=== PATIENT | female | born 1945 | race Caucasian/White ===

== ENCOUNTER → 2017-10-15 14:22 | Outpatient (CLI) | payer MEDICARE, OTHER, SELFPAY ==
[2017-10-15 15:47] LABS: International Normalized Ratio 1.3; Prothrombin Time (Protime)PT. 16.4 SECONDS (11.7-14.9)
== END ==
PROVIDERS: Family Provider Family Medicine; PCP Family Medicine; Visit Provider Internal Medicine Cardiovascular Disease
DX: I48.0 Paroxysmal atrial fibrillation (principal); Z86.711 Personal history of pulmonary embolism
CPT/HCPCS: 36415; 85610

== ENCOUNTER 2017-11-05 15:46 | Outpatient (RCR) | payer MEDICARE, OTHER, SELFPAY ==
[2017-10-11 16:09] LABS: Prothrombin Time (Protime)PT. 13.6 SECONDS (11.7-14.9)
[2017-10-22 14:23] LABS: International Normalized Ratio 1.3; Prothrombin Time (Protime)PT. 16.6 SECONDS (11.7-14.9)
[2017-10-29 16:30] LABS: International Normalized Ratio 1.3; Prothrombin Time (Protime)PT. 15.8 SECONDS (11.7-14.9)
[2017-11-05 17:24] LABS: International Normalized Ratio 1.3; Prothrombin Time (Protime)PT. 16.3 SECONDS (11.7-14.9)
== END 2017-11-05 16:00 | disposition home or self-care (01) ==
LOC: LAB 15:46
PROVIDERS: Family Provider Family Medicine; PCP Family Medicine; Visit Provider Internal Medicine Cardiovascular Disease
DX: I48.0 Paroxysmal atrial fibrillation (principal); Z86.711 Personal history of pulmonary embolism
CPT/HCPCS: 36415; 85610; 97110

== ENCOUNTER → 2017-11-19 14:20 | Outpatient (CLI) | payer MEDICARE, OTHER, SELFPAY ==
[2017-11-19 15:51] LABS: Absolute Neutrophil Count 3.4 X10^3/uL (2.0-7.7); Basophil# 0.02 X10^3/uL; Basophil% 0.3 % (0-1); Eosinophil# 0.19 X10^3/uL; Eosinophils% 3.3 % (0-5); Hematocrit 42.2 % (37-47); Hemoglobin 13.5 g/dl (12.0-15.0); Lymphocyte % 25.8 % (19-41); Mean Corpuscular Hgb 29.6 pg (27.0-32.0); Mean Corpuscular Volume 92.5 fL (81-99); Mean Platelet Vol. 9.7 fl (6.2-12.0); Monocyte# 0.74 X10^3/uL; Monocyte% 12.7 % (0-10); Neutrophil # 3.36 X10^3/uL (2.7-7.7); Neutrophil % 57.9 % (47-70); Platelet Count 228 K/mm3 (150-450); RBC Distribution Width CV 12.8 % (11.6-14.6); RBC Distribution Width SD 42.4 fl (35.1-43.9); Red Blood Count 4.56 M/mm3 (4.2-5.4); White Blood Count 5.8 K/mm3 (4.4-11.0)
[2017-11-19 15:53] LABS: POSITIVE COUNT NO; POSITIVE DIFFERENTIAL NO; POSITIVE MORPHOLOGY NO
[2017-11-19 16:05] LABS: AST(SGOT) 31 U/L (15-37); Alanine Aminotransfer ALT/SGPT 31 U/L (13-56); Albumin, Serum 3.5 g/dL (3.2-5.0); Alkaline Phosphatase 108 U/L (45-117); Anion Gap 6 (5-15); BUN 16 mg/dL (7-18); BUN/Creat Ratio 22.4 RATIO (10-20); Calcium,Total 8.6 mg/dL (8.5-10.1); Chloride 106 mmol/L (98-107); Creatinine, Serum 0.71 mg/dL (0.55-1.02); EST Glomerular Filtration Rate 86 mL/min (>60); Est Glom Filt Rate - Afr Amer 104 mL/min (>60); Globulin 3.4 g/dL (2.2-4.2); Glucose 103 mg/dL (74-106); Potassium 3.7 mmol/L (3.5-5.1); Protein, Total 6.9 g/dL (6.4-8.2); Sodium Level 141 mmol/L (136-145)
[2017-11-19 16:28] LABS: International Normalized Ratio 2.5; Prothrombin Time (Protime)PT. 27.5 SECONDS (11.7-14.9)
== END ==
PROVIDERS: Family Provider Family Medicine; PCP Family Medicine; Visit Provider Internal Medicine Rheumatology
DX: M05.79 Rheumatoid arthritis with rheumatoid factor of multiple sites without organ or systems involvement (principal); Z79.899 Other long term (current) drug therapy; M79.7 Fibromyalgia; M15.9 Polyosteoarthritis, unspecified; M18.12 Unilateral primary osteoarthritis of first carpometacarpal joint, left hand; K21.9 Gastro-esophageal reflux disease without esophagitis; I10 Essential (primary) hypertension; J45.909 Unspecified asthma, uncomplicated; E78.5 Hyperlipidemia, unspecified; I26.99 Other pulmonary embolism without acute cor pulmonale
CPT/HCPCS: 36415; 80053; 85025; 85610

== ENCOUNTER 2017-11-26 13:30 | Outpatient (RCR) | payer MEDICARE, OTHER, SELFPAY ==
--- NOTE | 2017-10-29 14:49 | HP.PTEVAL ---
Patient's Visit Information MURIEL CHRISTINE is a 72 year old F referred to Physical Therapy by Renu Mcdonald, [email or web address] with a diagnosis of balance issues. Date of Evaluation: 10/29/17 Physical Therapist: Jeanne Miller - Visit Plan Frequency: 2x /Week Duration: 4 Weeks - Subjective Subjective: Pt reports that she has no balance. 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 It did not affect her vision. SHe does not get dizzy. She was down for awhile after that surgery and was in and out of the hospital in 1.5 weeks and then resumed her home activities except cant walk straight. She just had a L ear infection about 6 months ago. She always uses a can except a furnitutre walker at home. She has fallen 5 times in the last 3 months. One time she fell over her cane. another time she tripped on her pant leg. another time she had a black eye for awhile. She reports that she does not do anything fast. RA in her back and has been seeing Dr Hurtado and she had no pain for 2 months. She is [place]. Stairs slowly with a railing. She has steps down to the basement. Pt does not think her legs are weak. Hard to get up when on the ground. - Pain back pain Pain Intensity (Out of 10): 0 Pain Intensity Range: 2 - Objective Gait: walks with WBOS with a straight cane with increase veering and some SOB. sit to stand without UE...able to do so but a slight struggle. Stairs: up and down stairs with 1 hand rail and 1 straight cane alternating ascending stairs and 1 step at a time descending stairs. FGA: 30 (struggled with head turns, walking bw, stepping over a block etc). LE MMT: B hip flex 4/5, B hip abd 4-/5, B knee flex 4/5, B knee ext 4/5, heel and toe raises (unable without UE support). - Balance Scores Functional Gait Assessment Score: 9 % Disability: 70.0000 - Goals Goal 1:: I HEP Goal Time Frame: 4-6 Weeks Goal 2:: Increase FGA by 5 points to 14/30 to decrease fall risk. Goal Time Frame: 4-6 Weeks - Rehabilitation Potential Rehabilitation Potential: Good - Anticipated Interventions Patient/Client Instruction: Educate patient on: Plan of Care For the Purpose of:: To increase ROM, To improve nutrient delivery to tissue, To improve muscle performance and motor function, To improve ability to perform ADL's, To increase tolerance to activity/condition/position, To improve performance and independence with ADL's, To decrease level of supervision to perform tasks, To improve ability of physical actions for home/community/work/leisure, To improve gait and locomotor functions, To increase flexibility/ROM, To improve balance, To improve safety with gait Therapeutic Exercise to Include: Strength training, Endurance training, Balance training, Postural training, Flexibilty training, Gait and locomotor training, Passive ROM, Active ROM For the Purpose of:: To increase ROM, To improve nutrient delivery to tissue, To improve muscle performance and motor function, To improve ability to perform ADL's, To increase tolerance to activity/condition/position, To improve performance and independence with ADL's, To improve ability of physical actions for home/community/work/leisure, To improve gait and locomotor functions, To improve balance, To improve safety with gait Functional Training to Include: Gait training For the Purpose of:: To improve gait and locomotor functions, To improve safety with gait Thank you for the opportunity to evaluate your patient. For Medicare and Medicare HMO plans, please review the plan of care and approve it. It will need to be FAXED BACK to us at [phone] for Medicare purposes. Please let me know if there are questions or concerns regarding this plan of care. Physician Signature: Date:
--- NOTE | 2017-11-26 15:12 | HP.PTDCSUM ---
HP - PT D/C Summary It has been my pleasure to treat MURIEL CHRISTINE under orders from CAR[facility] GoldmanC, for the diagnosis of balance issues for a total of 9 visit(s). Discharge Date: 11/26/17 Please see the following information for a summary of their discharge status. - Subjective Subjective: Pt reports that she has been showing her kids how she can walk BW and SW. Pt feels that her balance is about 65% better. She is even walking around the hosue a little without the cane but then her back starts to hurt. Pt feels that she will be ok to do HEP at home for awhile. - Pain back pain Pain Intensity (Out of 10): 4 L UE Pain Intensity (Out of 10): 0 - Overall Improvement % Improvement: 65 - Objective Objective/Function: FGA 11. Pt walks with increase speed and confidence. She does tend to veer a little with turning but has caught herself the handful of times that she has veered here in the clinic. - Goals Goal 1:: I HEP Goal Progress: Goal Met Goal 2:: Increase FGA by 5 points to to decrease fall risk. Goal Progress: Progressing - Plan Plan: DC PT to HEP - D/C Information Discharge Comments: DC PT If there are questions or concerns regarding this patient's physical therapy, please feel free to call me at [phone]. Thank you for the referral of this patient. Sincerely, Jeanne Miller
== END 2017-11-26 19:00 | disposition home or self-care (01) ==
LOC: PT 13:30
PROVIDERS: Family Provider Family Medicine; PCP Family Medicine; Visit Provider Nurse Practitioner Family
DX: M54.17 Radiculopathy, lumbosacral region (principal); M51.37 Other intervertebral disc degeneration, lumbosacral region; M47.817 Spondylosis without myelopathy or radiculopathy, lumbosacral region; M46.96 Unspecified inflammatory spondylopathy, lumbar region
CPT/HCPCS: 97110; 97162; 97530

== ENCOUNTER 2017-12-03 15:28 | Outpatient (RCR) | payer MEDICARE, OTHER, SELFPAY ==
[2017-11-12 14:56] LABS: International Normalized Ratio 1.7; Prothrombin Time (Protime)PT. 19.6 SECONDS (11.7-14.9)
[2017-12-03 16:07] LABS: International Normalized Ratio 1.7; Prothrombin Time (Protime)PT. 19.7 SECONDS (11.7-14.9)
== END 2017-12-03 16:00 | disposition home or self-care (01) ==
LOC: LAB 15:28
PROVIDERS: Family Provider Family Medicine; PCP Family Medicine; Visit Provider Internal Medicine Cardiovascular Disease
DX: I48.0 Paroxysmal atrial fibrillation (principal); Z86.711 Personal history of pulmonary embolism; M54.17 Radiculopathy, lumbosacral region; M51.37 Other intervertebral disc degeneration, lumbosacral region; M47.817 Spondylosis without myelopathy or radiculopathy, lumbosacral region; M46.96 Unspecified inflammatory spondylopathy, lumbar region
CPT/HCPCS: 36415; 85610; 97110

== ENCOUNTER 2018-01-03 13:46 | Outpatient (RCR) | payer MEDICARE, OTHER, SELFPAY ==
[2017-12-17 16:50] LABS: International Normalized Ratio 1.7
[2017-12-26 14:12] LABS: International Normalized Ratio 1.6
[2018-01-03 15:05] LABS: International Normalized Ratio 2.9; Prothrombin Time (Protime)PT. 30.6 SECONDS (11.7-14.9)
== END 2018-01-03 14:00 | disposition home or self-care (01) ==
LOC: LAB 13:46
PROVIDERS: Family Provider Family Medicine; PCP Family Medicine; Visit Provider Internal Medicine Cardiovascular Disease
DX: I48.0 Paroxysmal atrial fibrillation (principal); Z86.711 Personal history of pulmonary embolism; M54.17 Radiculopathy, lumbosacral region; M51.37 Other intervertebral disc degeneration, lumbosacral region; M47.817 Spondylosis without myelopathy or radiculopathy, lumbosacral region; M46.96 Unspecified inflammatory spondylopathy, lumbar region
CPT/HCPCS: 36415; 85610

== ENCOUNTER 2018-01-27 16:09 | Outpatient (RCR) | payer MEDICARE, OTHER, SELFPAY ==
[2018-01-20 16:42] LABS: Prothrombin Time (Protime)PT. 39.1 SECONDS (11.7-14.9)
[2018-01-27 17:16] LABS: International Normalized Ratio 2.8; Prothrombin Time (Protime)PT. 29.9 SECONDS (11.7-14.9)
== END 2018-01-27 17:00 | disposition home or self-care (01) ==
LOC: LAB 16:09
PROVIDERS: Family Provider Family Medicine; PCP Family Medicine; Visit Provider Internal Medicine Cardiovascular Disease
DX: I48.0 Paroxysmal atrial fibrillation (principal); Z86.711 Personal history of pulmonary embolism
CPT/HCPCS: 36415; 85610

== ENCOUNTER → 2018-02-04 13:26 | Outpatient (CLI) | payer MEDICARE, OTHER, SELFPAY ==
[2018-02-04 14:16] LABS: International Normalized Ratio 2.4
== END ==
PROVIDERS: Internal Medicine Cardiovascular Disease; Family Provider Family Medicine; PCP Family Medicine; Visit Provider Anesthesiology Pain Medicine
DX: I48.0 Paroxysmal atrial fibrillation (principal); Z86.711 Personal history of pulmonary embolism
CPT/HCPCS: 36415; 85610

== ENCOUNTER → 2018-02-17 15:31 | Outpatient (CLI) | payer MEDICARE, OTHER, SELFPAY ==
[2018-02-17 17:37] LABS: Absolute Lymphocyte Count 0.69 X10^3/ul (0.83-4.51); Absolute Neutrophil Count 4.8 X10^3/uL (2.0-7.7); Basophil# 0.02 X10^3/uL; Basophil% 0.4 % (0-1); Eosinophil# 0.03 X10^3/uL; Eosinophils% 0.5 % (0-5); Hematocrit 40.8 % (37-47); Hemoglobin 13.2 g/dl (12.0-15.0); Lymphocyte # 0.69 X10^3/ul (4.0); Lymphocyte % 12.1 % (19-41); Mean Corp Hgb Conc 32.4 g/gl (32-36); Mean Corpuscular Volume 92.7 fL (81-99); Mean Platelet Vol. 9.5 fl (6.2-12.0); Monocyte# 0.13 X10^3/uL; Monocyte% 2.3 % (0-10); Neutrophil # 4.81 X10^3/uL (2.7-7.7); Neutrophil % 84.7 % (47-70); Platelet Count 223 K/mm3 (150-450); RBC Distribution Width CV 14.2 % (11.6-14.6); RBC Distribution Width SD 48.2 fl (35.1-43.9); White Blood Count 5.7 K/mm3 (4.4-11.0)
[2018-02-17 17:45] LABS: POSITIVE COUNT NO; POSITIVE DIFFERENTIAL NO; POSITIVE MORPHOLOGY NO
[2018-02-17 18:03] LABS: AST(SGOT) 46 U/L (15-37); Alanine Aminotransfer ALT/SGPT 46 U/L (13-56); Albumin, Serum 3.3 g/dL (3.2-5.0); Alkaline Phosphatase 87 U/L (45-117); Anion Gap 9 (5-15); BUN 13 mg/dL (7-18); BUN/Creat Ratio 18.5 RATIO (10-20); Calcium,Total 8.3 mg/dL (8.5-10.1); Chloride 107 mmol/L (98-107); EST Glomerular Filtration Rate 88 mL/min (>60); Est Glom Filt Rate - Afr Amer 106 mL/min (>60); Globulin 3.4 g/dL (2.2-4.2); Glucose 169 mg/dL (74-106); Potassium 4.1 mmol/L (3.5-5.1); Protein, Total 6.7 g/dL (6.4-8.2); Sodium Level 142 mmol/L (136-145)
== END ==
PROVIDERS: Family Provider Family Medicine; PCP Family Medicine; Visit Provider Internal Medicine Rheumatology
DX: M05.79 Rheumatoid arthritis with rheumatoid factor of multiple sites without organ or systems involvement (principal); Z79.899 Other long term (current) drug therapy; M79.7 Fibromyalgia; M15.9 Polyosteoarthritis, unspecified; M18.12 Unilateral primary osteoarthritis of first carpometacarpal joint, left hand; M18.11 Unilateral primary osteoarthritis of first carpometacarpal joint, right hand; M18.10 Unilateral primary osteoarthritis of first carpometacarpal joint, unspecified hand
CPT/HCPCS: 36415; 80053; 85025

== ENCOUNTER 2018-03-04 14:25 | Outpatient (RCR) | payer MEDICARE, OTHER, SELFPAY ==
[2018-03-04 16:18] LABS: International Normalized Ratio 2.4; Prothrombin Time (Protime)PT. 26.3 SECONDS (11.7-14.9)
== END 2018-03-04 16:00 | disposition home or self-care (01) ==
LOC: LAB 14:25
PROVIDERS: Family Provider Family Medicine; PCP Family Medicine; Visit Provider Internal Medicine Cardiovascular Disease
DX: I48.0 Paroxysmal atrial fibrillation (principal); Z86.711 Personal history of pulmonary embolism; M54.17 Radiculopathy, lumbosacral region; M51.37 Other intervertebral disc degeneration, lumbosacral region; M47.817 Spondylosis without myelopathy or radiculopathy, lumbosacral region; M46.96 Unspecified inflammatory spondylopathy, lumbar region
CPT/HCPCS: 36415; 85610

== ENCOUNTER → 2018-03-18 06:20 | Outpatient (CLI) | payer MEDICARE, OTHER, SELFPAY ==
--- NOTE | 2018-03-18 13:39 | STRESSREP ---
Stress Test Report Date: 03/18/2018 Procedure: Pharmacologic stress nuclear imaging study Indications: Dyspnea Consent: Per the patient Procedure: The patient underwent pharmacologic (Regadenoson) evaluation with a peak heart rate of 107 beats per minute (85 predicted maximal heart rate) and a peak blood pressure of 132/78 mmHg. The baseline ECG demonstrated normal sinus rhythm; right bundle branch block. The peak pharmacologic ECG demonstrated no obvious ECG changes. There was an occasional PVC during infusion and recovery. There was no complaint of chest discomfort during pharmacologic infusion or recovery. The examination was discontinued secondary to completion of protocol. Impression: 1. Pharmacologic (Regadenoson) evaluation 2. Peak pharmacologic ECG with no obvious ECG changes. 3. Was an occasional PVC during infusion and recovery 4. Nuclear images pending Myocardial perfusion imaging study: Technique: The patient was injected with 12 millicuries of technetium 99m Cardiolite and subsequently rest SPECT Cardiolite nuclear imaging was obtained in the horizontal long, vertical long, and short axis views. The patient underwent pharmacologic (Regadenoson) evaluation with a peak heart rate of 107 beats per minute (85 % percent predicted maximal heart rate) and a peak blood pressure of 132/78 mmHg. The patient was injected with 36 millicuries of technetium 99m Cardiolite and subsequently stress SPECT Cardiolite nuclear imaging was obtained in the horizontal long, vertical long, and short axis views. A gated Cardiolite study at peak stress was obtained. Interpretation: Rest and stress SPECT Cardiolite nuclear imaging status post realignment, normalization, and attenuation correction demonstrate a lot of uniform tracer uptake and myocardial perfusion appearing within normal limits. There is end systolic thickening and brightening. The gated Cardiolite study demonstrates myocardial thickening and inward wall motion. The reported LVEF is 81 %. Impression: 1. Rest and stress SPECT Cardiolite nuclear imaging demonstrate relative uniform tracer uptake and myocardial perfusion appearing within normal limits. 2. The gated Cardiolite study reports an LVEF of 81 %. This note was generated with [employer] software. It may contain incorrect words, spelling, and punctuation that were not noted in checking the note before signing.
== END ==
PROVIDERS: Family Provider Family Medicine; PCP Family Medicine; Visit Provider Family Medicine
DX: R06.02 Shortness of breath (principal)
CPT/HCPCS: 78452; 93017; A9500; A4216; J2785

== ENCOUNTER 2018-04-07 15:42 | Outpatient (RCR) | payer MEDICARE, OTHER, SELFPAY ==
[2018-03-20 16:21] LABS: International Normalized Ratio 1.3; Prothrombin Time (Protime)PT. 15.7 SECONDS (11.7-14.9)
[2018-04-07 17:23] LABS: International Normalized Ratio 2.3; Prothrombin Time (Protime)PT. 25.6 SECONDS (11.7-14.9)
== END 2018-04-07 17:00 | disposition home or self-care (01) ==
LOC: LAB 15:42
PROVIDERS: Family Provider Family Medicine; PCP Family Medicine; Visit Provider Internal Medicine Cardiovascular Disease
DX: I48.0 Paroxysmal atrial fibrillation (principal); Z86.711 Personal history of pulmonary embolism
CPT/HCPCS: 36415; 85610

== ENCOUNTER 2018-04-29 13:40 | Outpatient (RCR) | payer MEDICARE, OTHER, SELFPAY ==
[2018-04-29 15:34] LABS: International Normalized Ratio 3.2; Prothrombin Time (Protime)PT. 33.3 SECONDS (11.7-14.9)
[2018-04-29 15:41] LABS: AST(SGOT) 31 U/L (15-37); Alanine Aminotransfer ALT/SGPT 33 U/L (13-56); Albumin, Serum 3.4 g/dL (3.2-5.0); Alkaline Phosphatase 87 U/L (45-117); Bilirubin, Direct 0.07 mg/dL (0.00-0.30); Cholesterol 143 mg/dL (200); Globulin 3.5 g/dL (2.2-4.2); High Density Lipoprotein 50 mg/dL; Protein, Total 6.9 g/dL (6.4-8.2); Triglycerides 129 mg/dL; Very Low Density Lipoprotein 26 mg/dL (5-40)
== END 2018-04-29 15:00 | disposition home or self-care (01) ==
LOC: LAB 13:40
PROVIDERS: Nurse Practitioner Family; Family Provider Family Medicine; PCP Family Medicine; Visit Provider Internal Medicine Cardiovascular Disease
DX: I48.0 Paroxysmal atrial fibrillation (principal); E78.5 Hyperlipidemia, unspecified; Z86.711 Personal history of pulmonary embolism
CPT/HCPCS: 36415; 80061; 80076; 85610

== ENCOUNTER → 2018-05-13 14:24 | Outpatient (CLI) | payer MEDICARE, OTHER, SELFPAY ==
[2018-05-13 16:13] LABS: Absolute Lymphocyte Count 1.87 X10^3/ul (0.83-4.51); Absolute Neutrophil Count 3.9 X10^3/uL (2.0-7.7); Basophil# 0.02 X10^3/uL; Basophil% 0.3 % (0-1); Eosinophil# 0.23 X10^3/uL; Eosinophils% 3.4 % (0-5); Hematocrit 41.2 % (37-47); Hemoglobin 13.5 g/dl (12.0-15.0); Lymphocyte # 1.87 X10^3/ul (4.0); Mean Corp Hgb Conc 32.8 g/gl (32-36); Mean Corpuscular Volume 91.6 fL (81-99); Mean Platelet Vol. 9.5 fl (6.2-12.0); Monocyte# 0.69 X10^3/uL; Monocyte% 10.3 % (0-10); Neutrophil # 3.87 X10^3/uL (2.7-7.7); Neutrophil % 57.9 % (47-70); Platelet Count 205 K/mm3 (150-450); White Blood Count 6.7 K/mm3 (4.4-11.0)
[2018-05-13 16:16] LABS: POSITIVE COUNT NO; POSITIVE DIFFERENTIAL NO; POSITIVE MORPHOLOGY NO
[2018-05-13 16:25] LABS: International Normalized Ratio 2.3
[2018-05-13 16:44] LABS: ALB/GLOB Ratio 0.9 RATIO (0.9-2.4); AST(SGOT) 33 U/L (15-37); Alanine Aminotransfer ALT/SGPT 37 U/L (13-56); Albumin, Serum 3.2 g/dL (3.2-5.0); Alkaline Phosphatase 88 U/L (45-117); Anion Gap 9 (5-15); BUN 12 mg/dL (7-18); BUN/Creat Ratio 16.2 RATIO (10-20); Calcium,Total 8.6 mg/dL (8.5-10.1); Chloride 106 mmol/L (98-107); Creatinine, Serum 0.74 mg/dL (0.55-1.02); EST Glomerular Filtration Rate 82 mL/min (>60); Est Glom Filt Rate - Afr Amer 100 mL/min (>60); Globulin 3.4 g/dL (2.2-4.2); Glucose 103 mg/dL (74-106); Potassium 3.9 mmol/L (3.5-5.1); Protein, Total 6.6 g/dL (6.4-8.2); Sodium Level 142 mmol/L (136-145)
== END ==
PROVIDERS: Family Provider Family Medicine; PCP Family Medicine; Referring Provider Internal Medicine Rheumatology; Visit Provider Internal Medicine Rheumatology
DX: I48.0 Paroxysmal atrial fibrillation (principal); Z86.711 Personal history of pulmonary embolism; M05.79 Rheumatoid arthritis with rheumatoid factor of multiple sites without organ or systems involvement; Z79.899 Other long term (current) drug therapy; M79.7 Fibromyalgia; M15.9 Polyosteoarthritis, unspecified; M18.12 Unilateral primary osteoarthritis of first carpometacarpal joint, left hand; M18.11 Unilateral primary osteoarthritis of first carpometacarpal joint, right hand; K21.9 Gastro-esophageal reflux disease without esophagitis; I10 Essential (primary) hypertension; E78.5 Hyperlipidemia, unspecified; M18.10 Unilateral primary osteoarthritis of first carpometacarpal joint, unspecified hand
CPT/HCPCS: 36415; 80053; 85025; 85610

== ENCOUNTER 2018-07-08 16:10 | Outpatient (RCR) | payer MEDICARE, OTHER, SELFPAY ==
[2018-07-08 18:09] LABS: International Normalized Ratio 1.1; Prothrombin Time (Protime)PT. 14.2 SECONDS (11.7-14.9)
--- OUTSIDE RECORDS SUMMARY | 2018-09-03 09:01 | XMS RPT_ITS ---
:1945 Author Organization OHIP Support Name Relationship Address Phone R Unavailable Unavailable Unavailable TAMAR CHRISTINE Unavailable [address] + [place] [address] R Unavailable Unavailable Unavailable TAMAR CHRISTINE Unavailable [address] + [place] [address] R Unavailable Unavailable Unavailable T[facility]AR [facility]STINE [facility] [address] + [place] [address] R Unavailable Unavailable Unavailable TAMAR CHRISTINE Unavailable [facility] [address] + [place] [address] R Unavailable Unavailable Unavailable TAMAR CHRISTINE Unavailable [facility] [address] + [place] [address] R Unavailable Unavailable Unavailable TAMAR CHRISTINE Unavailable [facility] [address] + [place] [address] R Unavailable Unavailable Unavailable TAMAR CHRISTINE [facility] [address] + [place] [address] R Unavailable Unavailable Unavailable TAMAR CHRISTINE Unavailable [address] + [place] [address] R Unavailable Unavailable Unavailable TAMAR CHRISTINE Unavailable [address] + [place] [address] R Unavailable Unavailable Unavailable TAMAR CHRISTINE Unavailable [address] + [place] [address] R Unavailable Unavailable Unavailable TAMAR CHRISTINE Unavailable [address] + [place] [address] R Unavailable Unavailable Unavailable TAMAR CHRISTINE Unavailable [address] + [place] [address] R Unavailable Unavailable Unavailable TAMAR CHRISTINE Unavailable [address] + [place] [address] R Unavailable Unavailable Unavailable TAMAR CHRISTINE [facility] [address] + [place] [address] R Unavailable Unavailable Unavailable WELLS, TAMAR Unavailable [address] + [place] [address] R Unavailable Unavailable Unavailable WELLS, TAMAR Unavailable [address] + [place] [address] R Unavailable Unavailable Unavailable WELLS, TAMAR Unavailable [address] + [place] [address] R Unavailable Unavailable Unavailable WELLS, TAMAR Unavailable [address] + [place] [address] R Unavailable Unavailable Unavailable WELLS, TAMAR Unavailable [address] + [place] [address] R Unavailable Unavailable Unavailable WELLS, TAMAR Unavailable [address] + [place] [address] R Unavailable Unavailable Unavailable WELLS, TAMAR Unavailable [address] + [place] [address] R Unavailable Unavailable Unavailable WELLS, TAMAR Unavailable [address] + [place] [address] Care Team Providers Name Role Phone Ghazal Harrison Attending Unavailable Christy, Ghazal Referring Unavailable Baxter, Low Primary Care Unavailable Jayne, Davenport Attending Unavailable Baxter, Low Referring Unavailable Baxter, Low Primary Care Unavailable Jayne, [place]en[place] Attending Unavailable Baxter, Low Primary Care Unavailable Jayne, [place] Referring Unavailable Jayne, Obdulio Attending Unavailable Jayne, Obdulio Referring Unavailable Baxter, Low Primary Care Unavailable Baxter, Low Primary Care Unavailable Prebish, Renu RUBY [employer] RAILS ENGINEER-C Referring Unavailable Prebish, Renu RUBY ON RAILS ENGINEER-C Attending Unavailable Terrance Sandhu Attending Unavailable Baxter, Low Referring Unavailable Baxter, Low Primary Care Unavailable Jayne, Davenport Attending Unavailable Jayne, [place]en[place] Referring Unavailable Baxter, Low Primary Care Unavailable Ghazal Harrison Attending Unavailable Ghazal Harrison Referring Unavailable Baxter, Low Primary Care Unavailable Jayne, Obdulio Attending Unavailable Jayne, [place]en[place] Referring Unavailable Baxter, Low Primary Care Unavailable Jayne, [place] Attending Unavailable Jayne, Obdulio Referring Unavailable Baxter, Low Primary Care Unavailable Annemarie Aviles Attending Unavailable Cruz Liu Attending Unavailable Cruz Liu Referring Unavailable Baxter, Low Primary Care Unavailable Jayne, Davenport Attending Unavailable Jayne, Obdulio Referring Unavailable Baxter, Low Primary Care Unavailable Vellanki, Ghazal Attending Unavailable Vellanki, Ghazal Referring Unavailable Baxter, Low Primary Care Unavailable Baxter, Low Attending Unavailable Baxter, Low Referring Unavailable Baxter, Low Primary Care Unavailable Jayne, [place]en[place] Attending Unavailable Jayne, Obdulio Referring Unavailable Baxter, Low Primary Care Unavailable Noe, Cruz Consulting Unavailable Gen Iniguez Attending Unavailable Baxter, Low Referring Unavailable Baxter, Low Primary Care Unavailable Jayne, Obdulio Attending Unavailable Jayne, Obdulio Referring Unavailable Baxter, Low Primary Care Unavailable Noe, Cruz Consulting Unavailable Roof, Terrance H Consulting Unavailable Moodispaw, Low Attending Unavailable Baxter, Low Referring Unavailable Vellanki, Ghazal Attending Unavailable Vellanki, Ghazal Referring Unavailable Baxter, Low Primary Care Unavailable Jayne, Obdulio Attending Unavailable Jayne, [place] Referring Unavailable Baxter, Low Primary Care Unavailable Noe, Cruz Consulting Unavailable Roof, Terrance H Consulting Unavailable Jayne, Obdulio Attending Unavailable Jayne, Obdulio Referring Unavailable Baxter, Low Primary Care Unavailable Noe, Cruz Consulting Unavailable Roof, Terrance H Consulting Unavailable PROBLEMS PROBLEMS DATE TYPE CONDITION / CODE ATTENDING STATUS SOURCE Unknown I48.0 - Paroxysmal atrial Jayne, Obdulio Active [place] [facility] fibrillation / Community I48.0(ICD-10) Hospital Repository Unknown E78.5 - Hyperlipidemia, Jayne, Obdulio Active [place] [facility] unspecified / Community E78.5(ICD-10) Hospital Repository Unknown R06.02 - Shortness of Moodispaw, Active [place] 8 breath / R06.02(ICD-10) [facility] Repository Unknown Z79.899 - Other client engagement specialist Vellanstacy, Active [place] [facility] (current) drug therapy / [facility] Z79.899(ICD-10) Hospital Repository Unknown M79.7 - Fibromyalgia / Vellanki, Active [place] 8 M79.7(ICD-10) [facility] Hospital Repository Unknown M15.9 - Vellanki, Active [place] [facility] Polyosteoarthritis, [facility] unspecified / Hospital M15.9(ICD-10) Repository Unknown M18.12 - Unilateral Vellanki, Active [place] 8 [facility] / Repository M18.12(ICD-10) Unknown M18.11 - Unilateral Vellanki, Active [place] 8 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, right hand / Repository M18.11(ICD-10) Unknown M18.10 - Unilateral Vellanki, Active [place] 8 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, unspecified hand / Repository M18.10(ICD-10) Unknown M54.17 - Radiculopathy, Prebish, Renu Active [place] 8 lumbosacral region / RUBY [employer] RAILS ENGINEER-C Community M54.17(ICD-10) Hospital Repository Unknown 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, Active [place] 8 arthritis with rheumatoid [facility] Community factor of multiple sites Hospital without organ or systems Repository involvement / M05.79(ICD-10) Unknown I10 - Essential (primary) Vellanki, Active [place] 8 hypertension / [facility] I10(ICD-10) Hospital Repository Unknown K21.9 - Gastro-esophageal Vellanki, Active [place] 8 reflux disease without [facility] esophagitis / Hospital K21.9(ICD-10) Repository Unknown J45.909 - Unspecified Vellanki, Active [place] 8 asthma, uncomplicated / [facility] J45.909(ICD-10) Hospital Repository Unknown I26.99 - Other pulmonary Vellanki, Active [place] 8 embolism without acute [facility] cor pulmonale / Hospital I26.99(ICD-10) Repository Unknown Z86.711 - Personal Jayne, Davenport Active [place] 8 history of pulmonary Community embolism / Hospital Z86.711(ICD-10) Repository Unknown E78.00 - Pure Jayne, Obdulio Active [place] 8 hypercholesterolemia, Community unspecified / Hospital E78.00(ICD-10) Repository Unknown E78.0 - Pure Jayne, Davenport Active [place] 8 hypercholesterolemia / Community E78.0(ICD-10) Hospital Repository PROCEDURES PROCEDURES No Procedure Records FoundRESULTS RESULTS PROTHROMBIN TIME W/INR Collected: 07/08/2018 Status: F Source: [place] 4:16 PM [facility] REPOSITORY TYPE CODE TESTS RESULT OUT OF RANGE REFERENCE UNITS LAB L300.4150 11.7-14.9 SECONDS Normal PROTIME 14.2 LAB L300.4200 Normal INR 1.1 Performed By: #### L300.3900 #### [facility] [address] [place], [address] PROTHROMBIN TIME W/INR Collected: 05/13/2018 Status: F Source: [place] 2:33 PM [facility] REPOSITORY Order Comment: DR. GODOY WANTS THE PT/INR CHRISTY CARDENAS WANTS THE CBCD CMP TYPE CODE TESTS RESULT OUT OF RANGE REFERENCE UNITS LAB L300.4150 11.7-14.9 SECONDS High PROTIME 25.0 LAB L300.4200 Normal INR 2.3 Performed By: #### L300.3900 #### [facility] [address] [place], [place], [address] CBC W/DIFF, AUTOMATED Collected: 05/13/2018 Status: F Source: [place] 2:31 PM [facility] REPOSITORY Order Comment: DR. GODOY WANTS THE PT/INR CHRISTY CARDENAS WANTS THE CBCD CMP TYPE CODE TESTS RESULT OUT OF RANGE REFERENCE UNITS LAB L100.1000 4.4-11.0 K/mm3 Normal WBC 6.7 LAB L100.1200 4.2-5.4 M/mm3 Normal RBC 4.50 LAB L100.1300 12.0-15.0 g/dl Normal HGB 13.5 LAB L100.1400 37-47 % Normal HCT 41.2 LAB L100.1500 81-99 fL Normal MCV 91.6 LAB L100.1600 27.0-32.0 pg Normal MCH 30.0 LAB L100.1700 32-36 g/gl Normal MCHC 32.8 LAB L100.1810 11.6-14.6 % Normal RDW CV 13.0 LAB L100.1820 35.1-43.9 fl Normal RDW SD 43.0 LAB L100.1900 150-450 K/mm3 Normal PLT 205 LAB L100.2000 6.2-12.0 fl Normal MPV 9.5 LAB L100.2100 47-70 % Normal NEUT% 57.9 LAB L100.2200 19-41 % Normal LY% 28.0 LAB L100.2300 0-10 % High MONO% 10.3 LAB L100.2400 0-5 % Normal EO% 3.4 LAB L100.2500 0-1 % Normal BASO% 0.3 LAB L100.2550 0.0-0.9 % Normal IM GRAN % 0.100 Result Comment: IG% - Immature Granulocytes (promyelocytes, myelocytes and metamyelocytes) > 1% indicates that a LEFT SHIFT is Present. LAB L100.2620 2.0-7.7 X10 3/uL Normal Absolute Neut 3.9 LAB L100.2720 0.83-4.51 X10 3/ul Normal Absolute Lymph 1.87 Performed By: #### L100.0100 #### [facility] [address] [place], [address] COMPREHENSIVE METABOLIC Collected: 05/13/2018 Status: F Source: [facility] 2:31 PM [facility] REPOSITORY Order Comment: DR. GODOY WANTS THE PT/INR CHRISTY CARDENAS WANTS THE CBCD CMP TYPE CODE TESTS RESULT OUT OF RANGE REFERENCE UNITS LAB L501.0100 74-106 mg/dL Normal GLU 103 Result Comment: Fasting Glucose result from 100 to 125 mg/dL suggests IMPAIRED HOMEOSTASIS per A.D.A. criteria. Please note revised GLUCOSE reference range effective 2017. LAB L501.1000 7-18 mg/dL Normal BUN 12 LAB L501.1100 0.55-1.02 mg/dL Normal CREAT,SERUM 0.74 Result Comment: The validity of the calculated GFR AND GFRAA in patients over 70 years has not been determined. Clinical correlation is essential. LAB L501.1110 >60 mL/min Normal EST GFR 82 Result Comment: Non- GFR Calc LAB L501.1115 >60 mL/min Normal EST GFR - AA 100 Result Comment: GFR Calc LAB L501.1300 10-20 RATIO Normal BUN/CRE 16.2 LAB L501.1500 6.4-8.2 g/dL T Normal PROT 6.6 LAB L501.1800 3.2-5.0 g/dL Normal ALB 3.2 LAB L501.1950 2.2-4.2 g/dL Normal GLOB 3.4 LAB L501.2000 0.9-2.4 RATIO Normal A/G 0.9 LAB L501.2200 8.5-10.1 mg/dL CA Normal 8.6 LAB L501.4100 15-37 U/L Normal AST 33 LAB L501.4305 45-117 U/L Normal ALK P 88 LAB L501.4405 13-56 U/L Normal ALT 37 LAB L501.4600 0.20-1.00 mg/dL T Normal BILI 0.30 LAB L501.5300 136-145 mmol/L NA Normal 142 LAB L501.5600 3.5-5.1 mmol/L K Normal 3.9 LAB L501.5900 98-107 mmol/L CL Normal 106 LAB L501.6100 21.0-32.0 mmol/L Normal CO2 27.0 LAB L501.6200 5-15 Normal GAP 9 Performed By: #### L500.4050 #### [facility] [address] [place], [place], [address] PROTHROMBIN TIME W/INR Collected: 04/29/2018 Status: F Source: [place] 1:45 PM [facility] REPOSITORY TYPE CODE TESTS RESULT OUT OF RANGE REFERENCE UNITS LAB L300.4150 11.7-14.9 SECONDS High PROTIME 33.3 LAB L300.4200 Normal INR 3.2 Performed By: #### L300.3900 #### [facility] [address] [place], [place], [address] LIVER PROFILE Collected: 04/29/2018 Status: F Source: [place] 1:44 PM [facility] REPOSITORY TYPE CODE TESTS RESULT OUT OF RANGE REFERENCE UNITS LAB L501.1500 6.4-8.2 g/dL Normal T PROT 6.9 LAB L501.1800 3.2-5.0 g/dL Normal ALB 3.4 LAB L501.1950 2.2-4.2 g/dL Normal GLOB 3.5 LAB L501.4100 15-37 U/L Normal AST 31 LAB L501.4305 45-117 U/L Normal ALK P 87 LAB L501.4405 13-56 U/L Normal ALT 33 LAB L501.4600 0.20-1.00 mg/dL Normal T BILI 0.30 LAB L501.4700 0.00-0.30 mg/dL Normal D BILI 0.07 Performed By: #### L500.3400, L500.4100 #### [facility] [address] [place], [address] LIPID PROFILE Collected: 04/29/2018 Status: F Source: [place] 1:44 PM [facility] REPOSITORY TYPE CODE TESTS RESULT OUT OF RANGE REFERENCE UNITS LAB L501.4900 200 mg/dL Normal CHOL 143 Result Comment: <200 mg/dL Desirable 200-240 mg/dL Borderline >240 mg/dL High Risk LAB L501.5000 mg/dL Normal TRIG 129 Result Comment: The drugs N-Acetylcysteine and Metamizole may falsely depress this assay. Serum Triglycerides Reference Interval Normal <150 mg/dL Borderline high 150 - 199 mg/dL High 200 - 499 mg/dL Very High > or = 500 mg/dL LAB L501.6400 mg/dL Normal HDL 50 Result Comment: The drugs N-Acetylcysteine and Metamizole may falsely depress this assay. Reference Range HDL <40 mg/dL Low HDL Cholesterol HDL >or= 60 mg/dL High HDL Cholesterol LAB L501.6500 0-130 mg/dL Normal LDL 67 LAB L501.6600 5-40 mg/dL Normal VLDL 26 Performed By: #### L500.3400, L500.4100 #### [facility] [address] [place], [address] CARDIOLOGY VISIT Observed: 04/09/2018 Status: F Source: [place] REPORT 12:03 PM [facility] REPOSITORY [facility] [address] [place] [address] OFFICE VISIT Date of Service: 04/07/18 MR#: [id number] Acct: [id number] Name: MURIEL CHRISTINE Rep #: [id number] : 1945 Provider: WADE Sandhu Age/Sex: 73/F Location: [facility] Status: Signed HPI HPI Details: MURIEL CHRISTINE, is a 73 F who presents to the office today for a cardiovascular outpatient follow-up. She has a history of paroxysmal atrial fibrillation, previous pulmonary embolism, hypertension, and hyperlipidemia. Pt. denies chest, arm, jaw, or neck discomfort. Her exercise tolerance is stable. Pt. denies symptoms of CHF, palpitations, lightheadedness, dizziness, near syncope, or syncopal episodes. Pt. denies edema or claudication issues. Pt. denies orthopnea, PND, fever, chills, blood in urine, blood in stool, myalgia, or unexplainable fatigue. Intake Vital Signs04/07/18 Height 5 ft 1 in 04/07/18 Weight: 212 lb 04/07/18 Body Mass Index (BMI) 40.0 04/07/18 Blood Pressure 136/64 04/07/18 Blood Pressure Location Lt brachial Intake Visit Reasons: 6 M Coagulating Operator Required: No Accompanied by: None Is patient in pain?: No Allergies Penicillins Allergy (Verified 04/07/18 15:01) Rash Medications Hydroxychloroquine [Plaquenil] 200 mg PO DAILYCM 09/09/13 [History Confirmed 04/07/18] traZODone [Desyrel] 100 mg PO QHS 09/09/13 [History Confirmed 04/07/18] Abatacept [Orencia] 125 mg SQ FR 01/19/15 [History Confirmed 04/07/18] Multivit-Min/FA/Lycopene/Lut [Centrum Silver Tablet] 1 tab PO DAILY 01/19/15 [History Confirmed 04/07/18] calcium carb,cit 315 mg-vitamin D3 250 unit-phytosterols 200 mg tablet 1 tab PO .q day ea 10/04/17 [History Confirmed 04/07/18] folic acid 1 mg tablet 1 mg PO QDAY 10/04/17 [History Confirmed 04/07/18] methotrexate sodium 2.5 mg tablet 2.5 mg PO .COMPLEX 10/08/17 [History Confirmed 04/07/18] oxycodone-acetaminophen 5 mg-325 mg tablet 1 tab PO BID tab 10/08/17 [History Confirmed 03/19/18] quetiapine 200 mg tablet 200 mg PO QHS tab 10/08/17 [History Confirmed 04/07/18] sertraline 100 mg tablet 100 mg PO QHS tab 10/08/17 [History Confirmed 04/07/18] pravastatin 20 mg tablet 20 mg PO QHS #90 tab 12/19/17 [Rx Confirmed 04/07/18] cyclobenzaprine 10 mg tablet 10 mg PO TID PRN #20 tab 03/19/18 [Rx Confirmed 04/07/18] metoprolol succinate ER 50 mg tablet,extended release 24 hr 50 mg PO QDAY #90 tab 03/24/18 [Rx Confirmed 04/07/18] amlodipine 10 mg tablet 10 mg PO DAILY 04/07/18 [History Confirmed 04/07/18] losartan 50 mg tablet 50 mg PO DAILY 04/07/18 [History Confirmed 04/07/18] warfarin 4 mg tablet 4 mg PO .COMPLEX #120 tab 04/07/18 [Rx Confirmed 04/07/18] Ejection fraction %: 65 to 70 PFSH Medical History 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) Hyperlipidemia (Chronic) Long-term use of immunosuppressant medication (Chronic) History of pulmonary embolism (Chronic) Hypertension (Chronic) Paroxysmal atrial fibrillation (Chronic) Cardiac murmur, unspecified (Chronic) Palpitations (Chronic) Rheumatoid arthritis (Chronic) DM2 (diabetes mellitus, type 2) (Chronic) Surgical History History of appendectomy (Resolved) History of back surgery (Resolved) History of bilateral knee replacement (Resolved) History of brain tumor removal (Resolved) History of section (Resolved) History of open reduction and internal fixation (ORIF) procedure (Resolved) Family History Father Diabetes CAD (coronary artery disease) S/P CABG (coronary artery bypass graft) Mother , age 74, CVA CVA (cerebral vascular accident) Brother Lung cancer Other Family history of CVA Social History Smoking Status: Never smoker ROS Const Const: Negative for weakness, body ache, fever(s), chills or fatigue ENT ENT: Negative for dizziness Cardio Chest Pain: No Palpitations: No Edema: None Muscle aches with walking: None Resp Respiratory: Negative for SOB with activity, SOB at rest, SOB orthopnea\SOB lying down or paroxysmal nocturnal dyspnea GI GI: Negative nausea, black,tarry stools, bright, red blood in stools or vomiting blood/hematemesis : Negative for hematuria or frequent nighttime urination/ nocturia Musc Musc: Negative for muscle aches/ myalgia Skin Skin: Negative non-healing lesions or rash Neuro Neuro: Negative for lightheadedness, near syncope, syncope, orthostatic symptoms, weakness or dizziness Endo Endo: Negative for fatigue Allergy Allergy/Immunology: Negative for rash Cardiology Exam Const Appearance: cooperative, healthy appearing, comfortable and no acute distress Nutritional Appearance: average body habitus and well nourished Orientation: alert, awake and oriented x3 Head Head: normal to inspection Ears: hearing grossly normal bilaterally Nose: external nose normal Face and Sinus: face symmetric Mouth: oral mucosae normal Eyes General: appearance normal, both eyes and all related structures Eyelids: eyelids normal EOM: EOM intact bilaterally Neck Neck: no JVD and normal visual inspection Carotids: normal carotid upstroke Chest Chest inspection: normal inspection of the chest and normal respiratory effort; negative cough Auscultation: Bilateral: Clear to Auscultation Cardio Rate: regular rate Rhythm: regular rhythm Heart sounds: S1 normal and S2 normal; negative rub, gallop or murmur GI GI: normal to inspection Neuro General: alert, awake, oriented x3 and CN's II-XI intact bilaterally Skin Skin: no rashes or lesions noted Extremities Pulses: Normal: Right Posterior Tibial Pulse, Left Posterior Tibial Pulse, Right Radial Pulse, Left Radial Pulse Lower Extremity Edema: None: Bilateral Psych Psychological: normal affect Supplemental Info Echocardiogram from April 2017 showed normal LV size, estimated ejection fraction of 65%, normal RV size, normal RV systolic function, normal tricuspid valve, and mild mitral annular calcification. This test was compared to previous and no significant changes was noted. Stress test from March 2018 was negative for stress-induced myocardial ischemia and showed ejection fraction 81%. Assessment AND Plan 1. Paroxysmal atrial fibrillation I48.0 Plan - BRYON Whitaker Stress test in March 2018 was negative for stress-induced myocardial ischemia. Echocardiogram from April 2017 showed ejection fraction of 65%. She appears to be maintaining regular rhythm. Her heart rate is well-controlled. She is currently on Coumadin therapy. She will continue current medications and we will continue to monitor. 2. Essential hypertension I10 Plan BRYON Aguilar Patient's blood pressure is well-controlled today in the office. We will continue to monitor this. We will not make any medication regimen changes. 3. Pure hypercholesterolemia E78.00 Plan - BRYON Whitaker Patient has not had this evaluated since May 2017. She will undergo repeat liver and lipid panel at her earliest convenience. She will continue the current statin medication in the interim. 4. MCFP (current) use of anticoagulants Z79.01 Plan - BRYON Whitaker She has held her Coumadin therapy recently for a back injection. She has resumed Coumadin therapy. She will have her INR checked at her earliest convenience and adjustments will be made accordingly. Plan Detail Other Orders Orders: Other Medications Refilled: Additional Comments - BRYON Whitaker Discussed the above patient with Dr. Godoy, he agrees with the plan of care. Thank you for allowing us to participate in the patients plan of care, if you have any questions please do not hesitate to call. This note was generated using a voice recognition system and there may be incorrect words, spelling or punctuation that were not noted when reviewing the office note prior to saving. 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 04/07/18 1543 <Electronically signed by Terrance SLATER> Date Terrance Sandhu RUBY ON RAILS ENGINEERTedC 04/09/18 1203<Electronically signed by Obdulio Godoy MD> Cosigner Signature: Date (if applicable) Obdulio Godoy MD CC: Low Baxter MD PROTHROMBIN TIME W/INR Collected: 04/07/2018 Status: F Source: [place] 3:48 PM [facility] REPOSITORY TYPE CODE TESTS RESULT OUT OF RANGE REFERENCE UNITS LAB L300.4150 11.7-14.9 SECONDS High PROTIME 25.6 LAB L300.4200 Normal INR 2.3 Performed By: #### L300.3900 #### [facility] [address] [place], [place], [address] PROTHROMBIN TIME W/INR Collected: 03/20/2018 Status: F Source: [place] 3:14 PM [facility] REPOSITORY TYPE CODE TESTS RESULT OUT OF RANGE REFERENCE UNITS LAB L300.4150 11.7-14.9 SECONDS High PROTIME 15.7 LAB L300.4200 Normal INR 1.3 Performed By: #### L300.3900 #### [facility] [address] [place], [place], [address] URGENT CARE VISIT Observed: 03/19/2018 Status: F Source: [place] RE[place] 2:35 PM [facility] REPOSITORY [facility] [address] [place] [address] [address] [place] [address] OFFICE VISIT Date of Service: 03/19/18 MR#: [id number] Acct: [id number] Name: MURIEL CHRISTINE Rep #: [id number] : 1945 Provider: Gen CHRISTIANSON Age/Sex: 73/F Location: [facility] Status: Signed Intake Vital Signs03/19/18 Height 5 ft 1 in 03/19/18 Weight: 212 lb 03/19/18 Body Mass Index (BMI) 40.0 Intake Visit Reasons: STIFF NECK Chief Complaint: neck pain Coagulating Operator Required: No Is patient in pain?: Yes Allergies Penicillins Allergy (Verified 10/08/17 13:49) Rash Medications Hydroxychloroquine [Plaquenil] 200 mg PO DAILYCM 09/09/13 [History Confirmed 03/19/18] traZODone [Desyrel] 100 mg PO QHS 09/09/13 [History Confirmed 03/19/18] Abatacept [Orencia] 125 mg SQ FR 01/19/15 [History Confirmed 03/19/18] Amlodipine Bes/Olmesartan Med [July 10-40 MG Tablet] 1 udtab PO DAILY 01/19/15 [History Confirmed 03/19/18] Multivit-Min/FA/Lycopene/Lut [Centrum Silver Tablet] 1 tab PO DAILY 01/19/15 [History Confirmed 03/19/18] metoprolol succinate ER 50 mg tablet,extended release 24 hr 50 mg PO QDAY tab 10/03/17 [History Confirmed 03/19/18] calcium carb,cit 315 mg-vitamin D3 250 unit-phytosterols 200 mg tablet 1 tab PO .q day ea 10/04/17 [History Confirmed 03/19/18] folic acid 1 mg tablet 1 mg PO QDAY 10/04/17 [History Confirmed 03/19/18] methotrexate sodium 2.5 mg tablet 2.5 mg PO .COMPLEX 10/08/17 [History Confirmed 03/19/18] oxycodone-acetaminophen 5 mg-325 mg tablet 1 tab PO BID tab 10/08/17 [History Confirmed 03/19/18] quetiapine 200 mg tablet 200 mg PO QHS tab 10/08/17 [History Confirmed 03/19/18] sertraline 100 mg tablet 100 mg PO QHS tab 10/08/17 [History Confirmed 03/19/18] pravastatin 20 mg tablet 20 mg PO QHS #90 tab 12/19/17 [Rx Confirmed 03/19/18] warfarin 4 mg tablet 4 mg PO .COMPLEX #90 tab 03/04/18 [Rx Confirmed 03/19/18] cyclobenzaprine 10 mg tablet 10 mg PO TID PRN #20 tab 03/19/18 [Rx Confirmed 03/19/18] PFSH Medical History 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) Hyperlipidemia (Chronic) Long-term use of immunosuppressant medication (Chronic) History of pulmonary embolism (Chronic) Hypertension (Chronic) Paroxysmal atrial fibrillation (Chronic) Cardiac murmur, unspecified (Chronic) Palpitations (Chronic) Rheumatoid arthritis (Chronic) DM2 (diabetes mellitus, type 2) (Chronic) Family History Father Diabetes CAD (coronary artery disease) S/P CABG (coronary artery bypass graft) Mother , age 74, CVA CVA (cerebral vascular accident) Brother Lung cancer Other Family history of CVA Social History Smoking Status: Never smoker HPI HPI Chief Complaint: neck pain Details: MURIEL CHRISTINE, is a 73 F who presents to the office today for initial evaluation approximately 3 day history of progressively worsening left- sided neck and upper back pain. Patient notes the pain is aggravated to touch and with range of motion cervically, alleviated by essentially nothing. She notes no numbness or tingling in her upper extremities. She has no prior history of injuries or surgeries to the same. She notes no other associated symptoms no other alleviating or aggravating factors. ROS Const Constitutional: Positive for headache(s) (Left posterior); no excessive sweating, abnormal sleep pattern, chills, fever(s), night sweats or body ache Eyes Eyes: No bulging eyes, change in vision, light sensitivity or eye pain ENT ENT: Positive for headache(s) (Left posterior) and neck pain; no abnormal hearing, ear pain, dizziness/vertigo, balance problems, lip swelling, throat swelling or tongue swelling Resp Respiratory: No cough, chest congestion or shortness of breath Cardio Cardiology: No excessive sweating, chest pain at rest, chest pain with exertion, shortness of breath, dyspnea on exertion, irregular heart rhythm, generalized swelling, leg pain with exertion, orthopnea, radiating jaw, neck or arm pain, lightheadedness or palpitations Musc Musculoskeletal: Positive for back pain and neck pain; no joint pain, limited range of motion, tingling or numbness Skin Skin: No rash, itching, redness or wounds Neuro Neurology: Positive for headache(s) (Left posterior); no abnormal hearing, abnormal speech, abnormal movements, tingling or numbness Psych Psychiatric: No abnormal sleep pattern Endo Endocrine: No excessive sweating Aller/Imm Allergy/Immunologic: No lip swelling, throat swelling, tongue swelling or itchy eyes Exam Const General: cooperative, healthy appearing, no acute distress, uncomfortable Nutritional Appearance: average body habitus Orientation: alert, awake, oriented x3 HENMT Head: normal to inspection, normocephalic, atraumatic, no contusions, scalp tenderness (Left occipital), no occipital foramen tenderness, no hematomas, No periorbital ecchymosis, no Jurado's sign, no palpable skull fracture Ears: hearing grossly normal bilaterally, external ears normal, EAC's normal, TM's normal bilaterally Nose: external nose normal, nares normal, septum normal, no nasal discharge Face and sinus: normal facial exam, face symmetric, sinuses nontender Mouth: oral mucosae normal, lip normal, oropharynx normal, tongue normal Teeth and gingiva: gingiva normal, dentition normal Throat: uvula midline, tonsils normal, posterior oropharynx normal Eyes General: appearance normal, both eyes and all related structures Neck Neck: normal visual inspection, full ROM, no lymphadenopathy, no meningeal signs, supple Neck mass: No Thyroid: thyroid normal Lymphatic: no lymphadenopathy noted Chest Chest palpation AND inspection: normal inspection of the chest Resp Effort AND Inspection: normal respiratory effort, able to speak in complete sentences, symmetric chest movement Auscultation: Bilateral: Clear to Auscultation Cardio Palpation: normal PMI Rate: regular rate Rhythm: regular rhythm Heart Sounds: S1 normal, S2 normal Pulses: radial pulses present GI Inspection: normal to inspection Palpation: soft Musc Cervical Spine: normal cervical lordosis, cervical ROM normal and cervical muscular tenderness (L>R, with left trapezius/rhomboid palpable tenderness); no cervical spasm, cervical spinal tenderness, Spurling sign or step off deformity Skin General: no rashes or lesions noted Neuro General: alert, awake, oriented x3, gait normal Cognition: normal cognition Speech: speech normal Gait: normal gait Motor: muscle tone normal throughout Sensory Exam: no sensory deficits noted Extrem General: normal to inspection Psych Appearance: grossly normal Mental Status: mental status grossly normal Mood: congruent mood Affect: normal affect Speech and Movement: speech and movement normal Attitude: cooperative Thought Process: normal Thought Content: normal Judgment: judgment good Assessment AND Plan Problems 1. Trapezius muscle strain S46.819A Plan Cyclobenzaprine as prescribed today. Passive home range of motion exercises as instructed today. Continue medication regimen as previously prescribed by private physicians. Follow-up with PCP in 2-3 days should symptoms not improved, sooner should symptoms worsen or any other concerns develop. Patient states acknowledging understanding all the above. This note was generated with EQOation software. It may contain incorrect words, spelling, and punctuation that were not noted in checking the note before signing. Medications New: Coding Level of Care Code Off vis,est,level 3 Diagnoses Trapezius muscle strain S46.819A 03/19/18 1435 <Electronically signed by Gen CHRISTIANSON> Date Gen CHRISTIANSON Cosigner Signature: Date (if applicable) CC: STRESS REPORT Observed: 03/18/2018 Status: F Source: [place] 1:46 PM [facility] REPOSITORY [facility] Cardiovascular Services [address] [place] [address] MR#: [id number] Acct: [id number] Name: MURIEL CHRISTINE Rep #: [id number] : 1945 73 From: Low Stovall MD Primary Care: Low Baxter MD Status: REG CLI Ordering Dr: Sex: F C Stress Test Report Date: 03/18/2018 Procedure: Pharmacologic stress nuclear imaging study Indications: Dyspnea Consent: Per the patient Procedure: The patient underwent pharmacologic (Regadenoson) evaluation with a peak heart rate of 107 beats per minute (85 predicted maximal heart rate) and a peak blood pressure of 132/78 mmHg. The baseline ECG demonstrated normal sinus rhythm; right bundle branch block. The peak pharmacologic ECG demonstrated no obvious ECG changes. There was an occasional PVC during infusion and recovery. There was no complaint of chest discomfort during pharmacologic infusion or recovery. The examination was discontinued secondary to completion of protocol. Impression: 1. Pharmacologic (Regadenoson) evaluation 2. Peak pharmacologic ECG with no obvious ECG changes. 3. Was an occasional PVC during infusion and recovery 4. Nuclear images pending Myocardial perfusion imaging study: Technique: The patient was injected with 12 millicuries of technetium 99m Cardiolite and subsequently rest SPECT Cardiolite nuclear imaging was obtained in the horizontal long, vertical long, and short axis views. The patient underwent pharmacologic (Regadenoson) evaluation with a peak heart rate of 107 beats per minute (85 % percent predicted maximal heart rate) and a peak blood pressure of 132/78 mmHg. The patient was injected with 36 millicuries of technetium 99m Cardiolite and subsequently stress SPECT Cardiolite nuclear imaging was obtained in the horizontal long, vertical long, and short axis views. A gated Cardiolite study at peak stress was obtained. Interpretation: Rest and stress SPECT Cardiolite nuclear imaging status post realignment, normalization, and attenuation correction demonstrate a lot of uniform tracer uptake and myocardial perfusion appearing within normal limits. There is end systolic thickening and brightening. The gated Cardiolite study demonstrates myocardial thickening and inward wall motion. The reported LVEF is 81 %. Impression: 1. Rest and stress SPECT Cardiolite nuclear imaging demonstrate relative uniform tracer uptake and myocardial perfusion appearing within normal limits. 2. The gated Cardiolite study reports an LVEF of 81 %. This note was generated with EQOation software. It may contain incorrect words, spelling, and punctuation that were not noted in checking the note before signing. 03/18/18 1346 <Electronically signed by Low Stovall MD> Date Low Stovall MD CC: Low Baxter MD Date Dictated: 03/18/189 Date Transcribed: 03/18/181338 Paper Mill Manager: PM Signed PROTHROMBIN TIME W/INR Collected: 03/04/2018 Status: F Source: [place] 2:34 PM [facility] REPOSITORY TYPE CODE TESTS RESULT OUT OF RANGE REFERENCE UNITS LAB L300.4150 11.7-14.9 SECONDS High PROTIME 26.3 LAB L300.4200 Normal INR 2.4 Performed By: #### L300.3900 #### [facility] [address] [place], [address] CBC W/DIFF, AUTOMATED Collected: 02/17/2018 Status: F Source: [place] 3:42 PM [facility] REPOSITORY TYPE CODE TESTS RESULT OUT OF RANGE REFERENCE UNITS LAB L100.1000 4.4-11.0 K/mm3 Normal WBC 5.7 LAB L100.1200 4.2-5.4 M/mm3 Normal RBC 4.40 LAB L100.1300 12.0-15.0 g/dl Normal HGB 13.2 LAB L100.1400 37-47 % Normal HCT 40.8 LAB L100.1500 81-99 fL Normal MCV 92.7 LAB L100.1600 27.0-32.0 pg Normal MCH 30.0 LAB L100.1700 32-36 g/gl Normal MCHC 32.4 LAB L100.1810 11.6-14.6 % Normal RDW CV 14.2 LAB L100.1820 35.1-43.9 fl High RDW SD 48.2 LAB L100.1900 150-450 K/mm3 Normal PLT 223 LAB L100.2000 6.2-12.0 fl Normal MPV 9.5 LAB L100.2100 47-70 % High NEUT% 84.7 LAB L100.2200 19-41 % Low LY% 12.1 LAB L100.2300 0-10 % Normal MONO% 2.3 LAB L100.2400 0-5 % Normal EO% 0.5 LAB L100.2500 0-1 % Normal BASO% 0.4 LAB L100.2550 0.0-0.9 % Normal IM GRAN % 0.000 Result Comment: IG% - Immature Granulocytes (promyelocytes, myelocytes and metamyelocytes) > 1% indicates that a LEFT SHIFT is Present. LAB L100.2620 2.0-7.7 X10 3/uL Normal Absolute Neut 4.8 LAB L100.2720 0.83-4.51 X10 3/ul Low Absolute Lymph 0.69 Performed By: #### L100.0100 #### [facility] [address] [place], [place], [address] COMPREHENSIVE METABOLIC Collected: 02/17/2018 Status: F Source: [facility] 3:42 PM [facility] REPOSITORY TYPE CODE TESTS RESULT OUT OF RANGE REFERENCE UNITS LAB L501.0100 74-106 mg/dL High GLU 169 Result Comment: Fasting Glucose result greater than or equal to 126 mg/dL suggests DIABETES MELLITUS per A.D.A. criteria. Please note revised GLUCOSE reference range effective 2017. LAB L501.1000 7-18 mg/dL Normal BUN 13 LAB L501.1100 0.55-1.02 mg/dL Normal CREAT,SERUM 0.70 Result Comment: The validity of the calculated GFR AND GFRAA in patients over 70 years has not been determined. Clinical correlation is essential. LAB L501.1110 >60 mL/min Normal EST GFR 88 Result Comment: Non- GFR Calc LAB L501.1115 >60 mL/min Normal EST GFR - AA 106 Result Comment: GFR Calc LAB L501.1300 10-20 RATIO Normal BUN/CRE 18.5 LAB L501.1500 6.4-8.2 g/dL T Normal PROT 6.7 LAB L501.1800 3.2-5.0 g/dL Normal ALB 3.3 LAB L501.1950 2.2-4.2 g/dL Normal GLOB 3.4 LAB L501.2000 0.9-2.4 RATIO Normal A/G 1.0 LAB L501.2200 8.5-10.1 mg/dL Low CA 8.3 LAB L501.4100 15-37 U/L High AST 46 LAB L501.4305 45-117 U/L Normal ALK P 87 LAB L501.4405 13-56 U/L Normal ALT 46 LAB L501.4600 0.20-1.00 mg/dL T Normal BILI 0.30 LAB L501.5300 136-145 mmol/L NA Normal 142 LAB L501.5600 3.5-5.1 mmol/L K Normal 4.1 LAB L501.5900 98-107 mmol/L CL Normal 107 LAB L501.6100 21.0-32.0 mmol/L Normal CO2 26.0 LAB L501.6200 5-15 Normal GAP 9 Performed By: #### L500.4050 #### [facility] [address] [facility] [place], [place], [address] PROTHROMBIN TIME W/INR Collected: 02/04/2018 Status: F Source: [place] 1:31 PM [facility] REPOSITORY Order Comment: SEND RESULTS TO ALSO. TYPE CODE TESTS RESULT OUT OF RANGE REFERENCE UNITS LAB L300.4150 11.7-14.9 SECONDS High PROTIME 26.0 LAB L300.4200 Normal INR 2.4 Performed By: #### L300.3900 #### [facility] [address] [place], [address] PROTHROMBIN TIME W/INR Collected: 01/27/2018 Status: F Source: [place] 4:15 PM [facility] REPOSITORY TYPE CODE TESTS RESULT OUT OF RANGE REFERENCE UNITS LAB L300.4150 11.7-14.9 SECONDS High PROTIME 29.9 LAB L300.4200 Normal INR 2.8 Performed By: #### L300.3900 #### [facility] [address] [place], [address] PROTHROMBIN TIME W/INR Collected: 01/20/2018 Status: F Source: [place] 3:37 PM [facility] REPOSITORY TYPE CODE TESTS RESULT OUT OF REFERENCE UNITS RANGE LAB L300.4150 11.7-14.9 SECONDS High PROTIME 39.1 LAB L300.4200 High alert INR 4.0 Result Comment: CRITICAL VALUE VERIFIED. CALLED TO IRVIN 01/20/18 1650 Linn Storey. RESULTS READ BACK BY SAME . Performed By: #### L300.3900 #### [facility] [place], [address] PROTHROMBIN TIME W/INR Collected: 01/03/2018 Status: F Source: [place] 1:49 PM [facility] REPOSITORY TYPE CODE TESTS RESULT OUT OF RANGE REFERENCE UNITS LAB L300.4150 11.7-14.9 SECONDS High PROTIME 30.6 LAB L300.4200 Normal INR 2.9 Performed By: #### L300.3900 #### [facility] [address] [place], [address] PROTHROMBIN TIME W/INR Collected: 12/26/2017 Status: F Source: [place] 1:08 PM [facility] REPOSITORY TYPE CODE TESTS RESULT OUT OF RANGE REFERENCE UNITS LAB L300.4150 11.7-14.9 SECONDS High PROTIME 19.0 LAB L300.4200 Normal INR 1.6 Performed By: #### L300.3900 #### [facility] [address] [place], [address] PROTHROMBIN TIME W/INR Collected: 12/17/2017 Status: F Source: [place] 3:55 PM [facility] REPOSITORY TYPE CODE TESTS RESULT OUT OF RANGE REFERENCE UNITS LAB L300.4150 11.7-14.9 SECONDS High PROTIME 20.0 LAB L300.4200 Normal INR 1.7 Performed By: #### L300.3900 #### [facility] [address] [place], [address] PROTHROMBIN TIME W/INR Collected: 12/11/2017 Status: F Source: [place] 8:39 AM [facility] REPOSITORY TYPE CODE TESTS RESULT OUT OF RANGE REFERENCE UNITS LAB L300.4150 11.7-14.9 SECONDS Normal PROTIME 13.0 LAB L300.4200 Normal INR 1.0 Performed By: #### L300.3900 #### [facility] [address] [place], [address] PROTHROMBIN TIME W/INR Collected: 12/03/2017 Status: F Source: [place] 3:30 PM [facility] REPOSITORY TYPE CODE TESTS RESULT OUT OF RANGE REFERENCE UNITS LAB L300.4150 11.7-14.9 SECONDS High PROTIME 19.7 LAB L300.4200 Normal INR 1.7 Performed By: #### L300.3900 #### [facility] [address] [place], [address] PT D/C SUMMARY (1) Observed: 11/27/2017 Status: F Source: [place] 7:11 PM [facility] REPOSITORY [facility] [address] [place] [address]. [address] [place], [place] [address] Fax REHABILITATION SERVICES DISCHARGE SUMMARY MR#: [id number] Acct: [id number] Name: MURIEL CHRISTINE Rep #: [id number] : 1945 72 From: Jeanne Miller MPT Referring Dr.: Renu Mcdonald Status: REG RCR Insurance: MEDICARE PART A B [employer] SR SUPPLEMENT INS HP - PT D/C Summary It has been my pleasure to treat MURIEL CHRISTINE under orders from BRYON Goldman, for the diagnosis of balance issues for a total of 9 visit(s). Discharge Date: 11/26/17 Please see the following information for a summary of their discharge status. - Subjective Subjective: Pt reports that she has been showing her kids how she can walk BW and SW. Pt feels that her balance is about 65% better. She is even walking around the hosue a little without the cane but then her back starts to hurt. Pt feels that she will be ok to do HEP at home for awhile. - Pain back pain Pain Intensity (Out of 10): 4 L UE Pain Intensity (Out of 10): 0 - Overall Improvement % Improvement: 65 - Objective Objective/Function: FGA 11. Pt walks with increase speed and confidence. She does tend to veer a little with turning but has caught herself the handful of times that she has veered here in the clinic. - Goals Goal 1:: I HEP Goal Progress: Goal Met Goal 2:: Increase FGA by 5 points to to decrease fall risk. Goal Progress: Progressing - Plan Plan: DC PT to HEP - D/C Information Discharge Comments: DC PT If there are questions or concerns regarding this patient's physical therapy, please feel free to call me at [phone]. Thank you for the referral of this patient. Sincerely, Jeanne Miller <Electronically signed by Jeanne Miller MPT> 11/27/17 1911 CC: Renu Mcdonald; Low Baxter MD Signed PROTHROMBIN TIME W/INR Collected: 11/19/2017 Status: F Source: [place] 3:38 PM [facility] REPOSITORY TYPE CODE TESTS RESULT OUT OF RANGE REFERENCE UNITS LAB L300.4150 11.7-14.9 SECONDS High PROTIME 27.5 LAB L300.4200 Normal INR 2.5 Performed By: #### L300.3900 #### [facility] [address] [place], [place], [address] CBC W/DIFF, AUTOMATED Collected: 11/19/2017 Status: F Source: [place] 2:26 PM [facility] REPOSITORY TYPE CODE TESTS RESULT OUT OF RANGE REFERENCE UNITS LAB L100.1000 4.4-11.0 K/mm3 Normal WBC 5.8 LAB L100.1200 4.2-5.4 M/mm3 Normal RBC 4.56 LAB L100.1300 12.0-15.0 g/dl Normal HGB 13.5 LAB L100.1400 37-47 % Normal HCT 42.2 LAB L100.1500 81-99 fL Normal MCV 92.5 LAB L100.1600 27.0-32.0 pg Normal MCH 29.6 LAB L100.1700 32-36 g/gl Normal MCHC 32.0 LAB L100.1810 11.6-14.6 % Normal RDW CV 12.8 LAB L100.1820 35.1-43.9 fl Normal RDW SD 42.4 LAB L100.1900 150-450 K/mm3 Normal PLT 228 LAB L100.2000 6.2-12.0 fl Normal MPV 9.7 LAB L100.2100 47-70 % Normal NEUT% 57.9 LAB L100.2200 19-41 % Normal LY% 25.8 LAB L100.2300 0-10 % High MONO% 12.7 LAB L100.2400 0-5 % Normal EO% 3.3 LAB L100.2500 0-1 % Normal BASO% 0.3 LAB L100.2550 0.0-0.9 % Normal IM GRAN % 0.000 Result Comment: IG% - Immature Granulocytes (promyelocytes, myelocytes and metamyelocytes) > 1% indicates that a LEFT SHIFT is Present. LAB L100.2620 2.0-7.7 X10 3/uL Normal Absolute Neut 3.4 LAB L100.2720 0.83-4.51 X10 3/ul Normal Absolute Lymph 1.50 Performed By: #### L100.0100 #### [facility] [address] [place], [address] COMPREHENSIVE METABOLIC Collected: 11/19/2017 Status: F Source: [facility] 2:26 PM [facility] REPOSITORY TYPE CODE TESTS RESULT OUT OF RANGE REFERENCE UNITS LAB L501.0100 74-106 mg/dL Normal GLU 103 Result Comment: Fasting Glucose result from 100 to 125 mg/dL suggests IMPAIRED HOMEOSTASIS per A.D.A. criteria. Please note revised GLUCOSE reference range effective 2017. LAB L501.1000 7-18 mg/dL Normal BUN 16 LAB L501.1100 0.55-1.02 mg/dL Normal CREAT,SERUM 0.71 Result Comment: The validity of the calculated GFR AND GFRAA in patients over 70 years has not been determined. Clinical correlation is essential. LAB L501.1110 >60 mL/min Normal EST GFR 86 Result Comment: Non- GFR Calc LAB L501.1115 >60 mL/min Normal EST GFR - AA 104 Result Comment: GFR Calc LAB L501.1300 10-20 RATIO High BUN/CRE 22.4 LAB L501.1500 6.4-8.2 g/dL T Normal PROT 6.9 LAB L501.1800 3.2-5.0 g/dL Normal ALB 3.5 LAB L501.1950 2.2-4.2 g/dL Normal GLOB 3.4 LAB L501.2000 0.9-2.4 RATIO Normal A/G 1.0 LAB L501.2200 8.5-10.1 mg/dL CA Normal 8.6 LAB L501.4100 15-37 U/L Normal AST 31 LAB L501.4305 45-117 U/L Normal ALK P 108 LAB L501.4405 13-56 U/L Normal ALT 31 Result Comment: Please note revised ALT reference range effective 2017. LAB L501.4600 0.20-1.00 mg/dL Normal T BILI 0.30 LAB L501.5300 136-145 mmol/L Normal NA 141 LAB L501.5600 3.5-5.1 mmol/L Normal K 3.7 LAB L501.5900 98-107 mmol/L Normal CL 106 LAB L501.6100 21.0-32.0 mmol/L Normal CO2 29.0 LAB L501.6200 5-15 Normal GAP 6 Performed By: #### L500.4050 #### [facility] [address] [place], [place], [address] PROTHROMBIN TIME W/INR Collected: 11/12/2017 Status: F Source: [place] 2:28 PM [facility] REPOSITORY TYPE CODE TESTS RESULT OUT OF RANGE REFERENCE UNITS LAB L300.4150 11.7-14.9 SECONDS High PROTIME 19.6 LAB L300.4200 Normal INR 1.7 Performed By: #### L300.3900 #### [facility] [address] [place], [address] PROTHROMBIN TIME W/INR Collected: 11/05/2017 Status: F Source: [place] 3:47 PM [facility] REPOSITORY TYPE CODE TESTS RESULT OUT OF RANGE REFERENCE UNITS LAB L300.4150 11.7-14.9 SECONDS High PROTIME 16.3 LAB L300.4200 Normal INR 1.3 Performed By: #### L300.3900 #### [facility] [address] [place], [address] INITAL EVALUATION (1) Observed: 10/29/2017 Status: F Source: [place] - PT 5:01 PM [facility] REPOSITORY [facility] [address] [place] [address] Fax REHABILITATION SERVICES INITIAL EVALUATION MR#: [id number] Acct: [id number] Name: MURIEL CHRISTIEN Rep #: [id number] : 1945 72 From: Jeanne Miller MPT Referring Dr.: Renu Mcdonald Status: REG RCR Insurance: MEDICARE PART A B [employer] SR SUPPLEMENT INS Patient's Visit Information MURIEL CHRISTINE is a 72 year old F referred to Physical [facility] with a diagnosis of balance issues. Date of Evaluation: 10/29/17 Physical Therapist: Jeanne Miller - Visit Plan Frequency: 2x /Week Duration: 4 Weeks - Subjective Subjective: Pt reports that she has no balance. 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 It did not affect her vision. SHe does not get dizzy. She was down for awhile after that surgery and was in and out of the hospital in 1.5 weeks and then resumed her home activities except cant walk straight. She just had a L ear infection about 6 months ago. She always uses a can except a furnitutre walker at home. She has fallen 5 times in the last 3 months. One time she fell over her cane. another time she tripped on her pant leg. another time she had a black eye for awhile. She reports that she does not do anything fast. RA in her back and has been seeing Dr Hurtado and she had no pain for 2 months. She is [place]. Stairs slowly with a railing. She has steps down to the basement. Pt does not think her legs are weak. Hard to get up when on the ground. - Pain back pain Pain Intensity (Out of 10): 0 Pain Intensity Range: 2 - Objective Gait: walks with WBOS with a straight cane with increase veering and some SOB. sit to stand without UE...able to do so but a slight struggle. Stairs: up and down stairs with 1 hand rail and 1 straight cane alternating ascending stairs and 1 step at a time descending stairs. FGA: 05/11 (struggled with head turns, walking bw, stepping over a block etc). LE MMT: B hip flex 4/5, B hip abd 4-/5, B knee flex 4/5, B knee ext 4/5, heel and toe raises (unable without UE support). - Balance Scores Functional Gait Assessment Score: 9 % Disability: 70.0000 - Goals Goal 1:: I HEP Goal Time Frame: 4-6 Weeks Goal 2:: Increase FGA by 5 points to to decrease fall risk. Goal Time Frame: 4-6 Weeks - Rehabilitation Potential Rehabilitation Potential: Good - Anticipated Interventions Patient/Client Instruction: Educate patient on: Plan of Care For the Purpose of:: To increase ROM, To improve nutrient delivery to tissue, To improve muscle performance and motor function, To improve ability to perform ADL's, To increase tolerance to activity/condition/position, To improve performance and independence with ADL's, To decrease level of supervision to perform tasks, To improve ability of physical actions for home/community/work/leisure, To improve gait and locomotor functions, To increase flexibility/ROM, To improve balance, To improve safety with gait Therapeutic Exercise to Include: Strength training, Endurance training, Balance training, Postural training, Flexibilty training, Gait and locomotor training, Passive ROM, Active ROM For the Purpose of:: To increase ROM, To improve nutrient delivery to tissue, To improve muscle performance and motor function, To improve ability to perform ADL's, To increase tolerance to activity/condition/position, To improve performance and independence with ADL's, To improve ability of physical actions for home/community/work/leisure, To improve gait and locomotor functions, To improve balance, To improve safety with gait Functional Training to Include: Gait training For the Purpose of:: To improve gait and locomotor functions, To improve safety with gait Thank you for the opportunity to evaluate your patient. For Medicare and Medicare HMO plans, please review the plan of care and approve it. It will need to be FAXED BACK to us at [phone] for Medicare purposes. Please let me know if there are questions or concerns regarding this plan of care. Physician Signature: Date: <Electronically signed by Jeanne Miller MPT> 10/29/17 1704 CC: Renu Mcdonald; Low Baxter MD Signed For Medicare only, by signing this I certify the plan of care. Physicians Signature Date PROTHROMBIN TIME W/INR Collected: 10/29/2017 Status: F Source: [place] 3:17 PM [facility] REPOSITORY TYPE CODE TESTS RESULT OUT OF RANGE REFERENCE UNITS LAB L300.4150 11.7-14.9 SECONDS High PROTIME 15.8 LAB L300.4200 Normal INR 1.3 Performed By: #### L300.3900 #### [facility] [address] [place], [place], [address] PROTHROMBIN TIME W/INR Collected: 10/22/2017 Status: F Source: [place] 1:20 PM [facility] REPOSITORY TYPE CODE TESTS RESULT OUT OF RANGE REFERENCE UNITS LAB L300.4150 11.7-14.9 SECONDS High PROTIME 16.6 LAB L300.4200 Normal INR 1.3 Performed By: #### L300.3900 #### [facility] [address] [place], [address] PROTHROMBIN TIME W/INR Collected: 10/15/2017 Status: F Source: [place] 2:29 PM [facility] REPOSITORY TYPE CODE TESTS RESULT OUT OF RANGE REFERENCE UNITS LAB L300.4150 11.7-14.9 SECONDS High PROTIME 16.4 LAB L300.4200 Normal INR 1.3 Performed By: #### L300.3900 #### [facility] [address] [place], [address] PROTHROMBIN TIME W/INR Collected: 10/11/2017 Status: F Source: [place] 3:36 PM [facility] REPOSITORY Order Comment: Comments: STANDING ORDER Comments: STANDING ORDER TYPE CODE TESTS RESULT OUT OF RANGE REFERENCE UNITS LAB L300.4150 11.7-14.9 SECONDS Normal PROTIME 13.6 LAB L300.4200 Normal INR 1.0 Performed By: #### L300.3900 #### [facility] [address] [place], [address] CARDIOLOGY VISIT Observed: 10/08/2017 Status: F Source: [place] REPORT 2:19 PM [facility] REPOSITORY [facility] [address] [place] [address] OFFICE VISIT Date of Service: 10/08/17 MR#: [id number] Acct: [id number] Name: MURIEL CHRISTINE Rep #: [id number] : 1945 Provider: Obdulio Godoy MD Age/Sex: 72/F Location: [facility] [place] Status: Signed [facility] Chief Complaint: Follow-up visit. Details: MURIEL CHRISTINE, is a 72 F who presents to the office today for a follow-up visit. She is a lady with a history of paroxysmal atrial fibrillation previous pulmonary embolism and hypertension who had previously been anticoagulated with a factor Xa inhibitor. From a cardiac vascular standpoint she has been doing well denying any head neck or jaw discomfort to suggest angina no dizziness or diaphoresis no near syncope or syncope. She has had a few episodes of palpitations which have not been long lasting. She apparently has not been taking his Xarelto due to the cost and wants to know if she can switch to Coumadin. Her physical exam today demonstrates clear lung avina regular rate and rhythm a soft 2/6 systolic murmur noted left sternal border and no pedal edema. Intake Vital Signs10/08/17 Height 5 ft 1 in 10/08/17 Weight: 218 lb 10/08/17 Body Mass Index (BMI) 41.1 10/08/17 Blood Pressure 130/60 Intake Visit Reasons: 6 M FU (we moved from 10-01-17) Is patient in pain?: No Allergies Penicillins Allergy (Verified 10/08/17 13:49) Rash Medications Hydroxychloroquine [Plaquenil] 200 mg PO DAILYCM 09/09/13 [History Confirmed 10/04/17] Pravastatin [Pravachol] 20 mg PO QHS 09/09/13 [History Confirmed 10/04/17] Trazodone HCl [Desyrel] 100 mg PO QHS 09/09/13 [History Confirmed 10/04/17] Abatacept [Orencia] 125 mg SQ FR 01/19/15 [History Confirmed 10/04/17] Amlodipine Bes/Olmesartan Med [July 10-40 MG Tablet] 1 udtab PO DAILY 01/19/15 [History Confirmed 10/04/17] Multivit-Min/FA/Lycopene/Lut [Centrum Silver Tablet] 1 tab PO DAILY 01/19/15 [History Confirmed 10/04/17] metoprolol succinate ER 50 mg tablet,extended release 24 hr 50 mg PO QDAY tab 10/03/17 [History Confirmed 10/04/17] calcium carb,cit 315 mg-vitamin D3 250 unit-phytosterols 200 mg tablet 1 tab PO .q day ea 10/04/17 [History Confirmed 10/04/17] folic acid 1 mg tablet 1 mg PO QDAY 10/04/17 [History Confirmed 10/04/17] methotrexate sodium 2.5 mg tablet 2.5 mg PO .COMPLEX 10/08/17 [History Confirmed 10/08/17] oxycodone-acetaminophen 5 mg-325 mg tablet 1 tab PO BID tab 10/08/17 [History Confirmed 10/08/17] quetiapine 200 mg tablet 200 mg PO QHS tab 10/08/17 [History Confirmed 10/08/17] sertraline 100 mg tablet 100 mg PO QHS tab 10/08/17 [History Confirmed 10/08/17] warfarin 4 mg tablet 4 mg PO QDAY #30 tab 10/08/17 [Rx Confirmed 10/08/17] Ejection fraction %: 65 to 70 COUNT INCLUDES THE [facility] Medical History 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) Hyperlipidemia (Chronic) Long-term use of immunosuppressant medication (Chronic) History of pulmonary embolism (Chronic) Hypertension (Chronic) Paroxysmal atrial fibrillation (Chronic) Cardiac murmur, unspecified (Chronic) Palpitations (Chronic) Rheumatoid arthritis (Chronic) DM2 (diabetes mellitus, type 2) (Chronic) Family History Father Diabetes CAD (coronary artery disease) S/P CABG (coronary artery bypass graft) Mother , age 74, CVA CVA (cerebral vascular accident) Brother Lung cancer Other Family history of CVA Social History Smoking Status: Never smoker ROS Const Const: Positive for other (Patient has had very poor balance since having an ear infection); negative for fatigue, weakness, body ache, fever(s), headache(s), chills, frequent falls, night sweats, daytime sleepiness, difficulty sleeping, excessive sweating, weight gain, weight loss, increased appetite, poor appetite or anorexia Eyes Eyes: Negative for blind spots, loss of peripheral vision, transient loss of vision, blurry vision, change in vision, double vision, floaters, tunnel vision or other ENT ENT: Negative for headache(s), dizziness, hearing loss, tinnitus, Nosebleed/epistaxis, balance problems, post nasal drip, lip swelling, tongue swelling, bleeding gums, hoarseness, neck pain, dry mouth or other Cardio Chest Pain: No Palpitations: Yes (2 to 3 times a day feels heart pounding and racing.) feels like its: fast, pounding Edema: None Muscle aches with walking: None Resp Respiratory: Negative for SOB with activity, SOB at rest, SOB orthopnea\SOB lying down, Coughing up blood/hemoptysis, chest congestion, pain on inspiration, snoring, stridor, wheezing, crackles, paroxysmal nocturnal dyspnea or other GI GI: Negative nausea, vomiting, heartburn, constipation, belching, bloating, cramping, vomiting blood/hematemesis, bright, red blood in stools, black,tarry stools, loose stools, Difficulty Swallowing or other : Negative for hematuria, frequent nighttime urination/ nocturia, erectile dysfunction or abnormal vaginal bleeding Musc Musc: Negative for balance problems, muscle aches/ myalgia, muscle weakness or joint pain Skin Skin: Negative redness, non-healing lesions, rash, unusual bruising, skin ulcer, wounds, jaundice or other Neuro Neuro: Positive for lack of coordination (Almost fell a few times when trying to come back to exam room. Walk w/cane); negative for weakness, headache(s), frequent falls, blurry vision, double vision, dizziness, lightheadedness, near syncope, syncope, orthostatic symptoms, confusion, memory loss, restless legs, vertigo, seizures or other Maurisio Hematologic/Lymphatic: Negative for easy bleeding, easy bruising, enlarged lymph nodes or other Endo Endo: Negative for fatigue, excessive sweating, cold intolerance, heat intolerance, flushing, increased thirst/drinking, increased hunger, hair loss, hair growth or other Psych Psych: Negative for anxiety, depression, thoughts of harming anyone, thoughts of harming yourself, visual hallucinations, panic attacks or audible hallucinations Allergy Allergy/Immunology: Negative for lip swelling, Negative for tongue swelling, Negative for rash, Negative for throat swelling, Negative for hives Cardiology Exam Const Appearance: cooperative, healthy appearing, well developed, well groomed and no acute distress Nutritional Appearance: well nourished and average body habitus Orientation: alert, awake and oriented x3 Head Head: normal to inspection, normocephalic and atraumatic Ears: hearing grossly normal bilaterally and external ears normal Nose: external nose normal, nasal mucous membranes and turbinates normal, nares normal, septum normal, no nasal discharge Face and Sinus: face symmetric Mouth: oral mucosae normal, tongue normal, oropharynx normal and moist mucous membranes Teeth and gingiva: dentition normal Throat: posterior oropharynx normal, tonsils normal and uvula midline Eyes General: appearance normal, both eyes and all related structures Eyelids: eyelids normal Conjunctivae: conjunctivae normal Pupils: PERRL, normal by confrontation and accommodation normal EOM: EOM intact bilaterally Neck Neck: normal visual inspection, trachea midline and no JVD JVD: +5 Carotids: normal carotid upstroke and bounding pulses Chest Chest inspection: normal inspection of the chest, symmetric chest movement and normal respiratory effort Auscultation: Bilateral: Clear to Auscultation Cardio Palpation: normal PMI Rate: regular rate Rhythm: regular rhythm Heart sounds: S1 normal and S2 normal Murmur: Grade 2/6, soft and early systolic GI GI: normal to inspection, soft, no hepatosplenomegaly and bowel sounds present Neuro General: alert, awake, oriented x3, no focal sensory deficit, gait normal and moves all extremities Skin Skin: no rashes or lesions noted Extremities Pulses: Normal: Right Femoral Pulse, Left Femoral Pulse, Right Dorsalis Pedis Pulse, Left Dorsalis Pedis Pulse, Right Posterior Tibial Pulse, Left Posterior Tibial Pulse, Right Radial Pulse, Left Radial Pulse Lower Extremity Edema: None: Bilateral Musculoskel Musculoskeletal: No joint tenderness Psych Psychological: normal affect Assessment AND Plan 1. Paroxysmal atrial fibrillation I48.0 Plan She has episodes of paroxysmal atrial fibrillation and with this as well as her history of pulmonary emboli my recommendation will be to resume anticoagulation. Due to the cost I would recommend starting her on Coumadin and checking her INR as appropriate. Orders Orders: 2. Pure hypercholesterolemia E78.00; E78.0 Plan She is on a low intensity statin and would remain on this being followed by you. 3. Essential hypertension I10 Plan Her blood pressure appears to be under good control on the current medical therapy with the amlodipine olmesartan as well as the metoprolol. No changes will need to be made at this time. 4. History of pulmonary embolism Z86.711 Plan She appears to be stable with respect to the above. Her last echocardiogram I demonstrated preserved ejection fraction of 65% normal right ventricular size and function and no significant tricuspid regurgitation. This in comparison to the previous study demonstrated no change. Thank you for allowing me to participate in the care of your patient. Please don't hesitate to call if any issues arise Orders Orders: Plan Detail Other Medications New: Discontinued: Follow Up 6 Months (jhr) Coding Level of Care Code Off vis,est,level 3 Diagnoses Paroxysmal atrial fibrillation I48.0 Pure hypercholesterolemia E78.00; E78.0 Hyperlipidemia type: pure hypercholesterolemia Essential hypertension I10 Hypertension type: essential hypertension History of pulmonary embolism Z86.711 Coding Level of Care Code Off vis,est,level 3 Diagnoses Paroxysmal atrial fibrillation I48.0 Pure hypercholesterolemia E78.00; E78.0 Hyperlipidemia type: pure hypercholesterolemia Essential hypertension I10 Hypertension type: essential hypertension History of pulmonary embolism Z86.711 10/08/17 1419 <Electronically signed by Obdulio Godoy MD> Date Obdulio Godoy MD Cosigner Signature: Date (if applicable) CC: Low Baxter MD CBC W/DIFF, AUTOMATED Collected: 08/27/2017 Status: F Source: [place] 1:24 PM [facility] REPOSITORY TYPE CODE TESTS RESULT OUT OF RANGE REFERENCE UNITS LAB L100.1000 4.4-11.0 K/mm3 Normal WBC 6.6 LAB L100.1200 4.2-5.4 M/mm3 Normal RBC 4.25 LAB L100.1300 12.0-15.0 g/dl Normal HGB 13.8 LAB L100.1400 37-47 % Normal HCT 40.6 LAB L100.1500 81-99 fL Normal MCV 95.5 LAB L100.1600 27.0-32.0 pg High MCH 32.5 LAB L100.1700 32-36 g/gl Normal MCHC 34.0 LAB L100.1810 11.6-14.6 % Normal RDW CV 12.6 LAB L100.1820 35.1-43.9 fl Normal RDW SD 42.6 LAB L100.1900 150-450 K/mm3 Normal PLT 216 LAB L100.2000 6.2-12.0 fl Normal MPV 9.5 LAB L100.2100 47-70 % Normal NEUT% 64.8 LAB L100.2200 19-41 % Normal LY% 20.5 LAB L100.2300 0-10 % High MONO% 11.6 LAB L100.2400 0-5 % Normal EO% 2.4 LAB L100.2500 0-1 % Normal BASO% 0.5 LAB L100.2550 0.0-0.9 % Normal IM GRAN % 0.200 Result Comment: IG% - Immature Granulocytes (promyelocytes, myelocytes and metamyelocytes) > 1% indicates that a LEFT SHIFT is Present. LAB L100.2620 2.0-7.7 X10 3/uL Normal Absolute Neut 4.3 LAB L100.2720 0.83-4.51 X10 3/ul Normal Absolute Lymph 1.35 Performed By: #### L100.0100 #### [facility] [address] [place], [address] COMPREHENSIVE METABOLIC Collected: 08/27/2017 Status: F Source: [facility] 1:24 PM [facility] REPOSITORY TYPE CODE TESTS RESULT OUT OF RANGE REFERENCE UNITS LAB L501.0100 70-110 mg/dL High GLU 115 Result Comment: Fasting Glucose result from 110 to <126 mg/dL suggests IMPAIRED HOMEOSTASIS per A.D.A. criteria. LAB L501.1000 7-18 mg/dL Normal BUN 15 LAB L501.1100 0.55-1.02 mg/dL Normal CREAT,SERUM 0.72 Result Comment: The validity of the calculated GFR AND GFRAA in patients over 70 years has not been determined. Clinical correlation is essential. LAB L501.1110 >60 mL/min Normal EST GFR 86 Result Comment: Non- GFR Calc LAB L501.1115 >60 mL/min Normal EST GFR - AA 104 Result Comment: GFR Calc LAB L501.1300 10-20 RATIO High BUN/CRE 21.0 LAB L501.1500 6.4-8.2 g/dL T Normal PROT 7.2 LAB L501.1800 3.4-5.0 g/dL Normal ALB 3.5 Result Comment: Please note revised Albumin AND Globulin reference range effective 2017. LAB L501.1950 2.2-4.2 g/dL Normal GLOB 3.7 LAB L501.2000 0.9-2.4 RATIO Normal A/G 0.9 LAB L501.2200 8.5-10.1 mg/dL Normal CA 8.6 LAB L501.4100 15-37 U/L Normal AST 25 LAB L501.4305 45-117 U/L High ALK P 127 LAB L501.4405 12-78 U/L Normal ALT 28 LAB L501.4600 0.20-1.00 mg/dL Normal T BILI 0.30 LAB L501.5300 136-145 mmol/L Normal NA 140 LAB L501.5600 3.5-5.1 mmol/L Normal K 4.1 LAB L501.5900 98-107 mmol/L Normal CL 103 LAB L501.6100 21.0-32.0 mmol/L Normal CO2 30.0 LAB L501.6200 5-15 Normal GAP 7 Performed By: #### L500.4050 #### [facility] [address] [place], [address] ALLERGIES ALLERGIES DATE TYPE / CODE NAME / CODE REACTION SEVERITY SOURCE 04/07/2018 Drug Penicillins/ Rash Unknown [facility] Allergy/4160 [id number]([facility] 8[address]36(SNOMED XNORM) Repository CT) ENCOUNTERS ENCOUNTERS ADMIT/DISCHARGE ACCOUNT ADMITTING ENCOUNTER LOCATION SOURCE NUMBER CLASS 07/24/2018 [id number] Ambulatory [facility] 6 [facility] ing:LAB Repository 07/08/2018/ [id number] Ambulatory [facility] Francesca 8 6 [facility] ing:LAB Repository 05/13/2018 [id number] Ambulatory Francesca [facility] 8 [facility] ing:LAB Repository 04/29/2018/ [id number] Ambulatory [facility] 8 0 [facility] ing:LAB Repository 04/07/2018/ [id number] Ambulatory Francesca Francesca 8 1 [facility] ing:LAB Repository 04/07/2018/ [id number] Ambulatory BMSBuilding:B [facility] 8 1 [facility] Repository 03/19/2018/ [id number] Ambulatory BMSBuilding:B [facility] 8 1 [facility] Repository 03/18/2018 [id number] Ambulatory Francesca Francesca 4 [facility] ing:CVS Repository 03/18/2018 [id number] Ambulatory BMSBuilding:W Francesca 9 [facility] Repository 03/04/2018/ [id number] Ambulatory Francesca Francesca 8 0 [facility] ing:LAB Repository 02/17/2018 [id number] Ambulatory [facility] 8 [facility] ing:MTLAB Repository 02/04/2018 [id number] Ambulatory [facility] 8 [facility] ing:LAB Repository 01/27/2018/ [id number] Ambulatory [place] Francesca 8 6 [facility] ing:LAB Repository 01/09/2018 [id number] Ambulatory BMSBuilding:B Francesca 6 [facility] Repository 01/03/2018/ [id number] Ambulatory [place] Francesca 8 5 [facility] ing:LAB Repository 12/03/2017/ [id number] Ambulatory [facility] 8 8 [facility] ing:LAB Repository 11/26/2017/ [id number] Ambulatory Francesca Francesca 8 6 [facility] ing:PT Repository 11/19/2017 [id number] Ambulatory [facility] Powell 7 [facility] ing:MTLAB Repository 11/05/2017/ [id number] Ambulatory [facility] Francesca 8 8 [facility] ing:LAB Repository 10/15/2017 [id number] Ambulatory [place] Francesca 3 [facility] ing:LAB.FUTUR Repository E 10/08/2017/ [id number] Ambulatory BMSBuilding:B [facility] 8 5 [facility] Repository 08/27/2017 [id number] Ambulatory Francesca [facility] 0 [facility] ing:MTLAB Repository PAYERS PAYERS ENCOUNTER GUARANTOR PAYER SUBSCRIBER SOURCE 07/24/2018 TAMAR CHRISTINE2773 Primary MURIEL WOLFFB: Francesca [place] Insurance:MEDICARE [id number] [facility] [address]Kmn: (330) Number: Repository [phone] (HP) [id number] Date:2017-10-11 07/24/2018 Secondary MURIEL WOLFFB: Francesca Insurance:AETNA SR [id number] [facility] Number: Repository [id number] Date:[id number] SENIOR SUPPLEMENT [address] [address], [place] [address]KW: 07/24/2018 Tertiary NOT GIVENUNK [place] Insurance:SELF PAY [facility] Number: Effective Repository Date:2018-07-14 07/08/2018 TAMAR HUSSEIN3 Primary MURIEL Zhao WOLFFB: Francesca [place] Insurance:MEDIC[id number] [facility] [address]Wfy: (330) Number: Repository [phone] () [id number] Date:2017-10-11 07/08/2018 Secondary MURIEL WOLFFB: Francesca Insurance[facility]ETNA [id number] [id number] Date:4831-55-27TSUKE SENIOR SUPPLEMENT [address] [address], [place] [address]KG: 07/08/2018 Tertiary NOT GIVENUNK [place] Insurance:SELF PAY [facility] Number: Effective Repository Date:2018-05-14 05/13/2018 TAMAR CHRISTINE2773 Primary MURIEL Zhao CHRISTINEDOB: [place] Insurance:MEDICARE [id number] [facility] [address]Iys: (330) Number: Repository [phone] () [id number] Date:2018-05-13 05/13/2018 Secondary MURIEL WOLFFB: [place] Insurance:AETNA SR [id number] [facility] Number: Repository [id number] Date:6836-05-01ZANOP SENIOR SUPPLEMENT [address] [address], [place] [address]XO: 05/13/2018 Tertiary NOT GIVENUNK Francesca Insurance:SELF PAY [facility] Number: Effective Repository Date:2018-05-13 04/29/2018 TAMAR CHRISTINE2773 Primary MURIEL F EMMETTDOB: [place] Insurance:MEDICARE [id number] [facility] [address]Hjp: (330) Number: Repository [phone] () [id number] Date:2017-10-11 04/29/2018 Secondary MURIEL WOLFFB: [place] Insurance:AETNA SR [id number] [facility] Hospital Number: Repository [id number] Date:[id number] SENIOR SUPPLEMENT [address] [address] [place] [address]EL: 04/29/2018 Tertiary NOT GIVENUNK [place] Insurance:SELF PAY [facility] Effective Repository Date:2018-04-15 04/07/2018 TAMAR HUSSEIN3 Primary MURIEL WOLFFB: [place] Insurance:MEDICARE [id number] [facility] [address]Ekw: (330) Number: Repository [phone] () [id number] Date:2017-10-11 04/07/2018 Secondary MURIEL Zhao WOLFFB: Francesca Insurance:AETNA SR [id number] [facility] Hospital Number: Repository [id number] Date:0226-53-94UIPQJ SENIOR SUPPLEMENT [address] [place] [address]XQ: 04/07/2018 Tertiary NOT GIVENUNK Francesca Insurance:SELF PAY [facility] Number: Effective Repository Date:2018-03-13 04/07/2018 TAMAR CHRISTINE2773 Primary MURIEL WOLFFB: [place] Insurance:MEDICARE [id number] [facility] [address]Xly: (330) Number: Repository [phone] () [id number] Date:2017-10-08 04/07/2018 Secondary MURIEL WOLFFB: [place] Insurance:AETNA SR [id number] [facility] Hospital Number: Repository [id number] Date:3099-40-95GDAWK SENIOR SUPPLEMENT [address] [address], [place] [address]WA: 04/07/2018 Tertiary NOT GIVENUNK [place] Insurance:SELF PAY [facility] Number: Effective Repository Date:2018-04-07 03/19/2018 TAMAR CHRISTINE2773 Primary MURIEL WOLFFB: Francesca [place] Insurance:MEDICARE [id number] [place] PART A [facility] [address]Wdq: (330) Number: Repository [phone] () [id number] Date:2018-03-19 03/19/2018 Secondary MURIEL Zhao WOLFFB: Powell Insurance:AETNA SR [id number] Number: Repository [id number] Date:4024-34-31TGVCH SENIOR SUPPLEMENT [id number] [place] [address]HK: 03/19/2018 Tertiary NOT GIVENUNK [place] Insurance:SELF PAY [facility] Number: Effective Repository Date:2018-03-19 03/18/2018 TAMAR [id number] Primary MURIEL WOLFFB: Francesca DENTON Insurance:MEDICARE [id number] [place] PART [facility] [address]Zpe: (330) Number: Repository [phone] () [id number] Date:2018-03-12 03/18/2018 Secondary MURIEL WOLFFB: [place] Insurance:AETNA SR [id number] [facility] Hospital Number: Repository [id number] Date:7277-40-66IQFJM SENIOR SUPPLEMENT [id number] [place] [address]QH: 03/18/2018 Tertiary NOT GIVENUNK Francesca Insurance:SELF PAY [facility] Number: Effective Repository Date:2018-03-12 03/18/2018 TAMAR [id number] Primary MURIEL WOLFFB: Powell DENTON Insurance:MEDICARE [id number] [place] PART [facility] [address]Vux: (330) Number: Repository [phone] () [id number] Date:2018-03-12 03/18/2018 Secondary MURIEL F EMMETTDOB: Francesca Insurance:AETNA SR [id number] Number: Repository [id number] Date:3875-09-46QOZTI SENIOR SUPPLEMENT [id number] [place] [phone]: 03/18/2018 Tertiary NOT GIVENUNK [place] Insurance:SELF PAY [facility]: Effective Repository Date:2018-03-18 03/04/2018 TAMAR HUSSEIN3 Primary MURIEL CHRISTINEDOB: Powell DENTON Insurance[place]ICARE [id number] [facility] [address]Lon: (330) Number: Repository [phone] () [id number] Date:2017-10-11 03/04/2018 Secondary MURIEL Zhao CHRISTINEDOB: Francesca Insurance:AETNA SR [id number] [facility] Hospital Number: Repository [id number] Date:1602-44-58OZLTD SENIOR SUPPLEMENT [id number] [place] [phone]: 03/04/2018 Tertiary NOT GIVENUNK [place] Insurance:SELF PAY [facility] Effective Repository Date:2018-02-07 02/17/2018 TAMAR HUSSEIN3 Primary MURIEL WOLFFB: Francesca DENTON Insurance:MEDICARE [id number] [facility] [address]Cpr: (330) Number: Repository [phone] () [id number] Date:2018-02-17 02/17/2018 Secondary MURIEL Zhao CHRISTINEDOB: Francesca Insurance:AETNA SR [id number] [facility] Number: Repository [id number] Date:5696-69-56BVXZO SENIOR SUPPLEMENT [id number] [place] [phone]: 02/17/2018 Tertiary NOT GIVENUNK [place] Insurance:SELF PAY [facility] Number: Effective Repository Date:2018-02-17 02/04/2018 TAMAR HUSSEIN3 Primary MURIEL Zhao WOLFFB: Francesca DENTON Insurance:MEDICARE [id number] [place] PART [facility] [address]Ohp: (330) Number: Repository [phone] () [id number] Date:2018-02-04 02/04/2018 Secondary MURIEL WOLFFB: [place] Insurance:AETNA SR [id number] Community SUPPLEMENT [facility] Number: Repository [id number] Date:3182-82-92IJMBY SENIOR SUPPLEMENT [id number] [place] [phone]: 02/04/2018 Tertiary NOT GIVENUNK Francesca Insurance:SELF PAY [facility] Number: Effective Repository Date:2018-02-04 01/27/2018 Tamar [id number] Primary MURIEL WOLFFB: Francesca Denton Insurance:MEDICARE [id number] [place] [facility] [address]Dzz: (330) Number: Repository [phone] () [id number] Date:2017-10-11 01/27/2018 Secondary MURIEL Zhao WOLFFB: Francesca Insurance:AETNA [id number] [facility] SUPPLEMENT [facility] Number: Repository [id number] Date:8098-76-62YFHGX SENIOR SUPPLEMENT [id number] [place] [phone]: 01/27/2018 Tertiary NOT GIVENUNK [place] Insurance:SELF PAY [facility] Number: Effective Repository Date:2018-01-09 01/09/2018 Tamar [id number] Primary MURIEL WOLFFB: [place] Insurance:MEDICARE [id number] [place] [facility] [address]Qkf: (330) Number: Repository [phone] () [id number] Date:2018-01-09 01/09/2018 Secondary MURIEL Zhao WOLFFB: [place] Insurance:AETNA [id number] [facility] SUPPLEMENT [facility] Hospital Number: Repository [id number] Date:8213-70-02VTDGT SENIOR SUPPLEMENT [address] [place] [phone]: 01/09/2018 Tertiary NOT GIVENUNK Francesca Insurance:SELF PAY [facility] Number: Effective Repository Date:2018-01-09 01/03/2018 Tamar [id number] Primary MURIEL WOLFFB: Francesca Denton Insurance:MEDICARE [id number] [place] [facility] [address]Pfj: (330) Number: Repository [phone] () [id number] Date:2017-10-11 01/03/2018 Secondary MURIEL WOLFFB: [place] Insurance:AETNA [id number] [facility] Number: Repository [id number] Date:3396-77-19BSIYC SENIOR SUPPLEMENT [id number] [place] [phone]: 01/03/2018 Tertiary NOT GIVENUNK [place] Insurance:SELF PAY [facility] Number: Effective Repository Date:2017-12-10 12/03/2017 Tamar [id number] Primary MURIEL WOLFFB: Francesca Denton Insurance:MEDICARE [id number] [facility] PART [facility] [address]Qar: (330) Number: Repository [phone] () [id number] Date:2017-10-11 12/03/2017 Secondary MURIEL WOLFFB: Francesca Insurance:AETNA [id number] [facility] Hospital Number: Repository [id number] Date:2975-03-44IGTDU SENIOR SUPPLEMENT [id number] [place] [phone]: 12/03/2017 Tertiary NOT GIVENUNK Francesca Insurance:SELF PAY [facility] Number: Effective Repository Date:2017-11-11 11/26/2017 Tamar Christine2773 Primary MURIEL WOLFFB: Powell Denton Insurance:MEDICARE [id number] [facility] [facility] [address]Kir: (330) Number: Repository [phone] () [id number] Date:1996-06-12 11/26/2017 Secondary MURIEL WOLFFB: Francesca Insurance:AETNA SR [id number] [facility] Hospital Number: Repository [id number] Date:1927-21-82AITDC SENIOR SUPPLEMENT [address] [address], [place] [address]YF: 11/26/2017 Tertiary NOT GIVENUNK Francesca Insurance:SELF PAY [facility] Number: Effective Repository Date:2017-10-21 11/19/2017 Tamar [id number] Primary MURIEL WOLFFB: Francesca Denton Insurance:MEDICARE [id number] [facility] [address]Zeq: (330) Number: Repository [phone] () [id number] Date:2017-11-19 11/19/2017 Secondary MURIEL WOLFFB: [place] Insurance:AETNA [id number] [facility] Hospital Number: Repository [id number] Date:9762-90-70CPELS SENIOR SUPPLEMENT [address] [address], [place] [address]DI: 11/19/2017 Tertiary NOT GIVENUNK [place] Insurance:SELF PAY [facility] Number: Effective Repository Date:2017-11-19 11/05/2017 Tamar Christnie2773 Primary MURIEL WOLFFB: Francesca Denton Insurance:MEDICARE [id number] [facility] [address]Pvu: (330) Number: Repository [phone] () [id number] Date:2017-10-11 11/05/2017 Secondary MURIEL WOLFFB: [place] Insurance:AETNA SR [id number] [facility] Hospital Number: Repository [id number] Date:9678-44-26OENKI SENIOR SUPPLEMENT [address] [address], [place] [address]XU: 11/05/2017 Tertiary NOT GIVENUNK [place] Insurance:SELF PAY [facility] Number: Effective Repository Date:2017-10-11 10/15/2017 Tamar [id number] Primary MURIEL F EMMETTDOB: Francesca Denton Insurance:MEDICARE [id number] [facility] [address]Kmp: (330) Number: Repository [phone] () [id number] Date:2017-10-09 10/15/2017 Secondary MURIEL F EMMETTDOB: [place] Insurance:AETNA [id number] [facility] Hospital Number: Repository [id number] Date:5479-72-92DYLOT SENIOR SUPPLEMENT [id number] [place] [phone]: 10/15/2017 Tertiary NOT GIVENUNK [place] Insurance:SELF PAY [facility] Number: Effective Repository Date:2017-10-09 10/08/2017 Tamar [id number] Primary MURIEL F EMMETTDOB: Francesca Denton Insurance:MEDICARE [id number] [facility] [address]Ies: (330) Number: Repository [phone] () [id number] Date:2017-07-18 10/08/2017 Secondary MURIEL F EMMETTDOB: Francesca Insurance:AETNA [id number] [facility] Number: Repository [id number] Date:0764-22-65DVAOP SENIOR SUPPLEMENT [id number] [place] [address]NS: 10/08/2017 Tertiary NOT GIVENUNK [place] Insurance:SELF PAY [facility] Number: Effective Repository Date:2017-07-18 08/27/2017 Tamar [id number] Primary MURIEL F EMMETTDOB: Powell D[place] Insurance:MEDICARE [id number] [facility] [address]Geq: (330) Number: Repository [phone] () [id number] Date:2017-08-27 08/27/2017 Secondary MURIEL F WELLSDOB: [place] Insurance:AETNA [id number] [facility] Hospital Number: Repository [id number] Date:2905-13-73FXAVX SENIOR SUPPLEMENT [address] [address]OQ[place], [place] [address]DX: 08/27/2017 Tertiary NOT GIVENUNK Francesca Insurance:SELF PAY [facility] Number: Effective Repository Date:2017-08-27
== END 2018-07-11 12:28 | disposition home or self-care (01) ==
LOC: LAB 16:10
PROVIDERS: Family Provider Family Medicine; PCP Family Medicine; Referring Provider Internal Medicine Cardiovascular Disease; Visit Provider Internal Medicine Cardiovascular Disease
DX: I48.0 Paroxysmal atrial fibrillation (principal); Z86.711 Personal history of pulmonary embolism
CPT/HCPCS: 36415; 85610

== ENCOUNTER → 2018-07-30 13:06 | Outpatient (CLI) | payer MEDICARE, OTHER, SELFPAY ==
[2018-07-30 12:47] VITALS: BMI 40.4
--- NOTE | 2018-07-30 13:10 | RAD_ITS ---
STUDY: X-RAY - LEFT KNEE REASON FOR EXAM: Left knee pain and bruising, fall. TECHNIQUE: 3 view(s) of the knee. COMPARISON: None. FINDINGS: There is a left total knee arthroplasty without evidence of complication. There is soft tissue swelling. RAD/Knee 3 Views IMPRESSION: Uncomplicated left total knee arthroplasty. Soft tissue swelling. Electronically Signed: Emmett De León MD at 13:54 EST Tel , Service support ,
--- NOTE | 2018-07-30 13:10 | RAD_ITS ---
STUDY: X-RAY - RIGHT HAND REASON FOR EXAM: Right wrist/hand pain and bruising, fall. TECHNIQUE: 3 view(s) of the hand. COMPARISON: None. FINDINGS: There is osteopenia. There is an intact orthopedic plate and screws transfixing an osseous fusion of the carpal bones and radiocarpal compartment of the wrist. There is resection arthroplasty of the carpometacarpal articulation of the thumb. There is joint space loss of the second through fifth carpometacarpal joints including fusion of the third carpometacarpal joint. Normal metacarpi. Normal metacarpophalangeal joint of the thumb. There are small marginal osteophytes and mild joint space narrowing of the interphalangeal joint of the thumb. Normal proximal and distal phalanges of the thumb. Normal metacarpophalangeal joints of the second through fifth fingers. There are marginal osteophytes and joint space narrowing of the distal interphalangeal joints. There is joint space narrowing of the third through fifth proximal interphalangeal joints. Normal phalanges of the second through fifth fingers. The soft tissue structures are unremarkable. RAD/Hand Min 3 Views IMPRESSION: Osteoarthritis of the interphalangeal joints. Resection arthroplasty of the first carpometacarpal joint and joint space loss of the second through fifth carpometacarpal joints. Osseous fusion of the carpal bones and radiocarpal compartment of the wrist with intact orthopedic hardware. Osteopenia. No demonstrated fracture. Electronically Signed: Emmett De León MD at 14:13 EST Tel , Service support ,
--- NOTE | 2018-07-30 13:10 | RAD_ITS ---
STUDY: X-RAY - RIGHT WRIST REASON FOR EXAM: Right wrist/hand pain and bruising, fall. TECHNIQUE: 3 view(s) of the wrist were obtained. COMPARISON: None. FINDINGS: There is osteopenia. There is an intact orthopedic plate and screws extending from the distal radial diaphysis to the third metacarpal diaphysis transfixing an osseous fusion of the carpal bones and radiocarpal compartment. There is resection arthroplasty of the carpometacarpal articulation of the thumb. There is joint space loss of the second through fifth carpometacarpal articulations. Normal visualized metacarpal bones. There is soft tissue swelling. RAD/Wrist min 3 Views IMPRESSION: Osseous fusion with intact orthopedic hardware. Status post resection arthroplasty of the of the first carpometacarpal joint. Soft tissue swelling. Osteopenia. No demonstrated fracture. Electronically Signed: Emmett De León MD at 14:14 EST Tel , Service support ,
--- OUTSIDE RECORDS SUMMARY | 2018-10-31 18:37 | XMS RPT_ITS ---
:1945 Author Organization OHIP Support Name Relationship Address Phone R Unavailable Unavailable Unavailable TAMAR CHRISTINE Unavailable [address] + [place] [address] R Unavailable Unavailable Unavailable TAMAR CHRISTINE Unavailable [address] + [place] [address] R Unavailable Unavailable Unavailable TAMAR CHRISTINE [facility] [address] + [place] [address] R Unavailable Unavailable Unavailable TAMAR CHRISTINE Unavailable [facility] [address] + [place] [address] R Unavailable Unavailable Unavailable TAMAR CHRISTINE Unavailable [facility] [address] + [place] [address] R Unavailable Unavailable Unavailable TAMAR CHRISTINE Unavailable [facility] [address] + [place] [address] R Unavailable Unavailable Unavailable TAMAR CHRISTINE [facility] [address] + [place] [address] R Unavailable Unavailable Unavailable TAMAR CHRISTINE Unavailable [address] + [place] [address] R Unavailable Unavailable Unavailable TAMAR CHRISTINE Unavailable [address] + [place] [address] R Unavailable Unavailable Unavailable TAMAR CHRISTINE Unavailable [address] + [place] [address] R Unavailable Unavailable Unavailable TAMAR CHRISTINE Unavailable [address] + [place] [address] R Unavailable Unavailable Unavailable TAMAR CHRISTINE Unavailable [address] + [place] [address] R Unavailable Unavailable Unavailable TAMAR CHRISTINE Unavailable [address] + [place] [address] R Unavailable Unavailable Unavailable TAMAR CHRISTINE [facility] [address] + [place] [address] R Unavailable Unavailable Unavailable WELLS, TAMAR Unavailable [address] + [place] [address] R Unavailable Unavailable Unavailable WELLS, TAMAR Unavailable [address] + [place] [address] R Unavailable Unavailable Unavailable WELLS, TAMAR Unavailable [address] + [place] [address] R Unavailable Unavailable Unavailable WELLS, TAMAR Unavailable [address] + [place] [address] R Unavailable Unavailable Unavailable WELLS, TAMAR Unavailable [address] + [place] [address] R Unavailable Unavailable Unavailable WELLS, TAMAR Unavailable [address] [place] [address] DR + [place] [address] R Unavailable Unavailable Unavailable WELLS, TAMAR Unavailable [address] + [place] [address] R Unavailable Unavailable Unavailable WELLS, TAMAR Unavailable [address] + [place] [address] R Unavailable Unavailable Unavailable WELLS, TAMAR Unavailable [address] + [place] [address] R Unavailable Unavailable Unavailable WELLS, TAMAR Unavailable [address] + [place] [address] R Unavailable Unavailable Unavailable WELLS, TAMAR Unavailable [address] + [place] [address] Care Team Providers Name Role Phone Gen Iniguez Attending Unavailable Low Baxter Referring Unavailable Gen Iniguez Attending Unavailable Gen Iniguez Referring Unavailable Low Baxter Primary Care Unavailable Jayne, Pattison Attending Unavailable Jayne, Obdulio Referring Unavailable Low Baxter Primary Care Unavailable Low Baxter Consulting Unavailable Christy, Ghazal Attending Unavailable Ghazal Harrison Referring Unavailable Low Baxter Primary Care Unavailable Jayne, Obdulio Attending Unavailable Low Baxter Referring Unavailable Low Baxter Primary Care Unavailable Jayne, Obdulio Attending Unavailable Low Baxter Primary Care Unavailable Jayne, Obdulio Referring Unavailable Jayne, Obdulio Attending Unavailable Jayne, Obdulio Referring Unavailable Low Baxter Primary Care Unavailable PrebishRenu MANAGER BRIDGE-C Attending Unavailable Prebish, Renu MANAGER BRIDGE-C Referring Unavailable Baxter, Low Primary Care Unavailable Roof, Terrance Bowden Attending Unavailable Baxter, Low Referring Unavailable Baxter, Low Primary Care Unavailable Jayne, Obdulio Attending Unavailable Janye, Pattison Referring Unavailable Baxter, Low Primary Care Unavailable Vellanki, Ghazal Attending Unavailable Vellanki, Ghazal Referring Unavailable Baxter, Low Primary Care Unavailable Jayne, Pattison Attending Unavailable Jayne, Obdulio Referring Unavailable Baxter, Low Primary Care Unavailable Jayne, Obdulio Attending Unavailable Jayne, Obdulio Referring Unavailable Baxter, Low Primary Care Unavailable DeFinisAnnemarie Attending Unavailable Noe, Cruz Attending Unavailable Noe, Cruz Referring Unavailable Baxter, Low Primary Care Unavailable Jayne, Obdulio Attending Unavailable Jayne, Obdulio Referring Unavailable Baxter, Low Primary Care Unavailable Vellanki, Ghazal Attending Unavailable Vellanki, Ghazal Referring Unavailable Baxter, Low Primary Care Unavailable Baxter, Low Attending Unavailable Baxter, Low Referring Unavailable Baxter, Low Primary Care Unavailable Jayne, Obdulio Attending Unavailable Jayne, Pattison Referring Unavailable Baxter, Low Primary Care Unavailable Noe, Cruz Consulting Unavailable Gen Iniguez Attending Unavailable Baxter, Low Referring Unavailable Baxter, Low Primary Care Unavailable Jayne, Obdulio Attending Unavailable Jayne, Obdulio Referring Unavailable Bxater, Low Primary Care Unavailable Noe, Cruz Consulting Unavailable Roof, Terrance Bowden Consulting Unavailable [place], Low Attending Unavailable Baxter, Low Referring Unavailable Vellanki, Ghazal Attending Unavailable Vellanki, Ghazal Referring Unavailable Baxter, Low Primary Care Unavailable Jayne, Pattison Attending Unavailable Jayne, Obdulio Referring Unavailable Baxter, Low Primary Care Unavailable Noe, Cruz Consulting Unavailable Roof, Terrance Bowden Consulting Unavailable Jayne, Obdulio Attending Unavailable Jayne, Pattison Referring Unavailable Baxter, Low Primary Care Unavailable Baxter, Low Consulting Unavailable PROBLEMS PROBLEMS DATE TYPE CONDITION / CODE ATTENDING STATUS SOURCE Unknown I48.0 - Paroxysmal atrial Jayne, Pattison Active [place] 9 fibrillation / Community I48.0(ICD-10) Hospital Repository Unknown T14.90XA - Injury, Jayne, Pattison Active [place] [facility] unspecified, initial Community encounter / Hospital T14.90XA(ICD-10) Repository Unknown S60.221A - Contusion of Gen Iniguez Active [place] 8 right hand, initial Community encounter / Hospital S60.221A(ICD-10) Repository Unknown S60.211A - Contusion of Gen Iniguez Active [place] 8 right wrist, initial Community encounter / Hospital S60.211A(ICD-10) Repository Unknown S80.02XA - Contusion of Gen Iniguez Active [place] 8 left knee, initial Community encounter / Hospital S80.02XA(ICD-10) Repository Unknown E78.5 - Hyperlipidemia, Jayne, Obdulio Active [place] 8 unspecified / Community E78.5(ICD-10) Hospital Repository Unknown R06.02 - Shortness of [place], Active [place] 8 breath / R06.02(ICD-10) 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, left hand / Repository M18.12(ICD-10) Unknown M18.11 - Unilateral Vellanki, Active [place] 8 primary [facility] / Repository M18.11(ICD-10) Unknown M18.10 - Unilateral Vellanki, Active [place] 8 primary osteoarthritis of [facility] joint, unspecified hand / Repository M18.10(ICD-10) Unknown M54.17 - Radiculopathy, Prebish, Renu Active [place] 8 lumbosacral region / [facility] Community M54.17(ICD-10) Hospital Repository Unknown I10 - Essential (primary) Vellanstacy, Active [place] 8 hypertension / [facility] I10(ICD-10) Hospital Repository Unknown 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, 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 [facility] Community factor of multiple sites Hospital without organ or systems Repository involvement / M05.79(ICD-10) Unknown K21.9 - Gastro-esophageal Vellanki, Active [place] 8 reflux disease without [facility] esophagitis / Hospital K21.9(ICD-10) Repository Unknown J45.909 - Unspecified Vellanki, Active [place] 8 asthma, uncomplicated / [facility] J45.909(ICD-10) Hospital Repository Unknown I26.99 - Other pulmonary Vellanstacy, Active [place] 8 embolism without acute [facility] cor pulmonale / Hospital I26.99(ICD-10) Repository Unknown Z86.711 - Personal Jayne, Obdulio Active [place] 8 history of pulmonary Community embolism / Hospital Z86.711(ICD-10) Repository Unknown E78.00 - Pure Jayne, Obdulio Active [place] 8 hypercholesterolemia, Community unspecified / Hospital E78.00(ICD-10) Repository Unknown E78.0 - Pure Jyane, Obdulio Active [place] 8 hypercholesterolemia / Community E78.0(ICD-10) Hospital Repository PROCEDURES PROCEDURES No Procedure Records FoundRESULTS RESULTS PROTHROMBIN TIME W/INR Collected: 08/27/2018 Status: F Source: [place] 2:59 PM [facility] REPOSITORY TYPE CODE TESTS RESULT OUT OF RANGE REFERENCE UNITS LAB L300.4150 11.7-14.9 SECONDS High PROTIME 28.3 LAB L300.4200 Normal INR 2.6 Performed By: #### L300.3900 #### [facility] [address] [place], [address] COMPREHENSIVE METABOLIC Collected: 08/15/2018 Status: F Source: [place] PROFIL 3:42 PM [facility] REPOSITORY TYPE CODE TESTS RESULT OUT OF RANGE REFERENCE UNITS LAB L501.0100 74-106 mg/dL Normal GLU 104 Result Comment: Fasting Glucose result from 100 to 125 mg/dL suggests IMPAIRED HOMEOSTASIS per A.D.A. criteria. Please note revised GLUCOSE reference range effective 2017. LAB L501.1000 7-18 mg/dL Normal BUN 16 LAB L501.1100 0.55-1.02 mg/dL Normal CREAT,SERUM 0.77 Result Comment: The validity of the calculated GFR AND GFRAA in patients over 70 years has not been determined. Clinical correlation is essential. LAB L501.1110 >60 mL/min Normal EST GFR 78 Result Comment: Non- GFR Calc LAB L501.1115 >60 mL/min Normal EST GFR - AA 95 Result Comment: GFR Calc LAB L501.1300 10-20 RATIO High BUN/CRE 20.7 LAB L501.1500 6.4-8.2 g/dL T Normal PROT 7.0 LAB L501.1800 3.2-5.0 g/dL Normal ALB 3.4 LAB L501.1950 2.2-4.2 g/dL Normal GLOB 3.6 LAB L501.2000 0.9-2.4 RATIO Normal A/G 0.9 LAB L501.2200 8.5-10.1 mg/dL CA Normal 8.9 LAB L501.4100 15-37 U/L High AST 62 LAB L501.4305 45-117 U/L Normal ALK P 98 LAB L501.4405 13-56 U/L Normal ALT 52 LAB L501.4600 0.20-1.00 mg/dL T Normal BILI 0.40 LAB L501.5300 136-145 mmol/L NA Normal 141 LAB L501.5600 3.5-5.1 mmol/L K Normal 4.1 LAB L501.5900 98-107 mmol/L CL Normal 103 LAB L501.6100 21.0-32.0 mmol/L Normal CO2 29.0 LAB L501.6200 5-15 Normal GAP 9 Performed By: #### L500.4050 #### [facility] [address] [place] [place], [address] CBC W/DIFF, AUTOMATED Collected: 08/15/2018 Status: F Source: [place] 3:42 PM [facility] REPOSITORY TYPE CODE TESTS RESULT OUT OF RANGE REFERENCE UNITS LAB L100.1000 4.4-11.0 K/mm3 Normal WBC 7.8 LAB L100.1200 4.2-5.4 M/mm3 Low RBC 4.04 LAB L100.1300 12.0-15.0 g/dl Normal HGB 12.4 LAB L100.1400 37-47 % Normal HCT 38.7 LAB L100.1500 81-99 fL Normal MCV 95.8 LAB L100.1600 27.0-32.0 pg Normal MCH 30.7 LAB L100.1700 32-36 g/gl Normal MCHC 32.0 LAB L100.1810 11.6-14.6 % Normal RDW CV 14.2 LAB L100.1820 35.1-43.9 fl High RDW SD 49.0 LAB L100.1900 150-450 K/mm3 Normal PLT 293 LAB L100.2000 6.2-12.0 fl Normal MPV 9.2 LAB L100.2100 47-70 % Normal NEUT% 65.1 LAB L100.2200 19-41 % Normal LY% 23.5 LAB L100.2300 0-10 % Normal MONO% 8.8 LAB L100.2400 0-5 % Normal EO% 2.2 LAB L100.2500 0-1 % Normal BASO% 0.3 LAB L100.2550 0.0-0.9 % Normal IM GRAN % 0.100 Result Comment: IG% - Immature Granulocytes (promyelocytes, myelocytes and metamyelocytes) > 1% indicates that a LEFT SHIFT is Present. LAB L100.2620 2.0-7.7 X10 3/uL Normal Absolute Neut 5.1 LAB L100.2720 0.83-4.51 X10 3/ul Normal Absolute Lymph 1.84 Performed By: #### L100.0100 #### [facility] [address] [place], [place], [address] PROTHROMBIN TIME W/INR Collected: 08/13/2018 Status: F Source: [place] 3:07 PM [facility] REPOSITORY TYPE CODE TESTS RESULT OUT OF RANGE REFERENCE UNITS LAB L300.4150 11.7-14.9 SECONDS High PROTIME 28.2 LAB L300.4200 Normal INR 2.6 Performed By: #### L300.3900 #### [facility] [address] [place], [place], [address] CBC W/DIFF, AUTOMATED Collected: 08/06/2018 Status: F Source: [place] 2:58 PM [facility] REPOSITORY TYPE CODE TESTS RESULT OUT OF RANGE REFERENCE UNITS LAB L100.1000 4.4-11.0 K/mm3 Normal WBC 6.3 LAB L100.1200 4.2-5.4 M/mm3 Low RBC 3.82 LAB L100.1300 12.0-15.0 g/dl Low HGB 11.8 LAB L100.1400 37-47 % Low HCT 36.3 LAB L100.1500 81-99 fL Normal MCV 95.0 LAB L100.1600 27.0-32.0 pg Normal MCH 30.9 LAB L100.1700 32-36 g/gl Normal MCHC 32.5 LAB L100.1810 11.6-14.6 % Normal RDW CV 14.3 LAB L100.1820 35.1-43.9 fl High RDW SD 48.9 LAB L100.1900 150-450 K/mm3 Normal PLT 229 LAB L100.2000 6.2-12.0 fl Normal MPV 9.3 LAB L100.2100 47-70 % Normal NEUT% 59.6 LAB L100.2200 19-41 % Normal LY% 26.1 LAB L100.2300 0-10 % High MONO% 10.8 LAB L100.2400 0-5 % Normal EO% 3.0 LAB L100.2500 0-1 % Normal BASO% 0.3 LAB L100.2550 0.0-0.9 % Normal IM GRAN % 0.200 Result Comment: IG% - Immature Granulocytes (promyelocytes, myelocytes and metamyelocytes) > 1% indicates that a LEFT SHIFT is Present. LAB L100.2620 2.0-7.7 X10 3/uL Normal Absolute Neut 3.7 LAB L100.2720 0.83-4.51 X10 3/ul Normal Absolute Lymph 1.64 Performed By: #### L100.0100 #### [facility] [address] [place], [address] PROTHROMBIN TIME W/INR Collected: 08/06/2018 Status: F Source: [place] 2:58 PM [facility] REPOSITORY Order Comment: ORDERED CBCD AND INR TYPE CODE TESTS RESULT OUT OF REFERENCE UNITS RANGE LAB L300.4150 11.7-14.9 SECONDS High PROTIME 38.4 LAB L300.4200 High alert INR 3.9 Result Comment: CRITICAL VALUE VERIFIED. CALLED TO HILTON RIVERO 08/06/[address] [place] [address]. RESULTS READ BACK BY HILTON . Performed By: #### L300.3900 #### [facility] [address] [place], [place], [address] URGENT CARE VISIT Observed: 07/30/2018 Status: F Source: [place] REPORT 3:21 PM [facility] REPOSITORY [facility] [address] [place], [place] [address] OFFICE VISIT Date of Service: 07/30/18 MR#: [id number] Acct: [id number] Name: MURIEL CHRISTINE Rep #: [id number] : 1945 Provider: Gen CHRISTIANSON Age/Sex: 73/F Location: [facility] Status: Signed Intake Vital Signs07/30/18 Height 5 ft 1 in Intake Visit Reasons: FALL/R WRIST LEFT FOOT PAIN Chief Complaint: Facial and right wrist and left knee injuries status post fall Portable Pinch Riveter Required: No Accompanied by: Is patient in pain?: No Allergies Penicillins Allergy (Verified 07/30/18 12:50) Rash Medications Hydroxychloroquine [Plaquenil] 200 mg PO DAILYCM 09/09/13 [History Confirmed 07/30/18] traZODone [Desyrel] 100 mg PO QHS 09/09/13 [History Confirmed 07/30/18] Abatacept [Orencia] 125 mg SQ FR 01/19/15 [History Confirmed 07/30/18] Multivit-Min/FA/Lycopene/Lut [Centrum Silver Tablet] 1 tab PO DAILY 01/19/15 [History Confirmed 07/30/18] calcium carb,cit 315 mg-vitamin D3 250 unit-phytosterols 200 mg tablet 1 tab PO .q day ea 10/04/17 [History Confirmed 07/30/18] folic acid 1 mg tablet 1 mg PO QDAY 10/04/17 [History Confirmed 07/30/18] methotrexate sodium 2.5 mg tablet 2.5 mg PO .COMPLEX 10/08/17 [History Confirmed 07/30/18] oxycodone-acetaminophen 5 mg-325 mg tablet 1 tab PO BID tab 10/08/17 [History Confirmed 07/30/18] quetiapine 200 mg tablet 200 mg PO QHS tab 10/08/17 [History Confirmed 07/30/18] sertraline 100 mg tablet 100 mg PO QHS tab 10/08/17 [History Confirmed 07/30/18] pravastatin 20 mg tablet 20 mg PO QHS #90 tab 12/19/17 [Rx Confirmed 07/30/18] cyclobenzaprine 10 mg tablet 10 mg PO TID PRN #20 tab 03/19/18 [Rx Confirmed 07/30/18] metoprolol succinate ER 50 mg tablet,extended release 24 hr 50 mg PO QDAY #90 tab 03/24/18 [Rx Confirmed 07/30/18] amlodipine 10 mg tablet 10 mg PO DAILY 04/07/18 [History Confirmed 07/30/18] losartan 50 mg tablet 50 mg PO DAILY 04/07/18 [History Confirmed 07/30/18] warfarin 4 mg tablet 4 mg PO .COMPLEX #120 tab 04/07/18 [Rx Confirmed 07/30/18] [facility] Medical History Incomplete right bundle branch block [...] CVA Social History Smoking Status: Never smoker alcohol intake: never caffeine: Yes Type: carbonated beverages, tea HPI HPI Chief Complaint: Facial and right wrist and left knee injuries status post fall Details: MURIEL CHRISTINE, is a 73 F who presents to the office today for initial evaluation status post fall approximately 5 days ago while at home. Patient notes while in her kitchen turning rotating to the right and slipping falling in the process. She states she fell forward landing on outstretched right hand hitting the left side of her face as well as her left knee. Since the date of the injury she has moderate severe aching pain to the left knee as well as the right wrist with right wrist swelling proximal to the thumb MCP J as well as ecchymosis and swelling to the anterior aspect of the left knee. Upon hitting her head she had no loss of consciousness or nausea or vomiting on the date of the injury or since. She notes no complaints of neck pain or radicular complaints in the upper extremities. She notes no complaints of bilateral hip or ankle pain. She notes no complaints of bilateral shoulder elbow or left wrist digit x5 discomfort. She notes pain to affected sites is aggravated to touch and flexion extension, alleviated minimally with rest. She has taken no uxtb-wds-selorrl products to assist with symptoms. She notes no other associated symptoms no other alleviating or aggravating factors. ROS Const Constitutional: No other (ROS negative x10 other than as noted above) Exam Const General: cooperative, healthy appearing, no acute distress, uncomfortable Nutritional Appearance: obese Orientation: alert, awake, oriented x3 [facility] Head: normocephalic, periorbital ecchymosis (Left, as well as left forehead with trace palpable tenderness) Ears: hearing grossly normal bilaterally, external ears normal, TM's normal bilaterally, EAC's normal Nose: external nose normal, nares normal, septum normal, no nasal discharge Face and sinus: normal facial exam, face symmetric Mouth: tongue normal, lip normal, oral mucosae normal Eyes General: appearance normal, both eyes and all related structures (Except as noted in HEENT exam above) Neck Neck: normal visual inspection, full ROM, no lymphadenopathy, no meningeal signs, supple Neck mass: No Thyroid: thyroid normal Lymphatic: no lymphadenopathy noted Chest Chest palpation AND inspection: normal inspection of the chest Resp Effort AND Inspection: normal respiratory effort, able to speak in complete sentences, symmetric chest movement, no cough Auscultation: Bilateral: Clear to Auscultation Cardio Palpation: normal PMI Rate: regular rate Rhythm: regular rhythm Heart Sounds: S1 normal, S2 normal, no gallops, no murmurs, no rubs Pulses: radial pulses present GI Inspection: normal to inspection Musc Cervical Spine: normal cervical lordosis and cervical ROM normal; no cervical spinal tenderness, cervical spasm, cervical muscular tenderness or pain with cervical ROM Thoracic/Lumbar Spine: thoracic and lumbar spine normal to inspection, thoraco-lumbar ROM not normal Skin General: no rashes or lesions noted, ecchymosis (Right dorsal wrist/hand, left anterior knee) Neuro General: alert, awake, oriented x3, gait normal Cognition: normal cognition Speech: speech normal Gait: normal gait Motor: muscle tone normal throughout Sensory Exam: no sensory deficits noted Extrem General: abnormal ROM (See other below), normal capillary refill Other: Right dorsal radial wrist ecchymosis and swelling with palpable tenderness; radiographs revealed no acute pathology per radiology interpretation. Left anterior knee ecchymosis with joint swelling with approximately 170 degrees extension exacerbating pain, approximately 90 degrees flexion exacerbating pain, and generalized joint swelling and tenderness to palpation circumferentially; radiographs revealed no acute pathology except soft tissue swelling per radiology interpretation. Psych Appearance: grossly normal Mental Status: mental status grossly normal Mood: congruent mood Affect: normal affect Speech and Movement: speech and movement normal Attitude: cooperative Thought Process: normal Thought Content: normal Judgment: judgment good Assessment AND Plan Problems 1. Traumatic ecchymosis of face S00.83XA 2. Contusion of right wrist S60.211A 3. Contusion of right hand S60.221A 4. Contusion of left knee S80.02XA Plan Radiographs of the right wrist/right hand/left knee with patient in office today revealing no acute pathology per my review with radiologist interpretation pending at the time of review with patient in office today. Right wrist thumb spica splint as dispensed/instructed today. Agusto wrap to left knee as dispensed/instructed today. Rest, ice, passive range of motion exercises as instructed today to affected areas. Tylenol as needed for symptomatic relief. Follow-up with orthopedics first available appointment, taking today's radiographs with you to orthopods office. Patient and spouse state acknowledging understanding all the above. This note was generated with [employer] dictation software. It may contain incorrect words, spelling, and punctuation that were not noted in checking the note before signing. Orders Orders: Coding Level of Care Code Off vis,est,level 4 Diagnoses Traumatic ecchymosis of face S00.83XA Contusion of right wrist S60.211A Contusion of right hand S60.221A Contusion of left knee S80.02XA 07/30/18 1521 <Electronically signed by Gen CHRISTIANSON> Date Gen CHRISTIANSON Cosigner Signature: Date (if applicable) CC: KNEE 3 VIEWS Observed: 07/30/2018 Status: F Source: [place] 1:10 PM [facility] REPOSITORY [facility] Imaging Services [address] [place] [id number] Knee 3 Views MR#: [id number] Acct: [id number] Name: MURIEL CHRISTINE Rep #: [id number] : 1945 F 73 From: Emmett De León MD PCP: Low Baxter MD Status: REG CLI Study: Knee 3 Views Date of Exam: 07/30/18 Exam# [id number] Ordering Dr: Gen Iniguez STUDY: X-RAY - LEFT KNEE REASON FOR EXAM: Left knee pain and bruising, fall. TECHNIQUE: 3 view(s) of the knee. COMPARISON: None. FINDINGS: There is a left total knee arthroplasty without evidence of complication. There is soft tissue swelling. RAD/Knee 3 Views IMPRESSION: Uncomplicated left total knee arthroplasty. Soft tissue swelling. Electronically Signed: Emmett De León MD at 13:54 EST Tel , Service support , CC: Low Baxter MD; Gen CHRISTIANSON Mold Burner: Signed HAND MIN 3 VIEWS Observed: 07/30/2018 Status: F Source: [place] 1:10 PM [facility] REPOSITORY [facility] Imaging Services [address] [place] [address] Hand Min 3 Views MR#: [id number] Acct: [id number] Name: MURIEL CHRISTINE Rep #: [id number] : 1945 F 73 From: Emmett De León MD PCP: Low Baxter MD Status: REG CLI Study: Hand Min 3 Views Date of Exam: 07/30/18 Exam# [id number] Ordering Dr: Gen Iniguez STUDY: X-RAY - RIGHT HAND REASON FOR EXAM: Right wrist/hand pain and bruising, fall. TECHNIQUE: 3 view(s) of the hand. COMPARISON: None. FINDINGS: There is osteopenia. There is an intact orthopedic plate and screws transfixing an osseous fusion of the carpal bones and radiocarpal compartment of the wrist. There is resection arthroplasty of the carpometacarpal articulation of the thumb. There is joint space loss of the second through fifth carpometacarpal joints including fusion of the third carpometacarpal joint. Normal metacarpi. Normal metacarpophalangeal joint of the thumb. There are small marginal osteophytes and mild joint space narrowing of the interphalangeal joint of the thumb. Normal proximal and distal phalanges of the thumb. Normal metacarpophalangeal joints of the second through fifth fingers. There are marginal osteophytes and joint space narrowing of the distal interphalangeal joints. There is joint space narrowing of the third through fifth proximal interphalangeal joints. Normal phalanges of the second through fifth fingers. The soft tissue structures are unremarkable. RAD/Hand Min 3 Views IMPRESSION: Osteoarthritis of the interphalangeal joints. Resection arthroplasty of the first carpometacarpal joint and joint space loss of the second through fifth carpometacarpal joints. Osseous fusion of the carpal bones and radiocarpal compartment of the wrist with intact orthopedic hardware. Osteopenia. No demonstrated fracture. Electronically Signed: Emmett De León MD at 14:13 EST Tel , Service support , CC: Low Baxter MD; Gen CHRISTIANSON Mold Burner: Signed WRIST MIN 3 VIEWS Observed: 07/30/2018 Status: F Source: [place] 1:10 PM [facility] REPOSITORY [facility] Imaging Services [address] [place] [address] Wrist min 3 Views MR#: [id number] Acct: [id number] Name: MURIEL CHRISTINE Rep #: [id number] : 1945 F 73 From: Emmett De León MD PCP: Low Baxter MD Status: REG CLI Study: Wrist min 3 Views Date of Exam: 07/30/18 Exam# [id number] Ordering Dr: Gen Iniguez STUDY: X-RAY - RIGHT WRIST REASON FOR EXAM: Right wrist/hand pain and bruising, fall. TECHNIQUE: 3 view(s) of the wrist were obtained. COMPARISON: None. FINDINGS: There is osteopenia. There is an intact orthopedic plate and screws extending from the distal radial diaphysis to the third metacarpal diaphysis transfixing an osseous fusion of the carpal bones and radiocarpal compartment. There is resection arthroplasty of the carpometacarpal articulation of the thumb. There is joint space loss of the second through fifth carpometacarpal articulations. Normal visualized metacarpal bones. There is soft tissue swelling. RAD/Wrist min 3 Views IMPRESSION: Osseous fusion with intact orthopedic hardware. Status post resection arthroplasty of the of the first carpometacarpal joint. Soft tissue swelling. Osteopenia. No demonstrated fracture. Electronically Signed: Emmett De León MD at 14:14 EST Tel , Service support , CC: Low Baxter MD; Gen CHRISTIANSON Mold Burner: Signed PROTHROMBIN TIME W/INR Collected: 07/08/2018 Status: F Source: [place] 4:16 PM [facility] REPOSITORY TYPE CODE TESTS RESULT OUT OF RANGE REFERENCE UNITS LAB L300.4150 11.7-14.9 SECONDS Normal PROTIME 14.2 LAB L300.4200 Normal INR 1.1 Performed By: #### L300.3900 #### [facility] [address] [facility] [place], [place], [address] PROTHROMBIN TIME W/INR Collected: 05/13/2018 Status: F Source: [place] 2:33 PM [facility] REPOSITORY Order Comment: DR. GODOY WANTS THE PT/INR CHRISTY CARDENAS WANTS THE CBCD CMP TYPE CODE TESTS RESULT OUT OF RANGE REFERENCE UNITS LAB L300.4150 11.7-14.9 SECONDS High PROTIME 25.0 LAB L300.4200 Normal INR 2.3 Performed By: #### L300.3900 #### [facility] [address] [place], [place], [address] CBC W/DIFF, AUTOMATED Collected: 05/13/2018 Status: F Source: [place] 2:31 PM [facility] REPOSITORY Order Comment: DR. GODOY WANTS THE [...] Lymph 1.87 Performed By: #### L100.0100 #### [facility] [address] [place], [address] COMPREHENSIVE METABOLIC Collected: 05/13/2018 Status: F Source: [facility] 2:31 PM [facility] REPOSITORY Order Comment: DR. GODOY WANTS THE [...] GAP 9 Performed By: #### L500.4050 #### [facility] [place], [address] PROTHROMBIN TIME W/INR Collected: 04/29/2018 Status: F Source: [place] 1:45 PM [facility] REPOSITORY TYPE CODE TESTS RESULT OUT OF RANGE REFERENCE UNITS LAB L300.4150 11.7-14.9 SECONDS High PROTIME 33.3 LAB L300.4200 Normal INR 3.2 Performed By: #### L300.3900 #### [facility] [address] [facility]. [place], [place], [address] LIVER PROFILE Collected: 04/29/2018 Status: F Source: [place] 1:44 PM [facility] REPOSITORY TYPE CODE TESTS RESULT OUT OF [...] 0.07 Performed By: #### L500.3400, L500.4100 #### [facility] [address] [facility] [place], [place], [address] LIPID PROFILE Collected: 04/29/2018 Status: F Source: [place] 1:44 PM [facility] REPOSITORY TYPE CODE TESTS RESULT OUT OF [...] 26 Performed By: #### L500.3400, L500.4100 #### [facility] [address] [place], [address] CARDIOLOGY VISIT Observed: 04/09/2018 Status: F Source: [place] REPORT 12:03 PM [facility] REPOSITORY [facility] [address] [place] [address] OFFICE VISIT Date of Service: 04/07/18 MR#: [id number] Acct: [id number] Name: MURIEL CHRISTINE Rep #: [id number] : 1945 Provider: WADE Sandhu Age/Sex: 73/F Location: [facility] Status: Signed HPI HPI Details: MURIEL CHRISTINE is a 73 F who presents to [...] Lt brachial Intake Visit Reasons: 6 M FU Portable Pinch Riveter Required: No Accompanied by: None Is patient [...] 04/07/18] Ejection fraction %: 65 to 70 [facility] Medical History Incomplete right bundle branch block [...] AND Plan 1. Paroxysmal atrial fibrillation I48.0 BRYON Ly Stress test in March 2018 was negative for stress-induced myocardial ischemia. Echocardiogram from April 2017 showed ejection fraction of 65%. She appears to be maintaining regular rhythm. Her heart rate is well-controlled. She is currently on Coumadin therapy. She will continue current medications and we will continue to monitor. 2. Essential hypertension I10 Plan - BRYON Whitaker Patient's blood pressure is well-controlled today in the office. We will continue to monitor this. We will not make any medication regimen changes. 3. Pure hypercholesterolemia E78.00 Dilan - BRYON Whitaker Patient has not had this evaluated since May 2017. She will undergo repeat liver and lipid panel at her earliest convenience. She will continue the current statin medication in the interim. 4. 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 [place], [place], [address] PROTHROMBIN TIME W/INR Collected: 03/20/2018 Status: F Source: [place] 3:14 PM [facility] REPOSITORY TYPE CODE TESTS RESULT OUT OF RANGE REFERENCE UNITS LAB L300.4150 11.7-14.9 SECONDS High PROTIME 15.7 LAB L300.4200 Normal INR 1.3 Performed By: #### L300.3900 #### [facility] [address] [place], [place], [address] URGENT CARE VISIT Observed: 03/19/2018 Status: F Source: [place] REPORT 2:35 PM [facility] REPOSITORY [facility] [address] [place] [address] 6 [place] [address] OFFICE VISIT Date of Service: 03/19/18 MR#: [id number] Acct: [id number] Name: MURIEL CHRISTINE Rep #: [id number] : 1945 Provider: Gen CHRISTIANSON Age/Sex: 73/F Location: [facility] Status: Signed Intake Vital Signs03/19/18 Height 5 ft 1 in 03/19/18 Weight: 212 lb 03/19/18 Body Mass Index (BMI) 40.0 Intake Visit Reasons: STIFF NECK Chief Complaint: neck pain Portable Pinch Riveter Required: No Is patient in pain?: Yes [...] body habitus Orientation: alert, awake, oriented x3 [facility] Head: normal to inspection, normocephalic, atraumatic, no [...] the above. This note was generated with [employer] software. It may contain incorrect words, spelling, and punctuation that were not noted in checking the note before signing. Medications New: Coding Level of Care Code Off vis,est,level 3 Diagnoses Trapezius muscle strain S46.819A 03/19/18 1435 <Electronically signed by Gen CHRISTIANSON> Date Gen CHRISTIANSON Cosigner Signature: Date (if applicable) CC: STRESS REPORT Observed: 03/18/2018 Status: F Source: [place] 1:46 PM [facility] REPOSITORY [facility] Cardiovascular Services [address] [place], [place] [address] MR#: [id number] Acct: [id number] Name: MURIEL CHRISTINE Rep #: [id number] : 1945 73 From: Low Stovall MD [...] 81 %. This note was generated with [employer] software. It may contain incorrect words, spelling, and punctuation that were not noted in checking the note before signing. 03/18/18 1346 <Electronically signed by Low Stovall MD> Date Low Stovall MD CC: Low Baxter MD Date Dictated: 03/18/181338 Date Transcribed: 03/18/181338 Mold Burner: PM Signed PROTHROMBIN TIME W/INR Collected: 03/04/2018 Status: F Source: [place] 2:34 PM [facility] REPOSITORY TYPE CODE TESTS RESULT OUT OF RANGE REFERENCE UNITS LAB L300.4150 11.7-14.9 SECONDS High PROTIME 26.3 LAB L300.4200 Normal INR 2.4 Performed By: #### L300.3900 #### [facility] [address] [place], [place], [address] CBC W/DIFF, AUTOMATED Collected: 02/17/2018 Status: F Source: [place] 3:42 PM [facility] REPOSITORY TYPE CODE TESTS RESULT OUT OF [...] Lymph 0.69 Performed By: #### L100.0100 #### [facility] [address] [place], [address] COMPREHENSIVE METABOLIC Collected: 02/17/2018 Status: F Source: [place] JOSUE 3:42 PM [facility] REPOSITORY TYPE CODE TESTS RESULT OUT OF [...] GAP 9 Performed By: #### L500.4050 #### [facility] [place], [address] PROTHROMBIN TIME W/INR Collected: 02/04/2018 Status: F Source: [place] 1:31 PM [facility] REPOSITORY Order Comment: SEND RESULTS TO DR.ZACKARY VARGAS. TYPE CODE TESTS RESULT OUT OF RANGE REFERENCE UNITS LAB L300.4150 11.7-14.9 SECONDS High PROTIME 26.0 LAB L300.4200 Normal INR 2.4 Performed By: #### L300.3900 #### [facility] [address] [place], [address] PROTHROMBIN TIME W/INR Collected: 01/27/2018 Status: F Source: [place] 4:15 PM [facility] REPOSITORY TYPE CODE TESTS RESULT OUT OF RANGE REFERENCE UNITS LAB L300.4150 11.7-14.9 SECONDS High PROTIME 29.9 LAB L300.4200 Normal INR 2.8 Performed By: #### L300.3900 #### [facility] [address] [place], [address] PROTHROMBIN TIME W/INR Collected: 01/20/2018 Status: F Source: [place] 3:37 PM [facility] REPOSITORY TYPE CODE TESTS RESULT OUT OF REFERENCE UNITS RANGE LAB L300.4150 11.7-14.9 SECONDS High PROTIME 39.1 LAB L300.4200 High alert INR 4.0 Result Comment: CRITICAL VALUE VERIFIED. CALLED TO IRVIN 01/20/18 1650 Linn Storey. RESULTS READ BACK BY SAME . Performed By: #### L300.3900 #### [facility] [address] [place], [address] PROTHROMBIN TIME W/INR Collected: 01/03/2018 Status: F Source: [place] 1:49 PM [facility] REPOSITORY TYPE CODE TESTS RESULT OUT OF RANGE REFERENCE UNITS LAB L300.4150 11.7-14.9 SECONDS High PROTIME 30.6 LAB L300.4200 Normal INR 2.9 Performed By: #### L300.3900 #### [facility] [address] [place], [address] PROTHROMBIN TIME W/INR Collected: 12/26/2017 Status: F Source: [place] 1:08 PM [facility] REPOSITORY TYPE CODE TESTS RESULT OUT OF RANGE REFERENCE UNITS LAB L300.4150 11.7-14.9 SECONDS High PROTIME 19.0 LAB L300.4200 Normal INR 1.6 Performed By: #### L300.3900 #### [facility] [address] [place], [address] PROTHROMBIN TIME W/INR Collected: 12/17/2017 Status: F Source: [place] 3:55 PM [facility] REPOSITORY TYPE CODE TESTS RESULT OUT OF RANGE REFERENCE UNITS LAB L300.4150 11.7-14.9 SECONDS High PROTIME 20.0 LAB L300.4200 Normal INR 1.7 Performed By: #### L300.3900 #### [facility] [address] [place], [address] PROTHROMBIN TIME W/INR Collected: 12/11/2017 Status: F Source: [place] 8:39 AM [facility] REPOSITORY TYPE CODE TESTS RESULT OUT OF RANGE REFERENCE UNITS LAB L300.4150 11.7-14.9 SECONDS Normal PROTIME 13.0 LAB L300.4200 Normal INR 1.0 Performed By: #### L300.3900 #### [facility] [address] [place], [address] PROTHROMBIN TIME W/INR Collected: 12/03/2017 Status: F Source: [place] 3:30 PM [facility] REPOSITORY TYPE CODE TESTS RESULT OUT OF RANGE REFERENCE UNITS LAB L300.4150 11.7-14.9 SECONDS High PROTIME 19.7 LAB L300.4200 Normal INR 1.7 Performed By: #### L300.3900 #### [facility] [address] [place], [address] PT D/C SUMMARY (1) Observed: 11/27/2017 Status: F Source: [place] 7:11 PM [facility] REPOSITORY [facility] [address] [place], [place] [address] Fax REHABILITATION SERVICES DISCHARGE SUMMARY MR#: [id number] Acct: [id number] Name: MURIEL CHRISTINE Rep #: [id number] : 1945 72 From: Jeanne GOINS Referring Dr.: Renu SLATER Prebish Status: REG RCR Insurance: MEDICARE PART A [...] 2:: Increase FGA by 5 points to 14/30 to decrease fall risk. Goal Progress: Progressing - Plan Plan: DC PT to HEP - D/C Information Discharge Comments: DC PT If there are questions or concerns regarding this patient's physical therapy, please feel free to call me at [phone]. Thank you for the referral of this patient. Sincerely, Jeanne Miller <Electronically signed by Jeanne Miller MPT> 11/27/17 1911 CC: Renu SLATER Prebish; Low Baxter MD Signed PROTHROMBIN TIME W/INR Collected: 11/19/2017 Status: F Source: [place] 3:38 PM [facility] REPOSITORY TYPE CODE TESTS RESULT OUT OF RANGE REFERENCE UNITS LAB L300.4150 11.7-14.9 SECONDS High PROTIME 27.5 LAB L300.4200 Normal INR 2.5 Performed By: #### L300.3900 #### [facility] [address] [facility] [place], [address] CBC W/DIFF, AUTOMATED Collected: 11/19/2017 Status: F Source: [place] 2:26 PM [facility] REPOSITORY TYPE CODE TESTS RESULT OUT OF [...] Lymph 1.50 Performed By: #### L100.0100 #### [facility] [address] [place], [address] COMPREHENSIVE METABOLIC Collected: 11/19/2017 Status: F Source: [place] JOSUE 2:26 PM [facility] REPOSITORY TYPE CODE TESTS RESULT OUT OF [...] GAP 6 Performed By: #### L500.4050 #### [facility] [address] [place], [address] PROTHROMBIN TIME W/INR Collected: 11/12/2017 Status: F Source: [place] 2:28 PM [facility] REPOSITORY TYPE CODE TESTS RESULT OUT OF RANGE REFERENCE UNITS LAB L300.4150 11.7-14.9 SECONDS High PROTIME 19.6 LAB L300.4200 Normal INR 1.7 Performed By: #### L300.3900 #### [facility] [address] [place], [address] PROTHROMBIN TIME W/INR Collected: 11/05/2017 Status: F Source: [place] 3:47 PM [facility] REPOSITORY TYPE CODE TESTS RESULT OUT OF RANGE REFERENCE UNITS LAB L300.4150 11.7-14.9 SECONDS High PROTIME 16.3 LAB L300.4200 Normal INR 1.3 Performed By: #### L300.3900 #### [facility] [address] [place], [address] INITAL EVALUATION (1) Observed: 10/29/2017 Status: F Source: [place] - PT 5:01 PM [facility] REPOSITORY [facility] [address] [place] [address]. [address] [place] [address] Fax REHABILITATION SERVICES INITIAL EVALUATION MR#: [id number] Acct: [id number] Name: MURIEL CHRISTINE Rep #: [id number] : 1945 72 From: Jeanne Miller MPT Referring Dr.: Renu Mcdonald Status: REG RCR Insurance: MEDICARE PART A B [employer] SR SUPPLEMENT INS Patient's Visit Information MURIEL CHRISTINE is a 72 year old F referred to Physical Therapy by BRYON Goldman NP.LPRABBYI with a diagnosis of balance issues. Date [...] no pain for 2 months. She is T[place]. Stairs slowly with a railing. She has [...] step at a time descending stairs. FGA: 30 (struggled with head turns, walking bw, stepping [...] 2:: Increase FGA by 5 points to 14/30 to decrease fall risk. Goal Time Frame: [...] to be FAXED BACK to us at [phone] for Medicare purposes. Please let me know if there are questions or concerns regarding this plan of care. Physician Signature: Date: <Electronically signed by Jeanne Miller MPT> 10/29/17 1701 CC: Renu Mcdonald; Low Baxter MD Signed For Medicare only, by signing this I certify the plan of care. Physicians Signature Date PROTHROMBIN TIME W/INR Collected: 10/29/2017 Status: F Source: [place] 3:17 PM [facility] REPOSITORY TYPE CODE TESTS RESULT OUT OF RANGE REFERENCE UNITS LAB L300.4150 11.7-14.9 SECONDS High PROTIME 15.8 LAB L300.4200 Normal INR 1.3 Performed By: #### L300.3900 #### [facility] [address] [place], [address] PROTHROMBIN TIME W/INR Collected: 10/22/2017 Status: F Source: [place] 1:20 PM [facility] REPOSITORY TYPE CODE TESTS RESULT OUT OF RANGE REFERENCE UNITS LAB L300.4150 11.7-14.9 SECONDS High PROTIME 16.6 LAB L300.4200 Normal INR 1.3 Performed By: #### L300.3900 #### [facility] [address] [place], [address] PROTHROMBIN TIME W/INR Collected: 10/15/2017 Status: F Source: [place] 2:29 PM [facility] REPOSITORY TYPE CODE TESTS RESULT OUT OF RANGE REFERENCE UNITS LAB L300.4150 11.7-14.9 SECONDS High PROTIME 16.4 LAB L300.4200 Normal INR 1.3 Performed By: #### L300.3900 #### [facility] [address] [place], [address] PROTHROMBIN TIME W/INR Collected: 10/11/2017 Status: F Source: [place] 3:36 PM [facility] REPOSITORY Order Comment: Comments: STANDING ORDER Comments: STANDING ORDER TYPE CODE TESTS RESULT OUT OF RANGE REFERENCE UNITS LAB L300.4150 11.7-14.9 SECONDS Normal PROTIME 13.6 LAB L300.4200 Normal INR 1.0 Performed By: #### L300.3900 #### [facility] [address] [place], [address] CARDIOLOGY VISIT Observed: 10/08/2017 Status: F Source: [place] REPORT 2:19 PM [facility] REPOSITORY [facility] [address] [place] [address] OFFICE VISIT Date of Service: 10/08/17 MR#: [id number] Acct: [id number] Name: MURIEL CHRISTINE Rep #: [id number] : 1945 Provider: Obdulio Godoy MD Age/Sex: 72/F Location: [facility] Status: Signed HPI HPI Chief Complaint: Follow-up visit. Details: MURIEL CHRISTINE, [...] 10/08/17] Ejection fraction %: 65 to 70 [facility] Medical History Incomplete right bundle branch block [...] Date (if applicable) CC: Low Baxter MD ALLERGIES ALLERGIES DATE TYPE / CODE NAME / CODE REACTION SEVERITY SOURCE 07/30/2018 Drug Penicillins/ Rash Unknown [facility] Allergy/4160 [id number]([facility] [address](SNOMED XNORM) Repository CT) ENCOUNTERS ENCOUNTERS ADMIT/DISCHARGE ACCOUNT ADMITTING ENCOUNTER LOCATION SOURCE NUMBER CLASS 08/27/2018 [id number] Ambulatory [place] [facility] 1 [facility] ing:LAB Repository 08/15/2018 [id number] [place] [facility] ing:MTLAB Repository 08/06/2018/ [id number] Ambulatory [place] 6 [facility] ing:LAB Repository 07/30/2018 [id number] Ambulatory [place] 9 [facility] ing:MTRAD Repository 07/30/2018/ [id number] Ambulatory [facility] [place] 0 [place] Repository 07/08/2018/ [id number] Ambulatory [place] 8 6 [facility] ing:LAB Repository 05/13/2018 [id number] Ambulatory [place] 8 [facility] ing:LAB Repository 04/29/2018/ [id number] Ambulatory [place] 8 0 [facility] ing:LAB Repository 04/07/2018/ [id number] Ambulatory [place] 8 1 [facility] ing:LAB Repository 04/07/2018/ [id number] Ambulatory [facility] [place] 1 [facility] Repository 03/19/2018/ [id number] Ambulatory [facility] [place] 1 [place] Repository 03/18/2018 [id number] Ambulatory [place] 4 [facility] ing:[facility] Repository 03/18/2018 [id number] Ambulatory BMSBuilding:W [place] 9 [facility] Repository 03/04/2018/ [id number] Ambulatory [place] 0 [facility] Repository 02/17/2018 [id number] Ambulatory [place] 8 [facility] ing:MTLAB Repository 02/04/2018 [id number] Ambulatory [place] 8 [facility]LAB Repository 01/27/2018/ [id number] Ambulatory [place] 8 6 [facility]LAB Repository 01/09/2018 [id number] Ambulatory [facility] [place] 6 [place] Repository 01/03/2018/ [id number] Ambulatory [place] 5 [facility]LAB Repository 12/03/2017/ [id number] Ambulatory [place] [facility] 8 [facility]LAB Repository 11/26/2017/ [id number] Ambulatory [place] 6 [facility] ing:PT Repository 11/19/2017 [id number] Ambulatory [place] 7 [facility] ing:MTLAB Repository 11/05/2017/ [id number] Ambulatory [place] 8 8 [facility] ing:LAB Repository 10/15/2017 [id number] Ambulatory [place] 3 [facility] ing:LAB.FUTUR Repository E 10/08/2017/ [id number] Ambulatory BMSBuilding:B [place] 8 5 [facility] Repository PAYERS PAYERS ENCOUNTER GUARANTOR PAYER SUBSCRIBER SOURCE 08/27/2018 TAMAR CHRISTINE2773 Primary MURIEL Zhao CHRISTINEDOB: [place] Insurance:MEDICARE [id number] [facility] [address]Yyr: (330) Number: Repository [phone] () [id number] Date:2017-10-11 08/27/2018 Secondary MURIEL Zhao CHRISTINEDOB: [place] Insurance:AETNA [id number] Number: Repository [id number] Date:3100-29-04BHGGD SENIOR SUPPLEMENT [address] [place] [address]PT: 08/27/2018 Tertiary NOT GIVENUNK [place] Insurance:SELF PAY [facility] Number: Effective Repository Date:2018-08-11 08/15/2018 TAMAR CHRISTINE2773 Primary MURIEL CHRISTINEDOB: [place] Insurance:MEDICARE [id number] [place] [id number]: (330) Number: Repository [phone] () [id number] Date:2018-08-15 08/15/2018 Secondary MURIEL F EMMETTDOB: [place] Insurance:AETNA [id number] [facility] Number: Repository [id number] Date:6248-34-18TRQRY SENIOR SUPPLEMENT [address] [address]AMSRVMNQS, [place] [address]UT: 08/15/2018 Tertiary NOT GIVENUNK [place] Insurance:SELF PAY [facility] Number: Effective Repository Date:2018-08-15 08/06/2018 TAMAR CHRISTINE2773 Primary MURIEL WOLFFB: [place] Insurance:MEDICARE [id number] [place] [facility] [address]Pbs: (330) Number: Repository [phone] () [id number] Date:2017-10-11 08/06/2018 Secondary MURIEL Zhao WOLFFB: [place] Insurance:AETNA [id number] [facility] Number: Repository [id number] Date:6817-29-48YIAXA SENIOR SUPPLEMENT [address] [place] [address]EL: 08/06/2018 Tertiary NOT GIVENUNK [place] Insurance:SELF PAY [facility] Number: Effective Repository Date:2018-07-14 07/30/2018 TAMAR CHRISTINE2773 Primary MURIEL WOLFFB: [place] Insurance:MEDICARE [id number] [place] [facility] [address]Ysz: (330) Number: Repository [phone] () [id number] Date:2018-07-30 07/30/2018 Secondary MURIEL WOLFFB: [place] Insurance:AETNA SR [id number] [facility] Number: Repository [id number] Date:3135-40-84IASQO SENIOR SUPPLEMENT [address] [place] [address]KQ: 07/30/2018 Tertiary NOT GIVENUNK [place] Insurance:SELF PAY [facility] Number: Effective Repository Date:2018-07-30 07/30/2018 TAMAR CHRISTINE2773 Primary MURIEL WOLFFB: [place] Insurance:MEDICARE [id number] [place] [facility] [address]Gxt: (330) Number: Repository [phone] () [id number] Date:2018-07-30 07/30/2018 Secondary MURIEL WOLFFB: [place] Insurance:AETNA SR [id number] [facility] Number: Repository [id number] Date:4269-80-68AQCVZ SENIOR SUPPLEMENT [address]KXC[address]JS[address] [place] [address]JS: 07/30/2018 Tertiary NOT GIVENUNK [place] Insurance:SELF PAY [facility] Number: Effective Repository Date:2018-07-30 07/08/2018 TAMAR MUÑIZ3 Primary MURIEL WOLFFB: [place] Insurance:MEDICARE [id number] [place] [facility] [address]Yfw: (330) Number: Repository [phone] () [id number] Date:2017-10-11 07/08/2018 Secondary MURIEL BOYD: [place] Insurance:AETNA SR [id number] [facility] Number: Repository [id number] Date:2611-76-36AWMSF SENIOR SUPPLEMENT [address]HAEBGYSFD[address] [place] [address]QA: 07/08/2018 Tertiary NOT GIVENUNK [place] Insurance:SELF PAY [facility] Number: Effective Repository Date:2018-05-14 05/13/2018 TAMAR MUÑIZ3 Primary MURIEL WOLFFB: [place] Insurance:MEDICARE [id number] [place] [facility] [address]Kmv: (330) Number: Repository [phone] () [id number] Date:2018-05-13 05/13/2018 Secondary MURIEL BOYD: [place] Insurance:AETNA [id number] [facility] Number: Repository [id number] Date:7868-54-13BIARC SENIOR SUPPLEMENT INSPO [facility] [address]CLX[address] [place] [address]YC: 05/13/2018 Tertiary NOT GIVENUNK [place] Insurance:SELF PAY [facility] Number: Effective Repository Date:2018-05-13 04/29/2018 TAMAR CHRISTINE2773 Primary MURIEL F WELLSDOB: [place] Insurance:MEDICARE [id number] [place] [facility] [address]Gfg: (330) Number: Repository [phone] () [id number] Date:2017-10-11 04/29/2018 Secondary MURIEL CHRISTINEDOB: [place] Insurance:AETNA [id number] [facility] SUPPLEMENT [facility] Number: Repository [id number] Date:1578-17-48REWGC SENIOR SUPPLEMENT IN[address] [place] [address]FF: 04/29/2018 Tertiary NOT GIVENUNK [place] Insurance:SELF PAY [facility] Number: Effective Repository Date:2018-04-15 04/07/2018 TAMAR CHRISTINE2773 Primary MURIEL Zhao CHRISTINEDOB: [place] Insurance:MEDICARE [id number] [place] [facility] [address]Chu: (330) Number: Repository [phone] () [id number] Date:2017-10-11 04/07/2018 Secondary MURIEL Zhao CHRISTINEDOB: [place] Insurance:AETNA [id number] [facility] Number: Repository [id number] Date:2288-84-57CPGYZ SENIOR SUPPLEMENT IN[address]WNZKZ[address] [place] [address]QW: 04/07/2018 Tertiary NOT GIVENUNK [place] Insurance:SELF PAY [facility] Number: Effective Repository Date:2018-03-13 04/07/2018 TAMAR CHRISTINE2773 Primary MURIEL Zhao CHRISTINEDOB: [place] Insurance:MEDICARE [id number] [place] [facility] [address]Dgv: (330) Number: Repository [phone] () [id number] Date:2017-10-08 04/07/2018 Secondary MURIEL Zhao CHRISTINEDOB: [place] Insurance:AETNA [id number] [facility] Number: Repository [id number] Date:3767-49-95MSCNU SENIOR SUPPLEMENT [address] [address]KAKDFAGLS, [place] [address]JX: 04/07/2018 Tertiary NOT GIVENUNK [place] Insurance:SELF PAY [facility] Number: Effective Repository Date:2018-04-07 03/19/2018 TAMAR CHRISTINE2773 Primary MURIEL WOLFFB: [place] Insurance:MEDICARE [id number] [place] [facility] [address]Mnk: (330) Number: Repository [phone] () [id number] Date:2018-03-19 03/19/2018 Secondary MURIEL Zhao CHRISTINEDOB: [place] Insurance:AETNA [id number] [facility] [place] Number: Repository [id number] Date:3407-18-63VWTJP SENIOR SUPPLEMENT INSPO [address] [address]SACFFRXXO, [place] [address]SS: 03/19/2018 Tertiary NOT GIVENUNK [place] Insurance:SELF PAY [facility] Number: Effective Repository Date:2018-03-19 03/18/2018 TAMAR CHRISTINE2773 Primary MURIEL CHRISTNIEDOB: [place] Insurance:MEDICARE [id number] [place] [facility] [address]Fia: (330) Number: Repository [phone] () [id number] Date:2018-03-12 03/18/2018 Secondary MRUIEL CHRISTINEDOB: [place] Insurance:AETNA [id number] Medical Specialty [facility] [place] Number: Repository [id number] Date:7294-03-34KKUPI SENIOR SUPPLEMENT [address]SPO [address] [address]EOTLGXZML, [place] [address]HJ: 03/18/2018 Tertiary NOT GIVENUNK [place] Insurance:SELF PAY [facility] Number: Effective Repository Date:2018-03-12 03/18/2018 TAMAR CHRISTINE2773 Primary MURIEL Zhao CHRISTINEDOB: [place] Insurance:MEDICARE [id number] [facility] [facility] [address]Dse: (330) Number: Repository [phone] () [id number] Date:2018-03-12 03/18/2018 Secondary MURIEL Zhao CHRISTINEDOB: [place] Insurance:AETNA [id number] [facility]ty [facility] [place] Number: Repository [id number] Date:6666-18-46NPGTZ SENIOR SUPPLEMENT [address] [address]LCHQIMWJP, [place] [address]UM: 03/18/2018 Tertiary NOT GIVENUNK [place] Insurance:SELF PAY [facility] Number: Effective Repository Date:2018-03-18 03/04/2018 TAMAR CHRISTINE2773 Primary MURIEL Zhao CHRISTINEDOB: [place] Insurance:MEDICARE [id number] Mental Health Institute [facility] [address]Hzi: (330) Number: Repository [phone] () [id number] Date:2017-10-11 03/04/2018 Secondary MURIEL Zhao CHRISTINEDOB: [place] Insurance:AETNA [id number] [facility] Number: Repository [id number] Date:7098-47-92KKXDA SENIOR SUPPLEMENT [address] [address]SQBMVOJOW, [place] [address]CR: 03/04/2018 Tertiary NOT GIVENUNK [place] Insurance:SELF PAY [facility] Number: Effective Repository Date:2018-02-07 02/17/2018 TAMAR CHRISTINE2773 Primary MURIEL Zhao CHRISTINEDOB: [place] Insurance:MEDICARE [id number] Mental Health Institute [facility] [address]Dsx: (330) Number: Repository [phone] () [id number] Date:2018-02-17 02/17/2018 Secondary MURIEL Zhao CHRISTINEDOB: [place] Insurance:AETNA [id number] Medical Specialty [facility] Number: Repository [id number] Date:5998-10-17XVWLV SENIOR SUPPLEMENT [address] [address]PKLVUPIXA, [place] [address]FO: 02/17/2018 Tertiary NOT GIVENUNK [place] Insurance:SELF PAY [facility] Number: Effective Repository Date:2018-02-17 02/04/2018 TAMAR CHRISTINE2773 Primary MURIEL F EMMETTDOB: [place] Insurance:MEDICARE [id number] [facility] [address]Wty: (330) Number: Repository [phone] () [id number] Date:2018-02-04 02/04/2018 Secondary MURIEL F EMMETTDOB: [place] Insurance:AETNA [id number] [facility] Number: Repository [id number] Date:7238-55-55URGXP SENIOR SUPPLEMENT INSPO [address] [address]CYLRUELCA[address] [place] [address]WA: 02/04/2018 Tertiary NOT GIVENUNK [place] Insurance:SELF PAY [facility] Number: Effective Repository Date:2018-02-04 01/27/2018 Tamar Christine2773 Primary MURIEL F EMMETTDOB: [place] Insurance:MEDICARE [id number] [facility] [address]Fra: (330) Number: Repository [phone] () [id number] Date:2017-10-11 01/27/2018 Secondary MURIEL F EMMETTDOB: [place] Insurance:AETNA [id number] [facility] Number: Repository [id number] Date:9564-92-51FFJJH SENIOR SUPPLEMENT [address]O [address] [address]RAITMAPQN, [place] [address]RX: 01/27/2018 Tertiary NOT GIVENUNK [place] Insurance:SELF PAY [facility] Number: Effective Repository Date:2018-01-09 01/09/2018 Tamar Christine2773 Primary MURIEL F EMMETTDOB: [place] Insurance:MEDICARE [id number] [facility] [address]Etk: (330) Number: Repository [phone] () [id number] Date:2018-01-09 01/09/2018 Secondary MURIEL F EMMETTDOB: [place] Insurance:AETNA [id number] Medical [facility]ty [facility] [place] Number: Repository [id number] Date:5269-24-01LFOBV SENIOR SUPPLEMENT [address]O [address] [address]PIQWOGFVB, [place] [address]HL: 01/09/2018 Tertiary NOT GIVENUNK [place] Insurance:SELF PAY [facility] Number: Effective Repository Date:2018-01-09 01/03/2018 Tamar Christine2773 Primary MURIEL Zhao WOLFFB: [place] Insurance:MEDICARE [id number] [address]Tel: (330) Number: Repository [phone] () [id number] Date:2017-10-11 01/03/2018 Secondary MURIEL WOLFFB: [place] Insurance:AETNA SR [id number] [facility] [place] Number: Repository [id number] Date:9100-32-94LCBVC SENIOR SUPPLEMENT INSPO [address] [address]SECYLBTNH, [place] [address]KU: 01/03/2018 Tertiary NOT GIVENUNK [place] Insurance:SELF PAY [facility] Number: Effective Repository Date:2017-12-10 12/03/2017 Tamar Christine2773 Primary MURIEL F EMMETTDOB: [place] Insurance:MEDICARE [id number] [facility] [address]Wbp: (330) Number: Repository [phone] () [id number] Date:2017-10-11 12/03/2017 Secondary MURIEL WOLFFB: [place] Insurance:AETNA [id number] [facility] Number: Repository [id number] Date:3273-64-56XCXDH SENIOR SUPPLEMENT [address] [address]LKHVRYGLS, [place] [address]CW: 12/03/2017 Tertiary NOT GIVENUNK [place] Insurance:SELF PAY [facility] Number: Effective Repository Date:2017-11-11 11/26/2017 Tamar Christine2773 Primary MURIEL F EMMETTDOB: [place] Insurance:MEDICARE [id number] [facility] [address]Dmu: (330) Number: Repository [phone] () [id number] Date:1996-06-12 11/26/2017 Secondary MURIEL WOLFFB: [place] Insurance:AETNA SR [id number] [facility] Number: Repository [id number] Date:8088-79-43FOPYD SENIOR SUPPLEMENT [address]SPO [address] [address]KUYMBCMPZ[address] [place] [address]OC: 11/26/2017 Tertiary NOT GIVENUNK [place] Insurance:SELF PAY [facility] Number: Effective Repository Date:2017-10-21 11/19/2017 Tamar Muñiz3 Primary MURIEL WOLFFB: [place] Insurance:MEDICARE [id number] [facility] [address]Vdl: (330) Number: Repository [phone] () [id number] Date:2017-11-19 11/19/2017 Secondary MURIEL WOLFFB: [place] Insurance:AETNA [id number] [facility] Number: Repository [id number] Date:2952-14-68VSYLX SENIOR SUPPLEMENT [address] [address]HVNUMDCHP[address] [place] [address]MA: 11/19/2017 Tertiary NOT GIVENUNK [place] Insurance:SELF PAY [facility] Number: Effective Repository Date:2017-11-19 11/05/2017 Tamar Christine2773 Primary MRUIEL WOLFFB: [place] Insurance:MEDICARE [id number] [facility] [address]Wyp: (330) Number: Repository [phone] () [id number] Date:2017-10-11 11/05/2017 Secondary MURIEL WOLFFB: [place] Insurance:AETNA [id number] [facility] Number: Repository [id number] Date:3773-89-81PQWUQ SENIOR SUPPLEMENT [address]SPO [address] [address]AVQEHSOIQ, [place] [address]BK: 11/05/2017 Tertiary NOT GIVENUNK [place] Insurance:SELF PAY [facility] Number: Effective Repository Date:2017-10-11 10/15/2017 Tamar Christine2773 Primary MURIEL WOLFFB: [place] Insurance:MEDICARE [id number] [facility] [address]Ofd: (330) Number: Repository [phone] () [id number] Date:2017-10-09 10/15/2017 Secondary MURIEL WOLFFB: [place] Insurance:AETNA SR [id number] [facility]ty [facility] Number: Repository [id number] Date:2074-05-45ZINYO SENIOR SUPPLEMENT [address]CQRQTPXAU[address] [place] [address]MR: 10/15/2017 Tertiary NOT GIVENUNK [place] Insurance:SELF PAY [facility] Number: Effective Repository Date:2017-10-09 10/08/2017 Tamar Christine2773 Primary MURIEL WOLFFB: [place] Insurance:MEDICARE [id number] [place] [facility] [address]Pac: (330) Number: Repository [phone] () [id number] Date:2017-07-18 10/08/2017 Secondary MURIEL BOYD: [place] Insurance:AETNA SR [id number] [facility] Number: Repository [id number] Date:0261-28-02TPFJN SENIOR SUPPLEMENT IN[address]O [address]LSVGTOIFQ[address] [place] [address]KS: 10/08/2017 Tertiary NOT GIVENUNK [place] Insurance:SELF PAY [facility] Number: Effective Repository Date:2017-07-18
== END ==
PROVIDERS: Family Provider Family Medicine; PCP Family Medicine; Referring Provider Physician Assistant; Visit Provider Physician Assistant
DX: S60.221A Contusion of right hand, initial encounter (principal); S80.02XA Contusion of left knee, initial encounter; S60.211A Contusion of right wrist, initial encounter
CPT/HCPCS: 73110; 73130; 73562

== ENCOUNTER 2018-08-06 14:53 | Outpatient (RCR) | payer MEDICARE, OTHER, SELFPAY ==
[2018-04-07 14:56] VITALS: BMI 40.0
[2018-07-30 12:47] VITALS: BMI 40.4
[2018-08-06 16:04] LABS: Absolute Lymphocyte Count 1.64 X10^3/ul (0.83-4.51); Absolute Neutrophil Count 3.7 X10^3/uL (2.0-7.7); Basophil# 0.02 X10^3/uL; Basophil% 0.3 % (0-1); Eosinophil# 0.19 X10^3/uL; Hematocrit 36.3 % (37-47); Hemoglobin 11.8 g/dl (12.0-15.0); Lymphocyte # 1.64 X10^3/ul (4.0); Lymphocyte % 26.1 % (19-41); Mean Corp Hgb Conc 32.5 g/gl (32-36); Mean Corpuscular Hgb 30.9 pg (27.0-32.0); Mean Platelet Vol. 9.3 fl (6.2-12.0); Monocyte# 0.68 X10^3/uL; Monocyte% 10.8 % (0-10); Neutrophil # 3.74 X10^3/uL (2.7-7.7); Neutrophil % 59.6 % (47-70); Platelet Count 229 K/mm3 (150-450); RBC Distribution Width CV 14.3 % (11.6-14.6); RBC Distribution Width SD 48.9 fl (35.1-43.9); Red Blood Count 3.82 M/mm3 (4.2-5.4); White Blood Count 6.3 K/mm3 (4.4-11.0)
[2018-08-06 16:10] LABS: POSITIVE COUNT NO; POSITIVE DIFFERENTIAL NO; POSITIVE MORPHOLOGY NO
[2018-08-06 16:11] LABS: Prothrombin Time (Protime)PT. 38.4 SECONDS (11.7-14.9)
[2018-08-06 16:20] LABS: International Normalized Ratio 3.9
== END 2018-08-06 15:00 | disposition home or self-care (01) ==
LOC: LAB 14:53
PROVIDERS: Family Provider Family Medicine; PCP Family Medicine; Referring Provider Internal Medicine Cardiovascular Disease; Visit Provider Internal Medicine Cardiovascular Disease
DX: I48.0 Paroxysmal atrial fibrillation (principal); T14.90XA Injury, unspecified, initial encounter; W19.XXXA Unspecified fall, initial encounter; Z86.711 Personal history of pulmonary embolism
CPT/HCPCS: 36415; 85025; 85610

== ENCOUNTER → 2018-08-15 15:34 | Outpatient (CLI) | payer MEDICARE, OTHER, SELFPAY ==
[2018-07-30 12:47] VITALS: BMI 40.4
[2018-08-15 18:09] LABS: Absolute Lymphocyte Count 1.84 X10^3/ul (0.83-4.51); Absolute Neutrophil Count 5.1 X10^3/uL (2.0-7.7); Basophil# 0.02 X10^3/uL; Basophil% 0.3 % (0-1); Eosinophil# 0.17 X10^3/uL; Eosinophils% 2.2 % (0-5); Hematocrit 38.7 % (37-47); Hemoglobin 12.4 g/dl (12.0-15.0); Lymphocyte # 1.84 X10^3/ul (4.0); Lymphocyte % 23.5 % (19-41); Mean Corpuscular Hgb 30.7 pg (27.0-32.0); Mean Corpuscular Volume 95.8 fL (81-99); Mean Platelet Vol. 9.2 fl (6.2-12.0); Monocyte# 0.69 X10^3/uL; Monocyte% 8.8 % (0-10); Neutrophil # 5.11 X10^3/uL (2.7-7.7); Neutrophil % 65.1 % (47-70); Platelet Count 293 K/mm3 (150-450); RBC Distribution Width CV 14.2 % (11.6-14.6); Red Blood Count 4.04 M/mm3 (4.2-5.4); White Blood Count 7.8 K/mm3 (4.4-11.0)
[2018-08-15 18:21] LABS: ALB/GLOB Ratio 0.9 RATIO (0.9-2.4); AST(SGOT) 62 U/L (15-37); Alanine Aminotransfer ALT/SGPT 52 U/L (13-56); Albumin, Serum 3.4 g/dL (3.2-5.0); Alkaline Phosphatase 98 U/L (45-117); Anion Gap 9 (5-15); BUN 16 mg/dL (7-18); BUN/Creat Ratio 20.7 RATIO (10-20); Calcium,Total 8.9 mg/dL (8.5-10.1); Chloride 103 mmol/L (98-107); Creatinine, Serum 0.77 mg/dL (0.55-1.02); EST Glomerular Filtration Rate 78 mL/min (>60); Est Glom Filt Rate - Afr Amer 95 mL/min (>60); Globulin 3.6 g/dL (2.2-4.2); Glucose 104 mg/dL (74-106); Potassium 4.1 mmol/L (3.5-5.1); Sodium Level 141 mmol/L (136-145)
[2018-08-15 18:30] LABS: POSITIVE COUNT NO; POSITIVE DIFFERENTIAL NO; POSITIVE MORPHOLOGY NO
== END ==
PROVIDERS: Family Provider Family Medicine; PCP Family Medicine; Referring Provider Internal Medicine Rheumatology; Visit Provider Internal Medicine Rheumatology
DX: M05.79 Rheumatoid arthritis with rheumatoid factor of multiple sites without organ or systems involvement (principal); Z79.899 Other long term (current) drug therapy; M79.7 Fibromyalgia; M15.9 Polyosteoarthritis, unspecified; M18.11 Unilateral primary osteoarthritis of first carpometacarpal joint, right hand; M18.12 Unilateral primary osteoarthritis of first carpometacarpal joint, left hand
CPT/HCPCS: 36415; 80053; 85025

== ENCOUNTER 2018-08-27 14:45 | Outpatient (RCR) | payer MEDICARE, OTHER, SELFPAY ==
[2018-07-30 12:47] VITALS: BMI 40.4
[2018-08-13 16:07] LABS: International Normalized Ratio 2.6; Prothrombin Time (Protime)PT. 28.2 SECONDS (11.7-14.9)
[2018-08-27 15:18] LABS: International Normalized Ratio 2.6; Prothrombin Time (Protime)PT. 28.3 SECONDS (11.7-14.9)
== END 2018-08-27 16:00 | disposition home or self-care (01) ==
LOC: LAB 14:45
PROVIDERS: Family Provider Family Medicine; PCP Family Medicine; Referring Provider Internal Medicine Cardiovascular Disease; Visit Provider Internal Medicine Cardiovascular Disease
DX: I48.0 Paroxysmal atrial fibrillation (principal); Z86.711 Personal history of pulmonary embolism
CPT/HCPCS: 36415; 85610

== ENCOUNTER 2018-09-17 15:05 | Outpatient (RCR) | payer MEDICARE, OTHER, SELFPAY ==
[2018-07-30 12:47] VITALS: BMI 40.4
[2018-09-17 16:57] LABS: International Normalized Ratio 2.2; Prothrombin Time (Protime)PT. 24.3 SECONDS (11.7-14.9)
== END 2018-10-09 16:00 | disposition home or self-care (01) ==
LOC: LAB 15:05
PROVIDERS: Family Provider Family Medicine; PCP Family Medicine; Referring Provider Internal Medicine Cardiovascular Disease; Visit Provider Internal Medicine Cardiovascular Disease
DX: I48.0 Paroxysmal atrial fibrillation (principal); Z86.711 Personal history of pulmonary embolism
CPT/HCPCS: 36415; 85610

== ENCOUNTER 2018-10-02 16:39 | Outpatient (RCR) | payer MEDICARE, OTHER, SELFPAY ==
[2018-07-30 12:47] VITALS: BMI 40.4
[2018-10-02 17:32] LABS: International Normalized Ratio 1.7; Prothrombin Time (Protime)PT. 19.9 SECONDS (11.7-14.9)
== END 2018-10-09 15:01 | disposition home or self-care (01) ==
LOC: LAB 16:39
PROVIDERS: Family Provider Family Medicine; PCP Family Medicine; Referring Provider Internal Medicine Cardiovascular Disease; Visit Provider Internal Medicine Cardiovascular Disease
DX: I48.0 Paroxysmal atrial fibrillation (principal); Z86.711 Personal history of pulmonary embolism
CPT/HCPCS: 36415; 85610

== ENCOUNTER → 2018-10-13 14:59 | Outpatient (CLI) | payer MEDICARE, OTHER, SELFPAY ==
[2018-07-30 12:47] VITALS: BMI 40.4
[2018-10-13 17:40] LABS: Absolute Lymphocyte Count 1.07 X10^3/ul (0.83-4.51); Basophil# 0.03 X10^3/uL; Basophil% 0.3 % (0-1); Eosinophil# 0.22 X10^3/uL; Eosinophils% 2.2 % (0-5); Hematocrit 41.6 % (37-47); Hemoglobin 13.1 g/dl (12.0-15.0); Lymphocyte # 1.07 X10^3/ul (4.0); Lymphocyte % 10.6 % (19-41); Mean Corp Hgb Conc 31.5 g/gl (32-36); Mean Corpuscular Hgb 30.6 pg (27.0-32.0); Mean Corpuscular Volume 97.2 fL (81-99); Mean Platelet Vol. 9.6 fl (6.2-12.0); Neutrophil # 8.03 X10^3/uL (2.7-7.7); Neutrophil % 79.7 % (47-70); Platelet Count 227 K/mm3 (150-450); RBC Distribution Width CV 12.5 % (11.6-14.6); RBC Distribution Width SD 43.3 fl (35.1-43.9); Red Blood Count 4.28 M/mm3 (4.2-5.4); White Blood Count 10.1 K/mm3 (4.4-11.0)
[2018-10-13 17:41] LABS: POSITIVE COUNT NO; POSITIVE DIFFERENTIAL NO; POSITIVE MORPHOLOGY NO
[2018-10-13 17:56] LABS: AST(SGOT) 34 U/L (15-37); Alanine Aminotransfer ALT/SGPT 44 U/L (13-56); Albumin, Serum 3.2 g/dL (3.2-5.0); Alkaline Phosphatase 82 U/L (45-117); Anion Gap 10 (5-15); BUN 13 mg/dL (7-18); BUN/Creat Ratio 17.2 RATIO (10-20); Calcium,Total 8.4 mg/dL (8.5-10.1); Chloride 106 mmol/L (98-107); Creatinine, Serum 0.76 mg/dL (0.55-1.02); EST Glomerular Filtration Rate 80 mL/min (>60); Est Glom Filt Rate - Afr Amer 97 mL/min (>60); Globulin 3.3 g/dL (2.2-4.2); Glucose 142 mg/dL (74-106); Potassium 3.7 mmol/L (3.5-5.1); Protein, Total 6.5 g/dL (6.4-8.2); Sodium Level 143 mmol/L (136-145)
== END ==
PROVIDERS: Family Provider Family Medicine; PCP Family Medicine; Referring Provider Internal Medicine Rheumatology; Visit Provider Internal Medicine Rheumatology
DX: M05.79 Rheumatoid arthritis with rheumatoid factor of multiple sites without organ or systems involvement (principal); M18.0 Bilateral primary osteoarthritis of first carpometacarpal joints; K21.9 Gastro-esophageal reflux disease without esophagitis; E78.5 Hyperlipidemia, unspecified; I26.99 Other pulmonary embolism without acute cor pulmonale; M18.10 Unilateral primary osteoarthritis of first carpometacarpal joint, unspecified hand; Z79.899 Other long term (current) drug therapy
CPT/HCPCS: 36415; 80053; 85025

== ENCOUNTER 2018-10-14 14:59 | Outpatient (RCR) | payer MEDICARE, OTHER, SELFPAY ==
[2018-07-30 12:47] VITALS: BMI 40.4
[2018-10-14 15:41] LABS: AST(SGOT) 29 U/L (15-37); Alanine Aminotransfer ALT/SGPT 41 U/L (13-56); Albumin, Serum 3.5 g/dL (3.2-5.0); Alkaline Phosphatase 84 U/L (45-117); Bilirubin, Direct 0.14 mg/dL (0.00-0.30); Cholesterol 143 mg/dL (200); Globulin 3.5 g/dL (2.2-4.2); High Density Lipoprotein 59 mg/dL; Triglycerides 158 mg/dL; Very Low Density Lipoprotein 32 mg/dL (5-40)
[2018-10-14 15:45] LABS: International Normalized Ratio 1.1; Prothrombin Time (Protime)PT. 13.9 SECONDS (11.7-14.9)
== END 2018-10-14 15:59 | disposition home or self-care (01) ==
LOC: LAB 14:59
PROVIDERS: Nurse Practitioner Family; Family Provider Family Medicine; PCP Family Medicine; Referring Provider Internal Medicine Cardiovascular Disease; Visit Provider Internal Medicine Cardiovascular Disease
DX: I48.0 Paroxysmal atrial fibrillation (principal); Z86.711 Personal history of pulmonary embolism; E78.5 Hyperlipidemia, unspecified
CPT/HCPCS: 36415; 80061; 80076; 85610

== ENCOUNTER 2018-11-07 16:17 | Outpatient (RCR) | payer MEDICARE, OTHER, SELFPAY ==
[2018-11-07 14:46] VITALS: BMI 40.4
[2018-11-07 17:01] LABS: Prothrombin Time (Protime)PT. 51.3 SECONDS (11.7-14.9)
[2018-11-07 17:03] LABS: International Normalized Ratio 5.6
== END 2018-11-07 17:00 | disposition home or self-care (01) ==
LOC: LAB 16:17
PROVIDERS: Family Provider Family Medicine; PCP Family Medicine; Referring Provider Internal Medicine Cardiovascular Disease; Visit Provider Internal Medicine Cardiovascular Disease
DX: I48.0 Paroxysmal atrial fibrillation (principal); Z86.711 Personal history of pulmonary embolism
CPT/HCPCS: 36415; 85610

== ENCOUNTER 2018-11-10 15:54 | Outpatient (RCR) | payer MEDICARE, OTHER, SELFPAY ==
[2018-11-10 13:10] VITALS: BMI 41.3
[2018-11-10 17:44] LABS: International Normalized Ratio 2.6; Prothrombin Time (Protime)PT. 28.2 SECONDS (11.7-14.9)
== END 2018-12-09 16:00 | disposition home or self-care (01) ==
LOC: LAB 15:54
PROVIDERS: Family Provider Family Medicine; PCP Family Medicine; Referring Provider Internal Medicine Cardiovascular Disease; Visit Provider Internal Medicine Cardiovascular Disease
DX: I48.0 Paroxysmal atrial fibrillation (principal); Z86.711 Personal history of pulmonary embolism
CPT/HCPCS: 36415; 85610

== ENCOUNTER 2018-11-26 11:39 | Outpatient (RCR) | payer MEDICARE, OTHER, SELFPAY ==
[2018-07-30 12:47] VITALS: BMI 40.4
[2018-11-18 14:27] LABS: International Normalized Ratio 3.4; Prothrombin Time (Protime)PT. 34.3 SECONDS (11.7-14.9)
[2018-11-26 12:55] LABS: International Normalized Ratio 1.8; Prothrombin Time (Protime)PT. 20.6 SECONDS (11.7-14.9)
== END 2018-12-09 16:00 | disposition home or self-care (01) ==
LOC: LAB 11:39
PROVIDERS: Family Provider Family Medicine; PCP Family Medicine; Referring Provider Internal Medicine Cardiovascular Disease; Visit Provider Internal Medicine Cardiovascular Disease
DX: I48.0 Paroxysmal atrial fibrillation (principal); Z86.711 Personal history of pulmonary embolism
CPT/HCPCS: 36415; 85610

== ENCOUNTER → 2018-12-03 | Outpatient (CLI) | payer MEDICARE, OTHER, SELFPAY ==
[2018-11-10 13:10] VITALS: BMI 41.3
[2018-12-03 15:43] LABS: International Normalized Ratio 1.8; Prothrombin Time (Protime)PT. 20.8 SECONDS (11.7-14.9)
== END | disposition home or self-care (01) ==
LOC: LAB 14:11
PROVIDERS: Family Provider Family Medicine; PCP Family Medicine; Referring Provider Internal Medicine Cardiovascular Disease; Visit Provider Internal Medicine Cardiovascular Disease
DX: I48.0 Paroxysmal atrial fibrillation (principal); Z79.899 Other long term (current) drug therapy
CPT/HCPCS: 36415; 85610

== ENCOUNTER 2018-12-19 15:23 | Outpatient (RCR) | payer MEDICARE, OTHER, SELFPAY ==
[2018-12-11 16:30] LABS: International Normalized Ratio 1.7; Prothrombin Time (Protime)PT. 19.9 SECONDS (11.7-14.9)
[2018-12-19 16:43] LABS: International Normalized Ratio 2.8; Prothrombin Time (Protime)PT. 29.2 SECONDS (11.7-14.9)
== END 2018-12-19 17:00 | disposition home or self-care (01) ==
LOC: LAB 15:23
PROVIDERS: Family Provider Family Medicine; PCP Family Medicine; Referring Provider Internal Medicine Cardiovascular Disease; Visit Provider Internal Medicine Cardiovascular Disease
DX: I48.0 Paroxysmal atrial fibrillation (principal); Z86.711 Personal history of pulmonary embolism
CPT/HCPCS: 36415; 85610

== ENCOUNTER → 2019-01-05 | Outpatient (CLI) | payer MEDICARE, OTHER, SELFPAY ==
[2019-01-05 15:30] LABS: International Normalized Ratio 1.3; Prothrombin Time (Protime)PT. 15.9 SECONDS (11.7-14.9)
== END | disposition home or self-care (01) ==
LOC: LAB 14:54
PROVIDERS: Internal Medicine Cardiovascular Disease; Family Provider Family Medicine; PCP Family Medicine; Referring Provider Anesthesiology Pain Medicine; Visit Provider Anesthesiology Pain Medicine
DX: I48.0 Paroxysmal atrial fibrillation (principal); Z79.01 Long term (current) use of anticoagulants
CPT/HCPCS: 36415; 85610

== ENCOUNTER 2019-01-20 13:27 | Outpatient (RCR) | payer MEDICARE, OTHER, SELFPAY ==
[2019-01-20 14:31] LABS: International Normalized Ratio 2.5; Prothrombin Time (Protime)PT. 27.2 SECONDS (11.7-14.9)
== END 2019-02-08 12:00 | disposition home or self-care (01) ==
LOC: LAB 13:27
PROVIDERS: Family Provider Family Medicine; PCP Family Medicine; Referring Provider Internal Medicine Cardiovascular Disease; Visit Provider Internal Medicine Cardiovascular Disease
DX: I48.0 Paroxysmal atrial fibrillation (principal); Z86.711 Personal history of pulmonary embolism
CPT/HCPCS: 36415; 85610

== ENCOUNTER → 2019-01-27 | Outpatient (CLI) | payer MEDICARE, OTHER, SELFPAY ==
[2019-01-29 14:06] LABS: HEPATITIS B SURFACE AG Negative (Negative); Hepatitis B Core Ab Total Negative (Negative)
== END | disposition home or self-care (01) ==
PROVIDERS: Family Provider Family Medicine; PCP Family Medicine; Referring Provider Internal Medicine Rheumatology; Visit Provider Internal Medicine Rheumatology
DX: Z79.899 Other long term (current) drug therapy (principal)
CPT/HCPCS: 36415; 86704; 86803; 87340

== ENCOUNTER 2019-03-03 16:12 | Outpatient (RCR) | payer MEDICARE, OTHER, SELFPAY ==
[2019-02-26 17:44] LABS: Prothrombin Time (Protime)PT. 41.1 SECONDS (11.7-14.9)
[2019-02-26 17:50] LABS: International Normalized Ratio 4.2
[2019-03-03 17:13] LABS: Prothrombin Time (Protime)PT. 37.6 SECONDS (11.7-14.9)
[2019-03-03 17:21] LABS: International Normalized Ratio 3.8
== END 2019-03-11 17:19 | disposition home or self-care (01) ==
LOC: LAB 16:12
PROVIDERS: Family Provider Family Medicine; PCP Family Medicine; Referring Provider Internal Medicine Cardiovascular Disease; Visit Provider Internal Medicine Cardiovascular Disease
DX: I48.0 Paroxysmal atrial fibrillation (principal); Z79.899 Other long term (current) drug therapy
CPT/HCPCS: 36415; 85610

== ENCOUNTER 2019-03-05 16:49 | Emergency (ER) | payer MEDICARE, OTHER, SELFPAY ==
[2019-03-05 16:51] VITALS: BP 115/52; PULSE 83; RESP 16; TEMP 36.9; O2SAT 91; BMI 36.4
--- NOTE | 2019-03-05 18:00 | ED.VISSUMM ---
- ER Visit Summary Date of Service: 03/05/19 Chief Complaint: Right leg bruising History of Present Illness: The patient is a [address] Godoy, Dr. Samson, and Dr. Hicks. She reports that she has bruising to her right leg that began 3 days ago. She described as squeezing pain is 5-10 worsened through 10 currently. Is worsened by nothing. Is relieved by elevating this. She denies any fall, MVA, or change in activity. She reports that her INR was 4.2 on February 26 and 3.8 on March 03. Patient denies any fever, nausea, vomiting, or other constitutional symptoms. Physical Examination: Vitals: Stable. Afebrile. General: Well-nourished and well-developed. Head: Normocephalic atraumatic. Neck: Supple, no lymphadenopathy. No JVD. Nontender. Cardiovascular: Regular rate and rhythm. No murmurs. Respiratory: No respiratory distress. Clear to auscultation bilaterally. Abdominal: Soft, nontender, nondistended, normal bowel sounds. No guarding, rebound, or peritoneal signs. Back: Nontender. Extremities: Contusion/hematoma to the medial side of her right posterior knee as well as her calf. There is no induration, fluctuance, or erythema. It is mildly tender palpation. Skin: Normal color, no rash. Neurologic: Alert and oriented ?3. Cranial nerves II through XII are intact. Normal strength and sensation. Psych: Normal affect. Test Results: Right tib-fib x-ray shows no fracture. However, the radiologist read this is cellulitis and possible osteomyelitis. Clinically this is not present. Doppler ultrasound was negative. Emergency Department Course and Treatment: Patient refused pain medications. She is resting comfortably. Treatment Plan: Patient was discussed with Dr. Samson. She will be discharged with instructions to follow-up in 1 day for a repeat exam. Return to the emergency department for any worsening symptoms. Disposition: To home in improved and stable condition. Impression: 1. Hematoma right leg. This note was generated with [employer] software. It may contain incorrect words, spelling, and punctuation that were not noted in review of the chart prior to signing ED Disposition - Plan for ED Patient: Disposition: Home or Assisted Living Instructions: Hematoma Referrals: Cruz Samson DPM [STAFF PHYSICIAN] - 1 Day for another exam
--- NOTE | 2019-03-05 18:01 | US_ITS ---
STUDY: VENOUS DOPPLER ULTRASOUND - RIGHT LOWER EXTREMITY REASON FOR EXAM: Female, 74 years old. Cellulitis TECHNIQUE: Ultrasound evaluation of the deep vein system to include park-scale imaging and compression was performed. Park-scale imaging and Doppler sonographic evaluation, including duplex spectral analysis and qualitative color flow sonography, was performed. COMPARISON: None. FINDINGS: Common Femoral Vein: Normal compression, spontaneity and augmentation. Normal color Doppler. Common Femoral Vein/Greater Saphenous Junction: Normal compression, spontaneity and augmentation. Normal color Doppler. Deep Femoral Vein: Normal compression, spontaneity and augmentation. Normal color Doppler. Femoral Proximal: Normal compression, spontaneity and augmentation. Normal color Doppler. Femoral Middle: Normal compression, spontaneity and augmentation. Normal color Doppler. Femoral Distal: Normal compression, spontaneity and augmentation. Normal color Doppler. Popliteal Vein: Normal compression, spontaneity and augmentation. Normal color Doppler. Posterior Tibial Vein: Normal compression, spontaneity and augmentation. Normal color Doppler. Peroneal Vein: Normal compression, spontaneity and augmentation. Normal color Doppler. US/Venous Duplex Imag/Limited/Uni IMPRESSION: Normal venous Doppler ultrasound of the lower extremity. Electronically Signed: Cruz Mckeon MD at 18:52 EDT , Service support ,
--- NOTE | 2019-03-05 19:10 | RAD_ITS ---
STUDY: X-RAY - RIGHT TIBIA AND FIBULA REASON FOR EXAM: Female, 74 years old. Swelling and redness TECHNIQUE: 2 view(s) of the tibia and fibula were obtained. COMPARISON: None. FINDINGS: Knee prosthesis is demonstrated in anatomic alignment and position. No evidence for acute fracture. No well-defined lytic destructive changes are seen There is however mild subchondral lucency within the anterior proximal tibial cortex. Possibility of early changes of acute osteomyelitis not excluded. There is diffuse cellulitis noted of the proximal calf.. RAD/Tibia & Fibula 2 Views IMPRESSION: Cellulitis of the proximal and mid calf. Cannot exclude early changes of acute osteomyelitis. MRI or three-phase bone scan would be useful for more definitive evaluation Electronically Signed: Cruz Mckeon MD at 19:26 EDT , Service support ,
[2019-03-05 19:15] VITALS: BP 115/57; PULSE 78; RESP 22; O2SAT 94
[2019-03-05 20:42] VITALS: BP 122/61; PULSE 73; RESP 18; O2SAT 93
== END 2019-03-05 20:44 | disposition home or self-care (01) ==
LOC: ED 18:04
PROVIDERS: Emergency Provider Emergency Medicine; Family Provider Family Medicine; PCP Family Medicine
DX: S80.11XA Contusion of right lower leg, initial encounter (principal); R68.83 Chills (without fever); X58.XXXA Exposure to other specified factors, initial encounter; Y93.9 Activity, unspecified; Y92.9 Unspecified place or not applicable; I10 Essential (primary) hypertension; Z86.718 Personal history of other venous thrombosis and embolism; Z79.01 Long term (current) use of anticoagulants; Z79.899 Other long term (current) drug therapy
CPT/HCPCS: 73590; 93971; 99282; A4216

== ENCOUNTER 2019-04-01 16:06 | Outpatient (RCR) | payer MEDICARE, OTHER, SELFPAY ==
[2019-03-17 16:50] LABS: International Normalized Ratio 1.4; Prothrombin Time (Protime)PT. 16.8 SECONDS (11.7-14.9)
[2019-03-26 13:49] LABS: International Normalized Ratio 1.8; Prothrombin Time (Protime)PT. 20.9 SECONDS (11.7-14.9)
[2019-04-01 17:28] LABS: International Normalized Ratio 2.1; Prothrombin Time (Protime)PT. 23.7 SECONDS (11.7-14.9)
== END 2019-04-01 17:06 | disposition home or self-care (01) ==
LOC: LAB 16:06
PROVIDERS: Family Provider Family Medicine; PCP Family Medicine; Referring Provider Internal Medicine Cardiovascular Disease; Visit Provider Internal Medicine Cardiovascular Disease
DX: I48.0 Paroxysmal atrial fibrillation (principal); Z79.899 Other long term (current) drug therapy
CPT/HCPCS: 36415; 85610

== ENCOUNTER → 2019-04-15 | Outpatient (CLI) | payer MEDICARE, OTHER, SELFPAY ==
[2019-04-15 13:23] LABS: AST(SGOT) 32 U/L (15-37); Alanine Aminotransfer ALT/SGPT 27 U/L (13-56); Albumin, Serum 3.4 g/dL (3.2-5.0); Alkaline Phosphatase 96 U/L (45-117); Bilirubin, Direct 0.11 mg/dL (0.00-0.30); Cholesterol 156 mg/dL (200); Globulin 3.5 g/dL (2.2-4.2); High Density Lipoprotein 52 mg/dL; Protein, Total 6.9 g/dL (6.4-8.2); Triglycerides 152 mg/dL; Very Low Density Lipoprotein 30 mg/dL (5-40)
== END | disposition home or self-care (01) ==
LOC: LAB 11:48
PROVIDERS: Family Provider Family Medicine; PCP Family Medicine; Referring Provider Nurse Practitioner Family; Visit Provider Nurse Practitioner Family
DX: E78.5 Hyperlipidemia, unspecified (principal)
CPT/HCPCS: 36415; 80061; 80076

== ENCOUNTER 2019-04-23 13:55 | Outpatient (RCR) | payer MEDICARE, OTHER, SELFPAY ==
[2019-04-23 16:39] LABS: International Normalized Ratio 2.2; Prothrombin Time (Protime)PT. 24.5 SECONDS (11.7-14.9)
== END 2019-05-11 18:00 | disposition home or self-care (01) ==
LOC: LAB 13:55
PROVIDERS: Family Provider Family Medicine; PCP Family Medicine; Referring Provider Internal Medicine Cardiovascular Disease; Visit Provider Internal Medicine Cardiovascular Disease
DX: I48.0 Paroxysmal atrial fibrillation (principal); Z79.899 Other long term (current) drug therapy
CPT/HCPCS: 36415; 85610

== ENCOUNTER 2019-06-04 14:08 | Outpatient (RCR) | payer MEDICARE, OTHER, SELFPAY ==
[2019-04-28 13:44] VITALS: BMI 36.4
[2019-05-21 16:24] LABS: International Normalized Ratio 2.2; Prothrombin Time (Protime)PT. 24.6 SECONDS (11.7-14.9)
[2019-06-04 14:54] LABS: International Normalized Ratio 1.2; Prothrombin Time (Protime)PT. 15.1 SECONDS (11.7-14.9)
== END 2019-06-04 18:00 | disposition home or self-care (01) ==
LOC: LAB 14:08
PROVIDERS: Family Provider Family Medicine; PCP Family Medicine; Referring Provider Internal Medicine Cardiovascular Disease; Visit Provider Internal Medicine Cardiovascular Disease
DX: I48.0 Paroxysmal atrial fibrillation (principal); Z79.899 Other long term (current) drug therapy
CPT/HCPCS: 36415; 85610

== ENCOUNTER 2019-06-30 15:14 | Outpatient (RCR) | payer MEDICARE, OTHER, SELFPAY ==
[2019-04-28 13:44] VITALS: BMI 36.4
[2019-06-16 17:14] LABS: International Normalized Ratio 1.2; Prothrombin Time (Protime)PT. 15.4 SECONDS (11.7-14.9)
[2019-06-30 16:47] LABS: International Normalized Ratio 2.6; Prothrombin Time (Protime)PT. 28.3 SECONDS (11.7-14.9)
== END 2019-06-30 18:00 | disposition home or self-care (01) ==
LOC: LAB 15:14
PROVIDERS: Family Provider Family Medicine; PCP Family Medicine; Referring Provider Internal Medicine Cardiovascular Disease; Visit Provider Internal Medicine Cardiovascular Disease
DX: I48.0 Paroxysmal atrial fibrillation (principal); Z79.899 Other long term (current) drug therapy
CPT/HCPCS: 36415; 85610

== ENCOUNTER 2019-07-27 12:49 | Outpatient (RCR) | payer MEDICARE, OTHER, SELFPAY ==
[2019-04-28 13:44] VITALS: BMI 36.4
[2019-07-14 12:19] LABS: International Normalized Ratio 1.1; Prothrombin Time (Protime)PT. 14.2 SECONDS (11.7-14.9)
[2019-07-27 13:37] LABS: International Normalized Ratio 1.5; Prothrombin Time (Protime)PT. 17.5 SECONDS (11.7-14.9)
== END 2019-07-27 18:00 | disposition home or self-care (01) ==
LOC: LAB 12:49
PROVIDERS: Family Provider Family Medicine; PCP Family Medicine; Referring Provider Internal Medicine Cardiovascular Disease; Visit Provider Internal Medicine Cardiovascular Disease
DX: I48.0 Paroxysmal atrial fibrillation (principal); Z79.899 Other long term (current) drug therapy
CPT/HCPCS: 36415; 85610

== ENCOUNTER 2019-09-10 13:53 | Outpatient (RCR) | payer MEDICARE, OTHER, SELFPAY ==
[2019-04-28 13:44] VITALS: BMI 36.4
[2019-08-27 15:29] LABS: International Normalized Ratio 1.6; Prothrombin Time (Protime)PT. 18.7 SECONDS (11.7-14.9)
[2019-09-10 14:55] LABS: International Normalized Ratio 1.5; Prothrombin Time (Protime)PT. 17.5 SECONDS (11.7-14.9)
== END 2019-09-10 18:00 | disposition home or self-care (01) ==
LOC: LAB 13:53
PROVIDERS: Family Provider Family Medicine; PCP Family Medicine; Referring Provider Internal Medicine Cardiovascular Disease; Visit Provider Internal Medicine Cardiovascular Disease
DX: I48.0 Paroxysmal atrial fibrillation (principal); Z79.899 Other long term (current) drug therapy
CPT/HCPCS: 36415; 85610

== ENCOUNTER → 2019-09-21 12:01 | Outpatient (CLI) | payer MEDICARE, OTHER, SELFPAY ==
[2019-04-28 13:44] VITALS: BMI 36.4
[2019-09-21 14:26] LABS: Anion Gap 6 (5-15); BUN 16 mg/dL (7-18); BUN/Creat Ratio 21.4 RATIO (10-20); Calcium,Total 8.8 mg/dL (8.5-10.1); Chloride 107 mmol/L (98-107); Cholesterol 162 mg/dL (200); Creatinine, Serum 0.75 mg/dL (0.55-1.02); EST Glomerular Filtration Rate 81 mL/min (>60); Est Glom Filt Rate - Afr Amer 98 mL/min (>60); Glucose 98 mg/dL (74-106); High Density Lipoprotein 52 mg/dL; Potassium 3.9 mmol/L (3.5-5.1); Sodium Level 139 mmol/L (136-145); Triglycerides 127 mg/dL; Very Low Density Lipoprotein 25 mg/dL (5-40)
== END ==
PROVIDERS: PCP Family Medicine; Referring Provider Family Medicine; Visit Provider Family Medicine
DX: I10 Essential (primary) hypertension (principal)
CPT/HCPCS: 36415; 80048; 80061

== ENCOUNTER 2019-10-08 13:22 | Outpatient (RCR) | payer MEDICARE, OTHER, SELFPAY ==
[2019-04-28 13:44] VITALS: BMI 36.4
[2019-10-08 14:49] LABS: International Normalized Ratio 1.8; Prothrombin Time (Protime)PT. 20.8 SECONDS (11.7-14.9)
== END 2019-10-08 18:00 | disposition home or self-care (01) ==
LOC: LAB 13:22
PROVIDERS: Family Provider Family Medicine; PCP Family Medicine; Referring Provider Internal Medicine Cardiovascular Disease; Visit Provider Internal Medicine Cardiovascular Disease
DX: I48.0 Paroxysmal atrial fibrillation (principal); Z79.899 Other long term (current) drug therapy
CPT/HCPCS: 36415; 85610

== ENCOUNTER 2019-11-06 13:18 | Outpatient (RCR) | payer MEDICARE, OTHER, SELFPAY ==
[2019-04-28 13:44] VITALS: BMI 36.4
[2019-11-06 13:56] LABS: International Normalized Ratio 1.5; Prothrombin Time (Protime)PT. 17.9 SECONDS (11.7-14.9)
[2019-11-06 14:10] LABS: AST(SGOT) 30 U/L (15-37); Alanine Aminotransfer ALT/SGPT 32 U/L (13-56); Albumin, Serum 3.4 g/dL (3.2-5.0); Alkaline Phosphatase 104 U/L (45-117); Bilirubin, Direct 0.12 mg/dL (0.00-0.30); Cholesterol 175 mg/dL (200); Globulin 3.3 g/dL (2.2-4.2); High Density Lipoprotein 53 mg/dL; Protein, Total 6.7 g/dL (6.4-8.2); Triglycerides 141 mg/dL; Very Low Density Lipoprotein 28 mg/dL (5-40)
== END 2019-11-06 18:00 ==
LOC: LAB 13:18
PROVIDERS: Family Provider Family Medicine; PCP Family Medicine; Referring Provider Internal Medicine Cardiovascular Disease; Visit Provider Internal Medicine Cardiovascular Disease
DX: I48.0 Paroxysmal atrial fibrillation (principal); E78.00 Pure hypercholesterolemia, unspecified; Z79.899 Other long term (current) drug therapy
CPT/HCPCS: 36415; 80061; 80076; 85610

== ENCOUNTER 2019-11-30 15:54 | Outpatient (RCR) | payer MEDICARE, OTHER, SELFPAY ==
[2019-04-28 13:44] VITALS: BMI 36.4
[2019-11-30 16:46] LABS: International Normalized Ratio 1.8; Prothrombin Time (Protime)PT. 20.3 SECONDS (11.7-14.9)
== END 2019-12-10 18:00 | disposition home or self-care (01) ==
LOC: LAB 15:54
PROVIDERS: Family Provider Family Medicine; PCP Family Medicine; Referring Provider Internal Medicine Cardiovascular Disease; Visit Provider Internal Medicine Cardiovascular Disease
DX: I48.0 Paroxysmal atrial fibrillation (principal)
CPT/HCPCS: 36415; 85610

== ENCOUNTER 2020-01-07 13:41 | Outpatient (RCR) | payer MEDICARE, OTHER, SELFPAY ==
[2019-04-28 13:44] VITALS: BMI 36.4
[2019-12-17 16:18] LABS: International Normalized Ratio 1.4; Prothrombin Time (Protime)PT. 16.9 SECONDS (11.7-14.9)
[2019-12-30 13:44] LABS: International Normalized Ratio 1.6; Prothrombin Time (Protime)PT. 18.3 SECONDS (11.7-14.9)
[2020-01-07 15:10] LABS: Prothrombin Time (Protime)PT. 22.5 SECONDS (11.7-14.9)
== END 2020-01-07 18:00 | disposition home or self-care (01) ==
LOC: LAB 13:41
PROVIDERS: Family Provider Family Medicine; PCP Family Medicine; Referring Provider Internal Medicine Cardiovascular Disease; Visit Provider Internal Medicine Cardiovascular Disease
DX: I48.0 Paroxysmal atrial fibrillation (principal)
CPT/HCPCS: 36415; 85610

== ENCOUNTER 2020-02-01 14:14 | Outpatient (RCR) | payer MEDICARE, OTHER, SELFPAY ==
[2019-04-28 13:44] VITALS: BMI 36.4
[2020-01-21 15:20] LABS: International Normalized Ratio 2.2; Prothrombin Time (Protime)PT. 23.9 SECONDS (11.7-14.9)
== END 2020-02-01 18:00 | disposition home or self-care (01) ==
LOC: LAB 14:14
PROVIDERS: Family Provider Family Medicine; PCP Family Medicine; Referring Provider Internal Medicine Cardiovascular Disease; Visit Provider Internal Medicine Cardiovascular Disease
DX: I48.0 Paroxysmal atrial fibrillation (principal); Z79.01 Long term (current) use of anticoagulants
CPT/HCPCS: 36415; 85610

== ENCOUNTER → 2020-02-04 13:45 | Outpatient (CLI) | payer MEDICARE, OTHER, SELFPAY ==
[2019-04-28 13:44] VITALS: BMI 36.4
[2020-02-04 16:19] LABS: Prothrombin Time (Protime)PT. 12.8 SECONDS (11.7-14.9)
== END ==
PROVIDERS: PCP Family Medicine; Referring Provider Anesthesiology Pain Medicine; Visit Provider Anesthesiology Pain Medicine
DX: Z79.01 Long term (current) use of anticoagulants (principal)
CPT/HCPCS: 36415; 85610

== ENCOUNTER 2020-02-26 15:15 | Outpatient (RCR) | payer MEDICARE, OTHER, SELFPAY ==
[2019-04-28 13:44] VITALS: BMI 36.4
[2020-02-15 17:07] LABS: Prothrombin Time (Protime)PT. 21.9 SECONDS (11.7-14.9)
[2020-02-26 16:48] LABS: International Normalized Ratio 2.1; Prothrombin Time (Protime)PT. 23.1 SECONDS (11.7-14.9)
== END 2020-02-26 18:00 | disposition home or self-care (01) ==
LOC: LAB 15:15
PROVIDERS: Family Provider Family Medicine; PCP Family Medicine; Referring Provider Internal Medicine Cardiovascular Disease; Visit Provider Internal Medicine Cardiovascular Disease
DX: I48.0 Paroxysmal atrial fibrillation (principal); Z79.01 Long term (current) use of anticoagulants
CPT/HCPCS: 36415; 85610

== ENCOUNTER 2020-03-29 14:16 | Outpatient (RCR) | payer MEDICARE, OTHER, SELFPAY ==
[2019-04-28 13:44] VITALS: BMI 36.4
[2020-03-18 14:04] LABS: International Normalized Ratio 3.4; Prothrombin Time (Protime)PT. 33.9 SECONDS (11.7-14.9)
[2020-03-29 15:46] LABS: International Normalized Ratio 2.2; Prothrombin Time (Protime)PT. 23.8 SECONDS (11.7-14.9)
== END 2020-04-11 18:00 | disposition home or self-care (01) ==
LOC: LAB 14:16
PROVIDERS: Family Provider Family Medicine; PCP Family Medicine; Referring Provider Internal Medicine Cardiovascular Disease; Visit Provider Internal Medicine Cardiovascular Disease
DX: I48.0 Paroxysmal atrial fibrillation (principal); Z79.01 Long term (current) use of anticoagulants
CPT/HCPCS: 36415; 85610

== ENCOUNTER 2020-04-19 14:20 | Outpatient (RCR) | payer MEDICARE, OTHER, SELFPAY ==
[2019-04-28 13:44] VITALS: BMI 36.4
[2020-04-19 15:05] LABS: International Normalized Ratio 2.3; Prothrombin Time (Protime)PT. 24.5 SECONDS (11.7-14.9)
== END 2020-04-19 18:00 | disposition home or self-care (01) ==
LOC: LAB 14:20
PROVIDERS: Family Provider Family Medicine; PCP Family Medicine; Referring Provider Internal Medicine Cardiovascular Disease; Visit Provider Internal Medicine Cardiovascular Disease
DX: I48.0 Paroxysmal atrial fibrillation (principal); Z79.01 Long term (current) use of anticoagulants
CPT/HCPCS: 36415; 85610

== ENCOUNTER → 2020-05-03 11:25 | Outpatient (CLI) | payer MEDICARE, OTHER, SELFPAY ==
[2019-04-28 13:44] VITALS: BMI 36.4
[2020-05-03 16:35] LABS: AST(SGOT) 34 U/L (15-37); Alanine Aminotransfer ALT/SGPT 35 U/L (13-56); Albumin, Serum 3.4 g/dL (3.2-5.0); Alkaline Phosphatase 107 U/L (45-117); Anion Gap 6 (5-15); BUN 13 mg/dL (7-18); BUN/Creat Ratio 19.8 RATIO (10-20); Bilirubin, Direct 0.11 mg/dL (0.00-0.30); Calcium,Total 8.7 mg/dL (8.5-10.1); Chloride 109 mmol/L (98-107); Cholesterol 179 mg/dL (200); Creatinine, Serum 0.66 mg/dL (0.55-1.02); EST Glomerular Filtration Rate 94 mL/min (>60); Est Glom Filt Rate - Afr Amer 113 mL/min (>60); Globulin 3.5 g/dL (2.2-4.2); Glucose 94 mg/dL (74-106); High Density Lipoprotein 53 mg/dL; Protein, Total 6.9 g/dL (6.4-8.2); Sodium Level 143 mmol/L (136-145); Triglycerides 131 mg/dL; Very Low Density Lipoprotein 26 mg/dL (5-40)
== END ==
PROVIDERS: Internal Medicine Cardiovascular Disease; PCP Family Medicine; Referring Provider Family Medicine; Visit Provider Family Medicine
DX: I10 Essential (primary) hypertension (principal); E78.00 Pure hypercholesterolemia, unspecified; E78.5 Hyperlipidemia, unspecified
CPT/HCPCS: 36415; 80048; 80061; 80076

== ENCOUNTER 2020-05-13 13:02 | Outpatient (RCR) | payer MEDICARE, OTHER, SELFPAY ==
[2019-04-28 13:44] VITALS: BMI 36.4
[2020-05-13 13:36] LABS: International Normalized Ratio 2.5; Prothrombin Time (Protime)PT. 26.2 SECONDS (11.7-14.9)
== END 2020-05-13 18:00 | disposition home or self-care (01) ==
LOC: LAB 13:02
PROVIDERS: Family Provider Family Medicine; PCP Family Medicine; Referring Provider Internal Medicine Cardiovascular Disease; Visit Provider Internal Medicine Cardiovascular Disease
DX: I48.0 Paroxysmal atrial fibrillation (principal); Z79.01 Long term (current) use of anticoagulants
CPT/HCPCS: 36415; 85610

== ENCOUNTER 2020-07-01 14:21 | Outpatient (RCR) | payer MEDICARE, OTHER, SELFPAY ==
[2019-04-28 13:44] VITALS: BMI 36.4
[2020-06-14 13:51] LABS: International Normalized Ratio 1.1; Prothrombin Time (Protime)PT. 13.4 SECONDS (11.7-14.9)
[2020-07-01 16:36] LABS: International Normalized Ratio 2.2
== END 2020-07-01 18:00 | disposition home or self-care (01) ==
LOC: LAB 14:21
PROVIDERS: Family Provider Family Medicine; PCP Family Medicine; Referring Provider Internal Medicine Cardiovascular Disease; Visit Provider Internal Medicine Cardiovascular Disease
DX: I48.0 Paroxysmal atrial fibrillation (principal); Z79.01 Long term (current) use of anticoagulants
CPT/HCPCS: 36415; 85610

== ENCOUNTER 2020-07-26 14:30 | Outpatient (RCR) | payer MEDICARE, OTHER, SELFPAY ==
[2019-04-28 13:44] VITALS: BMI 36.4
--- NOTE | 2020-05-16 13:25 | HP.PTEVAL ---
Patient's Visit Information MURIEL CHRISTINE is a 75 year old F referred to Physical Therapy by BRYON Goldman with a diagnosis of LUMBAR SACRAL RADICULOPATHY,UNILATERAL HIP PAIN,SPONDYLOLISTHESIS. Date of Evaluation: 05/16/20 Physical Therapist: Neil Caruso, PT, Cert MDT, OCS - Visit Plan Frequency: 2x /Week Duration: 4 Weeks Plan: PT INTERVENTIONS LE STRENGTHNEING -QUAD/HAMS/HIP,POSTURAL EX'S,DLS ,FUNCTIONAL STRENGTHNEING - Subjective This 75 y/o female presents to physical therapy with back pain and hip pain. Patient has has had lumbar and hip pain years.Patient has h/o 2 lumbar fusion and bilateral TKR. Patient has been under pain management for 2 years. Patient has had prior injections,plan to have another procedure burning nerves.Patient has pain meds and other other MEDS for RA. Recently had bone denisty at [facility] with recently had on effusion 1x/year. Location right L-S region and lateral hip. Aggraveting factors walking,standing,bending,lifting . Alleviation factors sitting. Denies parathesia/tingling. Bowel/bladder -. Coughing/sneezing-. Sleeping okat at night. Patient symptoms affects ADL's ,housework tasks and function. Patient condition affects QOL.Patient has multiple comorbities that influence contion. SOCAIL: . VOCATION: retired - Pain Right Back Pain Intensity (Out of 10): 5 Pain Intensity Range: 10 - Objective POSTURE:mild foward posture,trunk flexed foward. PALATION: unremarkable. NEURO denies parathesia/tingling ,reflexes L3-4,L4-L5,L5-SI 1/3. GAIT reciprocal pattern with cane with 2 point slow antagic jorge. SYMMTRIES : slight pelvis. AROM HIP: flexion 100 degrees,IR 15 degrees,hip abd 30 degrees. MMT: quads/hams 4-/5,hip flexion 4-/5,ankle 4/5. LUMBAR ROM: flexion mod loss,extension mod/severe side glides mod. FLEXABILITY: hams mild tight - Special Tests L/S Slump test left side: Negative L/S Slump test right side: Negative L/S Left Straight Leg Raise: Negative L/S Right Straight Leg Raise: Negative R Hip Scour: Positive L Hip Scour: Positive - Goals Goal 1:: I with HEP. Goal Time Frame: 4-6 Weeks Goal 2:: Decrease lumbar pain by 50 % or > to improve function with homer Goal Time Frame: 4-6 Weeks Goal 3:: Patient to improve lumbar ROM for function of recovery for ADL'S Goal Time Frame: 4-6 Weeks Goal 4:: Patient to increase strength BLE to 4/5 to improve functrion Goal Time Frame: 4-6 Weeks Goal 5:: Patient to improve back owestry score by 5 points or > to improve QOL Goal Time Frame: 4-6 Weeks Goal 6:: Patient able to walk and stand > 10 mins with less pain for ADLS Goal Time Frame: 4-6 Weeks - Rehabilitation Potential Physical Therapy Diagnosis: Patient has multilple comorbities as above to infleunce patient condition with weakness in legs ,poor lumbar ROM ,pain ,uses cane for mobility ,decrease hip ROM thus benifit from skilled PT. Rehabilitation Potential: Good - Anticipated Interventions Patient/Client Instruction: Educate patient on: Condition, Plan of Care For the Purpose of:: To decrease pain, To increase ROM, To improve muscle performance and motor function, To improve ability to perform ADL's, To increase tolerance to activity/condition/position, To improve ability of physical actions for home/community/work/leisure, To improve health of tissue, To decrease soft tissue restriction, To increase flexibility/ROM, To improve balance, To improve ability to perform tasks related to life management Therapeutic Exercise to Include: Strength training, Endurance training, Postural training, Flexibilty training, Active ROM, Dynamic Lumbar Stabilization For the Purpose of:: To decrease pain, To increase ROM, To improve muscle performance and motor function, To improve ability to perform ADL's, To increase tolerance to activity/condition/position, To improve ability of physical actions for home/community/work/leisure, To improve health of tissue, To decrease soft tissue restriction, To increase flexibility/ROM, To reduce risk of recurrence, To improve ability to perform tasks related to life management TENS: Yes IF ES: Yes Cryotherapy (ice pack, ice massage): Yes Thermo therapy (hot pack): Yes Ultrasound (thermal/non thermal): Yes For the Purpose of:: To decrease pain, To increase ROM, To improve nutrient delivery to tissue, To increase oxygenation perfusion, To improve health of tissue, To decrease soft tissue restriction Thank you for the opportunity to evaluate your patient. For Medicare and Medicare HMO plans, please review the plan of care and approve it. It will need to be FAXED BACK to us at [phone] for Medicare purposes. For Medicare only, by signing this I certify the plan of care. Please let me know if there are questions or concerns regarding this plan of care. Physician Signature: Date:
--- NOTE | 2020-06-22 14:00 | HP.PTREVAL_ITS ---
Renu Mcdonald, COMPOSITION ROOFER-C, It has been my pleasure to treat MURIEL CHRISTINE over the last 9 visits for LUMBAR SACRAL RADICULOPATHY,UNILATERAL HIP PAIN,SPONDYLOLISTHESIS. Please see the progress note below for an update on the physical therapy plan of care! Subjective: Patient is feeling better getting stronger. Patient is walking better and with ADLS's Objective/Function: POSTURE: mild foward posture. GAIT: reciprocal pattern mild foward posture antalgic gait slow jorge with 2 point gait pattern. NEURO: denies parathesia/tingling ,reflexes L3-4,L4-5,L5-S1 1/3. MMT: quads/hams 4/5,hip flexion 4-/5,ankle 4/5 Plan Plan: CONT WITH POC 2XWEEK FOR 4WEEKS. PT INTERVENTIONS LE STRENGTHNEING -QUAD/ HAMS/HIP,POSTURAL EX'S,DLS ,FUNCTIONAL STRENGTHNEING Goals Goal 1:: I with HEP. Goal Time Frame: 4-6 Weeks Goal Progress: Goal Met Goal 2:: Decrease lumbar pain by 60 % or > to improve function with homer Goal Time Frame: 4-6 Weeks Goal 3:: Patient to improve lumbar ROM for function of recovery for ADL'S Goal Time Frame: 4-6 Weeks Goal Progress: Progressing Goal 4:: Patient to increase strength BLE to 4/5 to improve functrion Goal Time Frame: 4-6 Weeks Goal Progress: Progressing Goal 5:: Patient to improve back owestry score by 5 points or > to improve QOL Goal Time Frame: 4-6 Weeks Goal Progress: Progressing Goal 6:: Patient able to walk and stand > 10 mins with less pain for ADLS Goal Time Frame: 4-6 Weeks Goal Progress: Progressing Anticipated Interventions Patient/Client Instruction: Educate patient on: Condition, Plan of Care For the Purpose of:: To decrease pain, To increase ROM, To improve muscle performance and motor function, To improve ability to perform ADL's, To increase tolerance to activity/condition/position, To improve ability of physical actions for home/community/work/leisure, To improve health of tissue, To decrease soft tissue restriction, To increase flexibility/ROM, To improve balance, To improve ability to perform tasks related to life management Therapeutic Exercise to Include: Strength training, Endurance training, Postural training, Flexibilty training, Active ROM, Dynamic Lumbar Stabilization For the Purpose of:: To decrease pain, To increase ROM, To improve muscle performance and motor function, To improve ability to perform ADL's, To increase tolerance to activity/condition/position, To improve ability of physical actions for home/community/work/leisure, To improve health of tissue, To decrease soft tissue restriction, To increase flexibility/ROM, To reduce risk of recurrence, To improve ability to perform tasks related to life management TENS: Yes IF ES: Yes Cryotherapy (ice pack, ice massage): Yes Thermo therapy (hot pack): Yes Ultrasound (thermal/non thermal): Yes For the Purpose of:: To decrease pain, To increase ROM, To improve nutrient delivery to tissue, To increase oxygenation perfusion, To improve health of tissue, To decrease soft tissue restriction Please do not hesitate to contact me at [phone] by phone or if you have questions or concerns regarding this new plan of care! Sincerely, Neil Caruso, PT, Cert MDT, OCS
--- NOTE | 2020-07-26 15:06 | HP.PTDCSUM ---
It has been my pleasure to treat MURIEL CHRISTINE referred by BRYON Goldman, with the diagnosis of LUMBAR SACRAL RADICULOPATHY,UNILATERAL HIP PAIN,SPONDYLOLISTHESIS for a total of 17 visit(s). Discharge Date: 07/26/20 Please see the following information for a summary of their discharge status. Subjective: Doing alot better strong walking better. Right Back Pain Intensity (Out of 10): 0 % Improvement: 90 Objective/Function: GAIT: reciprocal pattern with cane. MMT: QUADS/HAMS 4/5,HIP FLEXION 4-/5. LUMBAR ROM: FLEXION MIN LOSS ,EXTENSION MOD LOSS Goal 1:: I with HEP. Goal Progress: Goal Met Goal 2:: Decrease lumbar pain by 60 % or > to improve function with homer Goal Progress: Goal Met Goal 3:: Patient to improve lumbar ROM for function of recovery for ADL'S Goal Progress: Goal Met Goal 4:: Patient to increase strength BLE to 4/5 to improve functrion Goal Progress: Goal Met Goal 5:: Patient to improve back owestry score by 5 points or > to improve QOL Goal Progress: Goal Met Goal 6:: Patient able to walk and stand > 10 mins with less pain for ADLS Goal Progress: Goal Met Plan: d/c Discharge Comments: HEP If there are questions or concerns regarding this patient's physical therapy, please feel free to call me at [phone]. Thank you for the referral of this patient. Sincerely, Neil Caruso, PT, Cert MDT, OCS
== END 2020-07-26 19:00 | disposition home or self-care (01) ==
LOC: PT 14:30
PROVIDERS: PCP Family Medicine; Referring Provider Nurse Practitioner Family; Visit Provider Nurse Practitioner Family
DX: M51.37 Other intervertebral disc degeneration, lumbosacral region (principal); M47.27 Other spondylosis with radiculopathy, lumbosacral region; M46.96 Unspecified inflammatory spondylopathy, lumbar region; M16.11 Unilateral primary osteoarthritis, right hip; M43.16 Spondylolisthesis, lumbar region; M46.1 Sacroiliitis, not elsewhere classified; M53.3 Sacrococcygeal disorders, not elsewhere classified
CPT/HCPCS: 97110; 97162; 97530

== ENCOUNTER 2020-07-29 12:31 | Outpatient (RCR) | payer MEDICARE, OTHER, SELFPAY ==
[2020-06-14 13:10] VITALS: BMI 40.0
[2020-07-29 13:04] LABS: International Normalized Ratio 2.2
== END 2020-07-29 18:00 | disposition home or self-care (01) ==
LOC: LAB 12:31
PROVIDERS: Family Provider Family Medicine; PCP Family Medicine; Referring Provider Internal Medicine Cardiovascular Disease; Visit Provider Internal Medicine Cardiovascular Disease
DX: I48.0 Paroxysmal atrial fibrillation (principal); Z79.01 Long term (current) use of anticoagulants
CPT/HCPCS: 36415; 85610

== ENCOUNTER 2020-09-30 14:25 | Outpatient (RCR) | payer MEDICARE, SELFPAY ==
[2020-06-14 13:10] VITALS: BMI 40.0
[2020-09-30 15:47] LABS: International Normalized Ratio 1.6; Prothrombin Time (Protime)PT. 18.7 SECONDS (11.7-14.9)
== END 2020-09-30 18:00 | disposition home or self-care (01) ==
LOC: LAB 14:25
PROVIDERS: Family Provider Family Medicine; PCP Family Medicine; Referring Provider Internal Medicine Cardiovascular Disease; Visit Provider Internal Medicine Cardiovascular Disease
DX: I48.0 Paroxysmal atrial fibrillation (principal); Z79.01 Long term (current) use of anticoagulants
CPT/HCPCS: 36415; 85610

== ENCOUNTER 2020-11-08 14:30 | Outpatient (RCR) | payer MEDICARE, OTHER, SELFPAY ==
[2020-06-14 13:10] VITALS: BMI 40.0
[2020-10-21 16:02] LABS: AST(SGOT) 39 U/L (15-37); Alanine Aminotransfer ALT/SGPT 41 U/L (13-56); Albumin, Serum 3.2 g/dL (3.2-5.0); Alkaline Phosphatase 76 U/L (45-117); Bilirubin, Direct 0.05 mg/dL (0.00-0.30); Cholesterol 167 mg/dL (200); Globulin 3.6 g/dL (2.2-4.2); High Density Lipoprotein 55 mg/dL; Protein, Total 6.8 g/dL (6.4-8.2); Triglycerides 113 mg/dL; Very Low Density Lipoprotein 23 mg/dL (5-40)
[2020-11-03 18:03] LABS: International Normalized Ratio 1.6; Prothrombin Time (Protime)PT. 17.9 SECONDS (11.7-14.9)
[2020-11-08 20:42] LABS: International Normalized Ratio 1.1; Prothrombin Time (Protime)PT. 13.7 SECONDS (11.7-14.9)
== END 2020-11-08 18:00 | disposition home or self-care (01) ==
LOC: LAB 14:30
PROVIDERS: Family Provider Family Medicine; PCP Family Medicine; Referring Provider Internal Medicine Cardiovascular Disease; Visit Provider Internal Medicine Cardiovascular Disease
DX: I48.0 Paroxysmal atrial fibrillation (principal); E78.00 Pure hypercholesterolemia, unspecified; Z79.01 Long term (current) use of anticoagulants
CPT/HCPCS: 36415; 80061; 80076; 85610

== ENCOUNTER 2020-12-08 13:23 | Outpatient (RCR) | payer MEDICARE, OTHER, SELFPAY ==
[2020-06-14 13:10] VITALS: BMI 40.0
[2020-11-17 15:42] LABS: International Normalized Ratio 2.6; Prothrombin Time (Protime)PT. 26.8 SECONDS (11.7-14.9)
[2020-12-08 15:01] LABS: International Normalized Ratio 6.6; Prothrombin Time (Protime)PT. 56.9 SECONDS (11.7-14.9)
== END 2020-12-08 18:00 | disposition home or self-care (01) ==
LOC: LAB 13:23
PROVIDERS: Family Provider Family Medicine; PCP Family Medicine; Referring Provider Internal Medicine Cardiovascular Disease; Visit Provider Internal Medicine Cardiovascular Disease
DX: I48.0 Paroxysmal atrial fibrillation (principal); Z79.01 Long term (current) use of anticoagulants
CPT/HCPCS: 36415; 85610

== ENCOUNTER 2020-12-26 15:27 | Outpatient (RCR) | payer MEDICARE, OTHER, SELFPAY ==
[2020-06-14 13:10] VITALS: BMI 40.0
[2020-12-12 14:04] LABS: International Normalized Ratio 1.1; Prothrombin Time (Protime)PT. 13.8 SECONDS (11.7-14.9)
[2020-12-26 17:09] LABS: International Normalized Ratio 2.1; Prothrombin Time (Protime)PT. 22.8 SECONDS (11.7-14.9)
== END 2020-12-26 18:00 | disposition home or self-care (01) ==
LOC: LAB 15:27
PROVIDERS: Family Provider Family Medicine; PCP Family Medicine; Referring Provider Internal Medicine Cardiovascular Disease; Visit Provider Internal Medicine Cardiovascular Disease
DX: I48.0 Paroxysmal atrial fibrillation (principal); Z79.01 Long term (current) use of anticoagulants
CPT/HCPCS: 36415; 85610

== ENCOUNTER 2021-02-07 14:38 | Outpatient (RCR) | payer MEDICARE, OTHER, SELFPAY ==
[2020-06-14 13:10] VITALS: BMI 40.0
[2021-01-10 15:18] LABS: International Normalized Ratio 2.4; Prothrombin Time (Protime)PT. 25.3 SECONDS (11.7-14.9)
[2021-01-31 16:22] LABS: International Normalized Ratio 3.9; Prothrombin Time (Protime)PT. 37.8 SECONDS (11.7-14.9)
[2021-02-07 16:23] LABS: Prothrombin Time (Protime)PT. 21.6 SECONDS (11.7-14.9)
== END 2021-02-07 18:00 | disposition home or self-care (01) ==
LOC: LAB 14:38
PROVIDERS: Family Provider Family Medicine; PCP Family Medicine; Referring Provider Internal Medicine Cardiovascular Disease; Visit Provider Internal Medicine Cardiovascular Disease
DX: I48.0 Paroxysmal atrial fibrillation (principal); Z79.01 Long term (current) use of anticoagulants
CPT/HCPCS: 36415; 85610

== ENCOUNTER 2021-02-22 12:25 | Outpatient (RCR) | payer MEDICARE, OTHER, SELFPAY ==
[2020-06-14 13:10] VITALS: BMI 40.0
[2021-02-22 12:50] LABS: International Normalized Ratio 2.5; Prothrombin Time (Protime)PT. 26.3 SECONDS (11.7-14.9)
== END 2021-02-22 18:00 | disposition home or self-care (01) ==
LOC: LAB 12:25
PROVIDERS: Family Provider Family Medicine; PCP Family Medicine; Referring Provider Internal Medicine Cardiovascular Disease; Visit Provider Internal Medicine Cardiovascular Disease
DX: I48.0 Paroxysmal atrial fibrillation (principal); Z79.01 Long term (current) use of anticoagulants
CPT/HCPCS: 36415; 85610

== ENCOUNTER 2021-04-06 13:56 | Outpatient (RCR) | payer MEDICARE, OTHER, SELFPAY ==
[2020-06-14 13:10] VITALS: BMI 40.0
[2021-03-22 13:47] LABS: International Normalized Ratio 3.5; Prothrombin Time (Protime)PT. 33.9 SECONDS (11.7-14.9)
[2021-03-29 16:10] LABS: International Normalized Ratio 1.8; Prothrombin Time (Protime)PT. 20.3 SECONDS (11.7-14.9)
[2021-04-06 14:30] LABS: International Normalized Ratio 1.4; Prothrombin Time (Protime)PT. 16.2 SECONDS (11.7-14.9)
== END 2021-04-06 18:00 | disposition home or self-care (01) ==
LOC: LAB 13:56
PROVIDERS: Family Provider Family Medicine; PCP Family Medicine; Referring Provider Internal Medicine Cardiovascular Disease; Visit Provider Internal Medicine Cardiovascular Disease
DX: I48.0 Paroxysmal atrial fibrillation (principal); Z79.01 Long term (current) use of anticoagulants
CPT/HCPCS: 36415; 85610

== ENCOUNTER 2021-05-01 12:53 | Outpatient (RCR) | payer MEDICARE, OTHER, SELFPAY ==
[2021-04-12 01:12] VITALS: BMI 40.0
[2021-04-13 16:33] LABS: International Normalized Ratio 2.1; Prothrombin Time (Protime)PT. 22.9 SECONDS (11.7-14.9)
[2021-04-28 16:37] LABS: Anion Gap 6 (5-15); BUN 21 mg/dL (7-18); BUN/Creat Ratio 25.8 RATIO (10-20); Chloride 105 mmol/L (98-107); Creatinine, Serum 0.82 mg/dL (0.55-1.02); EST Glomerular Filtration Rate 73 mL/min (>60); Est Glom Filt Rate - Afr Amer 88 mL/min (>60); Glucose 114 mg/dL (74-106); Potassium 3.9 mmol/L (3.5-5.1); Sodium Level 139 mmol/L (136-145)
[2021-04-28 16:44] LABS: International Normalized Ratio 1.9; Prothrombin Time (Protime)PT. 20.8 SECONDS (11.7-14.9)
[2021-05-01 13:49] LABS: International Normalized Ratio 1.6; Prothrombin Time (Protime)PT. 18.7 SECONDS (11.7-14.9)
== END 2021-05-01 18:00 | disposition home or self-care (01) ==
LOC: LAB 12:53
PROVIDERS: Family Provider Family Medicine; PCP Family Medicine; Referring Provider Internal Medicine Cardiovascular Disease; Visit Provider Internal Medicine Cardiovascular Disease
DX: I48.0 Paroxysmal atrial fibrillation (principal); Z79.01 Long term (current) use of anticoagulants
CPT/HCPCS: 36415; 80048; 85610

== ENCOUNTER 2021-06-02 15:38 | Outpatient (RCR) | payer MEDICARE, OTHER, SELFPAY ==
[2021-05-12 00:43] VITALS: BMI 40.0
[2021-05-16 15:56] LABS: Anion Gap 7 (5-15); BUN 18 mg/dL (7-18); BUN/Creat Ratio 19.9 RATIO (10-20); Calcium,Total 8.8 mg/dL (8.5-10.1); Chloride 106 mmol/L (98-107); EST Glomerular Filtration Rate 65 mL/min (>60); Est Glom Filt Rate - Afr Amer 78 mL/min (>60); Glucose 125 mg/dL (74-106); Potassium 4.3 mmol/L (3.5-5.1); Sodium Level 141 mmol/L (136-145)
[2021-05-19 13:12] LABS: International Normalized Ratio 1.8
[2021-06-02 17:47] LABS: International Normalized Ratio 2.2; Prothrombin Time (Protime)PT. 23.6 SECONDS (11.7-14.9)
== END 2021-06-11 05:21 | disposition home or self-care (01) ==
LOC: LAB 15:38
PROVIDERS: Family Provider Family Medicine; PCP Family Medicine; Referring Provider Internal Medicine Cardiovascular Disease; Visit Provider Internal Medicine Cardiovascular Disease
DX: I48.0 Paroxysmal atrial fibrillation (principal); Z79.01 Long term (current) use of anticoagulants
CPT/HCPCS: 36415; 80048; 85610

== ENCOUNTER 2021-06-20 15:19 | Outpatient (RCR) | payer MEDICARE, OTHER, SELFPAY ==
[2021-06-11 05:21] VITALS: BMI 40.0
[2021-06-20 17:04] LABS: International Normalized Ratio 1.4; Prothrombin Time (Protime)PT. 16.7 SECONDS (11.7-14.9)
== END 2021-07-11 18:00 | disposition home or self-care (01) ==
LOC: LAB 15:19
PROVIDERS: Family Provider Family Medicine; PCP Family Medicine; Referring Provider Internal Medicine Cardiovascular Disease; Visit Provider Internal Medicine Cardiovascular Disease
DX: I48.0 Paroxysmal atrial fibrillation (principal); Z79.01 Long term (current) use of anticoagulants
CPT/HCPCS: 36415; 85610

== ENCOUNTER 2021-08-08 13:41 | Outpatient (RCR) | payer MEDICARE, OTHER, SELFPAY ==
[2021-07-12 02:31] VITALS: BMI 40.0
[2021-07-25 12:48] LABS: International Normalized Ratio 1.8; Prothrombin Time (Protime)PT. 20.3 SECONDS (11.7-14.9)
[2021-07-25 13:07] LABS: AST(SGOT) 27 U/L (15-37); Alanine Aminotransfer ALT/SGPT 33 U/L (13-56); Albumin, Serum 3.1 g/dL (3.2-5.0); Alkaline Phosphatase 58 U/L (45-117); Bilirubin, Direct 0.07 mg/dL (0.00-0.30); Cholesterol 147 mg/dL (200); Globulin 3.2 g/dL (2.2-4.2); High Density Lipoprotein 58 mg/dL; Protein, Total 6.3 g/dL (6.4-8.2); Triglycerides 127 mg/dL; Very Low Density Lipoprotein 25 mg/dL (5-40)
[2021-08-08 14:44] LABS: International Normalized Ratio 1.4; Prothrombin Time (Protime)PT. 16.8 SECONDS (11.7-14.9)
== END 2021-08-12 18:00 | disposition home or self-care (01) ==
LOC: LAB 13:41
PROVIDERS: Nurse Practitioner Gerontology; Family Provider Family Medicine; PCP Family Medicine; Referring Provider Internal Medicine Cardiovascular Disease; Visit Provider Internal Medicine Cardiovascular Disease
DX: I48.0 Paroxysmal atrial fibrillation (principal); E78.00 Pure hypercholesterolemia, unspecified; Z79.01 Long term (current) use of anticoagulants
CPT/HCPCS: 36415; 80061; 80076; 85610

== ENCOUNTER 2021-08-24 14:25 | Outpatient (CLI) | payer MEDICARE, OTHER, SELFPAY ==
--- NOTE | 2021-08-24 14:28 | RAD_ITS ---
STUDY: X-RAY - LEFT SHOULDER REASON FOR EXAM: Female, 76 years old. OSTEOARTHRITIS TECHNIQUE: 4 view(s) of the shoulder. COMPARISON: Comparison is made with prior study dated 08/24/2016. FINDINGS: There is moderate degenerative arthrosis of the glenohumeral articulation. There is degenerative arthrosis of the acromioclavicular joint without inferior osseous spur formation. Stable osteophyte along the inferior aspect of the acromion. Degenerative spurring of the humeral head. The soft tissue structures are unremarkable. Normal visualized pulmonary apex. RAD/Shoulder min 2 Views IMPRESSION: Joint space narrowing and degenerative changes of the glenohumeral joint as well as the acromioclavicular joint. Electronically Signed: Shoaib Porras MD at 15:23 EST , Service support ,
== END 2021-08-24 23:59 | disposition short-term general hospital (02) ==
PROVIDERS: PCP Family Medicine; Referring Provider Anesthesiology Pain Medicine; Visit Provider Anesthesiology Pain Medicine
DX: M19.012 Primary osteoarthritis, left shoulder (principal)
CPT/HCPCS: 73030

== ENCOUNTER 2021-09-11 13:08 | Outpatient (RCR) | payer MEDICARE, OTHER, SELFPAY ==
[2021-08-14 02:45] VITALS: BMI 40.0
[2021-09-01 16:30] LABS: Prothrombin Time (Protime)PT. 60.8 SECONDS (11.7-14.9)
[2021-09-01 16:48] LABS: International Normalized Ratio 7.2
[2021-09-04 15:17] LABS: Absolute Lymphocyte Count 1.91 X10^3/uL (0.83-4.51); Absolute Neutrophil Count 5.4 X10^3/uL (2.0-7.7); Basophil# 0.05 X10^3/uL; Basophil% 0.6 % (0-1); Eosinophil# 0.23 X10^3/uL; Eosinophils% 2.8 % (0-5); Hematocrit 41.5 % (37-47); Lymphocyte # 1.91 X10^3/ul (0.83-4.51); Lymphocyte % 23.1 % (19-41); Mean Corp Hgb Conc 33.7 g/dL (32-36); Mean Platelet Vol. 9.4 fl (6.2-12.0); Monocyte# 0.68 X10^3/uL; Monocyte% 8.2 % (0-10); NRBC Flagged by Analyzer 0 % (0-5); Neutrophil # 5.36 X10^3/uL (2.7-7.7); Neutrophil % 64.9 % (47-70); Platelet Count 242 K/mm3 (150-450); RBC Distribution Width CV 13.2 % (11.6-14.6); RBC Distribution Width SD 45.6 fl (35.1-43.9); Red Blood Count 4.37 M/mm3 (4.2-5.4); White Blood Count 8.3 K/mm3 (4.4-11.0)
[2021-09-04 15:23] LABS: International Normalized Ratio 2.8; Prothrombin Time (Protime)PT. 28.9 SECONDS (11.7-14.9)
[2021-09-04 15:57] LABS: ALB/GLOB Ratio 0.9 RATIO (0.9-2.4); AST(SGOT) 36 U/L (15-37); Alanine Aminotransfer ALT/SGPT 35 U/L (13-56); Albumin, Serum 3.3 g/dL (3.2-5.0); Alkaline Phosphatase 62 U/L (45-117); Anion Gap 5 (5-15); BUN 17 mg/dL (7-18); BUN/Creat Ratio 20.6 RATIO (10-20); Calcium,Total 8.8 mg/dL (8.5-10.1); Chloride 103 mmol/L (98-107); Creatinine, Serum 0.83 mg/dL (0.55-1.02); EST Glomerular Filtration Rate 72 mL/min (>60); Est Glom Filt Rate - Afr Amer 87 mL/min (>60); Globulin 3.5 g/dL (2.2-4.2); Glucose 115 mg/dL (74-106); Potassium 3.8 mmol/L (3.5-5.1); Protein, Total 6.8 g/dL (6.4-8.2); Sodium Level 137 mmol/L (136-145)
[2021-09-11 13:51] LABS: International Normalized Ratio 1.8
== END 2021-09-11 18:00 | disposition home or self-care (01) ==
LOC: LAB 13:08
PROVIDERS: Physician Assistant Medical; Family Provider Family Medicine; PCP Family Medicine; Referring Provider Internal Medicine Cardiovascular Disease; Visit Provider Internal Medicine Cardiovascular Disease
DX: I48.0 Paroxysmal atrial fibrillation (principal); Z79.01 Long term (current) use of anticoagulants; R53.83 Other fatigue; R06.00 Dyspnea, unspecified
CPT/HCPCS: 36415; 80053; 83880; 85025; 85610

== ENCOUNTER 2021-09-19 14:29 | Outpatient (RCR) | payer MEDICARE, OTHER, SELFPAY ==
[2021-09-12 02:30] VITALS: BMI 40.0
[2021-09-19 17:13] LABS: International Normalized Ratio 2.1; Prothrombin Time (Protime)PT. 22.9 SECONDS (11.7-14.9)
== END 2021-09-19 23:59 | disposition home or self-care (01) ==
LOC: LAB 14:29
PROVIDERS: Family Provider Family Medicine; PCP Family Medicine; Referring Provider Internal Medicine Cardiovascular Disease; Visit Provider Internal Medicine Cardiovascular Disease
DX: I48.0 Paroxysmal atrial fibrillation (principal); Z79.01 Long term (current) use of anticoagulants
CPT/HCPCS: 36415; 85610

== ENCOUNTER 2021-10-06 15:00 | Outpatient (CLI) | payer MEDICARE, OTHER, SELFPAY ==
--- NOTE | 2021-10-06 15:04 | RAD_ITS ---
STUDY: XR Chest 2 Views 10/06/2021 3:08 PM REASON FOR EXAM: Female, 76 years old. CHEST PAIN SHORTNESS OF BREATH COMPARISON: 10/05/2015 TECHNIQUE: XR Chest 2 Views FINDINGS: There is no demonstrated pleural abnormality. Metallic leads in the spinal canal may suggest spinal stimulator leads. There is an elevated right hemidiaphragm. Normal heart size. Normal mediastinum. Normal paul. Prominent appearing increased interstitial lung markings. Normal visualized pulmonary arteries. There is atherosclerotic calcification of the aortic arch with tortuosity. There are diffuse degenerative changes of the visualized thoracic spine. There is degenerative osteoarthritis of the bilateral shoulders. There is no demonstrated abnormality of the visualized soft tissue structures of the upper abdomen. RAD/Chest PA and Lateral IMPRESSION: There are no acute findings. Electronically Signed: Thien Rondon MD at 17:30 EST ,
[2021-10-06 17:44] LABS: Absolute Lymphocyte Count 0.95 X10^3/uL (0.83-4.51); Absolute Neutrophil Count 7.4 X10^3/uL (2.0-7.7); Basophil# 0.02 X10^3/uL; Basophil% 0.2 % (0-1); Eosinophil# 0.02 X10^3/uL; Eosinophils% 0.2 % (0-5); Hematocrit 43.8 % (37-47); Hemoglobin 15.2 g/dL (12.0-15.0); Lymphocyte # 0.95 X10^3/ul (0.83-4.51); Lymphocyte % 10.4 % (19-41); Mean Corp Hgb Conc 34.7 g/dL (32-36); Mean Corpuscular Hgb 32.1 pg (27.0-32.0); Mean Corpuscular Volume 92.4 fL (81-99); Mean Platelet Vol. 10.5 fl (6.2-12.0); Monocyte# 0.68 X10^3/uL; Monocyte% 7.4 % (0-10); NRBC Flagged by Analyzer 0 % (0-5); Neutrophil # 7.41 X10^3/uL (2.7-7.7); Platelet Count 281 K/mm3 (150-450); RBC Distribution Width CV 13.9 % (11.6-14.6); RBC Distribution Width SD 47.8 fl (35.1-43.9); Red Blood Count 4.74 M/mm3 (4.2-5.4); White Blood Count 9.2 K/mm3 (4.4-11.0)
[2021-10-06 18:07] LABS: Anion Gap 11 (5-15); BUN 20 mg/dL (7-18); BUN/Creat Ratio 26.8 RATIO (10-20); Calcium,Total 8.2 mg/dL (8.5-10.1); Chloride 98 mmol/L (98-107); Creatinine, Serum 0.74 mg/dL (0.55-1.02); EST Glomerular Filtration Rate 81 mL/min (>60); Est Glom Filt Rate - Afr Amer 98 mL/min (>60); Glucose 165 mg/dL (74-106); Potassium 3.2 mmol/L (3.5-5.1); Sodium Level 133 mmol/L (136-145)
== END 2021-10-06 23:59 | disposition home or self-care (01) ==
LOC: MTLAB 15:02
PROVIDERS: PCP Family Medicine; Referring Provider Family Medicine; Visit Provider Family Medicine
DX: R06.02 Shortness of breath (principal)
CPT/HCPCS: 36415; 71046; 80048; 85025

== ENCOUNTER 2021-11-01 11:56 | Outpatient (CLI) | payer MEDICARE, OTHER, SELFPAY ==
--- NOTE | 2021-11-01 12:00 | RAD_ITS ---
STUDY: CHEST SERIES--AP AND LATERAL VIEWS (UPRIGHT IN WHEELCHAIR) OF 1204 HOURS ON 11/01/2021 REASON FOR EXAM: 76-year-old female with shortness of breath. TECHNIQUE: 2 view chest chest x-ray series was performed with the patient upright in a wheelchair per protocol. COMPARISON: 10/06/2021., 01/05/2014. FINDINGS: Poor inspiratory effort. Mild demineralization. There is mild cardiomegaly with left ventricular cardiac configuration. No current evidence of heart failure. Both paul are prominent, unchanged since previous study. There are findings suggestive of a mild bilateral bronchitis-chest on the previous study. There is no evidence of pneumonia or pneumonitis. Again, there is elevated right hemidiaphragm-chest aerated than previous study. Again, there is evidence of stimulator leads overlying the lower thoracic spine. RAD/Chest PA and Lateral IMPRESSION: 1. Mild cardiomegaly with a left ventricular cardiac configuration, but no current evidence of heart failure. 2. Mild bronchial wall thickening bilaterally that may represent a mild bilateral bronchitis (not visualized in the previous study of 10/06/2021. 3. Again, there is prominence of both paul, unchanged since the previous study of 10/08/2021 and a study of 01/05/2014. 4. There is a poor inspiratory effort and the current examination. 5. No evidence of pulmonary infiltrates, atelectasis, effusion, or mass lesions. 6. Again, there is prominent elevation of the right hemidiaphragm--noted in both previous studies. Electronically Signed: Lane Cárdenas MD at 17:54 EDT ,
[2021-11-01 15:12] LABS: Absolute Lymphocyte Count 1.11 X10^3/uL (0.83-4.51); Absolute Neutrophil Count 7.5 X10^3/uL (2.0-7.7); Basophil# 0.05 X10^3/uL; Basophil% 0.5 % (0-1); Eosinophil# 0.12 X10^3/uL; Eosinophils% 1.3 % (0-5); Hematocrit 38.6 % (37-47); Hemoglobin 12.6 g/dL (12.0-15.0); Lymphocyte # 1.11 X10^3/ul (0.83-4.51); Lymphocyte % 11.7 % (19-41); Mean Corp Hgb Conc 32.6 g/dL (32-36); Mean Corpuscular Hgb 32.1 pg (27.0-32.0); Mean Corpuscular Volume 98.2 fL (81-99); Mean Platelet Vol. 9.9 fl (6.2-12.0); Monocyte% 7.4 % (0-10); NRBC Flagged by Analyzer 0 % (0-5); Neutrophil # 7.45 X10^3/uL (2.7-7.7); Neutrophil % 78.7 % (47-70); Platelet Count 334 K/mm3 (150-450); RBC Distribution Width CV 17.1 % (11.6-14.6); RBC Distribution Width SD 61.5 fl (35.1-43.9); Red Blood Count 3.93 M/mm3 (4.2-5.4); White Blood Count 9.5 K/mm3 (4.4-11.0)
[2021-11-01 15:37] LABS: Anion Gap 9 (5-15); BUN 11 mg/dL (7-18); BUN/Creat Ratio 16.5 RATIO (10-20); Calcium,Total 8.2 mg/dL (8.5-10.1); Chloride 105 mmol/L (98-107); Creatinine, Serum 0.67 mg/dL (0.55-1.02); EST Glomerular Filtration Rate 92 mL/min (>60); Est Glom Filt Rate - Afr Amer 111 mL/min (>60); Glucose 117 mg/dL (74-106); Potassium 2.9 mmol/L (3.5-5.1); Sodium Level 140 mmol/L (136-145)
== END 2021-11-01 23:59 | disposition home or self-care (01) ==
LOC: MTLAB 11:57
PROVIDERS: PCP Family Medicine; Referring Provider Family Medicine; Visit Provider Family Medicine
DX: R06.02 Shortness of breath (principal)
CPT/HCPCS: 36415; 71046; 80048; 85025

== ENCOUNTER 2021-11-02 14:14 | Outpatient (RCR) | payer MEDICARE, OTHER, SELFPAY ==
[2021-10-10 10:34] VITALS: BMI 40.0
[2021-11-02 14:51] LABS: International Normalized Ratio 1.1; Prothrombin Time (Protime)PT. 13.7 SECONDS (11.7-14.9)
== END 2021-11-09 18:00 | disposition home or self-care (01) ==
LOC: LAB 14:14
PROVIDERS: Family Provider Family Medicine; PCP Family Medicine; Referring Provider Internal Medicine Cardiovascular Disease; Visit Provider Internal Medicine Cardiovascular Disease
DX: I48.0 Paroxysmal atrial fibrillation (principal); Z79.01 Long term (current) use of anticoagulants
CPT/HCPCS: 36415; 85610

== ENCOUNTER 2021-11-22 14:43 | Outpatient (RCR) | payer MEDICARE, OTHER, SELFPAY ==
[2021-11-10 02:50] VITALS: BMI 40.0
[2021-11-22 16:19] LABS: Prothrombin Time (Protime)PT. 65.3 SECONDS (11.7-14.9)
[2021-11-22 16:52] LABS: International Normalized Ratio 7.7
== END 2021-11-22 18:00 | disposition home or self-care (01) ==
LOC: LAB 14:43
PROVIDERS: Family Provider Family Medicine; PCP Family Medicine; Referring Provider Internal Medicine Cardiovascular Disease; Visit Provider Internal Medicine Cardiovascular Disease
DX: I48.0 Paroxysmal atrial fibrillation (principal); Z79.01 Long term (current) use of anticoagulants
CPT/HCPCS: 36415; 85610

== ENCOUNTER 2021-11-29 14:45 | Outpatient (CLI) | payer MEDICARE, OTHER, SELFPAY ==
[2021-11-29 18:08] LABS: Prothrombin Time (Protime)PT. 22.3 SECONDS (11.7-14.9)
[2021-12-08 11:08] LABS: Alternaria tenuis <0.10 kU/L (Class 0); Ash, White <0.10 kU/L (Class 0); Aspergillus fumigatus <0.10 kU/L (Class 0); Bermuda Grass <0.10 kU/L (Class 0); Birch <0.10 kU/L (Class 0); Black Walnut <0.10 kU/L (Class 0); Cat Hair / Dander,Stand <0.10 kU/L (Class 0); Cedar, Mountain <0.10 kU/L (Class 0); Cladosporium herbarum <0.10 kU/L (Class 0); Cockroach, American <0.10 kU/L (Class 0); Cottonwood <0.10 kU/L (Class 0); D farinae Mite <0.10 kU/L (Class 0); D pteronyssinus <0.10 kU/L (Class 0); Dog Epithelia <0.10 kU/L (Class 0); Elm, American White <0.10 kU/L (Class 0); Immunoglobulin E 14 IU/mL (6-495); Maple/Box Elder <0.10 kU/L (Class 0); Mouse Urine <0.10 kU/L (Class 0); Mulberry, White <0.10 kU/L (Class 0); Oak, White <0.10 kU/L (Class 0); Pecan <0.10 kU/L (Class 0); Penicillium Notatum <0.10 kU/L (Class 0); Pigweed, Rough <0.10 kU/L (Class 0); Ragweed, Short/Common <0.10 kU/L (Class 0); Russian Thistle <0.10 kU/L (Class 0); Sheep Sorrel <0.10 kU/L (Class 0); Sycamore, American <0.10 kU/L (Class 0); Timothy Grass <0.10 kU/L (Class 0)
== END 2021-11-29 23:59 | disposition home or self-care (01) ==
LOC: MFPLAB 14:51
PROVIDERS: Internal Medicine Cardiovascular Disease; PCP Family Medicine; Referring Provider Family Medicine; Visit Provider Family Medicine
DX: I48.0 Paroxysmal atrial fibrillation (principal); Z79.01 Long term (current) use of anticoagulants; T78.40XA Allergy, unspecified, initial encounter
CPT/HCPCS: 36415; 82785; 85610; 86003

== ENCOUNTER 2021-12-06 11:29 | Emergency (ER) | payer MEDICARE, OTHER, SELFPAY ==
[2021-12-06] VITALS (8 sets, daily range): BP systolic 82–139; BP diastolic 45–80; PULSE 86–158; RESP 16–27; TEMP 36.4–36.6; O2SAT 92–97; BMI 35.9
--- NOTE | 2021-12-06 11:58 | EKG12_ITS ---
Test Reason : FALL Blood Pressure : / mmHG Vent. Rate : 080 BPM Atrial Rate : 080 BPM P-R Int : 140 ms QRS Dur : 122 ms QT Int : 496 ms P-R-T Axes : 036 -38 -09 degrees QTc Int : 572 ms Sinus rhythm with marked sinus arrhythmia Left axis deviation Right bundle branch block Abnormal ECG Confirmed by FLOR LOUIS, SHANTELL ([id number]), managing editor SUMAYA BELL ([id number]) on 12/08/2021 10:06:53 AM Referred By: ARLINE Confirmed By:SHANTELL RAY MD
--- NOTE | 2021-12-06 11:58 | CT_ITS ---
STUDY: CT ABDOMEN AND PELVIS WITH CONTRAST REASON FOR EXAM: Female, 76 years old. trauma RADIATION DOSAGE (If Supplied By Facility): CTDIvol = ( 23.97 ) mGy, DLP = ( 1099.03 ) mGycm TECHNIQUE: Transaxial images were obtained from the dome of the diaphragm to the symphysis pubis without oral contrast. IV 100mL Isovue-300 was administered. Sagittal and coronal images were reconstructed. Individualized dose optimization techniques were used for this CT. COMPARISON: None. FINDINGS: There are chronic interstitial fibrotic changes of the lung bases. Tiny bilateral pleural effusions are present. Small pericardial effusion noted. Large main pulmonary arterial trunk and right pulmonary arteries consistent with pulmonary arterial hypertension. A large 17.45 x 8.60 cm acute subcutaneous hematoma is present in the left upper abdominal flank/subcutaneous tissues with a small actively bleeding intercostal vessel originating at the lateral margin of the left 9th and 10th ribs, terminating directly in the large hemorrhagic collection. Significant swelling and edema surrounding the hemorrhagic collection of the left abdominal flank region. No visualized rib fracture or displaced bony fragment. No visualized solid organ laceration or contusion. No intra-abdominal free air or free fluid or high density hemorrhage is seen. Normal liver. Normal gallbladder and extrahepatic biliary system. Normal spleen. There is diffuse atrophy of the pancreas. Normal bilateral adrenal glands. A large simple nonenhancing cyst is present at the superior pole of the right kidney measuring 9.31 cm. There is mild cortical atrophy of the left kidney, consistent with chronic medical renal disease. A small simple cyst is present at the medial aspect of the left kidney. There is a small hiatal hernia. Normal small intestine. There are multiple colonic diverticula consistent with diverticulosis. The appendix is visualized and appears normal. There is diffuse atherosclerotic calcification of the abdominal aorta, without a demonstrated aneurysm. Normal inferior vena cava. Normal retroperitoneum. Normal urinary bladder. Normal abdominal wall. There are diffuse degenerative changes of the visualized lumbar spine. Thoracic posterior epidural stimulating catheter with the electronic device in the subcutaneous fat of the left lower back region lower lumbar spine hardware and chronic postoperative changes. CT/Abdomen/Pelvis W IV Cont ONLY IMPRESSION: 1. A large 17.45 x 8.60 cm acute subcutaneous hematoma is present in the left upper abdominal flank/subcutaneous tissues with a small actively bleeding intercostal vessel originating at the lateral margin of the left 9th and 10th ribs, terminating directly in the large hemorrhagic collection. Significant swelling and edema surrounding the hemorrhagic collection of the left abdominal flank region. No visualized rib fracture or displaced bony fragment. 2. No demonstrated acute or significant intra-abdominal or intrapelvic process. N.B. : The above Results were Read Back by Corwin Bergman MD to CANDY Merida MD, and understanding confirmed on 12/06/2021 14:41:23 (ET). Electronically Signed: Corwin Bergman MD at 14:44 EDT ,
--- NOTE | 2021-12-06 11:58 | CT_ITS ---
STUDY: CT BRAIN WITHOUT CONTRAST REASON FOR EXAM: Female, 76 years old. Trauma RADIATION DOSAGE (If Supplied By Facility): CTDIvol = ( 47.06 ) mGy, DLP = ( 837.39 ) mGycm TECHNIQUE: Transaxial CT imaging of the brain was performed without administration of intravenous contrast material. Individualized dose optimization techniques were used for this CT. COMPARISON: None. FINDINGS: Normal soft tissue structures. Right frontal craniotomy defects and cortical plate screw constructs reidentified. Stable postsurgical defect and parenchymal volume loss in the floor the right frontal lobe. No acute skull fracture. Normal size ventricles and extra-axial spaces for the patient''s age. Normal white matter tracts of the cerebral hemispheres. Normal basal ganglia. 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 Normal brainstem. Normal cerebellum. There is no intracranial hemorrhage. There are no findings of an acute ischemic infarction. Normal visualized paranasal sinuses. CT/Brain/Head without Contrast IMPRESSION: Chronic involutional changes of the brain. Electronically Signed: Corwin Bergman MD at 14:14 EDT ,
--- NOTE | 2021-12-06 12:02 | EDS_ITS ---
HPI HPI - Fall History of Present Illness Chief Complaint: Fall Informant: patient and spouse/S.O. Narrative Narrative: Patient had a fall from bed this morning. Evidently she has been very weak since August when she had a viral illness and possibly COVID. Its not clear what happened. They are going to get home therapy soon. But she has been just getting weak for the last few months. She also has weakness of both knees ever since she had knee replacements. She was trying to get out of bed and her legs just slid out from under her. She states this happens sometimes. This was a mechanical fall. She states she was not syncopal. She was feeling in her normal recent state prior to the fall. She hit the left side of her hip/abdomen on a nightstand. She has soreness in that area. She states she never hit her head. That is the only area that hurts. She is on Coumadin for history of intermittent A. fib and pulmonary embolus. She had recently very high INR due to antibiotics but several days ago or week ago her INR was down to 2.0. She denies black or bloody stools. She and her state there is a history of anemia but they do not know the level of hemoglobin associated with that. [facility] Medical History Cardiac murmur, unspecified Contusion of left knee Contusion of right hand Contusion of right wrist Essential (primary) hypertension History of pulmonary embolism (2014) Hyperlipidemia Long-term use of immunosuppressant medication Palpitations Paroxysmal atrial fibrillation Rheumatoid arthritis Right bundle branch block (RBBB) Trapezius muscle strain Traumatic ecchymosis of face Home Medications hydroxychloroquine 200 mg PO DAILYCM 09/09/13 [History Last Taken 01/19/15 09:00] trazodone 100 mg PO QHS 09/09/13 [History Last Taken 01/18/15 22:00] elvjjxni-jdc-QV-lycopen-lutein 1 tab PO DAILY 01/19/15 [History Last Taken 01/19/15 08:00] calcium carb,cit 315 mg-vitamin D3 250 unit-phytosterols 200 mg tablet 1 tab PO .q day ea 10/04/17 [History Last Taken Unknown] folic acid 1 mg tablet 1 mg PO QDAY 10/04/17 [History Last Taken Unknown] methotrexate sodium 2.5 mg tablet 2.5 mg PO .COMPLEX 10/08/17 [History Last Taken Unknown] oxycodone-acetaminophen 5 mg-325 mg tablet 1 tab PO BID tab 10/08/17 [History Last Taken Unknown] quetiapine 200 mg tablet 200 mg PO QHS tab 10/08/17 [History Last Taken Unknown] sertraline 100 mg tablet 100 mg PO QHS tab 10/08/17 [History Last Taken Unknown] cyclobenzaprine 10 mg tablet 10 mg PO TID PRN #20 tab 03/19/18 [Rx Last Taken Unknown] amlodipine 10 mg tablet 10 mg PO DAILY 04/07/18 [History Last Taken Unknown] losartan 50 mg tablet 50 mg PO DAILY 04/07/18 [History Last Taken Unknown] fluoxetine 40 mg capsule 40 mg PO BID 10/16/18 [History Last Taken Unknown] abatacept 125 mg/mL subcutaneous auto-injector 125 mg SC QMONTH ml 04/28/19 [History Last Taken Unknown] metoprolol succinate 50 mg tablet,extended release 24 hr 50 mg PO QDAY #90 tab 02/10/21 [Rx Last Taken Unknown] pravastatin 20 mg tablet 20 mg PO QHS #90 tab 04/24/21 [Rx Last Taken Unknown] warfarin 4 mg tablet 4 mg PO DAILY #90 tab 06/15/21 [Rx Last Taken Unknown] warfarin 1 mg tablet 2 mg PO .COMPLEX #180 tab 11/27/21 [Rx Last Taken Unknown] Allergy/AdvReac Type Severity Reaction Status Date / Time Penicillins Allergy Rash Verified 12/06/21 11:37 Family History Father Diabetes CAD (coronary artery disease) S/P CABG (coronary artery bypass graft) Mother , age 74, CVA CVA (cerebral vascular accident) Brother Lung cancer Other Family history of CVA Surgical History History of appendectomy History of back surgery History of bilateral knee replacement History of brain tumor removal History of section History of open reduction and internal fixation (ORIF) procedure Social History Smoking Status: Never smoker alcohol intake: never caffeine: Yes Type: carbonated beverages and tea ROS ROS ED Constitutional Constitutional ED: Denies chills or fever(s) Eyes Eyes: Denies blurry vision ENT ENT ED: Denies rhinorrhea Cardiovascular Cardiovascular: Denies chest pain or palpitations Respiratory/Chest Respiratory/Chest: Denies cough or dyspnea Gastrointestinal Gastrointestinal: Reports other Details: Pain on left side of abdomen where she impacted the nightstand ; Denies nausea or vomiting Genitourinary Genitourinary ED: Denies dysuria or hematuria Musculoskeletal Musculoskeletal: Reports other Details: Soreness in the left hip region with nightstand impact. When patient states left hip she is actually pointing more toward the iliac area and left flank ; Denies back pain Integumentary Reports other Details: There is noted a large contusion on the left lower lateral abdomen/flank. Both her and her state that this is acute and occurred after the impact this morning at 730. Neurologic Neurologic: Denies headache(s), paresthesias or weakness Endocrine Endocrinology: Denies polydipsia or polyuria Hematologic/Lymphatic Hematologic/Lymphatic: Reports easy bleeding and easy bruising Allergic/Immunologic Allergic/Immunologic ED: Denies urticaria EXAM Physical Exam Const Vital Signs: 12/06/21 11:30 12/06/21 11:37 12/06/21 12:52 Temperature 97.5 F L Temperature Source Oral Pulse Rate 86 129 H Respiratory Rate 16 21 H Respiratory Effort Normal Non-Labored Respiratory Depth Normal Respiratory Pattern Normal Blood Pressure 90/45 L 82/57 L Blood Pressure Mean 60 65 Blood Pressure Source Blood Pressure Position Blood Pressure Location Pulse Ox 94 97 Oxygen Delivery Method Room Air Room Air Room Air 12/06/21 14:08 12/06/21 14:22 Temperature 97.8 F 97.8 F Temperature Source Oral Oral Pulse Rate 122 H 130 H Respiratory Rate 19 H 20 H Respiratory Effort Respiratory Depth Respiratory Pattern Blood Pressure 92/80 93/65 Blood Pressure Mean 84 74 Blood Pressure Source Monitor Monitor Blood Pressure Position Semi-Fowlers Semi-Fowlers Blood Pressure Location Left Arm Left Arm Pulse Ox 95 93 Oxygen Delivery Method Room Air Room Air Negative for well nourished HEENT Reports normocephalic atraumatic Eyes Negative for EOMs intact bilaterally Neck full ROM General: Negative for tenderness Chest Wall inspection of chest normal and palpation of chest normal Resp normal respiratory effort and clear to auscultation bilaterally Cardio regular rate and regular rhythm GI GI Narrative: Patient's abdomen is overall benign except the left lateral lower area has a very large palpable hematoma and its tender right at that spot. No laceration is seen. Back/Spine no CVA tenderness Extremity normal to inspection Extremity Narrative: No deformity. She has changes of prior knee surgery. I think her hip pain is actually this left flank area. Neuro oriented x3 Sensorium / Orientation: alert Psych mental status grossly normal Skin Rashes: no rashes MDM MDM MDM Narrative Medical decision making narrative: Patient's blood pressure is going down a bit and her heart rate is going up. She still looks a bit pale to me. FFP was already ordered. We are waiting for that. I have now ordered to release 2 units of blood to give her. She is wide-awake and alert and talking. I checked the area on her left flank. It is large but I cannot see that it is changed significantly than when I first saw it. I am awaiting CT scan of the region also. Discussed the CT finding with radiology. There is a very large hematoma in the subcutaneous tissue. It is possible that this is coming from the intercostal artery below the ninth rib. However, there is no indication of rib fracture there. Patient states she is still comfortable. It sore. Her heart rate ranges anywhere from 1-1 30 but she has atrial fibrillation. She is already receiving FFP. This was ordered before her INR came back. She is getting blood transfused that is pending coming down here. I do not have facilities to appropriately care for her here. They requested [facility] as they have been seen there before. I discussed case with Dr. Palacios at [facility] who will accept in transfer. My suspicion is that this should clot on its own. However we will give FFP even though her INR is not that high. I am giving transfusion of blood even though her hemoglobin is 8.9. With repeat patient checks, discussion with radiology and outside consultants, management of blood products and discussion with staff critical care time of 40 minutes was needed. Due to the ongoing bleeding, hypotension tachycardia patient is at clear risk for decompensation. Lab Data Attestation: I reviewed the patient's lab results. Labs: Laboratory Results - last 24 hr 12/06/21 12/06/21 12/06/21 12:20 12:20 12:20 WBC 8.1 RBC 2.73 L Hgb 8.9 L Hct 27.3 L MCV 100.0 H MCH 32.6 H MCHC 32.6 RDW Std Deviation 52.3 H RDW Coeff of Sonya 14.2 Plt Count 271 MPV 9.8 Immature Gran % (Auto) 0.400 Neut % (Auto) 72.2 H Lymph % (Auto) 17.7 L Coffee % (Auto) 8.4 Eos % (Auto) 0.7 Baso % (Auto) 0.6 Absolute Neuts (auto) 5.9 Absolute Lymphs (auto) 1.44 Nucleated RBC % 0 PT 17.1 H INR 1.4 Sodium 140 Potassium 3.0 L Chloride 104 Carbon Dioxide 29.0 Anion Gap 7 BUN 10 Creatinine 0.64 Estim Creat Clear Calc 39.04 Est GFR (MDRD) Af Amer 117 Est GFR (MDRD) Non-Af 96 BUN/Creatinine Ratio 15.6 Glucose 152 H Calcium 7.4 L Total Bilirubin 0.40 AST 31 ALT 14 Alkaline Phosphatase 59 Total Protein 4.5 L Albumin 2.0 L Globulin 2.5 Albumin/Globulin Ratio 0.8 L Blood Type Antibody Screen Crossmatch 12/06/21 12:20 WBC RBC Hgb Hct MCV MCH MCHC RDW Std Deviation RDW Coeff of Sonya Plt Count MPV Immature Gran % (Auto) Neut % (Auto) Lymph % (Auto) Coffee % (Auto) Eos % (Auto) Baso % (Auto) Absolute Neuts (auto) Absolute Lymphs (auto) Nucleated RBC % PT INR Sodium Potassium Chloride Carbon Dioxide Anion Gap BUN Creatinine Estim Creat Clear Calc Est GFR (MDRD) Af Amer Est GFR (MDRD) Non-Af BUN/Creatinine Ratio Glucose Calcium Total Bilirubin AST ALT Alkaline Phosphatase Total Protein Albumin Globulin Albumin/Globulin Ratio Blood Type O POSITIVE Antibody Screen NEGATIVE Crossmatch See Detail Radiography Diagnostic Testing: Clinical Impression(s) from Imaging Studies Brain CT 12/06/21 11:58 IMPRESSION: Chronic involutional changes of the brain. Electronically Signed: Corwin Bergman MD at 14:14 EDT Reading Location ID and State: [address] [place] [address] , Service support , Hip/Pelvis X-Ray 12/06/21 13:45 IMPRESSION: No acute process Electronically Signed: Corwin Bergman MD at 14:15 EDT Reading Location ID and State: [facility] / [place] , Service support , Critical Care Time Critical care time (excluding procedures): 30-74 minutes, Discussing w/Patient &/or Family/Finishing Machine Tender, Discussing w/Consultants, Arranging Admission or Transfer, Performing Direct Patient Care at Bedside and - (40 minutes. See MDM) Discharge Plan Triage Chief Complaint: Fall ED Provider: Aquiles Bonilla Dx/Rx/DC Orders Clinical Impression: Subcutaneous hematoma, Chest wall trauma, Hypotension, Acute anemia, Warfarin- induced coagulopathy Prescriptions: No Action folic acid 1 mg tablet 1 mg PO QDAY RF: 0 calcium carb,cit 315 mg-vitamin D3 250 unit-phytosterols 200 mg tablet 315-250-200 mg-unit-mg tablet 1 tab PO .q day RF: 0 methotrexate sodium 2.5 mg tablet 2.5 mg PO .COMPLEX RF: 0 quetiapine 200 mg tablet 200 mg PO QHS RF: 0 amlodipine 10 mg tablet 10 mg PO DAILY RF: 0 losartan 50 mg tablet 50 mg PO DAILY RF: 0 cyclobenzaprine 10 mg tablet 10 mg PO TID PRN (Reason: muscle spasm) Qty: 20 RF: 0 fluoxetine 40 mg capsule 40 mg PO BID RF: 0 O[place]cia [employer] 125 mg/mL auto-injector 125 mg SC QMONTH RF: 0 trazodone 100 MG tablet 100 mg PO QHS RF: 0 hydroxychloroquine 200 MG tablet 200 mg PO DAILYCM RF: 0 wojfbgxb-xvo-VB-lycopen-lutein 1 EACH tablet 1 tab PO DAILY RF: 0 oxycodone-acetaminophen 1 TABLET tablet 1 tab PO BID RF: 0 sertraline 100 MG tablet 100 mg PO QHS RF: 0 metoprolol succinate 50 mg tablet extended release 24 hr 50 mg PO QDAY Qty: 90 RF: 3 pravastatin 20 mg tablet 20 mg PO QHS Qty: 90 RF: 3 warfarin 4 mg tablet 4 mg PO DAILY Qty: 90 RF: 4 warfarin 1 mg tablet 2 mg PO .COMPLEX Qty: 180 RF: 4 Primary Care Provider: Low Baxter Referrals: Low Baxter MD [Primary Care Provider] - Disposition Disposition: Acute Care Hospital Discharge Location: [facility]
[2021-12-06 12:36] LABS: Absolute Lymphocyte Count 1.44 X10^3/uL (0.83-4.51); Absolute Neutrophil Count 5.9 X10^3/uL (2.0-7.7); Basophil# 0.05 X10^3/uL; Basophil% 0.6 % (0-1); Eosinophil# 0.06 X10^3/uL; Eosinophils% 0.7 % (0-5); Hematocrit 27.3 % (37-47); Hemoglobin 8.9 g/dL (12.0-15.0); Lymphocyte # 1.44 X10^3/ul (0.83-4.51); Lymphocyte % 17.7 % (19-41); Mean Corp Hgb Conc 32.6 g/dL (32-36); Mean Corpuscular Hgb 32.6 pg (27.0-32.0); Mean Platelet Vol. 9.8 fl (6.2-12.0); Monocyte# 0.68 X10^3/uL; Monocyte% 8.4 % (0-10); NRBC Flagged by Analyzer 0 % (0-5); Neutrophil # 5.87 X10^3/uL (2.7-7.7); Neutrophil % 72.2 % (47-70); Platelet Count 271 K/mm3 (150-450); RBC Distribution Width CV 14.2 % (11.6-14.6); RBC Distribution Width SD 52.3 fl (35.1-43.9); Red Blood Count 2.73 M/mm3 (4.2-5.4); White Blood Count 8.1 K/mm3 (4.4-11.0)
[2021-12-06 12:49] LABS: ALB/GLOB Ratio 0.8 RATIO (0.9-2.4); AST(SGOT) 31 U/L (15-37); Alanine Aminotransfer ALT/SGPT 14 U/L (13-56); Alkaline Phosphatase 59 U/L (45-117); Anion Gap 7 (5-15); BUN 10 mg/dL (7-18); BUN/Creat Ratio 15.6 RATIO (10-20); Calcium,Total 7.4 mg/dL (8.5-10.1); Chloride 104 mmol/L (98-107); Creatinine, Serum 0.64 mg/dL (0.55-1.02); EST Glomerular Filtration Rate 96 mL/min (>60); Est Glom Filt Rate - Afr Amer 117 mL/min (>60); Estimated Creatinine Clearance 39.04 ml/min; Globulin 2.5 g/dL (2.2-4.2); Glucose 152 mg/dL (74-106); Protein, Total 4.5 g/dL (6.4-8.2); Sodium Level 140 mmol/L (136-145)
[2021-12-06 13:02] LABS: International Normalized Ratio 1.4; Prothrombin Time (Protime)PT. 17.1 SECONDS (11.7-14.9)
--- NOTE | 2021-12-06 13:45 | RAD_ITS ---
STUDY: X-RAY - PELVIS AND LEFT HIP REASON FOR EXAM: Female, 76 years old. trauma TECHNIQUE: 3 views of the pelvis and hip. COMPARISON: None. FINDINGS: There is a non-specific bowel gas pattern. Normal visualized soft tissue structures. Normal bilateral iliac wings, sacroiliac joints and visualized sacrum. Normal bilateral superior and inferior pubic rami. Normal pubic symphysis. Normal bilateral ischial tuberosities. There is moderate axial narrowing of the right hip joint with mild to moderate osteophytic spurring of the femoral head neck junction. Unremarkable left hip. No visualized acute fracture or displaced fragment. Spinal hardware and electronic stimulating device noted. RAD/HIP, UNI W/ Pelvis 2-3 Views IMPRESSION: No acute process Electronically Signed: Corwin Bergman MD at 14:15 EDT ,
== END 2021-12-06 16:55 | disposition short-term general hospital (02) ==
PROVIDERS: Emergency Provider Emergency Medicine; PCP Family Medicine; Visit Provider Emergency Medicine
DX: S20.212A Contusion of left front wall of thorax, initial encounter (principal); D68.32 Hemorrhagic disorder due to extrinsic circulating anticoagulants; W06.XXXA Fall from bed, initial encounter; I95.9 Hypotension, unspecified; D64.9 Anemia, unspecified; T45.515A Adverse effect of anticoagulants, initial encounter
CPT/HCPCS: 70450; 73502; 74177; 80053; 85025; 85610; 86850; 86900; 86901; 86920; 86922; 93005; 99285; J7050; P9016; P9017; Q9967; A4216

== ENCOUNTER → 2021-12-13 | Outpatient (CLI) | payer MEDICARE, OTHER, SELFPAY ==
[2021-12-13 15:10] LABS: Absolute Lymphocyte Count 0.91 X10^3/uL (0.83-4.51); Basophil# 0.04 X10^3/uL; Basophil% 0.7 % (0-1); Eosinophils% 1.8 % (0-5); Hematocrit 26.9 % (37-47); Hemoglobin 8.7 g/dL (12.0-15.0); Lymphocyte # 0.91 X10^3/ul (0.83-4.51); Mean Corp Hgb Conc 32.3 g/dL (32-36); Mean Corpuscular Hgb 32.6 pg (27.0-32.0); Mean Corpuscular Volume 100.7 fL (81-99); Mean Platelet Vol. 10.1 fl (6.2-12.0); Monocyte% 10.5 % (0-10); NRBC Flagged by Analyzer 0 % (0-5); Neutrophil % 70.3 % (47-70); Platelet Count 302 K/mm3 (150-450); RBC Distribution Width SD 58.3 fl (35.1-43.9); Red Blood Count 2.67 M/mm3 (4.2-5.4); White Blood Count 5.7 K/mm3 (4.4-11.0)
== END | disposition home or self-care (01) ==
LOC: MTLAB 11:35
PROVIDERS: PCP Family Medicine; Referring Provider Family Medicine; Visit Provider Family Medicine
DX: D64.9 Anemia, unspecified (principal)
CPT/HCPCS: 36415; 85025

== ENCOUNTER 2021-12-28 15:08 | Outpatient (RCR) | payer MEDICARE, OTHER, SELFPAY ==
[2021-12-10 04:33] VITALS: BMI 40.0
[2021-12-21 16:34] LABS: International Normalized Ratio 1.2; Prothrombin Time (Protime)PT. 14.8 SECONDS (11.7-14.9)
[2021-12-28 17:27] LABS: International Normalized Ratio 2.7; Prothrombin Time (Protime)PT. 28.1 SECONDS (11.7-14.9)
[2021-12-28 20:52] LABS: Microalbumin,Random Urine 13.4 mg/L (NO RANGE EST.)
== END 2021-12-28 18:00 | disposition home or self-care (01) ==
LOC: LAB 15:08
PROVIDERS: Family Provider Family Medicine; PCP Family Medicine; Referring Provider Internal Medicine Cardiovascular Disease; Visit Provider Internal Medicine Cardiovascular Disease
DX: I48.0 Paroxysmal atrial fibrillation (principal); Z79.01 Long term (current) use of anticoagulants
CPT/HCPCS: 36415; 82043; 85610

== ENCOUNTER 2022-01-11 13:56 | Outpatient (RCR) | payer MEDICARE, OTHER, SELFPAY ==
[2022-01-09 21:34] VITALS: BMI 40.0
[2022-01-11 15:31] LABS: International Normalized Ratio 2.2; Prothrombin Time (Protime)PT. 24.5 SECONDS (11.7-14.9)
== END 2022-02-08 16:00 | disposition home or self-care (01) ==
LOC: MTLAB 13:56
PROVIDERS: Family Provider Family Medicine; PCP Family Medicine; Referring Provider Internal Medicine Cardiovascular Disease; Visit Provider Internal Medicine Cardiovascular Disease
DX: I48.0 Paroxysmal atrial fibrillation (principal); Z79.01 Long term (current) use of anticoagulants
CPT/HCPCS: 36415; 85610

== ENCOUNTER 2022-01-24 16:41 | Emergency (ER) | payer MEDICARE, OTHER, SELFPAY ==
[2022-01-24 16:42] VITALS: BP 127/81; PULSE 66; RESP 18; TEMP 37.7; O2SAT 90; BMI 33.6
--- NOTE | 2022-01-24 16:55 | EKG12_ITS ---
Test Reason : ABNORMAL HEARTRATE Blood Pressure : / mmHG Vent. Rate : 140 BPM Atrial Rate : 133 BPM P-R Int : 000 ms QRS Dur : 118 ms QT Int : 374 ms P-R-T Axes : 000 -51 -37 degrees QTc Int : 570 ms Atrial fibrillation Low voltage QRS Right bundle branch block Left anterior fascicular block Bifascicular block Abnormal ECG Confirmed by FLOR LOUIS, SHANTELL ([id number]), editorial assistant SUMAYA BELL ([id number]) on 01/26/2022 9:10:22 AM Referred By: CATHERINE Confirmed By:SHANTELL RAY MD
[2022-01-24] MEDS: Aspirin 81 MG TAB.CHEW 324 MG PO (17:13)
[2022-01-24 17:22] LABS: Absolute Lymphocyte Count 1.71 X10^3/uL (0.83-4.51); Absolute Neutrophil Count 5.3 X10^3/uL (2.0-7.7); Basophil# 0.04 X10^3/uL; Basophil% 0.5 % (0-1); Eosinophil# 0.16 X10^3/uL; Hematocrit 34.8 % (37-47); Hemoglobin 11.3 g/dL (12.0-15.0); Lymphocyte # 1.71 X10^3/ul (0.83-4.51); Lymphocyte % 21.9 % (19-41); Mean Corp Hgb Conc 32.5 g/dL (32-36); Mean Corpuscular Hgb 31.3 pg (27.0-32.0); Mean Corpuscular Volume 96.4 fL (81-99); Mean Platelet Vol. 9.9 fl (6.2-12.0); Monocyte# 0.64 X10^3/uL; Monocyte% 8.2 % (0-10); NRBC Flagged by Analyzer 0 % (0-5); Neutrophil # 5.25 X10^3/uL (2.7-7.7); Neutrophil % 67.1 % (47-70); Platelet Count 250 K/mm3 (150-450); RBC Distribution Width CV 14.6 % (11.6-14.6); Red Blood Count 3.61 M/mm3 (4.2-5.4); White Blood Count 7.8 K/mm3 (4.4-11.0)
--- NOTE | 2022-01-24 17:25 | RAD_ITS ---
STUDY: XR Chest 1 View 01/24/2022 5:16 PM REASON FOR EXAM: Female, 77 years old. CHEST PAIN chest pain COMPARISON: 3 TECHNIQUE: XR Chest 1 View FINDINGS: There is no demonstrated pleural abnormality. Metallic leads in the spinal canal may suggest spinal stimulator leads. There is an elevated right hemidiaphragm. Normal heart size. Normal mediastinum. Normal paul. Prominent appearing increased interstitial lung markings. Normal visualized pulmonary arteries. There is atherosclerotic calcification of the aortic arch with tortuosity. There are diffuse degenerative changes of the visualized thoracic spine. There is degenerative osteoarthritis of the bilateral shoulders. There is no demonstrated abnormality of the visualized soft tissue structures of the upper abdomen. RAD/Chest 1 View (Portable) IMPRESSION: There are no acute findings. Electronically Signed: Thien Rondon MD at 17:59 EDT ,
[2022-01-24] MEDS: dilTIAZem 25 MG/5 ML Vial 20 MG IV BOLUS (17:32)
[2022-01-24 17:33] LABS: International Normalized Ratio 3.7; Prothrombin Time (Protime)PT. 36.2 SECONDS (11.7-14.9)
--- NOTE | 2022-01-24 17:40 | EDS_ITS ---
HPI History of Present Illness Chief Complaint: Palpitations Narrative Narrative: 77-year-old female presenting from Dr. Baxter's office for atrial fibrillation with RVR. Patient states she is felt otherwise well. She states he is not having any chest pain. She has her typical short of breath with exertion when she gets up and walks around. She states that when she is working with home health and getting up they noticed that her heart rate was going very fast while walking. She states she does not feel any palpitations or chest pain. She does get a little dyspneic when walking. She saw Dr. Valdez from pain management and was telling this story to him who urged him to get to Dr. Baxter and the patient ended up here in the emergency room. Patient states he has been eating and drinking normally. She making normal urine and stool. She has no complaints at this time. [facility] Medical History Cardiac murmur, unspecified Contusion of left knee Contusion of right hand Contusion of right wrist Essential (primary) hypertension History of pulmonary embolism (2014) Hyperlipidemia Long-term use of immunosuppressant medication Palpitations Paroxysmal atrial fibrillation Rheumatoid arthritis Right bundle branch block (RBBB) Trapezius muscle strain Traumatic ecchymosis of face Home Medications hydroxychloroquine 200 mg tablet 200 mg PO DAILYCM 09/09/13 [History Last Taken 12/05/21] ocqmoyon-uis-amjwg acid 0.4 mg-lycopene 300 mcg-lutein 250 mcg tablet 1 tab PO DAILY 01/19/15 [History Last Taken 12/05/21] folic acid 1 mg tablet 1 mg PO QDAY 10/04/17 [History Last Taken 12/05/21] oxycodone-acetaminophen 5 mg-325 mg tablet 1 tab PO BID 10/08/17 [History Last Taken 12/05/21] abatacept 125 mg/mL subcutaneous auto-injector (Orencia ClickJect) 125 mg subcut QMONTH 04/28/19 [History Last Taken 11/30/21] pravastatin 20 mg tablet 20 mg PO QHS #90 tabs 04/24/21 [Rx Last Taken 12/05/21] warfarin 1 mg tablet 3 mg PO DAILY BLOOD THINNER 12/06/21 [History Last Taken 12/05/21] alendronate 70 mg tablet 70 mg PO QWEEK 12/12/21 [History Last Taken Unknown] amlodipine 10 mg-olmesartan 20 mg tablet (July) 1 tab PO DAILY 12/12/21 [History Last Taken Unknown] celecoxib 200 mg capsule (Celebrex) 200 mg PO BID 12/12/21 [History Last Taken Unknown] citalopram 20 mg tablet 20 mg PO DAILY 12/12/21 [History Last Taken Unknown] diltiazem HCl 120 mg capsule,extended release 24 hr 120 mg PO DAILY 12/12/21 [History Last Taken Unknown] ferrous sulfate 325 mg (65 mg iron) tablet 325 mg PO DAILY 12/12/21 [History Last Taken Unknown] krill oil 500 mg capsule 500 mg PO DAILY 12/12/21 [History Last Taken Unknown] methotrexate sodium 2.5 mg tablet 20 mg PO TH ARTHRITIS 12/12/21 [History Last Taken Unknown] omeprazole 40 mg capsule,delayed release 40 mg PO DAILY 12/12/21 [History Last Taken Unknown] pregabalin 25 mg capsule 25 mg PO TID 12/12/21 [History Last Taken Unknown] sennosides 8.6 mg capsule (senna) 8.6 mg PO DAILY 12/12/21 [History Last Taken Unknown] vilazodone 40 mg tablet (Viibryd) 40 mg PO DAILY 12/12/21 [History Last Taken Unknown] metoprolol succinate 50 mg tablet,extended release 24 hr 50 mg PO BID #30 tabs 01/24/22 [Rx Last Taken Unknown] potassium chloride 20 mEq tablet,extended release 40 meq PO DAILY #1 TAB 01/24/22 [Rx Last Taken Unknown] Allergy/AdvReac Type Severity Reaction Status Date / Time Penicillins Allergy Rash Verified 01/24/22 16:42 Family History Father Diabetes CAD (coronary artery disease) S/P CABG (coronary artery bypass graft) Mother , age 74, CVA CVA (cerebral vascular accident) Brother Lung cancer Other Family history of CVA Surgical History History of appendectomy History of back surgery History of bilateral knee replacement History of brain tumor removal History of section History of open reduction and internal fixation (ORIF) procedure Social History Smoking Status: Never smoker alcohol intake: never caffeine: Yes Type: carbonated beverages and tea ROS ROS ED Constitutional Constitutional ED: Denies chills or fever(s) Eyes Eyes: Denies change in vision ENT ENT ED: Denies rhinorrhea Cardiovascular Cardiovascular: Denies chest pain Respiratory/Chest Respiratory/Chest: Reports dyspnea and dyspnea on exertion; Denies cough Gastrointestinal Gastrointestinal: Denies abdominal pain or constipation Genitourinary Genitourinary ED: Denies dysuria Musculoskeletal Musculoskeletal: Denies arthralgias or back pain Integumentary Denies abscess Neurologic Neurologic: Denies headache(s) or paresthesias Psychiatric Psychiatric: Denies anxiety or depression EXAM Physical Exam Const Vital Signs: 01/24/22 16:42 01/24/22 16:56 01/24/22 17:02 Temperature 99.8 F H Temperature Source Temporal Pulse Rate 66 Respiratory Rate 18 Respiratory Effort Normal Non-Labored Respiratory Pattern Normal Blood Pressure 127/81 H Blood Pressure Mean 96 Pulse Ox 90 Oxygen Delivery Method Room Air Room Air 01/24/22 18:45 01/24/22 20:09 01/24/22 20:34 Temperature Temperature Source Pulse Rate 114 H 78 74 Respiratory Rate 22 H 20 H 18 Respiratory Effort Respiratory Pattern Blood Pressure 130/85 H 132/81 H 129/77 H Blood Pressure Mean 100 98 94 Pulse Ox 92 96 95 Oxygen Delivery Method Room Air Room Air 01/24/22 21:23 01/24/22 22:14 Temperature Temperature Source Pulse Rate 80 75 Respiratory Rate 20 H 17 Respiratory Effort Respiratory Pattern Blood Pressure 143/74 H 137/75 H Blood Pressure Mean 97 Pulse Ox 92 97 Oxygen Delivery Method Room Air Positive well nourished General Appearance ED: NAD HEENT Reports moist mucous membranes Eyes PERRL and EOMs intact bilaterally Chest Wall inspection of chest normal and palpation of chest normal Resp normal respiratory effort Effort and Inspection: Negative for retractions Auscultation: Negative for rales, rhonchi or wheezes Cardio Rhythm: abnormal rhythm irregularly irregular Extremity normal to inspection General Extremety ED: Negative for edema or tenderness General Extremity: Negative for edema Neuro oriented x3 and CN's II-XII intact bilaterally Sensorium / Orientation: alert Motor Exam: strength 5/5 throughout Psych mental status grossly normal Skin no rashes or lesions noted MDM MDM MDM Narrative Medical decision making narrative: EKG was obtained on arrival and on my interpretation this is atrial fibrillation with a ventricular of 140 bpm. Patient given 20 of Cardizem IV and her heart rate did come down to 115. Lab work is obtained. CBC within normal limits. INR therapeutic at 3.7. Chest x-ray on my interpretation is no acute cardiopulmonary process and the radiologist agree. High-sensitivity troponin 51 and at 2 hours 54. There is no significant interval change. Potassium was 2.7 today and this was repleted with 40 mg p.o. potassium. She is given another dose for tomorrow. Her heart rate is still 75 on my most recent exam at 2019. I spoke with Dr. Godoy who recommended increasing her metoprolol to 50 mg p.o. twice daily. I discussed this with her. He recommended that she follow-up with Dr. Baxter for the hypokalemia. Patient stable for discharge at this time. Impression: 1. A. fib with RVR 2. Hypokalemia Lab Data Attestation: I reviewed the patient's lab results. Labs: Laboratory Results - last 24 hr 01/24/22 01/24/22 01/24/22 17:14 17:14 17:14 WBC 7.8 RBC 3.61 L Hgb 11.3 L Hct 34.8 L MCV 96.4 MCH 31.3 MCHC 32.5 RDW Std Deviation 51.0 H RDW Coeff of Sonya 14.6 Plt Count 250 MPV 9.9 Immature Gran % (Auto) 0.300 Neut % (Auto) 67.1 Lymph % (Auto) 21.9 [place] % (Auto) 8.2 Eos % (Auto) 2.0 Baso % (Auto) 0.5 Absolute Neuts (auto) 5.3 Absolute Lymphs (auto) 1.71 Nucleated RBC % 0 PT 36.2 H INR 3.7 Sodium 140 Potassium 2.7 L* Chloride 104 Carbon Dioxide 29.0 Anion Gap 7 BUN 8 Creatinine 0.47 L Estim Creat Clear Calc 38.44 Est GFR (MDRD) Af Amer 165 Est GFR (MDRD) Non-Af 136 BUN/Creatinine Ratio 16.9 Glucose 97 Calcium 7.8 L Troponin I High Sens 51 01/24/22 19:35 WBC RBC Hgb Hct MCV MCH MCHC RDW Std Deviation RDW Coeff of Sonya Plt Count MPV Immature Gran % (Auto) Neut % (Auto) Lymph % (Auto) [place] % (Auto) Eos % (Auto) Baso % (Auto) Absolute Neuts (auto) Absolute Lymphs (auto) Nucleated RBC % PT INR Sodium Potassium Chloride Carbon Dioxide Anion Gap BUN Creatinine Estim Creat Clear Calc Est GFR (MDRD) Af Amer Est GFR (MDRD) Non-Af BUN/Creatinine Ratio Glucose Calcium Troponin I High Sens 54 Radiography Diagnostic Testing: Clinical Impression(s) from Imaging Studies Chest X-Ray 01/24/22 17:25 IMPRESSION: There are no acute findings. Electronically Signed: Thien Rondon MD at 17:59 EDT , Discharge Plan Triage Chief Complaint: Palpitations ED Provider: Luigi Diallo Dx/Rx/DC Orders Instructions: ED AFIB, ED Hypokalemia Prescriptions: New potassium chloride 20 mEq tablet extended release 40 meq PO DAILY Qty: 1 0RF Changed metoprolol succinate 50 mg tablet extended release 24 hr 50 mg PO BID Qty: 30 11RF No Action folic acid 1 mg tablet 1 mg PO QDAY methotrexate sodium 2.5 mg tablet 20 mg PO TH Label Comments: 2.5 mg PO 6 tablets once a week on Orencia ClickJect 125 mg/mL auto-injector 125 mg SC QMONTH senna 8.6 mg capsule 8.6 mg PO DAILY pregabalin 25 mg capsule 25 mg PO TID omeprazole 40 mg capsule,delayed release(DR/EC) 40 mg PO DAILY amlodipine-olmesartan [July] 10-20 mg tablet 1 tab PO DAILY alendronate 70 mg tablet 70 mg PO QWEEK celecoxib [Celebrex] 200 mg capsule 200 mg PO BID Viibryd 40 mg tablet 40 mg PO DAILY Rx Instructions: must administer with a meal/food krill oil 500 mg capsule 500 mg PO DAILY citalopram 20 mg tablet 20 mg PO DAILY hydroxychloroquine 200 MG tablet 200 mg PO DAILYCM Label Comments: arthritis pwhdjrtm-joy-HP-lycopen-lutein 1 EACH tablet 1 tab PO DAILY Label Comments: vitamin oxycodone-acetaminophen 1 TABLET tablet 1 tab PO BID Label Comments: PAIN warfarin 1 mg tablet 3 mg PO DAILY Protocol: Dose Management Condition: Saturday Dose/Route: 4 mg Instruction: 4 x 1 mg tablets Condition: Saturday Dose/Route: 4 mg Instruction: 4 x 1 mg tablets Condition: Saturday Dose/Route: 4 mg Instruction: 4 x 1 mg tablets Condition: Saturday Dose/Route: 4 mg Instruction: 4 x 1 mg tablets Condition: Dose/Route: 4 mg Instruction: 4 x 1 mg tablets Condition: Saturday Dose/Route: 4 mg Instruction: 4 x 1 mg tablets Condition: Saturday Dose/Route: 4 mg Instruction: 4 x 1 mg tablets Protocol Text: Adjustment Start Date: 01/11/22 INR Value: 2.2 INR Date: 01/11/22 Recheck Date: 01/25/22 pravastatin 20 mg tablet 20 mg PO QHS Qty: 90 3RF ferrous sulfate 325 mg (65 mg iron) tablet 325 mg PO DAILY diltiazem HCl 120 mg capsule,extended release 24hr 120 mg PO DAILY Primary Care Provider: Low Baxter Referrals: Low Baxter MD [Primary Care Provider] - Activity Restrictions/Additional Instructions: Dr. Godoy wants you to take your metoprolol 50 mg twice a day now. He recommended that you follow-up with Dr. Baxter in regards to your low potassium. Disposition Disposition: Home, Self Care
[2022-01-24 18:28] LABS: Anion Gap 7 (5-15); BUN 8 mg/dL (7-18); BUN/Creat Ratio 16.9 RATIO (10-20); Calcium,Total 7.8 mg/dL (8.5-10.1); Chloride 104 mmol/L (98-107); Creatinine, Serum 0.47 mg/dL (0.55-1.02); EST Glomerular Filtration Rate 136 mL/min (>60); Est Glom Filt Rate - Afr Amer 165 mL/min (>60); Estimated Creatinine Clearance 38.44 ml/min; Glucose 97 mg/dL (74-106); Potassium 2.7 mmol/L (3.5-5.1); Sodium Level 140 mmol/L (136-145); Troponin-I HS (w/2H Reflex) 51 pg/mL (3.0-54.0)
[2022-01-24 18:45] VITALS: BP 130/85; PULSE 114; RESP 22; O2SAT 92
[2022-01-24] MEDS: Potassium Chloride Oral Tablet 20 MEQ 40 MEQ PO (19:11)
[2022-01-24 19:20] LABS: Reflex Troponin-HS? (from REC) Y
[2022-01-24 20:09] VITALS: BP 132/81; PULSE 78; RESP 20; O2SAT 96
[2022-01-24 20:09] LABS: Troponin-I HS 54 pg/mL (3.0-54.0)
[2022-01-24 20:34] VITALS: BP 129/77; PULSE 74; RESP 18; O2SAT 95
[2022-01-24 21:23] VITALS: BP 143/74; PULSE 80; RESP 20; O2SAT 92
[2022-01-24 22:14] VITALS: BP 137/75; PULSE 75; RESP 17; O2SAT 97
== END 2022-01-24 22:35 | disposition home or self-care (01) ==
PROVIDERS: Emergency Provider Student in an Organized Health Care Education/Training Program; PCP Family Medicine; Visit Provider Student in an Organized Health Care Education/Training Program
DX: I48.0 Paroxysmal atrial fibrillation (principal); M06.9 Rheumatoid arthritis, unspecified; E78.5 Hyperlipidemia, unspecified; I10 Essential (primary) hypertension; E87.6 Hypokalemia; Z86.711 Personal history of pulmonary embolism; Z79.899 Other long term (current) drug therapy; Z79.01 Long term (current) use of anticoagulants
CPT/HCPCS: 71045; 80048; 84484; 85025; 85610; 93005; 96374; 99285; A4216

== ENCOUNTER 2022-01-31 11:09 | Inpatient (IN) | payer MEDICARE, OTHER, SELFPAY ==
[2022-01-31] VITALS (31 sets, daily range): BP systolic 99–152; BP diastolic 60–104; PULSE 69–135; RESP 14–30; TEMP 36.6–37.6; O2SAT 88–97; BMI 32.8; BMI 33.3
--- NOTE | 2022-01-31 11:44 | EKG12_ITS ---
Test Reason : SOB Blood Pressure : / mmHG Vent. Rate : 094 BPM Atrial Rate : 094 BPM P-R Int : 152 ms QRS Dur : 114 ms QT Int : 424 ms P-R-T Axes : 061 -22 -33 degrees QTc Int : 530 ms Sinus rhythm with occasional Premature ventricular complexes Low voltage QRS Right bundle branch block Abnormal ECG Confirmed by FLOR LOUIS, SHANTELL ([id number]), online editor SUMAYA BELL ([id number]) on 02/02/2022 11:29:51 AM Referred By: CATHERINE Confirmed By:SHANTELL RAY MD
[2022-01-31 11:53] LABS: Absolute Lymphocyte Count 1.28 X10^3/uL (0.83-4.51); Absolute Neutrophil Count 5.9 X10^3/uL (2.0-7.7); Basophil# 0.04 X10^3/uL; Basophil% 0.5 % (0-1); Eosinophil# 0.11 X10^3/uL; Eosinophils% 1.3 % (0-5); Hematocrit 40.4 % (37-47); Lymphocyte # 1.28 X10^3/ul (0.83-4.51); Lymphocyte % 15.7 % (19-41); Mean Corp Hgb Conc 32.2 g/dL (32-36); Mean Corpuscular Hgb 31.1 pg (27.0-32.0); Mean Corpuscular Volume 96.7 fL (81-99); Mean Platelet Vol. 10.4 fl (6.2-12.0); Monocyte# 0.83 X10^3/uL; Monocyte% 10.2 % (0-10); NRBC Flagged by Analyzer 0 % (0-5); Neutrophil # 5.87 X10^3/uL (2.7-7.7); Neutrophil % 71.8 % (47-70); Platelet Count 278 K/mm3 (150-450); RBC Distribution Width CV 15.8 % (11.6-14.6); RBC Distribution Width SD 55.8 fl (35.1-43.9); Red Blood Count 4.18 M/mm3 (4.2-5.4); White Blood Count 8.2 K/mm3 (4.4-11.0)
[2022-01-31] MEDS: Ipratropium/Albuterol Sulfate 3 ML AMPUL.NEB INHALATION (11:55)
--- NOTE | 2022-01-31 12:05 | RAD_ITS ---
STUDY: X-RAY CHEST REASON FOR EXAM: Female, 77 years old. dyspnea TECHNIQUE: 1 view COMPARISON: 01/24/2022 FINDINGS: Please see the impression. RAD/Chest 1 View (Portable) IMPRESSION: Persistent cardiomegaly. Interval development of patchy opacities in the right mid to lower lung zones, due to aspiration or pneumonia. Questionable small bilateral pleural effusions. No pneumothorax. Bones unchanged. Electronically Signed: Trevor Ross MD at 12:26 EDT ,
[2022-01-31 12:12] LABS: BUN 7 mg/dL (7-18); Creatinine, Serum 0.48 mg/dL (0.55-1.02); EST Glomerular Filtration Rate 135 mL/min (>60); Estimated Creatinine Clearance 40.21 ml/min; Glucose 124 mg/dL (74-106)
[2022-01-31 12:13] LABS: AST(SGOT) 63 U/L (15-37); Alanine Aminotransfer ALT/SGPT 23 U/L (13-56); Albumin, Serum 2.9 g/dL (3.2-5.0); Alkaline Phosphatase 165 U/L (45-117); Anion Gap 8 (5-15); BNP,B-Type NATRIURETIC PEPTIDE 596.3 pg/mL (0-100); BUN/Creat Ratio 14.7 RATIO (10-20); Bilirubin, Direct 0.23 mg/dL (0.00-0.30); Calcium,Total 8.4 mg/dL (8.5-10.1); Chloride 103 mmol/L (98-107); Est Glom Filt Rate - Afr Amer 163 mL/min (>60); Globulin 3.8 g/dL (2.2-4.2); Lipase 21 U/L (73-393); Potassium 3.4 mmol/L (3.5-5.1); Protein, Total 6.7 g/dL (6.4-8.2); Sodium Level 139 mmol/L (136-145); Troponin-I HS (w/2H Reflex) 72 pg/mL (3.0-54.0)
--- NOTE | 2022-01-31 12:30 | ED.VIS.DYS ---
HPI History of Present Illness Chief Complaint: Shortness of Breath Informant: patient and spouse/S.O. Narrative Narrative: Patient is a 77-year-old female with history of hypertension, hyperlipidemia, atrial fibrillation and chronic anticoagulation on Coumadin presenting with worsening shortness of breath. Patient was seen in the ER on 01/24 for A. fib RVR. She was rate controlled and she had a therapeutic INR at this time. She was discharged home. Since she is been home she is had more dyspnea on exertion. She does not wear home O2. Today her pulse oximeter read 88% on room air and her heart rate was 160. Patient was feeling more short of breath. She came in for further evaluation. Patient denies any cough but does have a chronic postnasal drip for the past few months. She also gets episodes of nausea and vomiting specially after coughing or even after taking her medicines. Her states she is had decreased oral intake. Is not currently on any medications for this and has not had this worked up for the patient. Patient denies any chest pain. Denies any swelling of her legs. No other complaints at this time. [facility] Medical History Cardiac murmur, unspecified Contusion of left knee Contusion of right hand Contusion of right wrist Essential (primary) hypertension History of pulmonary embolism (2014) Hyperlipidemia Long-term use of immunosuppressant medication Palpitations Paroxysmal atrial fibrillation Rheumatoid arthritis Right bundle branch block (RBBB) Trapezius muscle strain Traumatic ecchymosis of face Home Medications nqlpwjav-jav-umoap acid 0.4 mg-lycopene 300 mcg-lutein 250 mcg tablet 1 tab PO DAILY 01/19/15 [History Last Taken 12/05/21] folic acid 1 mg tablet 1 mg PO QDAY 10/04/17 [History Last Taken 12/05/21] oxycodone-acetaminophen 5 mg-325 mg tablet 1 tab PO BID PRN PRN Pain 10/08/17 [History Last Taken 01/30/22] abatacept 125 mg/mL subcutaneous auto-injector (Orencia ClickJect) 125 mg subcut QMONTH 04/28/19 [History Last Taken 11/30/21] pravastatin 20 mg tablet 20 mg PO QHS #90 tabs 04/24/21 [Rx Last Taken 12/05/21] warfarin 1 mg tablet 4 mg PO DAILY BLOOD THINNER 12/06/21 [History Last Taken 01/30/22] methotrexate sodium 2.5 mg tablet 17.5 mg PO TH ARTHRITIS 12/12/21 [History Last Taken 01/25/22] amlodipine 10 mg tablet 10 mg PO DAILY 01/31/22 [History Last Taken 01/31/22] fluoxetine 40 mg capsule 40 mg PO DAILY 01/31/22 [History Last Taken Unknown] folic acid 400 mcg tablet 1 mg PO DAILY supplement 01/31/22 [History Last Taken Unknown] metoprolol succinate 50 mg tablet,extended release 24 hr 50 mg PO BID blood presure 01/31/22 [History Last Taken Unknown] quetiapine 200 mg tablet 200 mg PO QHS . 01/31/22 [History Last Taken Unknown] sertraline 100 mg tablet 100 mg PO DAILY 01/31/22 [History Last Taken 01/31/22] trazodone 100 mg tablet 100 mg PO QHS PRN PRN Sleep 01/31/22 [History Last Taken Unknown] Allergy/AdvReac Type Severity Reaction Status Date / Time Penicillins Allergy Rash Verified 01/31/22 11:12 Family History Father Diabetes CAD (coronary artery disease) S/P CABG (coronary artery bypass graft) Mother , age 74, CVA CVA (cerebral vascular accident) Brother Lung cancer Other Family history of CVA Surgical History History of appendectomy History of back surgery History of bilateral knee replacement History of brain tumor removal History of section History of open reduction and internal fixation (ORIF) procedure Social History Smoking Status: Never smoker alcohol intake: never caffeine: Yes Type: carbonated beverages and tea ROS ROS ED Constitutional Constitutional ED: Denies chills or fever(s) Eyes Eyes: Denies change in vision ENT ENT ED: Reports sore throat; Denies rhinorrhea Cardiovascular Cardiovascular: Denies chest pain, orthopnea or palpitations Respiratory/Chest Respiratory/Chest: Reports cough, dyspnea and dyspnea on exertion; Denies orthopnea Gastrointestinal Gastrointestinal: Reports nausea and vomiting; Denies abdominal pain Integumentary Denies rash Neurologic Neurologic: Denies headache(s) or paresthesias Hematologic/Lymphatic Hematologic/Lymphatic: Reports easy bleeding and easy bruising EXAM Physical Exam Const Vital Signs: 01/31/22 11:09 01/31/22 11:20 01/31/22 11:20 Temperature 99.0 F Temperature Source Temporal Pulse Rate 69 Respiratory Rate 14 Respiratory Effort Short of Breath Labored Accessory Muscle Use Respiratory Pattern Blood Pressure 152/75 H Blood Pressure Mean 100 Pulse Ox 89 95 Oxygen Delivery Method Room Air Nasal Cannula Nasal Cannula Oxygen Flow Rate (L/min) 2 2 01/31/22 11:15 01/31/22 11:30 01/31/22 11:44 Temperature Temperature Source Pulse Rate Respiratory Rate Respiratory Effort Respiratory Pattern Blood Pressure Blood Pressure Mean Pulse Ox 88 95 93 Oxygen Delivery Method Room Air Nasal Cannula Nasal Cannula Oxygen Flow Rate (L/min) 2 2 01/31/22 11:51 01/31/22 12:07 01/31/22 12:51 Temperature Temperature Source Pulse Rate 86 Respiratory Rate 18 Respiratory Effort Respiratory Pattern Normal Blood Pressure Blood Pressure Mean Pulse Ox 97 93 Oxygen Delivery Method Nasal Cannula Nasal Cannula Oxygen Flow Rate (L/min) 2 2 01/31/22 13:32 01/31/22 13:47 Temperature Temperature Source Pulse Rate 87 135 H Respiratory Rate 19 H Respiratory Effort Respiratory Pattern Blood Pressure 136/104 H Blood Pressure Mean 114 Pulse Ox 96 Oxygen Delivery Method Nasal Cannula Oxygen Flow Rate (L/min) 2 Positive well nourished and well developed General Appearance ED: well developed and NAD HEENT Reports moist mucous membranes atraumatic Eyes PERRL and EOMs intact bilaterally Neck supple and no JVD Resp normal respiratory effort Resp Narrative: Bibasilar crackles Cardio no murmurs Rate: tachycardic Rhythm: abnormal rhythm irregularly irregular GI non-tender and no masses Extremity normal to inspection General Extremety ED: Yes edema; Negative for tenderness General Extremity: edema Neuro oriented x3 and no sensory deficits noted Motor Exam: general weakness Psych mental status grossly normal Skin Skin Narrative: Ecchymosis to the left shoulder/back?patient states she had a fall with a hematoma and this was evaluated at [facility], she received blood transfusions at that time MDM MDM MDM Narrative Medical decision making narrative: Patient is evaluated for worsening shortness of breath and dyspnea on exertion. She does have a history of atrial fibrillation with RVR and actually was seen in the ER for this week ago. Patient remains rate controlled for the majority of her ER stay. She is requiring supplemental oxygen. She is found to have an elevated BNP as well as an elevated INR 5.3. No signs of active bleeding and her hemoglobin is normal as well as her blood pressure. I do not think she requires emergent reversal at this time. Her BMP is remarkable for mildly low potassium at 3.4 but otherwise normal. Her high since he troponin is 72 however she does not have any acute ischemic changes on her EKG. I suspect this might be related to strain associated with her hypoxia. Patient does have an episode of cough and then dry heaves in the emergency room. We will obtain a CT of the abdomen pelvis to look for any obstructive process or an acute infection that could be explaining her abdominal symptoms. CT of the abdomen and pelvis shows trace bilateral pleural effusions, groundglass densities of the right middle lobe which could be secondary to pneumonia, stable mild pericardial effusion and a liquefied hematoma to left lateral abdominal wall. While infection cannot be ruled out by radiology she does not have a leukocytosis, fever or increased pain to the area and they think this is related to her trauma she had 2 months ago and not acutely infectious. No signs of active bleeding. While in the ER patient does go into A. fib with RVR. She is given IV metoprolol with improvement of her rates. She is treated with Lasix for suspected fluid overload as well as Levaquin for concern of pneumonia. Patient does not meet SIRS criteria and I do not think she is septic. She is admitted for further management. Patient is agreeable this plan of care. She remains hemodynamically stable in the emergency room. Lab Data Attestation: I reviewed the patient's lab results. Labs: Laboratory Results - last 24 hr 01/31/22 01/31/22 01/31/22 11:30 11:30 11:30 WBC 8.2 RBC 4.18 L Hgb 13.0 Hct 40.4 MCV 96.7 MCH 31.1 MCHC 32.2 RDW Std Deviation 55.8 H RDW Coeff of Sonya 15.8 H Plt Count 278 MPV 10.4 Immature Gran % (Auto) 0.500 Neut % (Auto) 71.8 H Lymph % (Auto) 15.7 L [place] % (Auto) 10.2 H Eos % (Auto) 1.3 Baso % (Auto) 0.5 Absolute Neuts (auto) 5.9 Absolute Lymphs (auto) 1.28 Nucleated RBC % 0 PT Cancelled INR Cancelled Sodium 139 Potassium 3.4 L Chloride 103 Carbon Dioxide 28.0 Anion Gap 8 BUN 7 Creatinine 0.48 L Estim Creat Clear Calc 40.21 Est GFR (MDRD) Af Amer 163 Est GFR (MDRD) Non-Af 135 BUN/Creatinine Ratio 14.7 Glucose 124 H Calcium 8.4 L Total Bilirubin 0.60 Direct Bilirubin 0.23 AST 63 H ALT 23 Alkaline Phosphatase 165 H Troponin I High Sens 72 H B-Natriuretic Peptide Total Protein 6.7 Albumin 2.9 L Globulin 3.8 Lipase 21 L 01/31/22 01/31/22 11:30 12:15 WBC RBC Hgb Hct MCV MCH MCHC RDW Std Deviation RDW Coeff of Sonya Plt Count MPV Immature Gran % (Auto) Neut % (Auto) Lymph % (Auto) [place] % (Auto) Eos % (Auto) Baso % (Auto) Absolute Neuts (auto) Absolute Lymphs (auto) Nucleated RBC % PT 48.7 H INR 5.3 H* Sodium Potassium Chloride Carbon Dioxide Anion Gap BUN Creatinine Estim Creat Clear Calc Est GFR (MDRD) Af Amer Est GFR (MDRD) Non-Af BUN/Creatinine Ratio Glucose Calcium Total Bilirubin Direct Bilirubin AST ALT Alkaline Phosphatase Troponin I High Sens B-Natriuretic Peptide 596.3 H Total Protein Albumin Globulin Lipase Radiography Chest X-Ray - ED: 1 View, Read by ED Physician, Read by Radiologist, Cardiomegaly, Right Infiltrate, Right Effusion and Left Effusion Diagnostic Testing: Clinical Impression(s) from Imaging Studies Chest X-Ray 01/31/22 12:05 IMPRESSION: Persistent cardiomegaly. Interval development of patchy opacities in the right mid to lower lung zones, due to aspiration or pneumonia. Questionable small bilateral pleural effusions. No pneumothorax. Bones unchanged. Electronically Signed: Trevor Ross MD at 12:26 EDT , Rhythm Strip Rhythm Strip: A-fib Rate: 94 Ectopy: None EKG Initial EKG: Attestation: I personally reviewed and interpreted this EKG as follows: Interpretation: Sinus Rhythm Comments: Normal sinus rhythm at a rate of 94 with PVCs and PACs Low voltage QRS Right bundle branch block QTC 530 Normal WA interval and normal QRS Normal ST segments T wave inversion in V1 through V3 Critical Care Time Critical Care Time: Yes Critical care time (excluding procedures): 30-74 minutes, Including time spent: (35 minutes. Patient is atrial fibrillation with RVR and requires 3 doses of IV metoprolol for further rate control. Patient is then admitted to the hospital for further cardiac monitoring.), Arranging Admission or Transfer and Performing Direct Patient Care at Bedside Discharge Plan Dx/Rx/DC Orders Clinical Impression: Acute respiratory failure with hypoxia, Right bundle branch block (RBBB), Atrial fibrillation with RVR, Supratherapeutic INR, Aspiration pneumonia Disposition Disposition: [facility] Discharge Date/Time: 01/31/22 15:21
[2022-01-31 12:39] LABS: Prothrombin Time (Protime)PT. 48.7 SECONDS (11.7-14.9)
[2022-01-31 12:48] LABS: International Normalized Ratio 5.3
--- NOTE | 2022-01-31 13:45 | NURSING ---
DR GAMBOA FOR DR JOHNSON
[2022-01-31 13:50] LABS: Reflex Troponin-HS? (from REC) Y
--- NOTE | 2022-01-31 13:53 | CT_ITS ---
STUDY: CT ABDOMEN AND PELVIS WITH CONTRAST REASON FOR EXAM: Female, 77 years old. nausea and vomiting RADIATION DOSAGE (If Supplied By Facility): CTDIvol = ( 17.42 ) mGy, DLP = ( 1174.38 ) mGycm TECHNIQUE: Transaxial images were obtained from the dome of the diaphragm to the symphysis pubis without oral contrast. IV 100mL Isovue-370 was administered. Sagittal and coronal images were reconstructed. Individualized dose optimization techniques were used for this CT. COMPARISON: None. FINDINGS: Trace layering pleural effusions bilaterally. Groundglass densities in the right middle lobe, due to atelectasis or pneumonia. Bibasilar dependent atelectasis. Small pericardial effusion, unchanged. Borderline cardiomegaly. Diffuse hepatic steatosis. No definite stone in the gallbladder. Unremarkable pancreas and left adrenal. A 1.1 cm right adrenal myelolipoma. Subcentimeter hypodensities in the spleen, unchanged and likely representing simple cysts or hemangiomas. Bilateral renal cysts measuring up to 9.[address] evidence of acute appendicitis. Bowel loops nonobstructed. No free air or free fluid. No adenopathy. Vascular calcification. No abdominal aortic aneurysm. The patient''s known fluid collection the left lateral abdominal wall is partially included, likely representing a liquefying hematoma. Superimposed infection cannot be excluded. Diffuse subtendinous edema/cellulitis in the abdominal and pelvic mcpherson. Sections through the pelvis demonstrate no adnexal mass. Urinary bladder grossly intact. Status post L4-L5 laminectomy with posterior pedicle screw fusion. Multilevel thoracolumbar spondylosis. CT/Abdomen/Pelvis W IV Cont ONLY IMPRESSION: Trace bilateral pleural effusions. Groundglass densities in the right middle lobe, due to atelectasis or pneumonia. Stable mild pericardial effusion. Liquefying hematoma in the left lateral abdominal wall. Superimposed infection cannot be excluded. Other chronic findings as above. Electronically Signed: Trevor Ross MD at 15:53 EDT ,
--- NOTE | 2022-01-31 14:00 | NURSING ---
PCU KOTSONIS HYPOXIA, PLEURAL EFFUSIONS, ASPIRATION PNEUMONIA
[2022-01-31] MEDS: Metoprolol Tartrate 5 MG/5 ML Vial IV ×3 (14:07→14:20)
[2022-01-31] MEDS: Furosemide 40 MG/4 ML Vial IV (14:14)
[2022-01-31 14:18] LABS: Troponin-I HS 72 pg/mL (3.0-54.0)
[2022-01-31] MEDS: levoFLOXacin IV 750 MG/150 ML BAG 100 MG IV (14:19)
--- NOTE | 2022-01-31 14:46 | HP.PCM.HOS_ITS ---
HPI - General General Date of Admission: 01/31/22 HPI Narrative MURIEL CHRISTINE, is a 77 F who presents to the hospital with increasing shortness of breath and dyspnea on exertion. She was recently seen on 01/24/2022 with Nohemi mondragon, her barback was contacted at that time who increased her metoprolol. She comes back now with trace pleural effusions as well as a right lower lobe pneumonia. She has what sounds like posttussive emesis and it is possible that she may have aspirated. Her states that she has been having a decreased amount of p.o. intake. She does not have any fevers or chills, and no leukocytosis however at home she states that she was down to 88% on room air wi th her pulse oximeter and is currently being managed on 2 L nasal cannula. She was given a dose of Levaquin in the ER for possible aspiration. [facility] Medical History Cardiac murmur, unspecified Contusion of left knee Contusion of right hand Contusion of right wrist Essential (primary) hypertension History of pulmonary embolism (2014) Hyperlipidemia Long-term use of immunosuppressant medication Palpitations Paroxysmal atrial fibrillation Rheumatoid arthritis Right bundle branch block (RBBB) Trapezius muscle strain Traumatic ecchymosis of face Home Medications zdhmhakj-umc-rwrnn acid 0.4 mg-lycopene 300 mcg-lutein 250 mcg tablet 1 tab PO DAILY 01/19/15 [History Last Taken 12/05/21] folic acid 1 mg tablet 1 mg PO QDAY 10/04/17 [History Last Taken 12/05/21] oxycodone-acetaminophen 5 mg-325 mg tablet 1 tab PO BID PRN PRN Pain 10/08/17 [History Last Taken 01/30/22] abatacept 125 mg/mL subcutaneous auto-injector (Orencia ClickJect) 125 mg subcut QMONTH 04/28/19 [History Last Taken 11/30/21] pravastatin 20 mg tablet 20 mg PO QHS #90 tabs 04/24/21 [Rx Last Taken 12/05/21] warfarin 1 mg tablet 4 mg PO DAILY BLOOD THINNER 12/06/21 [History Last Taken 01/30/22] methotrexate sodium 2.5 mg tablet 17.5 mg PO TH ARTHRITIS 12/12/21 [History Last Taken 01/25/22] amlodipine 10 mg tablet 10 mg PO DAILY 01/31/22 [History Last Taken 01/31/22] fluoxetine 40 mg capsule 40 mg PO DAILY 01/31/22 [History Last Taken Unknown] folic acid 400 mcg tablet 1 mg PO DAILY supplement 01/31/22 [History Last Taken Unknown] metoprolol succinate 50 mg tablet,extended release 24 hr 50 mg PO BID blood presure 01/31/22 [History Last Taken Unknown] quetiapine 200 mg tablet 200 mg PO QHS . 01/31/22 [History Last Taken Unknown] sertraline 100 mg tablet 100 mg PO DAILY 01/31/22 [History Last Taken 01/31/22] trazodone 100 mg tablet 100 mg PO QHS PRN PRN Sleep 01/31/22 [History Last Taken Unknown] Allergy/AdvReac Type Severity Reaction Status Date / Time Penicillins Allergy Rash Verified 01/31/22 11:12 Family History Father Diabetes CAD (coronary artery disease) S/P CABG (coronary artery bypass graft) Mother , age 74, CVA CVA (cerebral vascular accident) Brother Lung cancer Other Family history of CVA Surgical History History of appendectomy History of back surgery History of bilateral knee replacement History of brain tumor removal History of section History of open reduction and internal fixation (ORIF) procedure Social History Smoking Status: Never smoker alcohol intake: never caffeine: Yes Type: carbonated beverages and tea ROS Constitutional Constitutional: Denies chills, fatigue, fever(s) or malaise Eyes Eyes: Denies blurry vision ENT HEENT: Denies headache(s) or nasal discharge Cardiovascular Cardiovascular: Denies chest pain, dyspnea on exertion or syncope Respiratory/Chest Respiratory/Chest: Reports cough and shortness of breath at rest; Denies shortness of breath with exertion Gastrointestinal Gastrointestinal: Reports nausea and vomiting; Denies constipation or diarrhea Genitourinary Genitourinary: Denies dysuria Neurologic Neurologic: Denies focal weakness, numbness or tremor(s) Psychiatric Psychiatric: Denies anxiety or depression Vital Signs Vital Signs Vital Signs: 01/31/22 11:09 01/31/22 11:20 01/31/22 11:20 Temperature 99.0 F Temperature Source Temporal Pulse Rate 69 Respiratory Rate 14 Respiratory Effort Short of Breath Labored Accessory Muscle Use Respiratory Pattern Blood Pressure 152/75 H Blood Pressure Mean 100 Pulse Ox 89 95 Oxygen Delivery Method Room Air Nasal Cannula Nasal Cannula Oxygen Flow Rate (L/min) 2 2 01/31/22 11:15 01/31/22 11:30 01/31/22 11:44 Temperature Temperature Source Pulse Rate Respiratory Rate Respiratory Effort Respiratory Pattern Blood Pressure Blood Pressure Mean Pulse Ox 88 95 93 Oxygen Delivery Method Room Air Nasal Cannula Nasal Cannula Oxygen Flow Rate (L/min) 2 2 01/31/22 11:51 01/31/22 12:07 01/31/22 12:51 Temperature Temperature Source Pulse Rate 86 Respiratory Rate 18 Respiratory Effort Respiratory Pattern Normal Blood Pressure Blood Pressure Mean Pulse Ox 97 93 Oxygen Delivery Method Nasal Cannula Nasal Cannula Oxygen Flow Rate (L/min) 2 2 01/31/22 13:32 01/31/22 13:47 01/31/22 13:52 Temperature Temperature Source Pulse Rate 87 135 H 122 H Respiratory Rate 19 H Respiratory Effort Respiratory Pattern Blood Pressure 136/104 H Blood Pressure Mean 114 Pulse Ox 96 Oxygen Delivery Method Nasal Cannula Oxygen Flow Rate (L/min) 2 01/31/22 14:08 01/31/22 14:10 01/31/22 14:15 Temperature 98 F Temperature Source Temporal Pulse Rate 134 H 125 H 132 H Respiratory Rate 21 H 24 H Respiratory Effort Respiratory Pattern Blood Pressure 136/104 H 133/87 H Blood Pressure Mean 114 102 Pulse Ox 92 93 Oxygen Delivery Method Nasal Cannula Nasal Cannula Oxygen Flow Rate (L/min) 2 2 01/31/22 14:18 01/31/22 14:18 01/31/22 14:21 Temperature Temperature Source Pulse Rate 128 H 126 H 135 H Respiratory Rate Respiratory Effort Respiratory Pattern Blood Pressure 124/95 H Blood Pressure Mean 104 Pulse Ox Oxygen Delivery Method Oxygen Flow Rate (L/min) 01/31/22 14:24 Temperature Temperature Source Pulse Rate 128 H Respiratory Rate 30 H Respiratory Effort Respiratory Pattern Blood Pressure 115/100 H Blood Pressure Mean 105 Pulse Ox 93 Oxygen Delivery Method Nasal Cannula Oxygen Flow Rate (L/min) 2 Weight Weight: 185 lb Body Mass Index (BMI) 32.8 Physical Exam Const alert, oriented x3 and no apparent distress General Appearance: cooperative HEENT normocephalic Mouth: dry mucous membranes Eyes PERRL, EOMs intact bilaterally and conjunctivae normal Neck supple and no JVD Resp normal respiratory effort, no retractions and no use of accessory muscles Auscultation: crackles right base and diminished lung sounds; Negative for rales, rhonchi or wheezes Cardio regular rhythm, S1 normal heart sound, S2 normal heart sound and no murmurs Rate: tachycardic GI soft to palpation, non-tender and non-distended; Negative for hepatosplenomegaly Extremity no clubbing, cyanosis or edema Skin no rashes or lesions noted Neuro no focal motor deficits and no sensory deficits noted Psych Appearance: appropriate Mood & Affect: anxious Results Lab / Micro Data Result Diagrams: 01/31/22 11:30 01/31/22 11:30 Labs: Laboratory Results - last 24 hr 01/31/22 11:30: WBC 8.2, RBC 4.18 L, Hgb 13.0, Hct 40.4, MCV 96.7, MCH 31.1, MCHC 32.2, RDW Std Deviation 55.8 H, RDW Coeff of Sonya 15.8 H, Plt Count 278, MPV 10.4, Immature Gran % (Auto) 0.500, Neut % (Auto) 71.8 H, Lymph % (Auto) 15.7 L, [place] % (Auto) 10.2 H, Eos % (Auto) 1.3, Baso % (Auto) 0.5, Absolute Neuts (auto) 5.9, Absolute Lymphs (auto) 1.28, Nucleated RBC % 0 01/31/22 11:30: PT Cancelled, INR Cancelled 01/31/22 11:30: Sodium 139, Potassium 3.4 L, Chloride 103, Carbon Dioxide 28.0, Anion Gap 8, BUN 7, Creatinine 0.48 L, Estim Creat Clear Calc 40.21, Est GFR (MDRD) Af Amer 163, Est GFR (MDRD) Non-Af 135, BUN/Creatinine Ratio 14.7, Glucose 124 H, Calcium 8.4 L, Total Bilirubin 0.60, Direct Bilirubin 0.23, AST 63 H, ALT 23, Alkaline Phosphatase 165 H, Troponin I High Sens 72 H, Total Protein 6.7, Albumin 2.9 L, Globulin 3.8, Lipase 21 L 01/31/22 11:30: B-Natriuretic Peptide 596.3 H 01/31/22 12:15: PT 48.7 H, INR 5.3 H* 01/31/22 13:56: Troponin I High Sens 72 H Radiology Impression Chest X-Ray 01/31/22 12:05 IMPRESSION: Persistent cardiomegaly. Interval development of patchy opacities in the right mid to lower lung zones, due to aspiration or pneumonia. Questionable small bilateral pleural effusions. No pneumothorax. Bones unchanged. Electronically Signed: Trevor Ross MD at 12:26 EDT , Assessment & Plan Assessment/Plan (1) Pneumonia: (2) Hypoxia: PLAN: Plan 1. Acute hypoxia due to right lower lobe pneumonia ? There is a concern for aspiration secondary to her posttussive emesis ? Continue with Levaquin as she is allergic to penicillins this will be dosed every 48 hours secondary to her creatinine clearance ? There is also some possibility of CHF, this could be due to her A. fib as she has been tachycardic therefore will obtain echo 2. HTN/HLD/A. fib ? She is been in RVR possibly for about a week. She denies feeling any palpitations but it does not appear that she really overdoes ? Her metoprolol was increased from 50 a day to 50 twice daily which we will continue here ? We will obtain an echo ? Continue with her home blood pressure medications ? Continue with her statin ? Her INR supratherapeutic therefore we will hold her Coumadin and trend 3. Anxiety/depression ? She does appear to be anxious at this time and had tremendous difficulty in the CT scanner therefore will provide her with a dose of Ativan to help relax at this time ? Continue with her Seroquel, Zoloft, trazodone DVT: Supratherapeutic INR Charges/Coding Visit Charges OBSV E&M: 19522 Initial observation care L2
--- NOTE | 2022-01-31 15:52 | ECHOD_ITS ---
Reason For Study: ATRIAL FIB-FLUTTER Procedure This was a 2D Doppler, Color Flow transthoracic echocardiogram. The study was technically difficult. Patient was uncooperative with study. Exam performed portable in patient room. Left Ventricle Normal left ventricle. The estimated ejection fraction is 55-60 %. Right Ventricle Normal right ventricle. Normal systolic function. Atria The left atrium is mildly enlarged. Normal right atrium. Mitral Valve There is mild to moderate mitral annular calcification. No eccentric mitral valve insufficiency. Tricuspid Valve Normal tricuspid valve. Mild tricuspid valve insufficiency. Aortic Valve Aortic sclerosis, no stenosis. Pulmonic Valve The pulmonic valve is not well visualized. Great Vessels Normal aortic root. Pericardium/Pleural Trivial pericardial effusion. Medication Definity refused by patient. MMode/2D Measurements & Calculations RVDd: 2.8 cm Ao root diam: 3.8 cm LAV(MOD-sp4): 56.8 ml LVAd ap4: 15.9 cm2 SV(MOD-sp4): 27.6 ml SV(sp4-el): 26.0 ml LVLd ap4: 5.6 cm EDV(MOD-sp4): 41.0 ml EDV(sp4-el): 38.4 ml LVAs ap4: 8.8 cm2 LVLs ap4: 5.3 cm ESV(MOD-sp4): 13.4 ml ESV(sp4-el): 12.4 ml EF(MOD-sp4): 67.3 % EF(sp4-el): 67.6 % LA A4 area: 22.1 cm2 LA dimension(2D): 4.0 cm RA A4 area: 17.8 cm2 Doppler Measurements & Calculations MV E max lily: 100.1 cm/sec Ao V2 max: 129.8 cm/sec LV V1 max: 88.9 cm/sec Ao max P.8 mmHg LV V1 max P.2 mmHg MR max lily: 365.4 cm/sec TR max lily: 280.7 cm/sec MR max P.4 mmHg TR max P.8 mmHg ECHO/Echo Complete Interpretation Summary The estimated ejection fraction is 55-60 %. Normal LV systolic function Moderate concentericLVH No change from prior echo 04/2017 Ordering Physician: Andrez Henson Referring Physician: Low Baxter Performed By: Daysi Hagan RCS
[2022-01-31] MEDS: LORazepam 2 MG/ML Syringe 0.5 MG IV (16:26)
[2022-01-31] MEDS: Metoprolol(XL)Succ 50 MG Tablet PO (18:15)
[2022-01-31] MEDS: QUEtiapine 100 MG Tablet 200 MG PO (21:20)
[2022-01-31] MEDS: Nystatin Powder 15gm Bottle 1 APPLIC TOPICAL (21:20)
[2022-01-31] MEDS: traZODone 100 MG Tablet PO (21:20)
[2022-01-31] MEDS: Acetaminophen 325 MG Tablet 650 MG PO (21:20)
[2022-01-31] MEDS: oxyCODONE 5 MG Tablet PO (21:21)
--- NOTE | 2022-01-31 21:41 | EKG12_ITS ---
Test Reason : RYTHM CHANGE Blood Pressure : / mmHG Vent. Rate : 124 BPM Atrial Rate : 125 BPM P-R Int : 000 ms QRS Dur : 132 ms QT Int : 346 ms P-R-T Axes : 000 -69 -46 degrees QTc Int : 497 ms Atrial fibrillation Right bundle branch block Left anterior fascicular block Bifascicular block T wave abnormality, consider lateral ischemia Abnormal ECG Confirmed by FLOR LOUIS, SHANTELL ([id number]), copy editor SUMAYA BELL ([id number]) on 02/02/2022 11:43:12 AM Referred By: COOPER Confirmed By:SHANTELL RAY MD
[2022-01-31] MEDS: dilTIAZem 25 MG/5 ML Vial 20 MG IV BOLUS (22:18)
[2022-01-31] MEDS: 0.9% Saline Lock 10 ML Syringe IV (22:19)
[2022-02-01] VITALS (33 sets, daily range): BP systolic 87–122; BP diastolic 54–91; PULSE 69–115; RESP 17–25; TEMP 36.7–36.8; O2SAT 90–98
--- NOTE | 2022-02-01 02:10 | NURSING ---
Patient oxygen decreased from 5L to 3L. Spo2 prior to change 98% and after changing oxygen level to 3L spo2 96%. Patient denies any concerns at this time. call light within reach.
[2022-02-01 06:16] LABS: Absolute Lymphocyte Count 1.46 X10^3/uL (0.83-4.51); Absolute Neutrophil Count 3.3 X10^3/uL (2.0-7.7); Basophil# 0.02 X10^3/uL; Basophil% 0.3 % (0-1); Eosinophil# 0.16 X10^3/uL; Eosinophils% 2.7 % (0-5); Hematocrit 34.9 % (37-47); Hemoglobin 11.2 g/dL (12.0-15.0); Lymphocyte # 1.46 X10^3/ul (0.83-4.51); Lymphocyte % 24.6 % (19-41); Mean Corp Hgb Conc 32.1 g/dL (32-36); Mean Corpuscular Hgb 31.2 pg (27.0-32.0); Mean Corpuscular Volume 97.2 fL (81-99); Mean Platelet Vol. 9.8 fl (6.2-12.0); Monocyte% 16.9 % (0-10); NRBC Flagged by Analyzer 0 % (0-5); Neutrophil # 3.25 X10^3/uL (2.7-7.7); Neutrophil % 54.8 % (47-70); Platelet Count 227 K/mm3 (150-450); RBC Distribution Width CV 15.9 % (11.6-14.6); RBC Distribution Width SD 56.5 fl (35.1-43.9); Red Blood Count 3.59 M/mm3 (4.2-5.4); White Blood Count 5.9 K/mm3 (4.4-11.0)
[2022-02-01 06:42] LABS: International Normalized Ratio 3.6; Prothrombin Time (Protime)PT. 35.7 SECONDS (11.7-14.9)
[2022-02-01 06:47] LABS: Anion Gap 5 (5-15); BUN 5 mg/dL (7-18); BUN/Creat Ratio 12.6 RATIO (10-20); Chloride 101 mmol/L (98-107); EST Glomerular Filtration Rate 167 mL/min (>60); Est Glom Filt Rate - Afr Amer 202 mL/min (>60); Estimated Creatinine Clearance 40.21 ml/min; Glucose 97 mg/dL (74-106); Potassium 2.5 mmol/L (3.5-5.1); Sodium Level 140 mmol/L (136-145)
[2022-02-01 07:18] LABS: Magnesium 1.2 mg/dL (1.6-2.6)
[2022-02-01] MEDS: 0.9% Saline Lock 10 ML Syringe IV ×2 (08:12→21:10)
[2022-02-01] MEDS: Magnesium Sulfate 4gm/100mL 4 GM/100 ML IV.SOLN. IV (08:12)
[2022-02-01] MEDS: Folic Acid 1 MG Tablet PO (08:18)
[2022-02-01] MEDS: Potassium Chloride Oral Tablet 20 MEQ 40 MEQ PO ×2 (08:18→16:44)
[2022-02-01] MEDS: Metoprolol(XL)Succ 25 MG Tablet 75 MG PO ×2 (08:18→21:09)
[2022-02-01] MEDS: Nystatin Powder 15gm Bottle 1 APPLIC TOPICAL ×2 (08:18→21:08)
[2022-02-01] MEDS: Sertraline 100 MG Tablet PO (08:18)
--- NOTE | 2022-02-01 09:48 | PN.HOSP_ITS ---
Subjective Subjective Doing little bit better from an anxiety perspective, she did go into A. fib with RVR overnight was started on a Cardizem drip. We will increase her metoprolol today Objective Data Objective Data Vital Signs: Vital Signs Temp Pulse Resp BP Pulse Ox 98.1 F 113 H 24 H 117/73 95 02/01/22 02:00 02/01/22 09:00 02/01/22 09:00 02/01/22 09:00 02/01/22 09:00 Oxygen Flow Rate (L/min) 3 Oxygen Delivery Method Nasal Cannula Weight: 185 lb 6.54 oz Body Mass Index (BMI) 33.3 Intake & Output: Intake and Output for Last 24 Hours 01/31/22 02/01/22 02/02/22 03:59 03:59 03:59 Intake Total 447.75 / 462.75 90 / 90 Output Total 900 / 900 200 / 200 Balance -452.25 / -437.25 -110 / -110 Lab / Micro Data Result Diagrams: 02/01/22 06:00 02/01/22 06:00 Labs: Laboratory Results - last 24 hr 01/31/22 11:30: WBC 8.2, RBC 4.18 L, Hgb 13.0, Hct 40.4, MCV 96.7, MCH 31.1, MCHC 32.2, RDW Std Deviation 55.8 H, RDW Coeff of Sonya 15.8 H, Plt Count 278, MPV 10.4, Immature Gran % (Auto) 0.500, Neut % (Auto) 71.8 H, Lymph % (Auto) 15.7 L, [place] % (Auto) 10.2 H, Eos % (Auto) 1.3, Baso % (Auto) 0.5, Absolute Neuts (auto) 5.9, Absolute Lymphs (auto) 1.28, Nucleated RBC % 0 01/31/22 11:30: PT Cancelled, INR Cancelled 01/31/22 11:30: Sodium 139, Potassium 3.4 L, Chloride 103, Carbon Dioxide 28.0, Anion Gap 8, BUN 7, Creatinine 0.48 L, Estim Creat Clear Calc 40.21, Est GFR (MDRD) Af Amer 163, Est GFR (MDRD) Non-Af 135, BUN/Creatinine Ratio 14.7, Glucose 124 H, Calcium 8.4 L, Total Bilirubin 0.60, Direct Bilirubin 0.23, AST 63 H, ALT 23, Alkaline Phosphatase 165 H, Troponin I High Sens 72 H, Total Protein 6.7, Albumin 2.9 L, Globulin 3.8, Lipase 21 L 01/31/22 11:30: B-Natriuretic Peptide 596.3 H 01/31/22 12:15: PT 48.7 H, INR 5.3 H* 01/31/22 13:56: Troponin I High Sens 72 H 02/01/22 06:00: WBC 5.9, RBC 3.59 L, Hgb 11.2 L, Hct 34.9 L, MCV 97.2, MCH 31.2, MCHC 32.1, RDW Std Deviation 56.5 H, RDW Coeff of Sonya 15.9 H, Plt Count 227, MPV 9.8, Immature Gran % (Auto) 0.700, Neut % (Auto) 54.8, Lymph % (Auto) 24.6, [place] % (Auto) 16.9 H, Eos % (Auto) 2.7, Baso % (Auto) 0.3, Absolute Neuts (auto) 3.3, Absolute Lymphs (auto) 1.46, Nucleated RBC % 0 02/01/22 06:00: Sodium 140, Potassium 2.5 L*, Chloride 101, Carbon Dioxide 34.0 H, Anion Gap 5, BUN 5 L, Creatinine 0.40 L, Estim Creat Clear Calc 40.21, Est GFR (MDRD) Af Amer 202, Est GFR (MDRD) Non-Af 167, BUN/Creatinine Ratio 12.6, Glucose 97, Calcium 8.0 L 02/01/22 06:00: PT 35.7 H, INR 3.6 02/01/22 06:00: Magnesium 1.2 L Radiography Diagnostic Testing: Radiology Impression Chest X-Ray 01/31/22 12:05 IMPRESSION: Persistent cardiomegaly. Interval development of patchy opacities in the right mid to lower lung zones, due to aspiration or pneumonia. Questionable small bilateral pleural effusions. No pneumothorax. Bones unchanged. Electronically Signed: Trevor Ross MD at 12:26 EDT , Abdomen/Pelvis CT 01/31/22 13:53 IMPRESSION: Trace bilateral pleural effusions. Groundglass densities in the right middle lobe, due to atelectasis or pneumonia. Stable mild pericardial effusion. Liquefying hematoma in the left lateral abdominal wall. Superimposed infection cannot be excluded. Other chronic findings as above. Electronically Signed: Trevor Ross MD at 15:53 EDT , Rhythm Strip Rhythm Strip: A-fib Rate: 94 Ectopy: None Physical Exam Const alert, oriented x3 and no apparent distress General Appearance: cooperative HEENT normocephalic Eyes PERRL, EOMs intact bilaterally and conjunctivae normal Neck supple and no JVD Resp normal respiratory effort, no retractions and no use of accessory muscles Auscultation: crackles right base and diminished lung sounds; Negative for rales, rhonchi or wheezes Cardio S1 normal heart sound, S2 normal heart sound and no murmurs Rate: tachycardic Rhythm: abnormal rhythm GI soft to palpation, non-tender and non-distended; Negative for hepatosplenomegaly Extremity no clubbing, cyanosis or edema Skin no rashes or lesions noted Neuro no focal motor deficits and no sensory deficits noted Psych affect normal Appearance: appropriate Assessment & Plan Assessment/Plan (1) Pneumonia: (2) Hypoxia: PLAN: Plan 1. Acute hypoxia due to right lower lobe pneumonia ? There is a concern for aspiration secondary to her posttussive emesis ? Continue with Levaquin as she is allergic to penicillins this will be dosed every 48 hours secondary to her creatinine clearance ? There is also some possibility of CHF, this could be due to her A. fib as she has been tachycardic therefore will obtain echo 2. HTN/HLD/A. fib ? She is been in RVR possibly for about a week. She denies feeling any pal pitations but it does not appear that she really overdoes ? As she remained in RVR, she was started on a Cardizem drip. We will increase her metoprolol to 75 p.o. twice daily ? Magnesium is also low so this will be replaced as well her potassium ? We will obtain an echo ? Continue with her home blood pressure medications ? Continue with her statin ? Her INR supratherapeutic therefore we will hold her Coumadin and trend 3. Anxiety/depression ? She does appear to be anxious at this time and had tremendous difficulty in the CT scanner therefore will provide her with a dose of Ativan to help relax at this time ? Continue with her Seroquel, Zoloft, trazodone DVT: Supratherapeutic INR Charges/Coding Visit Charges Inpatient E&M: 07944 Subs Hosp L2
--- NOTE | 2022-02-01 13:05 | CASEMGMT ---
YONIS DOSHI assessment: Face to Face with patient for initial transition planning/care coordination assessment. YONIS DOSHI introduced self and role at [facility], pt voices understanding and consents to assessment. Pt is sitting up in chair in no distress on 4L nc. Pt is A/Ox4 and answers all questions appropriately.? Pt's is at bedside during assessment. Care providers, pharmacy,?and demographics verified. ? Presentation: Pt c/o SOB, states recent increased in BP meds, no home oxygen-sats in 80's Admitting dx: Afib, Heart failure PCP: Sahil Specialists: Jayne, cardio; José Miguel, pain management; Richard, electrostatic paint operator Preferred Pharmacy: [facility] Insurance: MCR A/B, [employer] Prescription Benefit:?[place] Living Will/HPOA: Pt does have LW but not HPOA and LW provided to [facility] and copy placed on chart. LNOK: Jorge Perez, Living Arrangements: Pt lives with in 1 story condo with 2 steps in and states no concerns at home. Pt is independent with ADL's but assists when needed. Transportation: Pt's drives and states no transportation concerns. DME/HHC: Pt has the following DME: cane, WW, w/c, raised toilet seat, BSC, shower chair, hand held shower, grab bars, and lift chair. Pt states no need for any further DME. Pt states has been to SNF in [place] and [facility] Pt is active with [facility] for SN nursing only and they are aware of pt admission. REID order in. Pt only went 4ft with therapy today so SNF list provided. DME list also provided to pt, if needs home oxygen at discharge. Pt states some concerns with going home at discharge. Pt is retired. Pt states does not smoke cigarettes or drink ETOH. Pt states no further concerns/needs. CM to follow for therapy, home oxygen testing, and any further discharge planning/needs. Advised pt to ask for CM if any further questions/concerns/needs arise, voices understanding. Pt Goal: Home ? Plan: Home, pending therapy notes, home oxygen testing. [place] YONIS DOSHI
[2022-02-01] MEDS: Methotrexate 2.5 MG Tablet 17.5 MG PO (14:26)
--- NOTE | 2022-02-01 16:08 | EKG12_ITS ---
Test Reason : RYTHMN CHANGE Blood Pressure : / mmHG Vent. Rate : 073 BPM Atrial Rate : 073 BPM P-R Int : 146 ms QRS Dur : 122 ms QT Int : 474 ms P-R-T Axes : 036 -23 -04 degrees QTc Int : 522 ms Sinus rhythm with Premature atrial complexes Right bundle branch block Abnormal ECG Confirmed by FLOR LOUIS, SHANTELL ([id number]), editor department SUMAYA BELL ([id number]) on 02/05/2022 8:31:52 AM Referred By: COOPER Confirmed By:SHANTELL RAY MD
[2022-02-01] MEDS: QUEtiapine 100 MG Tablet 200 MG PO (21:09)
[2022-02-02] VITALS (12 sets, daily range): BP systolic 115–141; BP diastolic 64–68; PULSE 69–89; RESP 20; TEMP 36–37.1; O2SAT 80–96
[2022-02-02 03:36] LABS: Bedside Glucose 116 mg/dL (74-106)
[2022-02-02] MEDS: 0.9% Normal Saline 1,000 ML 150 ML IV (03:48)
[2022-02-02] MEDS: 0.9% Saline Lock 10 ML Syringe IV ×2 (03:49→13:25)
[2022-02-02] MEDS: levoFLOXacin 750 MG Tablet PO (06:43)
[2022-02-02 07:15] LABS: Anion Gap 4 (5-15); BUN 10 mg/dL (7-18); BUN/Creat Ratio 29.2 RATIO (10-20); Calcium,Total 7.9 mg/dL (8.5-10.1); Chloride 103 mmol/L (98-107); Creatinine, Serum 0.34 mg/dL (0.55-1.02); EST Glomerular Filtration Rate 198 mL/min (>60); Est Glom Filt Rate - Afr Amer 239 mL/min (>60); Estimated Creatinine Clearance 40.21 ml/min; Glucose 106 mg/dL (74-106); Magnesium 1.8 mg/dL (1.6-2.6); Phosphorus 3.7 mg/dL (2.5-4.9); Potassium 3.3 mmol/L (3.5-5.1); Sodium Level 139 mmol/L (136-145)
[2022-02-02 08:49] LABS: International Normalized Ratio 2.3; Prothrombin Time (Protime)PT. 25.2 SECONDS (11.7-14.9)
[2022-02-02] MEDS: Sertraline 100 MG Tablet PO (09:16)
[2022-02-02] MEDS: amLODIPine 10 MG Tablet PO (09:16)
[2022-02-02] MEDS: Metoprolol(XL)Succ 25 MG Tablet 75 MG PO ×2 (09:17→22:18)
[2022-02-02] MEDS: Potassium Chloride Oral Tablet 20 MEQ 40 MEQ PO ×2 (09:17→16:03)
[2022-02-02] MEDS: Folic Acid 1 MG Tablet PO (09:18)
[2022-02-02] MEDS: Nystatin Powder 15gm Bottle 1 APPLIC TOPICAL ×2 (09:18→22:18)
[2022-02-02] MEDS: Ipratropium/Albuterol Sulfate 3 ML AMPUL.NEB INHALATION (09:19)
--- NOTE | 2022-02-02 11:14 | CASEMGMT ---
Addendum entered by Jayna Crane 02/02/22 13:17: Patient and in room. Jayna Rosario Instructor Ground Services talked with both regarding SNF's. First Choice is [facility]. MARY Howard notified and will call TCU Admissions. Jayna Crane Discharge Power Lineworker Original Note: Discharge Power Lineworker Jayna Garland went and talked with patient to see if she picked choices yet for a SNF. Patient will be talking it over with her when he comes in today. Jayna will check back with patient at a later time. Jayna Crane Discharge Power Lineworker
--- NOTE | 2022-02-02 12:22 | PN.HOSP_ITS ---
Subjective Subjective Feels better today, still little bit short of breath. She did her ambulatory pulse ox and still needed about 6 L for ambulation. At rest she is down to 2 Objective Data Objective Data Vital Signs: Vital Signs Temp Pulse Resp BP Pulse Ox 96.8 F L 88 20 H 119/68 93 02/02/22 09:05 02/02/22 09:19 02/02/22 09:19 02/02/22 09:17 02/02/22 09:20 Oxygen Flow Rate (L/min) [ 6 AMBULATING with Oxygen #3] Oxygen Flow Rate (L/min) [ 4 AMBULATING with Oxygen #2] Oxygen Flow Rate (L/min) [ 2 AMBULATING with Oxygen #1] Oxygen Flow Rate (L/min) 2 Oxygen Delivery Method Nasal Cannula Weight: 189 lb 2.506 oz Body Mass Index (BMI) 33.3 Intake & Output: Intake and Output for Last 24 Hours 02/01/22 02/02/22 02/03/22 03:59 03:59 03:59 Intake Total 447.75 / 462.75 1185.00 / 1185.00 954 / 954 Output Total 900 / 900 675 / 675 Balance -452.25 / -437.25 510.00 / 510.00 954 / 954 Lab / Micro Data Result Diagrams: 02/01/22 06:00 02/02/22 06:18 Labs: Laboratory Results - last 24 hr 02/02/22 03:15: POC Glucose 116 H 02/02/22 06:18: PT 25.2 H, INR 2.3 02/02/22 06:18: Sodium 139, Potassium 3.3 L, Chloride 103, Carbon Dioxide 32.0, Anion Gap 4 L, BUN 10, Creatinine 0.34 L, Estim Creat Clear Calc 40.21, Est GFR (MDRD) Af Amer 239, Est GFR (MDRD) Non-Af 198, BUN/Creatinine Ratio 29.2 H, Gluc ose 106, Calcium 7.9 L, Phosphorus 3.7, Magnesium 1.8 Radiography Diagnostic Testing: Radiology Impression Echocardiogram 01/31/22 15:52 Interpretation Summary The estimated ejection fraction is 55-60 %. Normal LV systolic function Moderate concentericLVH No change from prior echo 04/2017 Ordering Physician: Andrez Henson Referring Physician: Low Baxter Performed By: Daysi Hagan RCS Rhythm Strip Rhythm Strip: A-fib Rate: 94 Ectopy: None Physical Exam Narrative Const alert, oriented x3 and no apparent distress General Appearance: cooperative HEENT normocephalic Eyes PERRL, EOMs intact bilaterally and conjunctivae normal Neck supple and no JVD Resp normal respiratory effort, no retractions and no use of accessory muscles Auscultation: crackles right base and diminished lung sounds with scattered wheezes; Negative for rales, rhonchi Cardio Normal rate and rhythm, S1 normal heart sound, S2 normal heart sound and no murmurs GI soft to palpation, non-tender and non-distended; Negative for hepatosplenomegaly Extremity no clubbing, cyanosis or edema Skin no rashes or lesions noted Neuro no focal motor deficits and no sensory deficits noted Psych affect normal Appearance: appropriate Assessment & Plan Assessment/Plan (1) Pneumonia: (2) Hypoxia: PLAN: Plan 1. Acute hypoxia due to right lower lobe pneumonia ? There is a concern for aspiration secondary to her posttussive emesis ? Continue with Levaquin as she is allergic to penicillins this will be dosed every 48 hours secondary to her creatinine clearance ? There is also some possibility of CHF, this could be due to her A. fib ? Echo was unremarkable, EF was normal with no significant diastolic abnormality ? She was given fluids overnight so we will give her some Lasix that she is more short of breath today now with wheezing. We will also proceed with incentive spirometry as well as Pep therapy and breathing treatment to see if this helps. ? She failed her ambulatory pulse ox trial 2. HTN/HLD/A. fib ? She is been in [facility] possibly for about a week. She denies feeling any palpitations but it does not appear that she really overdoes ? As she remained in R[facility], she was started on a Cardizem drip. We will increase her metoprolol to 75 p.o. twice daily ? Magnesium is also low so this will be replaced as well her potassium ? Echo with normal EF and no diastolic dysfunction ? Continue with her home blood pressure medications ? Continue with her statin ? Her INR supratherapeutic therefore we will hold her Coumadin and trend 3. Anxiety/depression ? She does appear to be anxious at this time and had tremendous difficulty in the CT scanner therefore will provide her with a dose of Ativan to help relax at this time ? Continue with her Seroquel, Zoloft, trazodone DVT: Coumadin Charges/Coding Visit Charges Inpatient E&M: 55057 Subs Hosp L2
[2022-02-02] MEDS: Furosemide 20 MG/2 ML VIAL IV (13:24)
--- NOTE | 2022-02-02 13:29 | CASEMGMT ---
MARY called Alicia in TCU and made referral. Alicia will review patient and get back to MARY. Anita Farley [employer]IST [employer]
--- NOTE | 2022-02-02 14:29 | CASEMGMT ---
TCU can accept patient. SW let patient know that she can go to TCU, but she will not be able to get her once a month injection. Patient verbalized understanding. Plan: [facility] TCU under skilled level of care Anita BUTTERFIELD
[2022-02-02] MEDS: guaiFENesin 600 MG Tablet PO (15:13)
[2022-02-02] MEDS: Jantoven 2 MG Tablet PO (16:03)
[2022-02-02] MEDS: QUEtiapine 100 MG Tablet 200 MG PO (22:19)
[2022-02-03] VITALS (14 sets, daily range): BP systolic 127–138; BP diastolic 65–96; PULSE 85–143; RESP 18–20; TEMP 36.8–37.3; O2SAT 86–100
[2022-02-03] MEDS: oxyCODONE 5 MG Tablet PO ×2 (04:38→22:07)
[2022-02-03 06:19] LABS: International Normalized Ratio 1.5
[2022-02-03 06:29] LABS: Anion Gap 6 (5-15); BUN 8 mg/dL (7-18); BUN/Creat Ratio 23.7 RATIO (10-20); Calcium,Total 8.2 mg/dL (8.5-10.1); Chloride 97 mmol/L (98-107); Creatinine, Serum 0.34 mg/dL (0.55-1.02); EST Glomerular Filtration Rate 201 mL/min (>60); Est Glom Filt Rate - Afr Amer 243 mL/min (>60); Estimated Creatinine Clearance 40.21 ml/min; Glucose 130 mg/dL (74-106); Magnesium 1.6 mg/dL (1.6-2.6); Potassium 3.9 mmol/L (3.5-5.1); Sodium Level 134 mmol/L (136-145)
[2022-02-03] MEDS: amLODIPine 10 MG Tablet PO (09:05)
[2022-02-03] MEDS: Sertraline 100 MG Tablet PO (09:05)
[2022-02-03] MEDS: Nystatin Powder 15gm Bottle 1 APPLIC TOPICAL ×2 (09:06→21:17)
[2022-02-03] MEDS: Folic Acid 1 MG Tablet PO (09:06)
[2022-02-03] MEDS: Potassium Chloride Oral Tablet 20 MEQ 40 MEQ PO ×2 (09:06→16:51)
[2022-02-03] MEDS: Metoprolol(XL)Succ 25 MG Tablet 75 MG PO ×2 (09:06→21:16)
[2022-02-03] MEDS: Acetaminophen 325 MG Tablet 650 MG PO ×2 (09:11→17:00)
--- NOTE | 2022-02-03 10:53 | PCM.PN.HOSP ---
Subjective Subjective Doing well, denies any anxiety. Breathing a little bit better today. She did get a breathing treatment a dose of Lasix yesterday. Objective Data Objective Data Vital Signs: Vital Signs Temp Pulse Resp BP Pulse Ox 98.4 F 85 20 H 135/65 H 87 02/03/22 09:01 02/03/22 09:06 02/03/22 09:01 02/03/22 09:06 02/03/22 09:21 Oxygen Flow Rate (L/min) [ 6 AMBULATING with Oxygen #3] Oxygen Flow Rate (L/min) [ 4 AMBULATING with Oxygen #2] Oxygen Flow Rate (L/min) [ 2 AMBULATING with Oxygen #1] Oxygen Flow Rate (L/min) [At 0 REST on Room Air] Oxygen Flow Rate (L/min) 2 Oxygen Delivery Method Nasal Cannula Weight: 189 lb 2.506 oz Body Mass Index (BMI) 33.3 Intake & Output: Intake and Output for Last 24 Hours 02/02/22 02/03/22 02/04/22 03:59 03:59 03:59 Intake Total 1185.00 / 1185.00 2114 / 2114 200 / 200 Output Total 675 / 675 550 / 550 300 / 300 Balance 510.00 / 510.00 1564 / 1564 -100 / -100 Lab / Micro Data Result Diagrams: 02/01/22 06:00 02/03/22 05:20 Labs: Laboratory Results - last 24 hr 02/03/22 05:20: PT 18.0 H, INR 1.5 02/03/22 05:20: Sodium 134 L, Potassium 3.9, Chloride 97 L, Carbon Dioxide 31.0, Anion Gap 6, BUN 8, Creatinine 0.34 L, Estim Creat Clear Calc 40.21, Est GFR (MDRD) Af Amer 243, Est GFR (MDRD) Non-Af 201, BUN/Creatinine Ratio 23.7 H, Glucose 130 H, Calcium 8.2 L, Magnesium 1.6 Rhythm Strip Rhythm Strip: A-fib Rate: 94 Ectopy: None Physical Exam Narrative Const alert, oriented x3 and no apparent distress General Appearance: cooperative HEENT normocephalic Eyes PERRL, EOMs intact bilaterally and conjunctivae normal Neck supple and no JVD Resp normal respiratory effort, no retractions and no use of accessory muscles Auscultation: crackles right base and diminished lung sounds; Negative for rales, rhonchi, wheezes Cardio Normal rate and rhythm, S1 normal heart sound, S2 normal heart sound and no murmurs GI soft to palpation, non-tender and non-distended; Negative for hepatosplenomegaly Extremity no clubbing, cyanosis or edema Skin no rashes or lesions noted Neuro no focal motor deficits and no sensory deficits noted Psych affect normal Appearance: appropriate Assessment & Plan Assessment/Plan (1) Pneumonia: (2) Hypoxia: PLAN: Plan 1. Acute hypoxia due to right lower lobe pneumonia ? There is a concern for aspiration secondary to her posttussive emesis ? Continue with Levaquin as she is allergic to penicillins this will be dosed every 48 hours secondary to her creatinine clearance ? There is also some possibility of CHF, this could be due to her A. fib ? Echo was unremarkable, EF was normal with no significant diastolic abnormality ? She seems to have improved with little bit of Lasix, will repeat the 1 times dose today ? PT/OT, plan for disposition to SNF 2. HTN/HLD/A. fib ? She is been in [facility] possibly for about a week. She denies feeling any palpitations but it does not appear that she really overdoes ? As she remained in [facility], she was started on a Cardizem drip. We will increase her metoprolol to 75 p.o. twice daily ? Magnesium is also low so this will be replaced as well her potassium ? Echo with normal EF and no diastolic dysfunction ? Continue with her home blood pressure medications ? Continue with her statin ? Her INR supratherapeutic therefore we will hold her Coumadin and trend 3. Anxiety/depression ? She does appear to be anxious at this time and had tremendous difficulty in the CT scanner therefore will provide her with a dose of Ativan to help relax at this time ? Continue with her Seroquel, Zoloft, trazodone DVT: Coumadin Charges/Coding Visit Charges Inpatient E&M: 13383 Subs Hosp L2
[2022-02-03] MEDS: Furosemide 20 MG/2 ML VIAL IV (11:25)
[2022-02-03] MEDS: Jantoven 2 MG Tablet PO (16:50)
[2022-02-03] MEDS: LORazepam 2 MG/ML Syringe 0.5 MG IV (17:00)
[2022-02-03] MEDS: QUEtiapine 100 MG Tablet 200 MG PO (21:16)
[2022-02-04] VITALS (12 sets, daily range): BP systolic 104–122; BP diastolic 53–62; PULSE 78–86; RESP 16–18; TEMP 36.7–36.9; O2SAT 88–97
[2022-02-04] MEDS: oxyCODONE 5 MG Tablet PO ×2 (05:16→20:51)
[2022-02-04] MEDS: levoFLOXacin 750 MG Tablet PO (05:16)
[2022-02-04 06:34] LABS: International Normalized Ratio 1.3; Prothrombin Time (Protime)PT. 15.6 SECONDS (11.7-14.9)
[2022-02-04 06:43] LABS: Anion Gap 7 (5-15); BUN 8 mg/dL (7-18); BUN/Creat Ratio 25.4 RATIO (10-20); Calcium,Total 8.3 mg/dL (8.5-10.1); Chloride 95 mmol/L (98-107); Creatinine, Serum 0.32 mg/dL (0.55-1.02); EST Glomerular Filtration Rate 218 mL/min (>60); Est Glom Filt Rate - Afr Amer 264 mL/min (>60); Estimated Creatinine Clearance 40.21 ml/min; Glucose 111 mg/dL (74-106); Potassium 4.4 mmol/L (3.5-5.1); Sodium Level 132 mmol/L (136-145)
[2022-02-04] MEDS: Acetaminophen 325 MG Tablet 650 MG PO ×2 (08:45→14:51)
[2022-02-04] MEDS: Metoprolol(XL)Succ 25 MG Tablet 75 MG PO ×2 (08:46→20:50)
[2022-02-04] MEDS: Folic Acid 1 MG Tablet PO (08:46)
[2022-02-04] MEDS: Potassium Chloride Oral Tablet 20 MEQ 40 MEQ PO ×2 (08:46→16:02)
[2022-02-04] MEDS: Furosemide 40 MG/4 ML Vial IV (08:46)
[2022-02-04] MEDS: amLODIPine 10 MG Tablet PO (08:46)
[2022-02-04] MEDS: Sertraline 100 MG Tablet PO (08:46)
[2022-02-04] MEDS: Nystatin Powder 15gm Bottle 1 APPLIC TOPICAL ×2 (08:49→20:50)
--- NOTE | 2022-02-04 12:25 | PN.HOSP_ITS ---
Subjective Subjective Breathing is improving and her ambulatory pulse ox today was much better. We will continue with diuresis, with daily evaluation of her renal function and her symptoms Objective Data Objective Data Vital Signs: Vital Signs Temp Pulse Resp BP Pulse Ox 98.1 F 83 18 122/60 H 96 02/04/22 08:29 02/04/22 08:46 02/04/22 08:29 02/04/22 08:46 02/04/22 09:00 Oxygen Flow Rate (L/min) [ 6 AMBULATING with Oxygen #3] Oxygen Flow Rate (L/min) [ 4 AMBULATING with Oxygen #2] Oxygen Flow Rate (L/min) [ 1.5 AMBULATING with Oxygen #1] Oxygen Flow Rate (L/min) [ 0 AMBULATING on Room Air] Oxygen Flow Rate (L/min) [At 1.5 REST on Room Air] Oxygen Flow Rate (L/min) 1 Oxygen Delivery Method Nasal Cannula Weight: 189 lb 9.561 oz Body Mass Index (BMI) 33.3 Intake & Output: Intake and Output for Last 24 Hours 02/03/22 02/04/22 02/05/22 03:59 03:59 03:59 Intake Total 2114 / 2114 1320 / 1320 780 / 780 Output Total 550 / 550 1600 / 1600 1200 / 1200 Balance 1564 / 1564 -280 / -280 -420 / -420 Lab / Micro Data Result Diagrams: 02/01/22 06:00 02/04/22 05:30 Labs: Laboratory Results - last 24 hr 02/04/22 05:30: PT 15.6 H, INR 1.3 02/04/22 05:30: Sodium 132 L, Potassium 4.4, Chloride 95 L, Carbon Dioxide 30.0, Anion Gap 7, BUN 8, Creatinine 0.32 L, Estim Creat Clear Calc 40.21, Est GFR (MDRD) Af Amer 264, Est GFR (MDRD) Non-Af 218, BUN/Creatinine Ratio 25.4 H, Glucose 111 H, Calcium 8.3 L Rhythm Strip Rhythm Strip: A-fib Rate: 94 Ectopy: None Physical Exam Narrative Const alert, oriented x3 and no apparent distress General Appearance: cooperative HEENT normocephalic Eyes PERRL, EOMs intact bilaterally and conjunctivae normal Neck supple and no JVD Resp normal respiratory effort, no retractions and no use of accessory muscles Auscultation: crackles right base and diminished lung sounds; Negative for rales, rhonchi, wheezes Cardio Normal rate and rhythm, S1 normal heart sound, S2 normal heart sound and no murmurs GI soft to palpation, non-tender and non-distended; Negative for hepatosplenomegaly Extremity no clubbing, cyanosis or edema Skin no rashes or lesions noted Neuro no focal motor deficits and no sensory deficits noted Psych affect normal Appearance: appropriate Assessment & Plan Assessment/Plan (1) Pneumonia: (2) Hypoxia: PLAN: Plan 1. Acute hypoxia due to right lower lobe pneumonia ? There is a concern for aspiration secondary to her posttussive emesis ? Continue with Levaquin as she is allergic to penicillins this will be dosed every 48 hours secondary to her creatinine clearance ? There is also some possibility of CHF, this could be due to her A. fib, will diurese after Daily evaluations ? Echo was unremarkable, EF was normal with no significant diastolic abnormality ? She seems to have improved with little bit of Lasix, will repeat the 1 times d ose today ? PT/OT, plan for disposition to SNF 2. HTN/HLD/A. fib ? She is been in [facility] possibly for about a week. She denies feeling any palpitations but it does not appear that she really overdoes ? As she remained in R[facility], she was started on a Cardizem drip. We will increase her metoprolol to 75 p.o. twice daily ? Magnesium is also low so this will be replaced as well her potassium ? Echo with normal EF and no diastolic dysfunction ? Continue with her home blood pressure medications ? Continue with her statin ? Can restart her Coumadin and monitor INR, will restart at half the dose given the Levaquin 3. Anxiety/depression ? She does appear to be anxious at this time and had tremendous difficulty in the CT scanner therefore will provide her with a dose of Ativan to help relax at this time ? Continue with her Seroquel, Zoloft, trazodone. We will increase Zoloft to 150mg DVT: Coumadin Charges/Coding Visit Charges Inpatient E&M: 10989 Subs Hosp L2
[2022-02-04] MEDS: Jantoven 2 MG Tablet PO (16:02)
[2022-02-04] MEDS: QUEtiapine 100 MG Tablet 200 MG PO (20:51)
[2022-02-04] MEDS: 0.9% Saline Lock 10 ML Syringe IV (20:53)
[2022-02-05] VITALS (11 sets, daily range): BP systolic 107–125; BP diastolic 56–62; PULSE 67–76; RESP 16–20; TEMP 36.1–37.1; O2SAT 93–96
[2022-02-05] MEDS: Acetaminophen 325 MG Tablet 650 MG PO ×2 (02:57→12:43)
[2022-02-05 05:09] LABS: Absolute Lymphocyte Count 1.26 X10^3/uL (0.83-4.51); Absolute Neutrophil Count 5.2 X10^3/uL (2.0-7.7); Basophil# 0.03 X10^3/uL; Basophil% 0.4 % (0-1); Eosinophil# 0.22 X10^3/uL; Eosinophils% 2.9 % (0-5); Hematocrit 34.3 % (37-47); Hemoglobin 10.7 g/dL (12.0-15.0); Lymphocyte # 1.26 X10^3/ul (0.83-4.51); Lymphocyte % 16.6 % (19-41); Mean Corp Hgb Conc 31.2 g/dL (32-36); Mean Corpuscular Hgb 30.7 pg (27.0-32.0); Mean Corpuscular Volume 98.6 fL (81-99); Mean Platelet Vol. 10.7 fl (6.2-12.0); Monocyte# 0.86 X10^3/uL; Monocyte% 11.4 % (0-10); NRBC Flagged by Analyzer 0 % (0-5); Neutrophil # 5.16 X10^3/uL (2.7-7.7); Neutrophil % 68.2 % (47-70); Platelet Count 247 K/mm3 (150-450); RBC Distribution Width CV 15.3 % (11.6-14.6); RBC Distribution Width SD 55.3 fl (35.1-43.9); Red Blood Count 3.48 M/mm3 (4.2-5.4); White Blood Count 7.6 K/mm3 (4.4-11.0)
[2022-02-05 05:28] LABS: International Normalized Ratio 1.3; Prothrombin Time (Protime)PT. 15.6 SECONDS (11.7-14.9)
[2022-02-05 05:34] LABS: Anion Gap 5 (5-15); BUN 9 mg/dL (7-18); BUN/Creat Ratio 27.2 RATIO (10-20); Calcium,Total 8.5 mg/dL (8.5-10.1); Chloride 98 mmol/L (98-107); Creatinine, Serum 0.33 mg/dL (0.55-1.02); EST Glomerular Filtration Rate 206 mL/min (>60); Est Glom Filt Rate - Afr Amer 249 mL/min (>60); Estimated Creatinine Clearance 40.21 ml/min; Glucose 105 mg/dL (74-106); Potassium 4.4 mmol/L (3.5-5.1); Sodium Level 134 mmol/L (136-145)
[2022-02-05] MEDS: Sertraline 100 MG Tablet 150 MG PO (09:14)
[2022-02-05] MEDS: oxyCODONE 5 MG Tablet PO (09:15)
[2022-02-05] MEDS: Folic Acid 1 MG Tablet PO (09:15)
[2022-02-05] MEDS: Potassium Chloride Oral Tablet 20 MEQ 40 MEQ PO (09:15)
[2022-02-05] MEDS: Furosemide 40 MG/4 ML Vial IV (09:16)
[2022-02-05] MEDS: Metoprolol(XL)Succ 25 MG Tablet 75 MG PO (09:16)
[2022-02-05] MEDS: Nystatin Powder 15gm Bottle 1 APPLIC TOPICAL (09:17)
[2022-02-05] MEDS: amLODIPine 10 MG Tablet PO (09:17)
[2022-02-05] MEDS: 0.9% Saline Lock 10 ML Syringe IV (09:24)
--- NOTE | 2022-02-05 11:27 | PCM.TXEXTCAR ---
Diet Diet Order/Speech Therapy: 01/31/22 15:52 Diet: Cardiac - Heart Healthy Food consistency:: Easy to Chew Liquid Consistency:: Regular/Thin Diet Comments: Meat bite size, add extra sauce/gravy to meals, distant supervision Routine Orders/Code Status Routine Lab Work: CBC, BMP and INR Therapies Physical Therapy: Eval and Treat Occupational Therapy: Eval and Treat Problem/Diagnosis (1) Pneumonia: Status: Acute Code(s): J18.9 - Pneumonia, unspecified organism (2) Hypoxia: Status: Acute Code(s): R09.02 - Hypoxemia Plan 1. Acute hypoxia due to right lower lobe pneumonia ? There is a concern for aspiration secondary to her posttussive emesis ? Continue with Levaquin as she is allergic to penicillins this will be dosed every 48 hours secondary to her creatinine clearance ? There is also some possibility of CHF, this could be due to her A. fib, will diurese after Daily evaluations ? Echo was unremarkable, EF was normal with no significant diastolic abnormality ? She seems to have improved with little bit of Lasix, will repeat the 1 times dose today ? PT/OT, plan for disposition to SNF 2. HTN/HLD/A. fib ? She is been in [facility] possibly for about a week. She denies feeling any palpitations but it does not appear that she really overdoes ? As she remained in [facility], she was started on a Cardizem drip. We will increase her metoprolol to 75 p.o. twice daily ? Magnesium is also low so this will be replaced as well her potassium ? Echo with normal EF and no diastolic dysfunction ? Continue with her home blood pressure medications ? Continue with her statin ? Can restart her Coumadin and monitor INR, will restart at half the dose given the Levaquin 3. Anxiety/depression ? She does appear to be anxious at this time and had tremendous difficulty in the CT scanner therefore will provide her with a dose of Ativan to help relax at this time ? Continue with her Seroquel, Zoloft, trazodone. We will increase Zoloft to 150mg DVT: Coumadin Allergies/Procedures Done in Hospital Allergies Penicillins Allergy (Verified 01/31/22 11:12) Rash Procedures: 2-D Echocardiogram Type of Care/Length of Stay Estimated LOS: Convalescent Care Less Than 30 days Type of Care Needed: Skilled Rehab Potential: Good Prognosis: Good Additional Orders/Day of Discharge Day of Discharge: 02/05/22 Dietary and Speech Recommendations Dietitian Recommendations/Changes: Continue Cardiac -Heart Healthy diet Ensure Enlive 120mL 4x daily with Medpass Discharge Plan Admission Admit Date/Time: 02/01/22 09:48 Attending Provider: Andrez Henson Primary Care Provider: Low Baxter Discharge Orders/Prescriptions Prescriptions: New sertraline 100 mg Tablet 150 mg PO DAILY Qty: 0 0RF potassium chloride [Klor-Con M20] 20 mEq Tablet,Er Particles/Crystals 40 meq PO BIDCM Qty: 0 0RF metoprolol succinate 25 mg Tablet Extended Release 24 Hr 75 mg PO BID Qty: 0 0RF levofloxacin 750 mg Tablet 750 mg PO Q48@0600 Qty: 0 0RF Continued folic acid 1 mg tablet 1 mg PO QDAY methotrexate sodium 2.5 mg tablet 17.5 mg PO Label Comments: 2.5 mg PO 6 tablets once a week on Orencia ClickJect 125 mg/mL auto-injector 125 mg SC QMONTH [id number]-lutein 1 EACH tablet 1 tab PO DAILY Label Comments: vitamin oxycodone-acetaminophen 1 TABLET tablet 1 tab PO BID PRN PRN (Reason: Pain) Label Comments: PAIN warfarin 1 mg tablet 4 mg PO DAILY Protocol: Dose Management Condition: Saturday Dose/Route: 4 mg Instruction: 4 x 1 mg tablets Condition: Saturday Dose/Route: 4 mg Instruction: 4 x 1 mg tablets Condition: Saturday Dose/Route: 4 mg Instruction: 4 x 1 mg tablets Condition: Saturday Dose/Route: 4 mg Instruction: 4 x 1 mg tablets Condition: Dose/Route: 4 mg Instruction: 4 x 1 mg tablets Condition: Saturday Dose/Route: 4 mg Instruction: 4 x 1 mg tablets Condition: Saturday Dose/Route: 4 mg Instruction: 4 x 1 mg tablets Protocol Text: Adjustment Start Date: 01/11/22 INR Value: 2.2 INR Date: 01/11/22 Recheck Date: 01/25/22 trazodone 100 mg tablet 100 mg PO QHS PRN PRN (Reason: Sleep) amlodipine 10 mg tablet 10 mg PO DAILY quetiapine 200 mg tablet 200 mg PO QHS folic acid 400 mcg Tablet 1 mg PO DAILY pravastatin 20 mg tablet 20 mg PO QHS Qty: 90 3RF Discontinued fluoxetine 40 mg capsule 40 mg PO DAILY sertraline 100 mg tablet 100 mg PO DAILY metoprolol succinate 50 mg tablet extended release 24 hr 50 mg PO BID Qty: 60 11RF Referrals / Follow Up: Low Baxter MD [Primary Care Provider] - Disposition Disposition (needs filled in before D/C Order can be placed): Retirement Facility
--- NOTE | 2022-02-05 11:50 | DS.PCM_ITS ---
Providers Date of Admission: 02/01/22 Primary Care Physician: Dr. Low Baxter MD Reason For Visit: SOB WITH AFIB AND FAILURE Diagnosis Discharge Diagnosis (1) Pneumonia: Status: Acute Code(s): J18.9 - Pneumonia, unspecified organism (2) Hypoxia: Status: Acute Code(s): R09.02 - Hypoxemia Plan 1. Acute hypoxia due to right lower lobe pneumonia ? There is a concern for aspiration secondary to her posttussive emesis ? Continue with Levaquin as she is allergic to penicillins this will be dosed every 48 hours secondary to her creatinine clearance ? There is also some possibility of CHF, this could be due to her A. fib, will diurese after Daily evaluations ? Echo was unremarkable, EF was normal with no significant diastolic abnormality ? She seems to have improved with little bit of Lasix, will repeat the 1 times dose today ? PT/OT, plan for disposition to SNF 2. HTN/HLD/A. fib ? She is been in RVR possibly for about a week. She denies feeling any palpitations but it does not appear that she really overdoes ? As she remained in RVR, she was started on a Cardizem drip. We will increase her metoprolol to 75 p.o. twice daily ? Magnesium is also low so this will be replaced as well her potassium ? Echo with normal EF and no diastolic dysfunction ? Continue with her home blood pressure medications ? Continue with her statin ? Can restart her Coumadin and monitor INR, will restart at half the dose given the Levaquin 3. Anxiety/depression ? She does appear to be anxious at this time and had tremendous difficulty in the CT scanner therefore will provide her with a dose of Ativan to help relax at this time ? Continue with her Seroquel, Zoloft, trazodone. We will increase Zoloft to 150mg DVT: Coumadin Medications at Discharge Home Medications flortnaf-coz-jjznu acid 0.4 mg-lycopene 300 mcg-lutein 250 mcg tablet 1 tab PO DAILY 01/19/15 folic acid 1 mg tablet 1 mg PO QDAY 10/04/17 oxycodone-acetaminophen 5 mg-325 mg tablet 1 tab PO BID PRN PRN Pain 10/08/17 abatacept 125 mg/mL subcutaneous auto-injector (Orencia ClickJect) 125 mg subcut QMONTH 04/28/19 pravastatin 20 mg tablet 20 mg PO QHS #90 tabs 04/24/21 warfarin 1 mg tablet 4 mg PO DAILY BLOOD THINNER 12/06/21 methotrexate sodium 2.5 mg tablet 17.5 mg PO TH ARTHRITIS 12/12/21 amlodipine 10 mg tablet 10 mg PO DAILY 01/31/22 folic acid 400 mcg tablet 1 mg PO DAILY supplement 01/31/22 quetiapine 200 mg tablet 200 mg PO QHS . 01/31/22 trazodone 100 mg tablet 100 mg PO QHS PRN PRN Sleep 01/31/22 levofloxacin 750 mg tablet 750 mg PO Q48@0600 #0 tabs 02/05/22 metoprolol succinate 25 mg tablet,extended release 24 hr 75 mg PO BID #0 tabs 02/05/22 potassium chloride 20 mEq tablet,extended release(part/cryst) (Klor-Con M) 40 meq PO BIDCM #0 tabs 02/05/22 sertraline 100 mg tablet 150 mg PO DAILY #0 tabs 02/05/22 Hospital Course Operations None Procedures 2-D Echocardiogram Summary of Care Provided Minutes Spent on Discharge: 42 Hospital Course: Per HPI: MURIEL CHRISTINE, is a 77 F who presents to the hospital with increasing shortness of breath and dyspnea on exertion.? She was recently seen on 01/24/2022 with Nohemi mondragon, her crystal machining coordinator was contacted at that time who increased her metoprolol.? She comes back now with trace pleural effusions as well as a right lower lobe pneumonia.? She has what sounds like posttussive emesis and it is possible that she may have aspirated.? Her states that she has been having a decreased amount of p.o. intake.? She does not have any fevers or chills, and no leukocytosis however at home she states that she was down to 88% on room air with her pulse oximeter? and is currently being managed on 2 L nasal cannula.? She was given a dose of Levaquin in the ER for possible aspiration. Hospital Course: 1.? Acute hypoxia due to right lower lobe pneumonia ? There is a concern for aspiration secondary to her posttussive emesis ? Continue with Levaquin as she is allergic to penicillins this will be dosed every 48 hours secondary to her creatinine clearance ? There is also some possibility of CHF, this could be due to her A. fib, will diurese after daily evaluations ? Echo was unremarkable, EF was normal with no significant diastolic abnormality ? She seems to have improved with little bit of Lasix, will repeat the 1 times dose today ?I discussed with her the plan for discharge today, she expressed understanding of the risk benefits of going to SNF and would like to go today. I do recommend that she be continued on as needed Lasix p.o. to try to get some fluid off of her to help assist with her respiratory status. She will also do well if she is up and ambulating is much as possible. 2.? HTN/HLD/A. fib ? She is been in RVR possibly for about a week.? She denies feeling any palpitations but it does not appear that she really overdoes ?She has now reverted to normal sinus rhythm we will maintain her metoprolol at 75 mg p.o. twice daily ?Also continue with potassium supplementation, her magnesium and phosphorus have been stable ? Echo with normal EF and no diastolic dysfunction ? Continue with her home blood pressure medications ? Continue with her statin ? Can restart her Coumadin and monitor INR, will restart at half the dose given the Levaquin, would also recommend daily INRs. Once her Levaquin is done would resume full dose Coumadin 3.? Anxiety/depression ? She does appear to be anxious at this time and had tremendous difficulty in the CT scanner therefore will provide her with a dose of Ativan to help relax at this time ? Continue with her Seroquel, Zoloft, trazodone.? We will increase Zoloft to 150mg Physical Exam Narrative Const alert, oriented x3 and no apparent distress General Appearance: cooperative HEENT normocephalic Eyes PERRL, EOMs intact bilaterally and conjunctivae normal Neck supple and no JVD Resp normal respiratory effort, no retractions and no use of accessory muscles Auscultation: crackles right base and diminished lung sounds; Negative for rales, rhonchi, wheezes Cardio Normal rate and rhythm, S1 normal heart sound, S2 normal heart sound and no murmurs GI soft to palpation, non-tender and non-distended; Negative for hepatosplenomegaly Extremity no clubbing, cyanosis or edema Skin no rashes or lesions noted Neuro no focal motor deficits and no sensory deficits noted Psych affect normal Appearance: appropriate Weight / BMI Weight Weight: 185 lb 13.595 oz Body Mass Index (BMI) 33.3 ABG / Lab / Microbiology Data Result Diagrams: 02/05/22 04:30 02/05/22 04:30 Laboratory: Laboratory Results - last 24 hr 02/05/22 04:30: PT 15.6 H, INR 1.3 02/05/22 04:30: WBC 7.6, RBC 3.48 L, Hgb 10.7 L, Hct 34.3 L, MCV 98.6, MCH 30.7, MCHC 31.2 L, RDW Std Deviation 55.3 H, RDW Coeff of Sonya 15.3 H, Plt Count 247, MPV 10.7, Immature Gran % (Auto) 0.500, Neut % (Auto) 68.2, Lymph % (Auto) 16.6 L, Wilcox % (Auto) 11.4 H, Eos % (Auto) 2.9, Baso % (Auto) 0.4, Absolute Neuts (auto) 5.2, Absolute Lymphs (auto) 1.26, Nucleated RBC % 0 02/05/22 04:30: Sodium 134 L, Potassium 4.4, Chloride 98, Carbon Dioxide 31.0, Anion Gap 5, BUN 9, Creatinine 0.33 L, Estim Creat Clear Calc 40.21, Est GFR (MDRD) Af Amer 249, Est GFR (MDRD) Non-Af 206, BUN/Creatinine Ratio 27.2 H, Glucose 105, Calcium 8.5 Meaningful Use Info Meaningful Use Diagnoses (Choose all that apply): None applicable Discharge Plan Admission Admit Date/Time: 02/01/22 09:48 Attending Provider: Andrez Henson Primary Care Provider: Low Baxter Discharge Orders/Prescriptions Prescriptions: New sertraline 100 mg Tablet 150 mg PO DAILY Qty: 0 0RF potassium chloride [Klor-Con M20] 20 mEq Tablet,Er Particles/Crystals 40 meq PO BIDCM Qty: 0 0RF metoprolol succinate 25 mg Tablet Extended Release 24 Hr 75 mg PO BID Qty: 0 0RF levofloxacin 750 mg Tablet 750 mg PO Q48@0600 Qty: 0 0RF Continued folic acid 1 mg tablet 1 mg PO QDAY methotrexate sodium 2.5 mg tablet 17.5 mg PO Label Comments: 2.5 mg PO 6 tablets once a week on Weds Orencia ClickJect 125 mg/mL auto-injector 125 mg SC QMONTH lgoghsia-xwr-FM-lycopen-lutein 1 EACH tablet 1 tab PO DAILY Label Comments: vitamin oxycodone-acetaminophen 1 TABLET tablet 1 tab PO BID PRN PRN (Reason: Pain) Label Comments: PAIN warfarin 1 mg tablet 4 mg PO DAILY Protocol: Dose Management Condition: Saturday Dose/Route: 4 mg Instruction: 4 x 1 mg tablets Condition: Saturday Dose/Route: 4 mg Instruction: 4 x 1 mg tablets Condition: Saturday Dose/Route: 4 mg Instruction: 4 x 1 mg tablets Condition: Saturday Dose/Route: 4 mg Instruction: 4 x 1 mg tablets Condition: Dose/Route: 4 mg Instruction: 4 x 1 mg tablets Condition: Saturday Dose/Route: 4 mg Instruction: 4 x 1 mg tablets Condition: Saturday Dose/Route: 4 mg Instruction: 4 x 1 mg tablets Protocol Text: Adjustment Start Date: 01/11/22 INR Value: 2.2 INR Date: 01/11/22 Recheck Date: 01/25/22 trazodone 100 mg tablet 100 mg PO QHS PRN PRN (Reason: Sleep) amlodipine 10 mg tablet 10 mg PO DAILY quetiapine 200 mg tablet 200 mg PO QHS folic acid 400 mcg Tablet 1 mg PO DAILY pravastatin 20 mg tablet 20 mg PO QHS Qty: 90 3RF Discontinued fluoxetine 40 mg capsule 40 mg PO DAILY sertraline 100 mg tablet 100 mg PO DAILY metoprolol succinate 50 mg tablet extended release 24 hr 50 mg PO BID Qty: 60 11RF Referrals / Follow Up: Low Baxter MD [Primary Care Provider] - Disposition Disposition (needs filled in before D/C Order can be placed): [facility] Facility Charges/Coding Visit Charges Inpatient E&M: 15880 Disch Hosp
--- NOTE | 2022-02-05 12:15 | CASEMGMT ---
Patient is ready for discharge to TCU. SW went to patient's room and her was present. They are both aware patient will go to TCU today. SW answered their questions. Plan: d/c to [facility] TCU under skilled level of care. Anita BUTTERFIELD
--- NOTE | 2022-02-05 13:06 | NURSING ---
Report called to nurse Jessica on TCU, will assume care of pt when she arrives. Instructed to leave IV in at this time for her.
--- NOTE | 2022-02-05 13:31 | PHA.DC.MR ---
Pharmacy Service has performed discharge medication reconciliation for this patient upon transfer to TCU. Home Medications njmzbnof-osb-lawxa acid 0.4 mg-lycopene 300 mcg-lutein 250 mcg tablet 1 tab PO DAILY 01/19/15 folic acid 1 mg tablet 1 mg PO QDAY 10/04/17 oxycodone-acetaminophen 5 mg-325 mg tablet 1 tab PO BID PRN PRN Pain 10/08/17 abatacept 125 mg/mL subcutaneous auto-injector (Orencia ClickJect) 125 mg subcut QMONTH 04/28/19 pravastatin 20 mg tablet 20 mg PO QHS #90 tabs 04/24/21 warfarin 1 mg tablet 4 mg PO DAILY BLOOD THINNER 12/06/21 methotrexate sodium 2.5 mg tablet 17.5 mg PO TH ARTHRITIS 12/12/21 amlodipine 10 mg tablet 10 mg PO DAILY 01/31/22 folic acid 400 mcg tablet 1 mg PO DAILY supplement 01/31/22 quetiapine 200 mg tablet 200 mg PO QHS . 01/31/22 trazodone 100 mg tablet 100 mg PO QHS PRN PRN Sleep 01/31/22 levofloxacin 750 mg tablet 750 mg PO Q48@0600 #0 tabs 02/05/22 metoprolol succinate 25 mg tablet,extended release 24 hr 75 mg PO BID #0 tabs 02/05/22 potassium chloride 20 mEq tablet,extended release(part/cryst) (Klor-Con M) 40 meq PO BIDCM #0 tabs 02/05/22 sertraline 100 mg tablet 150 mg PO DAILY #0 tabs 02/05/22 The patient's discharge medication list was reviewed for discrepancies and discrepancies were resolved.
--- NOTE | 2022-02-05 14:56 | CASEMGMT ---
[facility] aware that pt discharged to SNF, TCU, voices understanding. SStpaul RN CM
== END 2022-02-05 14:15 | disposition skilled nursing facility (03) | DRG 178 ==
LOC: ED 13:57 → PCU 02-01 08:51
PROVIDERS: Admitting Provider Family Medicine; Emergency Provider Emergency Medicine; PCP Family Medicine; Visit Provider Family Medicine
DX: J69.0 Pneumonitis due to inhalation of food and vomit (principal); J90 Pleural effusion, not elsewhere classified; I48.0 Paroxysmal atrial fibrillation; M06.9 Rheumatoid arthritis, unspecified; E78.5 Hyperlipidemia, unspecified; I10 Essential (primary) hypertension; F41.9 Anxiety disorder, unspecified; I45.10 Unspecified right bundle-branch block; E83.42 Hypomagnesemia; E87.6 Hypokalemia; Z86.711 Personal history of pulmonary embolism; F32.A Depression, unspecified; Z79.01 Long term (current) use of anticoagulants; Z79.899 Other long term (current) drug therapy; I49.3 Ventricular premature depolarization; I49.1 Atrial premature depolarization; R79.1 Abnormal coagulation profile; R09.02 Hypoxemia
CPT/HCPCS: 36415; 71045; 74177; 80048; 80076; 82962; 83690; 83735; 83880; 84100; 84484; 85025; 85610; 87426; 92526; 92610; 93005; 93306; 94640; 94667; 97110; 97162; 97166; 97530; 97535; 97802; 99251; 99285; J7030; Q9967; A4216; G0463; J1940; J8610

== ENCOUNTER 2022-02-05 14:20 | Inpatient (IN) | payer MEDICARE, OTHER, SELFPAY ==
[2022-02-05 14:31] VITALS: BP 112/68; PULSE 74; RESP 16; TEMP 37.3; O2SAT 93
[2022-02-05 15:22] VITALS: BMI 31.7
[2022-02-05 17:28] VITALS: PULSE 74
[2022-02-05] MEDS: Metoprolol(XL)Succ 25 MG Tablet 75 MG PO (17:28)
[2022-02-05] MEDS: Potassium Chloride Oral Tablet 20 MEQ 40 MEQ PO (17:28)
[2022-02-05 17:48] VITALS: O2SAT 95
--- NOTE | 2022-02-05 19:00 | HP.PCM_ITS ---
HPI - General General Date of Admission: 02/05/22 Date of Service: 02/05/22 Chief Complaint: Here for rehab. HPI Narrative 01/31/2022 MURIEL CHRISTINE, is a 77 Female who presents to [facility] Emergency Department with shortness of breath. 01/31/2022 EKG sinus rhythm with occasional PVCs, low voltage QRS, right bundle branch block. Worsening dyspnea on exertion, pulsox 88% on RA, Heart Rate 160. Chronic postnasal drip for several months. Nausea/vomiting with coughing. Atrial fibrillation, rate controlled, elevated BNP, INR 5.3, potassium 3.4. Troponin 72. CT A/P showed trace bilateral pleural effusion, ground glass densities of right middle lobe consistent with pneumonia, Left lateral abdominal wall liquefied hematoma. Metoprolol IV for atrial fibrillation with rapid ventricular response. Lasix IV for fluid overload. Levaquin IV for pneumonia. 01/31/2022 Admit to Hospital. Levaquin for right middle lobe pneumonia. Metoprolol 50mg bid for atrial fibrillation with rapid ventricular response. 01/31/2022 Echo EF 55% to 60%. Normal LV systolic function. Moderate concentric LVH. 02/01/2022 Doing better. Cardizem drip, Increase metoprolol for afib with rvr. Replace Magnesium, replace potassium. 02/02/2022 Feels better, still short of breath. Oxygen 6 literes for ambulation, 2 liters at rest. Lasix today. 02/03/2022 Breathing a litte better today. Repeat Lasix today. 02/04/2022 Breathing improved, ambulatory pulsox better. PT/OT for SNF. Restart coumadin, follow INR. Increase Zoloft to 150mg daily for anxiety. 02/05/2022 Admit to TCU with debility, here for rehabilitation, strengthening, prior to discharge home with . [facility] Medical History Cardiac murmur, unspecified Contusion of left knee Contusion of right hand Contusion of right wrist Essential (primary) hypertension History of pulmonary embolism (2014) Hyperlipidemia Long-term use of immunosuppressant medication Non-smoker Palpitations Paroxysmal atrial fibrillation Rheumatoid arthritis Right bundle branch block (RBBB) Trapezius muscle strain Traumatic ecchymosis of face Home Medications bdukveqn-zkn-prmgx acid 0.4 mg-lycopene 300 mcg-lutein 250 mcg tablet 1 tab PO DAILY Supplement 01/19/15 [History Last Taken 12/05/21] folic acid 1 mg tablet 1 mg PO QDAY Supplement 10/04/17 [History Last Taken 12/05/21] oxycodone-acetaminophen 5 mg-325 mg tablet 1 tab PO BID PRN PRN Pain 10/08/17 [History Last Taken 01/30/22] abatacept 125 mg/mL subcutaneous auto-injector (Orencia ClickJect) 125 mg subcut QMONTH RA 04/28/19 [History Last Taken 11/30/21] warfarin 1 mg tablet 4 mg PO DAILY BLOOD THINNER 12/06/21 [History Last Taken 01/30/22] methotrexate sodium 2.5 mg tablet 17.5 mg PO TH ARTHRITIS 12/12/21 [History Last Taken 01/25/22] amlodipine 10 mg tablet 10 mg PO DAILY BP 01/31/22 [History Last Taken 01/31/22] folic acid 400 mcg tablet 1 mg PO DAILY supplement 01/31/22 [History Last Taken Unknown] quetiapine 200 mg tablet 200 mg PO QHS mood 01/31/22 [History Last Taken Unknown] trazodone 100 mg tablet 100 mg PO QHS PRN PRN Sleep 01/31/22 [History Last Taken Unknown] levofloxacin 750 mg tablet 750 mg PO Q48@0600 Antibiotic 02/05/22 [History Last Taken Unknown] metoprolol succinate 25 mg tablet,extended release 24 hr 75 mg PO BID BP 02/05/22 [History Last Taken Unknown] potassium chloride 20 mEq tablet,extended release(part/cryst) (Klor-Con M) 40 meq PO BIDCM Supplement 02/05/22 [History Last Taken Unknown] pravastatin 20 mg tablet 20 mg PO QHS Cholesterol 02/05/22 [History Last Taken Unknown] sertraline 100 mg tablet 150 mg PO DAILY mood 02/05/22 [History Last Taken Unknown] Allergy/AdvReac Type Severity Reaction Status Date / Time Penicillins Allergy Rash Verified 01/31/22 11:12 Family History Father Diabetes CAD (coronary artery disease) S/P CABG (coronary artery bypass graft) Mother , age 74, CVA CVA (cerebral vascular accident) Brother Lung cancer Other Family history of CVA Surgical History History of appendectomy History of back surgery History of bilateral knee replacement History of brain tumor removal History of section History of open reduction and internal fixation (ORIF) procedure Social History (Updated 02/05/22 @ 19:[address] Fede Lagunas MD) household members: spouse Smoking Status: Never smoker alcohol intake: never caffeine: Yes Type: carbonated beverages and tea ROS Psychiatric Psychiatric: Reports anxiety Vital Signs Vital Signs Vital Signs: 02/05/22 14:31 02/05/22 14:31 02/05/22 17:28 Temperature 99.1 F Temperature Source Temporal Pulse Rate 74 74 Pulse Rhythm Regular Pulse Strength Normal (2+) Respiratory Rate 16 Respiratory Effort Normal Non-Labored Respiratory Depth Normal Respiratory Pattern Normal Blood Pressure 112/68 Blood Pressure Mean 82 Blood Pressure Source Monitor Blood Pressure Position Sitting Blood Pressure Location Right Arm Pulse Ox 93 Oxygen Delivery Method Nasal Cannula Nasal Cannula Oxygen Flow Rate (L/min) 2 2 02/05/22 17:48 Temperature Temperature Source Pulse Rate Pulse Rhythm Pulse Strength Respiratory Rate Respiratory Effort Respiratory Depth Respiratory Pattern Blood Pressure Blood Pressure Mean Blood Pressure Source Blood Pressure Position Blood Pressure Location Pulse Ox 95 Oxygen Delivery Method Nasal Cannula Oxygen Flow Rate (L/min) 2 Weight Weight: 78.67 kg Body Mass Index (BMI) 31.7 Physical Exam Const alert General Appearance: cooperative HEENT normocephalic Eyes PERRL and EOMs intact bilaterally Neck supple, no JVD and no carotid bruits Resp normal respiratory effort, normal air movement and clear to auscultation bilaterally Cardio regular rate and regular rhythm GI normal to inspection, nondistended, normoactive bowel sounds, non-tender and non-distended Extremity normal capillary refill General Extremity: Negative for edema Skin no rashes or lesions noted General Skin Exam: no breakdown Psych affect normal Appearance: appropriate Results Medical Records Data Medical Nutrition Assessment Dietitian: Malnutrition Criteria Met Start: 02/05/22 17:15 Freq: Status: Active Protocol: Document 02/05/22 17:19 ANY (Rec: 02/05/22 17:19 SLA [id number]) Nutrition Malnutrition Evidence of Malnutrition Exists Yes Malnutrition (severe): Chronic Evidenced By Suboptimal Energy Intake ( Severe),Weight Loss (Severe), Physical Changes (Mild) Clinical Problem Chronic Disease or Condition Related Malnutrition Etiology severe chronic malnutrition related to inadequate energy intake Signs/Symptoms as evidenced by est po intake meeting <75% of estimated energy needs and unintentional wt loss 11.7% x 2 mo and 18.9 % x 7 mo. Has fat/muscle loss to face and upper body/ triceps. Status Active Problem Biting/Chewing Difficulty Etiology related to issues w/ dysphagia and aspiration pneumonia Signs/Symptoms as evidenced by need for modified consistency diet and ACTIVITY AID therapy Status Active Problem Recommendation Dietitian Recommendations/Changes Will liberalize diet to Regular - easy to chew, meat bite sized, add extra sauce and gravy to meals - 1500 ml FR/day (d/t signs and symptoms of malnutrition) - rec d/c fluid restriction as medically able. Will discontinue ensure enlive 4x/day w/ medpass and provide ensure pudding or magic cup w / meals instead per res preference. Assessment & Plan Assessment/Plan (1) Debility: (2) Acute respiratory failure with hypoxia: (3) Supratherapeutic INR: (4) Pneumonia: (5) Atrial fibrillation with rapid ventricular response: (6) Hypertension: (7) Hyperlipidemia: (8) Anxiety: (9) Depression: (10) Insomnia: (11) Rheumatoid arthritis: PLAN: Plan 77 year old female with below past medical history hospitalized for acute respiratory failure with hypoxia secondary to pneumonia, complicated by atrial fibrillation with rapid ventricular response, supratherapeutic INR, anxiety, admitted to TCU with debility, here for rehabilitation, strengthening, prior to discharge home with . * Debility - PT/OT. * Aspiration - ST. * Pain - Tylenol 1000mg q6h prn pain (1-5), Oxycodone 5mg bid prn pain (6-10). * Bowel - Senna/colace 1 tablet bid, Dulcolax 10mg daily prn. * Adult immunization - Administer pneumonia vaccine, covid19 vaccine, flu vaccine as appropriate. * DVT prophylaxis - Not necessary, on warfarin. * Hypertension - Metoprolol succinate 75mg bid, Amlodipine 10mg daily. * Rheumatoid arthritis - MTX 17.5mg per week, Folic acid 1mg daily. * Pneumonia - Levaquin 750mg q48 thru 02/08/2022. * Nutrition - MVI daily. * Hypokalemia - KCL 40meq bidcm. * Hyperlipidemia - Pravastatin 20mg qhs. 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 * Atrial fibrillation - Metoprolol succinate 75mg bid, Warfarin 4mg daily, follow inr.
[2022-02-05 21:11] VITALS: BP 136/82; PULSE 79; RESP 16; TEMP 36.4; O2SAT 93
[2022-02-05] MEDS: oxyCODONE 5 MG Tablet PO (21:17)
[2022-02-05] MEDS: traZODone 100 MG Tablet PO (21:18)
[2022-02-05] MEDS: Pravastatin 20 MG Tablet PO (21:18)
[2022-02-05] MEDS: QUEtiapine 100 MG Tablet 200 MG PO (21:18)
[2022-02-06] MEDS: Menthol/Lanolin/Calamine/Znox 113 GM Tube 1 APPLIC TOPICAL ×2 (04:35→17:53)
[2022-02-06] MEDS: oxyCODONE 5 MG Tablet PO ×2 (04:35→12:58)
[2022-02-06 04:38] VITALS: BP 117/58; PULSE 74
[2022-02-06] MEDS: levoFLOXacin 750 MG Tablet PO (04:38)
[2022-02-06] MEDS: Metoprolol(XL)Succ 25 MG Tablet 75 MG PO ×2 (04:38→17:46)
[2022-02-06] MEDS: amLODIPine 10 MG Tablet PO (04:39)
[2022-02-06] MEDS: Sertraline 100 MG Tablet 150 MG PO (04:39)
[2022-02-06] MEDS: Nystatin Ointment 1 APPLIC TOPICAL ×2 (04:40→17:53)
[2022-02-06 05:00] VITALS: BP 117/58; PULSE 71
[2022-02-06 05:42] LABS: Absolute Lymphocyte Count 1.68 X10^3/uL (0.83-4.51); Absolute Neutrophil Count 4.7 X10^3/uL (2.0-7.7); Basophil# 0.04 X10^3/uL; Basophil% 0.5 % (0-1); Eosinophils% 3.9 % (0-5); Hematocrit 35.8 % (37-47); Hemoglobin 11.3 g/dL (12.0-15.0); Lymphocyte # 1.68 X10^3/ul (0.83-4.51); Mean Corp Hgb Conc 31.6 g/dL (32-36); Mean Corpuscular Hgb 30.7 pg (27.0-32.0); Mean Corpuscular Volume 97.3 fL (81-99); Mean Platelet Vol. 10.5 fl (6.2-12.0); Monocyte# 0.93 X10^3/uL; Monocyte% 12.2 % (0-10); NRBC Flagged by Analyzer 0 % (0-5); Neutrophil # 4.65 X10^3/uL (2.7-7.7); Neutrophil % 60.9 % (47-70); Platelet Count 294 K/mm3 (150-450); RBC Distribution Width CV 15.6 % (11.6-14.6); RBC Distribution Width SD 55.4 fl (35.1-43.9); Red Blood Count 3.68 M/mm3 (4.2-5.4); White Blood Count 7.6 K/mm3 (4.4-11.0)
[2022-02-06 06:08] LABS: Anion Gap 6 (5-15); BUN 11 mg/dL (7-18); BUN/Creat Ratio 23.2 RATIO (10-20); Calcium,Total 8.6 mg/dL (8.5-10.1); Chloride 96 mmol/L (98-107); Creatinine, Serum 0.48 mg/dL (0.55-1.02); EST Glomerular Filtration Rate 136 mL/min (>60); Est Glom Filt Rate - Afr Amer 164 mL/min (>60); Estimated Creatinine Clearance 38.44 ml/min; Glucose 113 mg/dL (74-106); Potassium 4.6 mmol/L (3.5-5.1); Sodium Level 135 mmol/L (136-145)
[2022-02-06] MEDS: Potassium Chloride Oral Tablet 20 MEQ 40 MEQ PO ×2 (08:03→17:45)
[2022-02-06] MEDS: Multivitamins,Ther W-Minerals Tablet 1 TABLET PO (08:03)
[2022-02-06] MEDS: Folic Acid 1 MG Tablet PO (08:03)
[2022-02-06] MEDS: Tuberculin,Purif.prot.deriv. 50 TU/ML Vial 0.1 ML ID (09:29)
--- NOTE | 2022-02-06 10:43 | CASEMGMT ---
Social Work Met with patient to complete initial assessment. Introduced self and role. Verified contacts. Pt requesting to complete HCPOA. SW to complete prior to DC as time allows. Discussed code status and MOLST form. Pt confirms DNR-CCA, no intubation. MOLST communicated to , placed in chart. Explained Medicare benefit. Encouraged to contact secondary insurance to ensure copay coverage. The goal is for pt to return home with . Pt reports decline of functioning since receiving COVID booster in August 2021. Since then has been assisting with all IADLs. Discussed anxiety and depression. Pt states she was taking trazodone nightly at home and it is only PRN. Nursing notified to request scheduled med. Inquired about counseling. Pt reports she went to group counseling one time and she did not like it. Offered 1:1 counseling. Pt denies. SW to continue to follow for DC planning and support as needed. Tona Benavides, SEATER GRINDER FIRE PROTECTION INSPECTOR
[2022-02-06] MEDS: Acetaminophen 500 MG Tablet 1000 MG PO (12:58)
[2022-02-06 14:05] VITALS: BP 112/61; PULSE 72; RESP 20; TEMP 37.1; O2SAT 95
--- NOTE | 2022-02-06 14:31 | CHAPLAIN ---
Type of Pastoral Visit _x__ Initial Visit ___ Follow-up Visit ___ On-call Visit ___ General Patient Visit ___ Spiritual Assessment ___ Family Conference ___ Bereavement ___ Rapid Response ___ Code Blue ___ Other (describe below) Pastoral Care Referral From _x__ Patient ___ Family ___ Nurse ___ Physician ___ Aircraft Engineer ___ Whip Operator ___ Other (describe below) Sacrament/Intervention _x__ Active listening ___ Anointing ___ Synagogue ___ Bereavement ___ Communion ___ Kassie exploration ___ _x__ Life review _x__ Prayer ___ Reconciliation ___ Sacrament of Sick _x__ Supportive presence ___ Wedding ___ Other (describe below) Pastoral Comments patient and spouse in room; pt and spouse recount the health issues of recent months; pt expresses some discouragement at how this is all going; Pt says that she missing going to [employer] but can't make the steps up and down there anymore; spouse says they moved to [place] from [place] to be closer to family and their help; pt welcomes prayer for support; presence and offer of future visits if desired is given
--- NOTE | 2022-02-06 15:05 | RAD_ITS ---
STUDY: X-RAY - LEFT SHOULDER REASON FOR EXAM: Female, 77 years old. Bruising and pain following a fall. TECHNIQUE: 2 view(s) of the shoulder. COMPARISON: Comparison is made with prior study dated 08/24/2021. FINDINGS: There is moderate degenerative arthrosis of the glenohumeral articulation. There is degenerative arthrosis of the acromioclavicular joint without inferior osseous spur formation. Normal acromion. Degenerative spurring of the humeral head. The soft tissue structures are unremarkable. Normal visualized pulmonary apex. RAD/Shoulder min 2 Views IMPRESSION: Degenerative changes. Electronically Signed: Shoaib Porras MD at 15:29 EDT ,
--- NOTE | 2022-02-06 15:06 | NURSING ---
Addendum entered by Lynda Quezada 02/06/22 18:34: dr garcia reviewed xray results, no new orders at this time Original Note: pt c/o LT shoulder pain since fall at home, states she gets injections and suppose to be due for one. Dr garcia udpated, new order for xray. pt also requesting that trazodone changed to scheduled from PRN. order received.
[2022-02-06] MEDS: Senna/Docusate Sodium 1 Tablet PO (17:45)
[2022-02-06 17:46] VITALS: PULSE 78
[2022-02-06] MEDS: QUEtiapine 100 MG Tablet 200 MG PO (21:41)
[2022-02-06] MEDS: traZODone 100 MG Tablet PO (21:41)
[2022-02-06] MEDS: Pravastatin 20 MG Tablet PO (21:41)
[2022-02-07] MEDS: Menthol/Lanolin/Calamine/Znox 113 GM Tube 1 APPLIC TOPICAL ×2 (06:01→17:34)
[2022-02-07 06:04] VITALS: BP 125/72; PULSE 78
[2022-02-07] MEDS: Metoprolol(XL)Succ 25 MG Tablet 75 MG PO ×2 (06:04→17:32)
[2022-02-07] MEDS: Nystatin Ointment 1 APPLIC TOPICAL ×2 (06:04→17:34)
[2022-02-07] MEDS: Senna/Docusate Sodium 1 Tablet PO ×2 (06:05→17:32)
[2022-02-07] MEDS: Sertraline 100 MG Tablet 150 MG PO (06:05)
[2022-02-07] MEDS: amLODIPine 10 MG Tablet PO (06:07)
[2022-02-07] MEDS: Multivitamins,Ther W-Minerals Tablet 1 TABLET PO (08:13)
[2022-02-07] MEDS: Potassium Chloride Oral Tablet 20 MEQ 40 MEQ PO ×2 (08:13→17:31)
[2022-02-07] MEDS: Folic Acid 1 MG Tablet PO (08:13)
--- NOTE | 2022-02-07 09:46 | PCM.PN.DRR ---
TCU RX Drug Regimen Review Subjective: TCU Admission. 77 YOF presented to the ER with shortness of breath. Admitted to the hospital for atrial fibrillation with RVR, supratherapeutic INR and respiratory failure secondary to pneumonia. Admitted to TCU with debility for strengthening and rehabilitation. Objective: Allergies Penicillins Allergy (Verified 01/31/22 11:12) Rash Current Medications Generic Name Dose Route Start Last Admin Trade Name Freq PRN Reason Stop Dose Admin Acetaminophen 1,000 mg 02/05/22 19:17 02/06/22 12:58 Acetaminophen 500 Mg Tablet PO 1,000 mg Q6H PRN PRN Administration Pain Score 1-5 Amlodipine Besylate 10 mg 02/06/22 06:00 02/07/22 06:07 Amlodipine 10 Mg Tablet PO 10 mg DAILY JACK Administration Bisacodyl 10 mg 02/05/22 19:17 Bisacodyl 5 Mg Tablet PO DAILY PRN CONSTIPATION Calamine/Phenol 1 applic 02/06/22 06:00 02/07/22 06:01 Menthol/Lanolin/Calamine/Znox 113 Gm Tube TOPICAL 1 applic BID [facility] Administration Protocol Folic Acid 1 mg 02/06/22 08:00 02/07/22 08:13 Folic Acid 1 Mg Tablet PO 1 mg BREAKFAST JACK Administration Levofloxacin 750 mg 02/06/22 06:00 02/06/22 04:38 Levofloxacin 750 Mg Tablet PO 02/08/22 06:01 750 mg Q48@0600 JACK Administration Methotrexate 17.5 mg 02/08/22 06:00 Methotrexate 2.5 Mg Tablet PO Th@0600 [facility] Metoprolol Succinate 75 mg 02/05/22 18:00 02/07/22 06:04 Metoprolol(Xl)Succ 25 Mg Tablet PO 75 mg BID JCAK Administration Multivitamins/Minerals 1 tablet 02/06/22 08:00 02/07/22 08:13 Multivitamins,Ther W-Minerals Tablet PO 1 tablet BREAKFAST JACK Administration Nystatin 1 applic 02/06/22 06:00 02/07/22 06:04 Nystatin Ointment TOPICAL 1 applic BID [facility] Administration Protocol Oxycodone HCl 5 mg 02/05/22 19:18 02/06/22 12:58 Oxycodone 5 Mg Tablet PO 5 mg BID PRN PRN Administration Pain Score 6-10 Potassium Chloride 40 meq 02/05/22 17:00 02/07/22 08:13 Potassium Chloride Oral Tablet 20 Meq PO 40 meq BIDCM JACK Administration Pravastatin Sodium 20 mg 02/05/22 22:00 02/06/22 21:41 Pravastatin 20 Mg Tablet PO 20 mg QHS JACK Administration Quetiapine Fumarate 200 mg 02/05/22 22:00 02/06/22 21:41 Quetiapine 100 Mg Tablet PO 200 mg QHS JACK Administration Senna/Docusate Sodium 1 tablet 02/05/22 19:30 02/07/22 06:05 Senna/Docusate Sodium 1 Tablet PO 1 tablet BID JACK Administration Sertraline HCl 150 mg 02/06/22 06:00 02/07/22 06:05 Sertraline 100 Mg Tablet PO 150 mg DAILY JACK Administration Sodium Chloride 10 - 40 ml 02/05/22 14:32 0.9% Saline Lock 10 Ml Syringe IV UD PRN SALINE FLUSH Trazodone HCl 100 mg 02/06/22 22:00 02/06/22 21:41 Trazodone 100 Mg Tablet PO 100 mg QHS JACK Administration Tuberculin PPD 0.1 ml 02/13/22 10:00 Tuberculin,Purif.Prot.Deriv. 50 Tu/Ml Vial ID 02/13/22 10:01 X1 ONE Warfarin Sodium 4 mg 02/05/22 17:00 02/06/22 17:45 Warfarin 4 Mg Tablet PO 4 mg DINNER JACK Administration Problem List (Last Reviewed 02/05/22 @ 19:[address] Fede Lagunas MD) Rheumatoid arthritis (Acute) Insomnia (Acute) Depression (Acute) Anxiety (Acute) Hyperlipidemia (Acute) Hypertension (Chronic) Atrial fibrillation with rapid ventricular response (Acute) Debility (Acute) Acute respiratory failure with hypoxia (Acute) Supratherapeutic INR (Acute) Pneumonia (Acute) Vital Signs Temp Pulse Resp BP Pulse Ox 98.7 F 78 20 H 125/72 H 95 02/06/22 14:05 02/07/22 06:04 02/06/22 14:05 02/07/22 06:04 02/06/22 14:05 Oxygen Flow Rate (L/min) 2 Oxygen Delivery Method Room Air Weight: 78.744 kg Body Mass Index (BMI) 31.7 Sodium 135 mmol/L (136-145) L 02/06/22 05:00 Potassium 4.6 mmol/L (3.5-5.1) 02/06/22 05:00 Chloride 96 mmol/L (98-107) L 02/06/22 05:00 Carbon Dioxide 33.0 mmol/L (21.0-32.0) H 02/06/22 05:00 Anion Gap 6 (5-15) 02/06/22 05:00 BUN 11 mg/dL (7-18) 02/06/22 05:00 Creatinine 0.48 mg/dL (0.55-1.02) L 02/06/22 05:00 Est GFR (MDRD) Af Amer 164 mL/min (>60) 02/06/22 05:00 Est GFR (MDRD) Non-Af 136 mL/min (>60) 02/06/22 05:00 BUN/Creatinine Ratio 23.2 RATIO (10-20) H 02/06/22 05:00 Glucose 113 mg/dL (74-106) H 02/06/22 05:00 Assessment/Plan: 1. Pain: acetaminophen 1000mg PO Q6H PRN pain 1-5 and oxycodone 5mg PO BID PRN pain 6-10. Resident has had 1 dose of acetaminophen for a pain score of 8 in the shoulder and 3 doses of oxycodone for pain scores 6-8 in the shoulder. Please continue to monitor for increased pain, PRN usage, constipation and respiratory depression. 2. Bowel: senna/docusate 1T PO BID and bisacodyl 10mg PO daily PRN constipation. Resident has not received a dose of bisacodyl and has not had a documented bowel movement (resident has taken the last 2 doses of senna/docusate but refused the first 2). Please continue to monitor for constipation and PRN usage. 3. Pneumonia: levofloxacin 750mg PO Q48 thru 02/08/22. Please continue to monitor for S/S of infection, diarrhea, renal function and tendon pain. Please see below for interaction with warfarin, Seroquel and trazodone. 4. Hypertension/atrial fibrillation: metoprolol succinate 75mg PO BID, amlodipine 10mg PO daily, and warfarin 4mg PO DINNER. Please continue to monitor BP (last 125/72), HR (last 78), swelling, S/S bleeding, hemoglobin (11.3g/dL), and INR (last 1.3). Levofloxacin increases INR but the last dose is tomorrow. INR is already scheduled for tomorrow morning. Please continue to monitor INR and make dosage adjustments as necessary. 5. Rheumatoid arthritis: methotrexate 17.5mg PO weekly and folic acid 1mg PO daily. Please continue to monitor for S/S of rheumatoid arthritis, CBC, GI side effects, and LFTs (last 01/31/22). 6. Hyperlipidemia: pravastatin 20mg PO QHS. Please continue to monitor lipid panel (last 07/25/21), LFTs, and muscle pain. 7. Hypokalemia: potassium chloride 40mg PO BIDCM. Please continue to monitor potassium levels (last 4.6mmol/L). 8. Nutrition: multivitamin with minerals 1T PO breakfast. Please continue to monitor. Assessment/Plan for indications treated with psychotropic medications: 1. Depression: sertraline 150mg PO daily. Resident had increased anxiety during hospital admission so sertraline was increased to 150mg. Please see physician note regarding GDR. Please continue to monitor for weight gain, GI side effects and suicidal ideation. 2. Insomnia: quetiapine 200mg PO QHS and trazodone 100mg PO QHS. Please see physician note regarding GDR. Please continue to monitor for excessive drowsiness and suicidal ideation (blackbox warning for both drugs). Quetiapine, trazodone and levofloxacin can all prolong the QTc interval. Resident only has 1 dose left of levofloxacin but is now taking trazodone scheduled. Please continue to monitor for S/S of QTc prolongation. Quetiapine is on the BEERs list for an increased risk of falls when used with antidepressants and sedatives. Please continue to monitor for falls. Medical chart and medication regimen reviewed. The following medication irregularities or issues were identified: None Date of Note:: 02/07/22
[2022-02-07 16:00] VITALS: BP 110/60; PULSE 83; RESP 16; TEMP 36.8; O2SAT 95
[2022-02-07 17:32] VITALS: PULSE 83
--- NOTE | 2022-02-07 17:38 | NURSING ---
saline lock to LAC d/c at this time, surrounding area pink/reddened in color, pt denies pain
[2022-02-07] MEDS: QUEtiapine 100 MG Tablet 200 MG PO (22:04)
[2022-02-07] MEDS: Pravastatin 20 MG Tablet PO (22:04)
[2022-02-07] MEDS: traZODone 100 MG Tablet PO (22:19)
[2022-02-07 23:00] VITALS: PULSE 73; RESP 16; O2SAT 96
[2022-02-08 06:13] LABS: International Normalized Ratio 1.2; Prothrombin Time (Protime)PT. 15.3 SECONDS (11.7-14.9)
[2022-02-08] MEDS: amLODIPine 10 MG Tablet PO (06:29)
[2022-02-08] MEDS: levoFLOXacin 750 MG Tablet PO (06:29)
[2022-02-08] MEDS: Sertraline 100 MG Tablet 150 MG PO (06:29)
[2022-02-08] MEDS: Methotrexate 2.5 MG Tablet 17.5 MG PO (06:30)
[2022-02-08 06:31] VITALS: BP 117/67; PULSE 75
[2022-02-08] MEDS: Metoprolol(XL)Succ 25 MG Tablet 75 MG PO (06:31)
[2022-02-08] MEDS: Menthol/Lanolin/Calamine/Znox 113 GM Tube 1 APPLIC TOPICAL ×2 (06:32→17:02)
[2022-02-08] MEDS: Nystatin Ointment 1 APPLIC TOPICAL ×2 (06:33→17:01)
[2022-02-08 07:40] VITALS: O2SAT 95
[2022-02-08] MEDS: Potassium Chloride Oral Tablet 20 MEQ 40 MEQ PO ×2 (08:43→17:01)
[2022-02-08] MEDS: Folic Acid 1 MG Tablet PO (08:43)
[2022-02-08] MEDS: Multivitamins,Ther W-Minerals Tablet 1 TABLET PO (08:43)
--- NOTE | 2022-02-08 13:57 | NURSING ---
Resident and family aware of another resident on floor testing positive for covid.
[2022-02-08] MEDS: Acetaminophen 500 MG Tablet 1000 MG PO ×2 (15:11→21:11)
[2022-02-08 16:00] VITALS: BP 99/64; PULSE 87; RESP 16; TEMP 37.2; O2SAT 96
[2022-02-08 18:34] VITALS: BP 99/51; PULSE 89
[2022-02-08] MEDS: QUEtiapine 100 MG Tablet 200 MG PO (21:03)
[2022-02-08] MEDS: oxyCODONE 5 MG Tablet PO (21:04)
[2022-02-08] MEDS: Pravastatin 20 MG Tablet PO (21:04)
[2022-02-08] MEDS: traZODone 100 MG Tablet PO (21:09)
[2022-02-09] MEDS: amLODIPine 10 MG Tablet PO (06:41)
[2022-02-09] MEDS: Sertraline 100 MG Tablet 150 MG PO (06:41)
[2022-02-09 06:42] VITALS: BP 125/72; PULSE 76
[2022-02-09] MEDS: Metoprolol(XL)Succ 25 MG Tablet 75 MG PO (06:42)
[2022-02-09] MEDS: Menthol/Lanolin/Calamine/Znox 113 GM Tube 1 APPLIC TOPICAL ×2 (06:43→17:48)
[2022-02-09] MEDS: Nystatin Ointment 1 APPLIC TOPICAL ×2 (06:47→17:48)
[2022-02-09] MEDS: Folic Acid 1 MG Tablet PO (08:39)
[2022-02-09] MEDS: Multivitamins,Ther W-Minerals Tablet 1 TABLET PO (08:39)
[2022-02-09] MEDS: Potassium Chloride Oral Tablet 20 MEQ 40 MEQ PO ×2 (08:39→17:47)
[2022-02-09] MEDS: Acetaminophen 500 MG Tablet 1000 MG PO (09:03)
--- NOTE | 2022-02-09 09:13 | PT ---
Pt on room air when this MAINTENANCE WORKER entered room. SPO2 was 88% on room air. Pt placed on 2L of O2. SPO2 increased to 93-94% once on 2L of O2. RN notified.
[2022-02-09] MEDS: oxyCODONE 5 MG Tablet PO ×2 (11:09→18:34)
--- NOTE | 2022-02-09 13:51 | MDS.RN ---
Pain interview for FLAVIA 02/12/22 completed.
--- NOTE | 2022-02-09 14:24 | CASEMGMT ---
BIMS and PHQ9 interviews completed on this date for MDS assessment. TALYA Blackwell
[2022-02-09 14:58] VITALS: BP 100/52; PULSE 68; RESP 20; TEMP 37.3; O2SAT 96
[2022-02-09] MEDS: Senna/Docusate Sodium 1 Tablet PO (17:47)
[2022-02-09] MEDS: Pravastatin 20 MG Tablet PO (19:57)
[2022-02-09] MEDS: QUEtiapine 100 MG Tablet 200 MG PO (19:57)
[2022-02-09] MEDS: traZODone 100 MG Tablet PO (20:46)
[2022-02-09 22:00] VITALS: O2SAT 94
[2022-02-10] MEDS: oxyCODONE 5 MG Tablet PO ×2 (05:54→19:53)
[2022-02-10] MEDS: Senna/Docusate Sodium 1 Tablet PO (05:55)
[2022-02-10] MEDS: amLODIPine 10 MG Tablet PO (05:55)
[2022-02-10 05:56] VITALS: BP 150/67; PULSE 78
[2022-02-10] MEDS: Metoprolol(XL)Succ 25 MG Tablet 75 MG PO ×2 (05:56→17:23)
[2022-02-10] MEDS: Sertraline 100 MG Tablet 150 MG PO (05:56)
[2022-02-10] MEDS: Menthol/Lanolin/Calamine/Znox 113 GM Tube 1 APPLIC TOPICAL ×2 (06:02→17:22)
[2022-02-10] MEDS: Nystatin Ointment 1 APPLIC TOPICAL ×2 (06:03→17:22)
[2022-02-10 07:46] VITALS: O2SAT 94
[2022-02-10] MEDS: Multivitamins,Ther W-Minerals Tablet 1 TABLET PO (08:02)
[2022-02-10] MEDS: Potassium Chloride Oral Tablet 20 MEQ 40 MEQ PO ×2 (08:03→17:21)
[2022-02-10] MEDS: Folic Acid 1 MG Tablet PO (08:03)
--- NOTE | 2022-02-10 11:47 | NURSING ---
pt states having anxiety during night, currently takes seroquel and trazodone @ hs and reports that they are not effective. dr garcia updated, new order ativan 0.5mg qhs scheduled.
[2022-02-10] MEDS: Acetaminophen 500 MG Tablet 1000 MG PO (13:08)
[2022-02-10 14:53] VITALS: BP 105/64; PULSE 78; RESP 18; TEMP 36.3; O2SAT 96
--- NOTE | 2022-02-10 15:19 | NURSING ---
pt and pt's both notied of staff member testing +for covid today
[2022-02-10 17:23] VITALS: BP 105/64; PULSE 78
[2022-02-10] MEDS: LORazepam 0.5 MG Tablet PO (22:59)
[2022-02-10] MEDS: traZODone 100 MG Tablet PO (23:00)
[2022-02-10] MEDS: Pravastatin 20 MG Tablet PO (23:00)
[2022-02-10] MEDS: QUEtiapine 100 MG Tablet 200 MG PO (23:01)
[2022-02-11 05:44] VITALS: BP 119/87; PULSE 122
[2022-02-11] MEDS: Metoprolol(XL)Succ 25 MG Tablet 75 MG PO ×2 (05:44→17:39)
[2022-02-11] MEDS: Sertraline 100 MG Tablet 150 MG PO (05:45)
[2022-02-11] MEDS: amLODIPine 10 MG Tablet PO (05:45)
[2022-02-11] MEDS: Nystatin Ointment 1 APPLIC TOPICAL ×2 (05:47→17:38)
[2022-02-11] MEDS: Menthol/Lanolin/Calamine/Znox 113 GM Tube 1 APPLIC TOPICAL ×2 (05:54→17:38)
[2022-02-11 06:28] VITALS: PULSE 102; O2SAT 95
[2022-02-11] MEDS: Folic Acid 1 MG Tablet PO (07:56)
[2022-02-11] MEDS: Multivitamins,Ther W-Minerals Tablet 1 TABLET PO (07:56)
[2022-02-11] MEDS: Potassium Chloride Oral Tablet 20 MEQ 40 MEQ PO ×2 (07:56→17:37)
[2022-02-11] MEDS: oxyCODONE 5 MG Tablet PO ×2 (07:59→20:47)
[2022-02-11] MEDS: Acetaminophen 500 MG Tablet 1000 MG PO (14:40)
[2022-02-11 16:00] VITALS: BP 95/49; PULSE 92; RESP 21; TEMP 36.9; O2SAT 120
[2022-02-11 17:39] VITALS: BP 115/61; PULSE 105
[2022-02-11] MEDS: QUEtiapine 100 MG Tablet 200 MG PO (20:49)
[2022-02-11] MEDS: traZODone 100 MG Tablet PO (20:50)
[2022-02-11] MEDS: LORazepam 0.5 MG Tablet PO (20:50)
[2022-02-11] MEDS: Pravastatin 20 MG Tablet PO (20:50)
[2022-02-11 22:00] VITALS: O2SAT 95
[2022-02-12] MEDS: oxyCODONE 5 MG Tablet PO ×2 (05:27→10:05)
[2022-02-12] MEDS: Sertraline 100 MG Tablet 150 MG PO (05:28)
[2022-02-12 05:29] VITALS: BP 134/68; PULSE 70
[2022-02-12] MEDS: Metoprolol(XL)Succ 25 MG Tablet 75 MG PO (05:29)
[2022-02-12] MEDS: amLODIPine 10 MG Tablet PO (05:29)
[2022-02-12] MEDS: Menthol/Lanolin/Calamine/Znox 113 GM Tube 1 APPLIC TOPICAL ×2 (05:30→17:34)
[2022-02-12] MEDS: Nystatin Ointment 1 APPLIC TOPICAL ×2 (05:30→17:35)
[2022-02-12 06:26] LABS: International Normalized Ratio 1.3; Prothrombin Time (Protime)PT. 15.7 SECONDS (11.7-14.9)
[2022-02-12 07:36] VITALS: O2SAT 97
[2022-02-12] MEDS: Multivitamins,Ther W-Minerals Tablet 1 TABLET PO (08:18)
[2022-02-12] MEDS: Potassium Chloride Oral Tablet 20 MEQ 40 MEQ PO ×2 (08:18→17:32)
[2022-02-12] MEDS: Folic Acid 1 MG Tablet PO (08:18)
[2022-02-12] MEDS: Acetaminophen 500 MG Tablet 1000 MG PO (12:04)
[2022-02-12 15:05] VITALS: BP 92/65; PULSE 65; RESP 16; TEMP 35.9; O2SAT 96
[2022-02-12] MEDS: Senna/Docusate Sodium 1 Tablet PO (17:32)
[2022-02-12 19:05] VITALS: BP 98/63
[2022-02-12 20:17] VITALS: BP 108/48; PULSE 73
[2022-02-12] MEDS: LORazepam 0.5 MG Tablet PO (20:43)
[2022-02-12] MEDS: QUEtiapine 100 MG Tablet 200 MG PO (20:43)
[2022-02-12] MEDS: Pravastatin 20 MG Tablet PO (20:43)
[2022-02-12] MEDS: traZODone 100 MG Tablet PO (21:07)
[2022-02-13] MEDS: Sertraline 100 MG Tablet 150 MG PO (05:21)
[2022-02-13] MEDS: Senna/Docusate Sodium 1 Tablet PO ×2 (05:21→18:08)
[2022-02-13 05:22] VITALS: BP 119/64; PULSE 77
[2022-02-13] MEDS: amLODIPine 10 MG Tablet PO (05:22)
[2022-02-13] MEDS: Metoprolol(XL)Succ 25 MG Tablet 75 MG PO ×2 (05:22→18:08)
[2022-02-13] MEDS: oxyCODONE 5 MG Tablet PO ×2 (05:25→18:11)
[2022-02-13] MEDS: Nystatin Ointment 1 APPLIC TOPICAL ×2 (05:26→18:08)
[2022-02-13] MEDS: Menthol/Lanolin/Calamine/Znox 113 GM Tube 1 APPLIC TOPICAL ×2 (05:27→18:08)
[2022-02-13 06:02] LABS: Absolute Lymphocyte Count 1.66 X10^3/uL (0.83-4.51); Absolute Neutrophil Count 3.5 X10^3/uL (2.0-7.7); Basophil# 0.07 X10^3/uL; Basophil% 1.1 % (0-1); Eosinophil# 0.18 X10^3/uL; Eosinophils% 2.8 % (0-5); Hematocrit 36.6 % (37-47); Hemoglobin 11.6 g/dL (12.0-15.0); Lymphocyte # 1.66 X10^3/ul (0.83-4.51); Lymphocyte % 25.4 % (19-41); Mean Corp Hgb Conc 31.7 g/dL (32-36); Mean Corpuscular Hgb 30.7 pg (27.0-32.0); Mean Corpuscular Volume 96.8 fL (81-99); Mean Platelet Vol. 10.3 fl (6.2-12.0); Monocyte# 1.06 X10^3/uL; Monocyte% 16.2 % (0-10); NRBC Flagged by Analyzer 0 % (0-5); Neutrophil # 3.53 X10^3/uL (2.7-7.7); Platelet Count 281 K/mm3 (150-450); RBC Distribution Width CV 14.7 % (11.6-14.6); RBC Distribution Width SD 52.6 fl (35.1-43.9); Red Blood Count 3.78 M/mm3 (4.2-5.4); White Blood Count 6.5 K/mm3 (4.4-11.0)
[2022-02-13 06:43] LABS: Anion Gap 3 (5-15); BUN 14 mg/dL (7-18); BUN/Creat Ratio 29.9 RATIO (10-20); Calcium,Total 8.6 mg/dL (8.5-10.1); Chloride 106 mmol/L (98-107); Creatinine, Serum 0.47 mg/dL (0.55-1.02); EST Glomerular Filtration Rate 138 mL/min (>60); Est Glom Filt Rate - Afr Amer 167 mL/min (>60); Estimated Creatinine Clearance 38.44 ml/min; Glucose 103 mg/dL (74-106); Potassium 4.8 mmol/L (3.5-5.1); Sodium Level 137 mmol/L (136-145)
[2022-02-13] MEDS: Folic Acid 1 MG Tablet PO (09:03)
[2022-02-13] MEDS: Potassium Chloride Oral Tablet 20 MEQ 40 MEQ PO ×2 (09:03→18:07)
[2022-02-13] MEDS: Multivitamins,Ther W-Minerals Tablet 1 TABLET PO (09:04)
--- NOTE | 2022-02-13 09:38 | NURSING ---
Fixing Carpenter Note: Interview and Section F of MDS complete.
[2022-02-13] MEDS: Tuberculin,Purif.prot.deriv. 50 TU/ML Vial 0.1 ML ID (11:16)
[2022-02-13 13:48] VITALS: BP 113/78; PULSE 74; RESP 18; TEMP 36.2; O2SAT 94
[2022-02-13 18:08] VITALS: PULSE 80
[2022-02-13] MEDS: QUEtiapine 100 MG Tablet 200 MG PO (21:11)
[2022-02-13] MEDS: Acetaminophen 500 MG Tablet 1000 MG PO (21:11)
[2022-02-13] MEDS: Pravastatin 20 MG Tablet PO (21:11)
[2022-02-13] MEDS: traZODone 100 MG Tablet PO (21:11)
[2022-02-13] MEDS: LORazepam 0.5 MG Tablet PO (21:11)
[2022-02-13 21:54] VITALS: PULSE 109; RESP 16; O2SAT 94
[2022-02-14 05:04] VITALS: BP 131/74; PULSE 70
[2022-02-14] MEDS: Metoprolol(XL)Succ 25 MG Tablet 75 MG PO (05:04)
[2022-02-14] MEDS: Senna/Docusate Sodium 1 Tablet PO (05:04)
[2022-02-14] MEDS: amLODIPine 10 MG Tablet PO (05:04)
[2022-02-14] MEDS: Sertraline 100 MG Tablet 150 MG PO (05:05)
[2022-02-14] MEDS: Acetaminophen 500 MG Tablet 1000 MG PO (05:06)
[2022-02-14] MEDS: oxyCODONE 5 MG Tablet PO (05:07)
[2022-02-14] MEDS: Menthol/Lanolin/Calamine/Znox 113 GM Tube 1 APPLIC TOPICAL ×2 (05:08→18:04)
[2022-02-14] MEDS: Nystatin Ointment 1 APPLIC TOPICAL ×2 (05:08→18:04)
[2022-02-14 05:15] VITALS: PULSE 74; RESP 16; O2SAT 96
[2022-02-14] MEDS: Folic Acid 1 MG Tablet PO (08:04)
[2022-02-14] MEDS: Potassium Chloride Oral Tablet 20 MEQ 40 MEQ PO ×2 (08:04→18:03)
[2022-02-14] MEDS: Multivitamins,Ther W-Minerals Tablet 1 TABLET PO (08:04)
--- NOTE | 2022-02-14 09:33 | NURSING ---
pt more lethargic and confused today, pt fell asleep eating breakfast and at times mid sentence, urine has strong odor and pt c/o low back pain. Dr. Lagunas updated and N.O U/a C&S
[2022-02-14 09:37] LABS: Bacteria 0 SEEN /hpf (None Seen); Mucous, Urine 0 SEEN /hpf (<or=2+); Red Blood Cells-Urine 0 SEEN /hpf (0-5); Squamous Epithelial Cells - UA 0 SEEN /hpf (5-10)
[2022-02-14 09:39] LABS: Color, Urine Yellow (Yellow); Glucose, Dipstick Normal (Normal); Ketone-Dipstick Negative (Negative); Leukocyte Esterase-Dipstick 100 /ul (Negative); Nitrite-Dipstick Negative (Negative); Occult Blood-Urine Negative /ul (Negative); Protein-Dipstick Negative (Negative); Specific Gravity, Urine 1.015 (1.002-1.030); Urine Bilirubin Dipstick Negative (Negative); Urine Clarity Clear (Clear); Urine Urobilinogen Normal (Normal)
[2022-02-14 10:19] LABS: White Blood Cells 5-10 SEEN /hpf (0-5)
--- NOTE | 2022-02-14 10:53 | CASEMGMT ---
Social Work IDT met with patient and for care plan meeting. Discussed patient's progress in PT/OT/ST/SN. Explained Medicare benefit. Encouraged to contact secondary insurance to ensure copay coverage. Pt is more confused and disoriented. IDT recommended HCPOA paperwork is not completed until cognition clears. Pt is new on O2. The goal is for pt to return home with continuing to assist with IADLs. Explained IDT recommendation of supervision at [place] for cognition. IDT recommending f/u with neurologist at [place]. Provided resources for INSIDE SALES CONSULTANT, [place] and Medical alerts. appreciative but concerned pt's cognition may not return. Explained environmental change and affect on cognition/disorientation. IDT will continue working with pt. SW to continue to follow for discharge planning. JOLEEN OlearyW
[2022-02-14 13:39] VITALS: BP 106/66; PULSE 73; RESP 18; TEMP 36.3; O2SAT 96
--- NOTE | 2022-02-14 16:54 | NURSING ---
Pt requesting to d/c fluid restriction, Dr. Lagunas updated and N.O. to d/c fluid restriction
[2022-02-14 18:08] VITALS: BP 100/52; PULSE 68
[2022-02-14] MEDS: QUEtiapine 100 MG Tablet 200 MG PO (21:29)
[2022-02-14] MEDS: LORazepam 0.5 MG Tablet PO (21:30)
[2022-02-14] MEDS: Pravastatin 20 MG Tablet PO (21:30)
[2022-02-14] MEDS: traZODone 100 MG Tablet PO (21:31)
[2022-02-15] MEDS: Methotrexate 2.5 MG Tablet 17.5 MG PO (05:13)
[2022-02-15] MEDS: Sertraline 100 MG Tablet 150 MG PO (05:14)
[2022-02-15] MEDS: Nystatin Ointment 1 APPLIC TOPICAL (05:16)
[2022-02-15 05:17] VITALS: BP 124/70; PULSE 112
[2022-02-15] MEDS: Menthol/Lanolin/Calamine/Znox 113 GM Tube 1 APPLIC TOPICAL ×2 (05:17→17:13)
[2022-02-15] MEDS: Metoprolol(XL)Succ 25 MG Tablet 75 MG PO ×2 (05:17→17:12)
[2022-02-15 05:50] LABS: International Normalized Ratio 1.3; Prothrombin Time (Protime)PT. 16.1 SECONDS (11.7-14.9)
[2022-02-15] MEDS: Folic Acid 1 MG Tablet PO (08:31)
[2022-02-15] MEDS: Potassium Chloride Oral Tablet 20 MEQ 40 MEQ PO ×2 (08:31→17:10)
[2022-02-15] MEDS: amLODIPine 10 MG Tablet PO (08:31)
[2022-02-15] MEDS: Multivitamins,Ther W-Minerals Tablet 1 TABLET PO (08:31)
[2022-02-15] MEDS: Acetaminophen 500 MG Tablet 1000 MG PO (08:55)
--- NOTE | 2022-02-15 11:29 | MDS.RN ---
Information for the mds was obtained from review of the clinical record, interview of resident, staff, and direct observation of resident's care.
[2022-02-15 13:54] VITALS: BP 97/64; PULSE 68; RESP 16; TEMP 36.3; O2SAT 96
--- NOTE | 2022-02-15 14:01 | NURSING ---
Genia zhong'keith per Dr. Lagunas. Patient has been more lethargic and confused in the mornings.
[2022-02-15 15:31] VITALS: BP 97/64; PULSE 68; RESP 18; TEMP 36.3; O2SAT 96
[2022-02-15 17:12] VITALS: PULSE 68
[2022-02-15] MEDS: Nystatin Powder 15gm Bottle 1 APPLIC TOPICAL (17:15)
[2022-02-15] MEDS: traZODone 100 MG Tablet PO (21:15)
[2022-02-15] MEDS: Pravastatin 20 MG Tablet PO (21:15)
[2022-02-15] MEDS: QUEtiapine 100 MG Tablet 200 MG PO (21:15)
[2022-02-16] MEDS: Menthol/Lanolin/Calamine/Znox 113 GM Tube 1 APPLIC TOPICAL ×2 (07:15→17:22)
[2022-02-16 07:16] VITALS: PULSE 68
[2022-02-16] MEDS: Metoprolol(XL)Succ 25 MG Tablet 75 MG PO ×2 (07:16→17:18)
[2022-02-16] MEDS: Nystatin Powder 15gm Bottle 1 APPLIC TOPICAL ×2 (07:16→17:22)
[2022-02-16] MEDS: Sertraline 100 MG Tablet 150 MG PO (07:17)
[2022-02-16] MEDS: amLODIPine 10 MG Tablet PO (08:46)
[2022-02-16] MEDS: Multivitamins,Ther W-Minerals Tablet 1 TABLET PO (08:47)
[2022-02-16] MEDS: Folic Acid 1 MG Tablet PO (08:47)
[2022-02-16] MEDS: Potassium Chloride Oral Tablet 20 MEQ 40 MEQ PO ×2 (08:47→17:19)
[2022-02-16] MEDS: oxyCODONE 5 MG Tablet PO (08:47)
[2022-02-16 08:51] VITALS: BP 113/57; PULSE 74
[2022-02-16 10:35] VITALS: O2SAT 96
[2022-02-16 13:10] VITALS: PULSE 75; RESP 16; O2SAT 97
[2022-02-16 16:00] VITALS: BP 116/59; PULSE 71; RESP 16; TEMP 37.1; O2SAT 93
[2022-02-16 17:18] VITALS: PULSE 72
[2022-02-16] MEDS: Senna/Docusate Sodium 1 Tablet PO (17:19)
[2022-02-16] MEDS: traZODone 100 MG Tablet PO (21:28)
[2022-02-16] MEDS: Pravastatin 20 MG Tablet PO (21:28)
[2022-02-16] MEDS: QUEtiapine 100 MG Tablet 200 MG PO (21:28)
[2022-02-17] MEDS: Acetaminophen 500 MG Tablet 1000 MG PO (03:37)
[2022-02-17] MEDS: oxyCODONE 5 MG Tablet PO ×2 (03:38→20:32)
[2022-02-17 03:49] VITALS: BP 102/54; PULSE 72; RESP 16; TEMP 36.6; O2SAT 97
[2022-02-17 06:22] VITALS: BP 124/64
[2022-02-17] MEDS: Sertraline 100 MG Tablet 150 MG PO (06:23)
[2022-02-17 06:24] VITALS: BP 124/64; PULSE 66
[2022-02-17] MEDS: Metoprolol(XL)Succ 25 MG Tablet 75 MG PO ×2 (06:24→17:36)
[2022-02-17] MEDS: Menthol/Lanolin/Calamine/Znox 113 GM Tube 1 APPLIC TOPICAL ×2 (06:25→17:39)
[2022-02-17] MEDS: Nystatin Powder 15gm Bottle 1 APPLIC TOPICAL ×2 (06:25→17:40)
[2022-02-17 07:52] VITALS: O2SAT 97
[2022-02-17] MEDS: Multivitamins,Ther W-Minerals Tablet 1 TABLET PO (08:28)
[2022-02-17] MEDS: Potassium Chloride Oral Tablet 20 MEQ 40 MEQ PO ×2 (08:28→17:36)
[2022-02-17] MEDS: Folic Acid 1 MG Tablet PO (08:28)
[2022-02-17] MEDS: amLODIPine 10 MG Tablet PO (08:28)
[2022-02-17 14:59] VITALS: BP 101/65; PULSE 58; RESP 16; TEMP 35.7; O2SAT 97
[2022-02-17 17:36] VITALS: BP 117/76; PULSE 69
[2022-02-17] MEDS: QUEtiapine 100 MG Tablet 200 MG PO (20:33)
[2022-02-17] MEDS: Pravastatin 20 MG Tablet PO (20:33)
[2022-02-17] MEDS: traZODone 100 MG Tablet PO (20:33)
[2022-02-18 05:56] VITALS: BP 132/80; PULSE 70
[2022-02-18] MEDS: oxyCODONE 5 MG Tablet PO (05:56)
[2022-02-18] MEDS: Metoprolol(XL)Succ 25 MG Tablet 75 MG PO ×2 (05:56→21:37)
[2022-02-18] MEDS: Sertraline 100 MG Tablet 150 MG PO (05:57)
[2022-02-18] MEDS: Menthol/Lanolin/Calamine/Znox 113 GM Tube 1 APPLIC TOPICAL ×2 (05:59→17:06)
[2022-02-18] MEDS: Nystatin Powder 15gm Bottle 1 APPLIC TOPICAL ×2 (05:59→17:06)
[2022-02-18] MEDS: Potassium Chloride Oral Tablet 20 MEQ 40 MEQ PO ×2 (07:33→17:04)
[2022-02-18] MEDS: Multivitamins,Ther W-Minerals Tablet 1 TABLET PO (07:33)
[2022-02-18] MEDS: Folic Acid 1 MG Tablet PO (07:33)
[2022-02-18] MEDS: amLODIPine 10 MG Tablet PO (07:34)
[2022-02-18 12:34] VITALS: O2SAT 97
--- NOTE | 2022-02-18 14:47 | NURSING ---
Pt observed self-transferring to the bathroom, this nurse educated pt on importance of waiting for staff to arrive to assist in ambulating, pt verbalized understanding.
[2022-02-18 15:36] VITALS: BP 98/57; PULSE 119; RESP 16; TEMP 36.7; O2SAT 98
[2022-02-18 18:57] VITALS: BP 100/52; PULSE 102
[2022-02-18] MEDS: traZODone 100 MG Tablet PO (20:46)
[2022-02-18] MEDS: Pravastatin 20 MG Tablet PO (20:46)
[2022-02-18] MEDS: QUEtiapine 100 MG Tablet 200 MG PO (20:46)
--- NOTE | 2022-02-18 21:35 | NURSING ---
Per cipriano Coello to give Toprol XL 75 mg with blood pressure 99/57 and HR at 110.
[2022-02-18 21:37] VITALS: BP 99/57; PULSE 110
[2022-02-18] MEDS: Acetaminophen 500 MG Tablet 1000 MG PO (21:41)
[2022-02-19] VITALS (9 sets, daily range): BP systolic 90–116; BP diastolic 59–74; PULSE 95–116; RESP 18; TEMP 36; O2SAT 95
[2022-02-19] MEDS: Sertraline 100 MG Tablet 150 MG PO (05:34)
[2022-02-19] MEDS: Menthol/Lanolin/Calamine/Znox 113 GM Tube 1 APPLIC TOPICAL ×2 (05:35→17:25)
--- NOTE | 2022-02-19 05:37 | NURSING ---
Patient continues to be hypotensive at this time. Toprol XL not given at this time. Will recheck BP later.
[2022-02-19 06:35] LABS: International Normalized Ratio 1.9
[2022-02-19] MEDS: Nystatin Powder 15gm Bottle 1 APPLIC TOPICAL ×2 (08:26→20:03)
[2022-02-19] MEDS: Potassium Chloride Oral Tablet 20 MEQ 40 MEQ PO ×2 (08:29→17:25)
[2022-02-19] MEDS: Metoprolol(XL)Succ 25 MG Tablet 75 MG PO ×2 (08:29→17:25)
[2022-02-19] MEDS: Folic Acid 1 MG Tablet PO (08:29)
[2022-02-19] MEDS: Multivitamins,Ther W-Minerals Tablet 1 TABLET PO (08:30)
[2022-02-19] MEDS: amLODIPine 10 MG Tablet PO (08:30)
[2022-02-19] MEDS: Pravastatin 20 MG Tablet PO (20:04)
[2022-02-19] MEDS: traZODone 100 MG Tablet PO (20:04)
[2022-02-19] MEDS: QUEtiapine 100 MG Tablet 200 MG PO (20:04)
[2022-02-20] MEDS: oxyCODONE 5 MG Tablet PO (00:33)
[2022-02-20 05:17] VITALS: BP 111/65; PULSE 88
[2022-02-20] MEDS: Sertraline 100 MG Tablet 150 MG PO (05:17)
[2022-02-20] MEDS: Metoprolol(XL)Succ 25 MG Tablet 75 MG PO ×2 (05:17→17:12)
[2022-02-20] MEDS: Nystatin Powder 15gm Bottle 1 APPLIC TOPICAL ×2 (05:18→17:09)
[2022-02-20] MEDS: Menthol/Lanolin/Calamine/Znox 113 GM Tube 1 APPLIC TOPICAL ×2 (05:18→17:08)
[2022-02-20 05:41] LABS: Absolute Lymphocyte Count 1.82 X10^3/uL (0.83-4.51); Basophil# 0.05 X10^3/uL; Basophil% 0.7 % (0-1); Eosinophil# 0.28 X10^3/uL; Hematocrit 35.1 % (37-47); Hemoglobin 11.3 g/dL (12.0-15.0); Lymphocyte # 1.82 X10^3/ul (0.83-4.51); Lymphocyte % 25.7 % (19-41); Mean Corp Hgb Conc 32.2 g/dL (32-36); Mean Corpuscular Hgb 30.8 pg (27.0-32.0); Mean Corpuscular Volume 95.6 fL (81-99); Mean Platelet Vol. 9.9 fl (6.2-12.0); Monocyte# 0.88 X10^3/uL; Monocyte% 12.4 % (0-10); NRBC Flagged by Analyzer 0 % (0-5); Neutrophil # 4.03 X10^3/uL (2.7-7.7); Neutrophil % 56.9 % (47-70); Platelet Count 216 K/mm3 (150-450); RBC Distribution Width CV 14.6 % (11.6-14.6); RBC Distribution Width SD 51.2 fl (35.1-43.9); Red Blood Count 3.67 M/mm3 (4.2-5.4); White Blood Count 7.1 K/mm3 (4.4-11.0)
[2022-02-20 06:08] LABS: Anion Gap 6 (5-15); BUN 17 mg/dL (7-18); BUN/Creat Ratio 39.3 RATIO (10-20); Calcium,Total 8.6 mg/dL (8.5-10.1); Chloride 106 mmol/L (98-107); Creatinine, Serum 0.43 mg/dL (0.55-1.02); EST Glomerular Filtration Rate 151 mL/min (>60); Est Glom Filt Rate - Afr Amer 183 mL/min (>60); Estimated Creatinine Clearance 38.44 ml/min; Glucose 103 mg/dL (74-106); Potassium 4.6 mmol/L (3.5-5.1); Sodium Level 139 mmol/L (136-145)
[2022-02-20 08:00] VITALS: O2SAT 94
[2022-02-20] MEDS: Folic Acid 1 MG Tablet PO (08:53)
[2022-02-20] MEDS: Potassium Chloride Oral Tablet 20 MEQ 40 MEQ PO ×2 (08:53→17:11)
[2022-02-20] MEDS: Multivitamins,Ther W-Minerals Tablet 1 TABLET PO (08:53)
[2022-02-20] MEDS: amLODIPine 10 MG Tablet PO (08:54)
[2022-02-20 08:58] VITALS: BP 107/55; PULSE 65
[2022-02-20 09:20] VITALS: PULSE 62; RESP 18; O2SAT 92
--- NOTE | 2022-02-20 12:06 | CASEMGMT ---
Addendum entered by Tona Benavides 02/21/22 09:33: ST requesting order for HHC. Updated [facility]. Original Note: Social Work Met with pt to discuss IDT setting DC date. Pt requested SW speak with . Contacted - he was on his way to visit pt. Met with . Explained DC date 02/24. agreeable. Discussed HHC vs OP. prefers HHC and to use previous company, [facility]. SW to order PT/OT/SN. Pt will DC home on new O2. SW to order through [employer]. to transport home. Referrals made. Plan: DC home with 02/24, [facility] PT/OT/SN, O2 JOLEEN OlearyW
[2022-02-20 13:57] VITALS: BP 110/53; PULSE 61; RESP 16; TEMP 36.1; O2SAT 95
[2022-02-20] MEDS: Acetaminophen 500 MG Tablet 1000 MG PO (17:08)
[2022-02-20 17:12] VITALS: BP 110/53; PULSE 61
--- NOTE | 2022-02-20 19:00 | DS.PCM_ITS ---
Providers Date of Admission: 02/05/22 Primary Care Physician: Dr. Low Baxter MD Reason For Visit: AFIB,RVR Diagnosis Discharge Diagnosis (1) Debility: Status: Acute Code(s): R53.81 - Other malaise (2) Acute respiratory failure with hypoxia: Status: Acute Code(s): J96.01 - Acute respiratory failure with hypoxia (3) Supratherapeutic INR: Status: Resolved Code(s): R79.1 - Abnormal coagulation profile (4) Pneumonia: Status: Deleted Code(s): J18.9 - Pneumonia, unspecified organism (5) Atrial fibrillation with rapid ventricular response: Status: Acute Code(s): I48.91 - Unspecified atrial fibrillation (6) Hypertension: Status: Chronic Code(s): I10 - Essential (primary) hypertension (7) Hyperlipidemia: Status: Acute Code(s): E78.5 - Hyperlipidemia, unspecified (8) Anxiety: Status: Acute Code(s): F41.9 - Anxiety disorder, unspecified (9) Depression: Status: Acute Code(s): F32.A - Depression, unspecified (10) Insomnia: Status: Acute Code(s): G47.00 - Insomnia, unspecified (11) Rheumatoid arthritis: Status: Acute Code(s): M06.9 - Rheumatoid arthritis, unspecified Plan 77 year old female with below past medical history hospitalized for acute respiratory failure with hypoxia secondary to pneumonia, complicated by atrial fibrillation with rapid ventricular response, supratherapeutic INR, anxiety, admitted to TCU with debility, here for rehabilitation, strengthening, prior to discharge home with . * Debility - PT/OT. * Aspiration - ST. * Pain - Tylenol 1000mg q6h prn pain (1-5), Oxycodone 5mg bid prn pain (6-10). * Bowel - Senna/colace 1 tablet bid, Dulcolax 10mg daily prn. * Adult immunization - Administer pneumonia vaccine, covid19 vaccine, flu vaccine as appropriate. * DVT prophylaxis - Not necessary, on warfarin. * Hypertension - Metoprolol succinate 75mg bid, Amlodipine 10mg daily. * Rheumatoid arthritis - MTX 17.5mg per week, Folic acid 1mg daily. * Pneumonia - Levaquin 750mg q48 thru 02/08/2022. * Nutrition - MVI daily. * Hypokalemia - KCL 40meq bidcm. * Hyperlipidemia - Pravastatin 20mg qhs. 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 * Atrial fibrillation - Metoprolol succinate 75mg bid, Warfarin 4mg daily, follow inr. Medications at Discharge Home Medications ggallstq-wrc-gxowd acid 0.4 mg-lycopene 300 mcg-lutein 250 mcg tablet 1 tab PO DAILY Supplement 01/19/15 folic acid 1 mg tablet 1 mg PO QDAY Supplement 10/04/17 abatacept 125 mg/mL subcutaneous auto-injector (Orencia ClickJect) 125 mg subcut QMONTH RA 04/28/19 methotrexate sodium 2.5 mg tablet 17.5 mg PO TH ARTHRITIS 12/12/21 amlodipine 10 mg tablet 10 mg PO DAILY BP 01/31/22 folic acid 400 mcg tablet 1 mg PO DAILY supplement 01/31/22 quetiapine 200 mg tablet 200 mg PO QHS mood 01/31/22 trazodone 100 mg tablet 100 mg PO QHS PRN PRN Sleep 01/31/22 pravastatin 20 mg tablet 20 mg PO QHS Cholesterol 02/05/22 sertraline 100 mg tablet 150 mg PO DAILY mood 02/05/22 acetaminophen 500 mg tablet 1,000 mg PO Q6H PRN PRN Pain Score 1-5 #0 tabs 02/20/22 metoprolol succinate 25 mg tablet,extended release 24 hr 75 mg PO BID BP 30 days #120 tabs 02/20/22 oxycodone-acetaminophen 5 mg-325 mg tablet 1 tab PO BID PRN PRN Pain 3 days #6 tabs 02/20/22 potassium chloride 20 mEq tablet,extended release(part/cryst) (Klor-Con M) 40 meq PO BIDCM Supplement 30 days #120 tabs 02/20/22 warfarin 6 mg tablet (Jantoven) 6 mg PO DINNER 30 days #30 tabs 02/20/22 Hospital Course Operations None Procedures None Summary of Care Provided Minutes Spent on Discharge: 35 Hospital Course: 77 year old female with below past medical history hospitalized for acute respiratory failure with hypoxia secondary to pneumonia, complicated by atrial fibrillation with rapid ventricular response, supratherapeutic INR, anxiety, admitted to TCU with debility, here for rehabilitation, strengthening, prior to discharge home with . Discharge home with 02/24/2022, [facility] PT/OT/SN, [employer] [facility]. Physical Exam Const alert General Appearance: cooperative HEENT normocephalic Eyes PERRL and EOMs intact bilaterally Neck supple, no JVD and no carotid bruits Resp normal respiratory effort, normal air movement and clear to auscultation bilaterally Cardio regular rate and regular rhythm GI normal to inspection, nondistended, normoactive bowel sounds, non-tender and non-distended Extremity normal capillary refill General Extremity: Negative for edema Skin no rashes or lesions noted General Skin Exam: no breakdown Psych affect normal Appearance: appropriate Medical Records Data Medical Nutrition Assessment Dietitian: Malnutrition Criteria Met Start: 02/05/22 17:15 Freq: Status: Active Protocol: Document 02/14/22 12:00 [facility] (Rec: 02/14/22 12:00 [facility] [id number]) Nutrition Malnutrition Evidence of Malnutrition Exists Yes Malnutrition (severe): Chronic Evidenced By Suboptimal Energy Intake ( Severe),Weight Loss (Severe), Physical Changes (Mild) Clinical Problem Chronic Disease or Condition Related Malnutrition Etiology severe chronic malnutrition related to inadequate energy intake Signs/Symptoms as evidenced by est po intake meeting <75% of estimated energy needs and unintentional wt loss 13% x 2 mo and 19% x 7 mo. Has fat/muscle loss to face and upper body/triceps. Status Active Problem Biting/Chewing Difficulty Etiology related to issues w/ dysphagia and aspiration pneumonia Signs/Symptoms as evidenced by need for modified consistency diet and CERTIFIED CONTROL SYSTEMS TECHNICIAN therapy Status Active Problem Recommendation Dietitian Recommendations/Changes Will continue liberalized diet of Regular - easy to chew, meat bite sized, add extra sauce and gravy to meals - 1500 ml FR/day (d/t signs and symptoms of malnutrition) - Rec d/c fluid restriction as medically able. Will continue ensure pudding or magic cup w/ meals instead per res preference. Weight / BMI Weight Weight: 75.342 kg Body Mass Index (BMI) 31.7 ABG / Lab / Microbiology Data Result Diagrams: 02/20/22 05:13 02/20/22 05:13 Laboratory: Laboratory Results - last 24 hr 02/20/22 05:13: WBC 7.1, RBC 3.67 L, Hgb 11.3 L, Hct 35.1 L, MCV 95.6, MCH 30.8, MCHC 32.2, RDW Std Deviation 51.2 H, RDW Coeff of Sonya 14.6, Plt Count 216, MPV 9.9, Immature Gran % (Auto) 0.300, Neut % (Auto) 56.9, Lymph % (Auto) 25.7, Blount % (Auto) 12.4 H, Eos % (Auto) 4.0, Baso % (Auto) 0.7, Absolute Neuts (auto) 4.0, Absolute Lymphs (auto) 1.82, Nucleated RBC % 0 02/20/22 05:13: Sodium 139, Potassium 4.6, Chloride 106, Carbon Dioxide 27.0, Anion Gap 6, BUN 17, Creatinine 0.43 L, Estim Creat Clear Calc 38.44, Est GFR (MDRD) Af Amer 183, Est GFR (MDRD) Non-Af 151, BUN/Creatinine Ratio 39.3 H, Glucose 103, Calcium 8.6 Microbiology: Microbiology 02/19/22 08:35 Nasal Secretion SARS-CoV-2 Antigen (Rapid) - Final 02/14/22 09:25 Urine Catheter - Catheter Urine Culture - Final Staphylococcus hominis hominis 02/12/22 06:00 Nasal Secretion SARS-CoV-2 Antigen (Rapid) - Final D/C Instructions Discharge Diet: No restrictions Discharge Activity: Return to Normal Activity, May Shower and Use Walker Weight Bearing Status: Weight bearing as tolerated Call your doctor if you observe: Fever of 101 or Higher, Inability to urinate, Inability to have a bowel movement, Shortness of breath, Dizziness, Fainting spells, Swelling in the ankles, Chest pain and Uncontrolled pain Additional Instructions: Discharge home with 02/24/2022, [facility] PT/OT/SN, [employer] [facility]. Meaningful Use Info Meaningful Use Diagnoses (Choose all that apply): None applicable Discharge Plan Admission Admit Date/Time: 02/05/22 14:20 Primary Reason for Your Visit: Debility. Attending Provider: Fede Lagunas Chi Primary Care Provider: Low Baxter Instructions Additional Instructions / Restrictions: Discharge home with 02/24/2022, [facility] PT/OT/SN, [employer] [facility]. Discharge Orders/Prescriptions Prescriptions: New acetaminophen 500 mg Tablet 1,000 mg PO Q6H PRN PRN (Reason: Pain Score 1-5) Qty: 0 0RF warfarin [Jantoven] 6 mg Tablet 6 mg PO DINNER 30 Days Qty: 30 0RF Continued folic acid 1 mg tablet 1 mg PO QDAY methotrexate sodium 2.5 mg tablet 17.5 mg PO Label Comments: 2.5 mg PO 6 tablets once a week on Orencia ClickJect 125 mg/mL auto-injector 125 mg SC QMONTH tynybvug-zrj-ZS-lycopen-lutein 1 EACH tablet 1 tab PO DAILY Label Comments: vitamin trazodone 100 mg tablet 100 mg PO QHS PRN PRN (Reason: Sleep) amlodipine 10 mg tablet 10 mg PO DAILY quetiapine 200 mg tablet 200 mg PO QHS folic acid 400 mcg Tablet 1 mg PO DAILY sertraline 100 mg tablet 150 mg PO DAILY pravastatin 20 mg tablet 20 mg PO QHS oxycodone-acetaminophen 1 TABLET tablet 1 tab PO BID PRN PRN (Reason: Pain) 3 Days Qty: 6 0RF Label Comments: PAIN potassium chloride [Klor-Con M20] 20 mEq tablet,ER particles/crystals 40 meq PO BIDCM 30 Days Qty: 120 0RF metoprolol succinate 25 mg tablet extended release 24 hr 75 mg PO BID 30 Days Qty: 120 0RF Discontinued warfarin 1 mg tablet 4 mg PO DAILY Protocol: Dose Management Condition: Saturday Dose/Route: 4 mg Instruction: 4 x 1 mg tablets Condition: Saturday Dose/Route: 4 mg Instruction: 4 x 1 mg tablets Condition: Saturday Dose/Route: 4 mg Instruction: 4 x 1 mg tablets Condition: Saturday Dose/Route: 4 mg Instruction: 4 x 1 mg tablets Condition: Dose/Route: 4 mg Instruction: 4 x 1 mg tablets Condition: Saturday Dose/Route: 4 mg Instruction: 4 x 1 mg tablets Condition: Saturday Dose/Route: 4 mg Instruction: 4 x 1 mg tablets Protocol Text: Adjustment Start Date: 01/11/22 INR Value: 2.2 INR Date: 01/11/22 Recheck Date: 01/25/22 levofloxacin 750 mg tablet 750 mg PO Q48@0600 Referrals / Follow Up: Low Baxter MD [Primary Care Provider] - Disposition Disposition (needs filled in before D/C Order can be placed): Home Health Service
[2022-02-20] MEDS: QUEtiapine 100 MG Tablet 200 MG PO (21:18)
[2022-02-20] MEDS: traZODone 100 MG Tablet PO (21:18)
[2022-02-20] MEDS: Pravastatin 20 MG Tablet PO (21:19)
[2022-02-21 05:14] VITALS: BP 124/65; PULSE 74
[2022-02-21] MEDS: Metoprolol(XL)Succ 25 MG Tablet 75 MG PO ×2 (05:14→18:10)
[2022-02-21] MEDS: Menthol/Lanolin/Calamine/Znox 113 GM Tube 1 APPLIC TOPICAL (05:15)
[2022-02-21] MEDS: Nystatin Powder 15gm Bottle 1 APPLIC TOPICAL (05:15)
[2022-02-21] MEDS: Sertraline 100 MG Tablet 150 MG PO (05:15)
[2022-02-21] MEDS: Acetaminophen 500 MG Tablet 1000 MG PO (05:19)
[2022-02-21] MEDS: Multivitamins,Ther W-Minerals Tablet 1 TABLET PO (07:49)
[2022-02-21] MEDS: Folic Acid 1 MG Tablet PO (07:49)
[2022-02-21] MEDS: Potassium Chloride Oral Tablet 20 MEQ 40 MEQ PO ×2 (07:49→18:08)
[2022-02-21] MEDS: amLODIPine 10 MG Tablet PO (07:50)
[2022-02-21 14:55] VITALS: BP 115/51; PULSE 61; RESP 18; TEMP 36.1; O2SAT 98
[2022-02-21] MEDS: Senna/Docusate Sodium 1 Tablet PO (18:09)
[2022-02-21 18:10] VITALS: PULSE 61
[2022-02-21] MEDS: oxyCODONE 5 MG Tablet PO (20:06)
[2022-02-21] MEDS: traZODone 100 MG Tablet PO (20:07)
[2022-02-21] MEDS: Pravastatin 20 MG Tablet PO (20:07)
[2022-02-21] MEDS: QUEtiapine 100 MG Tablet 200 MG PO (20:07)
[2022-02-21 20:15] VITALS: O2SAT 96
[2022-02-22] VITALS (7 sets, daily range): BP systolic 104–117; BP diastolic 55–64; PULSE 59–73; RESP 18; TEMP 36.6; O2SAT 96
[2022-02-22] MEDS: oxyCODONE 5 MG Tablet PO (05:21)
[2022-02-22] MEDS: Metoprolol(XL)Succ 25 MG Tablet 75 MG PO ×2 (05:22→18:21)
[2022-02-22] MEDS: Sertraline 100 MG Tablet 150 MG PO (05:23)
[2022-02-22] MEDS: Methotrexate 2.5 MG Tablet 17.5 MG PO (05:23)
[2022-02-22] MEDS: Menthol/Lanolin/Calamine/Znox 113 GM Tube 1 APPLIC TOPICAL ×2 (05:26→18:15)
[2022-02-22] MEDS: Nystatin Powder 15gm Bottle 1 APPLIC TOPICAL ×2 (05:27→20:55)
[2022-02-22 05:45] LABS: International Normalized Ratio 1.9; Prothrombin Time (Protime)PT. 21.3 SECONDS (11.7-14.9)
[2022-02-22] MEDS: amLODIPine 10 MG Tablet PO (08:42)
[2022-02-22] MEDS: Multivitamins,Ther W-Minerals Tablet 1 TABLET PO (08:42)
[2022-02-22] MEDS: Folic Acid 1 MG Tablet PO (08:42)
[2022-02-22] MEDS: Potassium Chloride Oral Tablet 20 MEQ 40 MEQ PO ×2 (08:42→18:14)
[2022-02-22] MEDS: Acetaminophen 500 MG Tablet 1000 MG PO ×2 (11:33→18:18)
--- NOTE | 2022-02-22 14:50 | CASEMGMT ---
Social Work BIMS and PHQ-9 completed for MDS assessment. Tona Benavides, BUILDING ESTIMATOR SURVEILLANCE SYSTEMS ENGINEER
[2022-02-22] MEDS: QUEtiapine 100 MG Tablet 200 MG PO (20:54)
[2022-02-22] MEDS: Pravastatin 20 MG Tablet PO (20:54)
[2022-02-22] MEDS: traZODone 100 MG Tablet PO (20:54)
[2022-02-23 05:53] VITALS: BP 138/60; PULSE 60
[2022-02-23] MEDS: Metoprolol(XL)Succ 25 MG Tablet 75 MG PO ×2 (05:53→17:49)
[2022-02-23] MEDS: Sertraline 100 MG Tablet 150 MG PO (05:53)
[2022-02-23] MEDS: Menthol/Lanolin/Calamine/Znox 113 GM Tube 1 APPLIC TOPICAL ×2 (05:54→17:51)
[2022-02-23] MEDS: Nystatin Powder 15gm Bottle 1 APPLIC TOPICAL ×2 (05:54→17:51)
[2022-02-23] MEDS: Folic Acid 1 MG Tablet PO (08:47)
[2022-02-23] MEDS: Potassium Chloride Oral Tablet 20 MEQ 40 MEQ PO ×2 (08:47→17:48)
[2022-02-23] MEDS: Multivitamins,Ther W-Minerals Tablet 1 TABLET PO (08:48)
[2022-02-23] MEDS: amLODIPine 10 MG Tablet PO (08:48)
[2022-02-23 16:00] VITALS: BP 117/63; PULSE 62; RESP 18; TEMP 36; O2SAT 96
[2022-02-23 17:49] VITALS: BP 117/63; PULSE 62
[2022-02-23 20:40] VITALS: O2SAT 96
[2022-02-23] MEDS: Acetaminophen 500 MG Tablet 1000 MG PO (20:56)
[2022-02-23] MEDS: traZODone 100 MG Tablet PO (20:56)
[2022-02-23] MEDS: Pravastatin 20 MG Tablet PO (20:57)
[2022-02-23] MEDS: QUEtiapine 100 MG Tablet 200 MG PO (20:57)
[2022-02-24] MEDS: Sertraline 100 MG Tablet 150 MG PO (05:29)
[2022-02-24 05:30] VITALS: BP 130/62; PULSE 60
[2022-02-24] MEDS: Nystatin Powder 15gm Bottle 1 APPLIC TOPICAL (05:30)
[2022-02-24] MEDS: Menthol/Lanolin/Calamine/Znox 113 GM Tube 1 APPLIC TOPICAL (05:30)
[2022-02-24] MEDS: Metoprolol(XL)Succ 25 MG Tablet 75 MG PO (05:30)
[2022-02-24] MEDS: amLODIPine 10 MG Tablet PO (07:57)
[2022-02-24] MEDS: Folic Acid 1 MG Tablet PO (07:57)
[2022-02-24] MEDS: Multivitamins,Ther W-Minerals Tablet 1 TABLET PO (07:57)
[2022-02-24] MEDS: Potassium Chloride Oral Tablet 20 MEQ 40 MEQ PO (07:57)
[2022-02-24 08:38] VITALS: PULSE 70; RESP 16; O2SAT 97
== END 2022-02-24 11:45 | disposition home health service (06) | DRG 193 ==
PROVIDERS: Admitting Provider Family Medicine Geriatric Medicine; PCP Family Medicine; Visit Provider Family Medicine Geriatric Medicine
DX: J18.9 Pneumonia, unspecified organism (principal); J96.01 Acute respiratory failure with hypoxia; I48.0 Paroxysmal atrial fibrillation; M06.9 Rheumatoid arthritis, unspecified; I10 Essential (primary) hypertension; F41.9 Anxiety disorder, unspecified; E78.5 Hyperlipidemia, unspecified; E87.6 Hypokalemia; Z79.01 Long term (current) use of anticoagulants; G47.00 Insomnia, unspecified; F32.A Depression, unspecified; Z86.711 Personal history of pulmonary embolism; Z79.899 Other long term (current) drug therapy
CPT/HCPCS: 36415; 73030; 80048; 81001; 85025; 85610; 87077; 87086; 87088; 87186; 87426; 87635; 87811; 92507; 92523; 92610; 97110; 97116; 97162; 97166; 97530; 97535; 97802; J8610; U0003; U0005

== ENCOUNTER 2022-03-06 15:59 | Outpatient (RCR) | payer MEDICARE, OTHER, SELFPAY ==
[2022-02-09 10:11] VITALS: BMI 40.0
[2022-03-06 17:11] LABS: International Normalized Ratio 2.5
== END 2022-03-11 03:17 | disposition home or self-care (01) ==
LOC: LAB 15:59
PROVIDERS: Family Provider Family Medicine; PCP Family Medicine; Referring Provider Internal Medicine Cardiovascular Disease; Visit Provider Internal Medicine Cardiovascular Disease
DX: I48.0 Paroxysmal atrial fibrillation (principal); Z79.01 Long term (current) use of anticoagulants
CPT/HCPCS: 36415; 85610

== ENCOUNTER 2022-03-28 16:11 | Outpatient (RCR) | payer MEDICARE, OTHER, SELFPAY ==
[2022-03-11 03:17] VITALS: BMI 40.0
[2022-03-28 18:09] LABS: International Normalized Ratio 2.2; Prothrombin Time (Protime)PT. 24.4 SECONDS (11.7-14.9)
== END 2022-03-28 18:00 | disposition home or self-care (01) ==
LOC: LAB 16:11
PROVIDERS: Family Provider Family Medicine; PCP Family Medicine; Referring Provider Internal Medicine Cardiovascular Disease; Visit Provider Internal Medicine Cardiovascular Disease
DX: I48.0 Paroxysmal atrial fibrillation (principal); Z79.01 Long term (current) use of anticoagulants
CPT/HCPCS: 36415; 85610

== ENCOUNTER 2022-05-02 13:56 | Outpatient (RCR) | payer MEDICARE, OTHER, SELFPAY ==
[2022-04-12 00:34] VITALS: BMI 40.0
--- NOTE | 2022-05-02 14:10 | RAD_ITS ---
STUDY: X-RAY - RIGHT SHOULDER REASON FOR EXAM: Female, 77 years old. Right shoulder pain. TECHNIQUE: 4 view(s) of the shoulder. COMPARISON: None. FINDINGS: Osteopenia. Moderate arthrosis of the glenohumeral joint. Mild arthrosis of the AC joint. Normal acromion. Sclerosis and cystic changes of the humeral head. The soft tissue structures are unremarkable. Normal visualized pulmonary apex. RAD/Shoulder min 2 Views IMPRESSION: Osteopenia with sclerosis and cystic changes of the humeral head. Moderate arthrosis of the glenohumeral joint. Mild arthrosis of the AC joint. No acute abnormality or erosive changes. Electronically Signed: Ceferino León, at 9:13 EDT ,
[2022-05-02 15:08] LABS: International Normalized Ratio 2.3; Prothrombin Time (Protime)PT. 25.2 SECONDS (11.7-14.9)
== END 2022-05-02 18:00 | disposition home or self-care (01) ==
LOC: LAB 13:56
PROVIDERS: Family Provider Family Medicine; PCP Family Medicine; Referring Provider Internal Medicine Cardiovascular Disease; Visit Provider Internal Medicine Cardiovascular Disease
DX: I48.0 Paroxysmal atrial fibrillation (principal); Z79.01 Long term (current) use of anticoagulants; M07.611 Enteropathic arthropathies, right shoulder
CPT/HCPCS: 36415; 73030; 85610

== ENCOUNTER 2022-06-04 15:47 | Outpatient (RCR) | payer MEDICARE, OTHER, SELFPAY ==
[2022-05-11 23:40] VITALS: BMI 40.0
[2022-06-04 17:48] LABS: International Normalized Ratio 1.9; Prothrombin Time (Protime)PT. 21.6 SECONDS (11.7-14.9)
[2022-06-04 18:09] LABS: Anion Gap 5 (5-15); BUN 21 mg/dL (7-18); BUN/Creat Ratio 30.5 RATIO (10-20); Calcium,Total 8.7 mg/dL (8.5-10.1); Chloride 106 mmol/L (98-107); Cholesterol 154 mg/dL (200); Creatinine, Serum 0.69 mg/dL (0.55-1.02); EST Glomerular Filtration Rate 88 mL/min (>60); Est Glom Filt Rate - Afr Amer 107 mL/min (>60); Glucose 99 mg/dL (74-106); High Density Lipoprotein 64 mg/dL; Potassium 4.4 mmol/L (3.5-5.1); Sodium Level 139 mmol/L (136-145); Triglycerides 128 mg/dL; Very Low Density Lipoprotein 26 mg/dL (5-40)
== END 2022-06-04 18:00 | disposition home or self-care (01) ==
LOC: MTLAB 15:47
PROVIDERS: Family Provider Family Medicine; PCP Family Medicine; Referring Provider Internal Medicine Cardiovascular Disease; Visit Provider Internal Medicine Cardiovascular Disease
DX: I48.0 Paroxysmal atrial fibrillation (principal); Z79.01 Long term (current) use of anticoagulants; E78.5 Hyperlipidemia, unspecified
CPT/HCPCS: 36415; 80048; 80061; 85610

== ENCOUNTER 2022-07-11 12:41 | Outpatient (RCR) | payer MEDICARE, OTHER, SELFPAY ==
[2022-06-12 10:23] VITALS: BMI 40.0
[2022-06-18 15:34] LABS: International Normalized Ratio 1.9; Prothrombin Time (Protime)PT. 21.5 SECONDS (11.7-14.9)
[2022-07-03 18:23] LABS: Prothrombin Time (Protime)PT. 31.2 SECONDS (11.7-14.9)
[2022-07-11 15:29] LABS: International Normalized Ratio 2.5; Prothrombin Time (Protime)PT. 26.5 SECONDS (11.7-14.9)
== END 2022-07-11 18:00 | disposition home or self-care (01) ==
LOC: MTLAB 12:41
PROVIDERS: Family Provider Family Medicine; PCP Family Medicine; Referring Provider Internal Medicine Cardiovascular Disease; Visit Provider Internal Medicine Cardiovascular Disease
DX: I48.0 Paroxysmal atrial fibrillation (principal); Z79.01 Long term (current) use of anticoagulants
CPT/HCPCS: 36415; 85610

== ENCOUNTER 2022-07-27 15:13 | Outpatient (RCR) | payer MEDICARE, OTHER, SELFPAY ==
[2022-07-12 02:55] VITALS: BMI 40.0
[2022-07-27 17:45] LABS: International Normalized Ratio 2.6; Prothrombin Time (Protime)PT. 27.7 SECONDS (11.7-14.9)
== END 2022-07-27 18:00 | disposition home or self-care (01) ==
LOC: MTLAB 15:13
PROVIDERS: Family Provider Family Medicine; PCP Family Medicine; Referring Provider Internal Medicine Cardiovascular Disease; Visit Provider Internal Medicine Cardiovascular Disease
DX: I48.0 Paroxysmal atrial fibrillation (principal); Z79.01 Long term (current) use of anticoagulants
CPT/HCPCS: 85610

== ENCOUNTER 2022-08-21 14:48 | Outpatient (RCR) | payer MEDICARE, OTHER, SELFPAY ==
[2022-08-12 06:45] VITALS: BMI 40.0
[2022-08-21 15:50] LABS: International Normalized Ratio 2.5; Prothrombin Time (Protime)PT. 26.8 SECONDS (11.7-14.9)
== END 2022-08-21 16:48 | disposition home or self-care (01) ==
LOC: MTLAB 14:48
PROVIDERS: Family Provider Family Medicine; PCP Family Medicine; Referring Provider Internal Medicine Cardiovascular Disease; Visit Provider Internal Medicine Cardiovascular Disease
DX: I48.0 Paroxysmal atrial fibrillation (principal); Z79.01 Long term (current) use of anticoagulants
CPT/HCPCS: 36415; 85610

== ENCOUNTER 2022-10-01 16:04 | Outpatient (RCR) | payer MEDICARE, OTHER, SELFPAY ==
[2022-09-12 07:30] VITALS: BMI 40.0
== END 2022-10-01 18:00 | disposition home or self-care (01) ==
LOC: MTLAB 16:04
PROVIDERS: Family Provider Family Medicine; PCP Family Medicine; Referring Provider Internal Medicine Cardiovascular Disease; Visit Provider Internal Medicine Cardiovascular Disease
DX: I48.0 Paroxysmal atrial fibrillation (principal); Z79.01 Long term (current) use of anticoagulants
CPT/HCPCS: 36415; 85610

== ENCOUNTER 2022-12-03 14:36 | Outpatient (RCR) | payer MEDICARE, OTHER, SELFPAY ==
[2022-10-09 23:37] VITALS: BMI 40.0
[2022-11-14 16:15] LABS: International Normalized Ratio 3.7; Prothrombin Time (Protime)PT. 36.3 SECONDS (11.7-14.9)
[2022-11-21 18:11] LABS: International Normalized Ratio 1.5; Prothrombin Time (Protime)PT. 17.4 SECONDS (11.7-14.9)
[2022-12-03 18:11] LABS: International Normalized Ratio 2.7; Prothrombin Time (Protime)PT. 28.6 SECONDS (11.7-14.9)
[2022-12-03 18:56] LABS: ALB/GLOB Ratio 0.9 RATIO (0.9-2.4); AST(SGOT) 34 U/L (15-37); Alanine Aminotransfer ALT/SGPT 35 U/L (13-56); Albumin, Serum 3.2 g/dL (3.2-5.0); Alkaline Phosphatase 66 U/L (45-117); Anion Gap 7 (5-15); BUN 10 mg/dL (7-18); BUN/Creat Ratio 14.2 RATIO (10-20); Calcium,Total 8.9 mg/dL (8.5-10.1); Chloride 108 mmol/L (98-107); Cholesterol 160 mg/dL (200); EST Glomerular Filtration Rate 86 mL/min (>60); Est Glom Filt Rate - Afr Amer 104 mL/min (>60); Globulin 3.6 g/dL (2.2-4.2); Glucose 122 mg/dL (74-106); High Density Lipoprotein 65 mg/dL; Potassium 4.2 mmol/L (3.5-5.1); Protein, Total 6.8 g/dL (6.4-8.2); Sodium Level 140 mmol/L (136-145); Thyroid Stim Hormone (TSH) 1.68 uIU/mL (0.358-3.74); Triglycerides 104 mg/dL; Very Low Density Lipoprotein 21 mg/dL (5-40)
== END 2022-12-09 05:14 | disposition home or self-care (01) ==
LOC: MTLAB 14:36
PROVIDERS: Family Provider Family Medicine; PCP Family Medicine; Referring Provider Internal Medicine Cardiovascular Disease; Visit Provider Internal Medicine Cardiovascular Disease
DX: I48.0 Paroxysmal atrial fibrillation (principal); Z79.01 Long term (current) use of anticoagulants; R63.5 Abnormal weight gain; E78.5 Hyperlipidemia, unspecified
CPT/HCPCS: 36415; 80053; 80061; 84443; 85610

== ENCOUNTER 2022-12-26 15:00 | Outpatient (RCR) | payer MEDICARE, OTHER, SELFPAY ==
[2022-12-09 05:14] VITALS: BMI 40.0
[2022-12-26 18:31] LABS: International Normalized Ratio 2.3; Prothrombin Time (Protime)PT. 25.4 SECONDS (11.7-14.9)
[2022-12-26 18:34] LABS: Erythrocyte Sedimentation Rate 6 mm/hr (0-30)
[2022-12-26 18:39] LABS: CRP < 2.90 mg/L (0.0-3.0)
== END 2022-12-26 16:00 | disposition home or self-care (01) ==
LOC: MTLAB 15:00
PROVIDERS: Family Provider Family Medicine; PCP Family Medicine; Referring Provider Internal Medicine Cardiovascular Disease; Visit Provider Internal Medicine Cardiovascular Disease
DX: I48.0 Paroxysmal atrial fibrillation (principal); Z79.01 Long term (current) use of anticoagulants
CPT/HCPCS: 36415; 85610; 85652; 86140

== ENCOUNTER 2023-02-08 14:14 | Outpatient (RCR) | payer MEDICARE, OTHER, SELFPAY ==
[2023-01-10 08:33] VITALS: BMI 40.0
[2023-02-08 17:39] LABS: International Normalized Ratio 3.7; Prothrombin Time (Protime)PT. 36.9 SECONDS (11.7-14.9)
== END 2023-02-08 18:00 | disposition home or self-care (01) ==
LOC: MTLAB 14:14
PROVIDERS: Family Provider Family Medicine; PCP Family Medicine; Referring Provider Internal Medicine Cardiovascular Disease; Visit Provider Internal Medicine Cardiovascular Disease
DX: I48.0 Paroxysmal atrial fibrillation (principal); Z79.01 Long term (current) use of anticoagulants
CPT/HCPCS: 36415; 85610

== ENCOUNTER 2023-02-10 17:47 | Emergency (ER) | payer MEDICARE, OTHER, SELFPAY ==
[2023-02-10 17:48] VITALS: BP 135/90; PULSE 63; RESP 16; TEMP 36.6; O2SAT 98
[2023-02-10 17:55] VITALS: BMI 36.8
--- NOTE | 2023-02-10 18:10 | EX.ED.UPPERE ---
HPI History of Present Illness Chief Complaint: Upper Extremity Injury Detail of Chief Complaint: Right arm pain Informant: patient Narrative Narrative: Patient presents with pain to the right arm that started last evening. Patient states she was sitting in her chair when she felt like maybe she there was a cramp in the dorsum of her forearm and she has had pain since that time. She had a hard time sleeping last night because of the pain. Patient denies any injury or fall. She is on Coumadin for history of A-fib and her last INR was 2 days ago and was 3.7. Patient states that she has so much discomfort that she has difficult time opening and closing her fingers because of all the pain. Patient took oxycodone at home which did not help with her pain. She tried some heat to the area which did not help very much. [facility] Medical History Cardiac murmur, unspecified Contusion of left knee Contusion of right hand Contusion of right wrist Essential (primary) hypertension History of pulmonary embolism (2014) Hyperlipidemia Long-term use of immunosuppressant medication Non-smoker Palpitations Paroxysmal atrial fibrillation Rheumatoid arthritis Right bundle branch block (RBBB) Trapezius muscle strain Traumatic ecchymosis of face Home Medications folic acid 1 mg tablet 1 mg PO QDAY Supplement 10/04/17 [History Last Taken 12/05/21] abatacept 125 mg/mL subcutaneous auto-injector (Orencia ClickJect) 125 mg subcut QMONTH RA 04/28/19 [History Last Taken 11/30/21] quetiapine 200 mg tablet 200 mg PO QHS mood 01/31/22 [History Last Taken Unknown] trazodone 100 mg tablet 100 mg PO QHS PRN PRN Sleep 01/31/22 [History Last Taken Unknown] sertraline 100 mg tablet 150 mg PO DAILY mood 02/05/22 [History Last Taken Unknown] acetaminophen 500 mg tablet 1,000 mg (2 x 500 mg) PO Q6H PRN PRN Pain Score 1-5 #0 tabs 02/20/22 [Rx Last Taken Unknown] oxycodone-acetaminophen 5 mg-325 mg tablet 1 tab PO BID PRN PRN Pain 3 days #6 tabs 02/20/22 [Rx Last Taken Unknown] amlodipine 10 mg tablet 10 mg PO DAILY BP #90 tabs 08/21/22 [Rx Last Taken Unknown] methotrexate sodium 2.5 mg tablet 15 mg (6 x 2.5 mg) PO QWEEK ARTHRITIS #90 tabs 08/21/22 [Rx Last Taken Unknown] metoprolol succinate 50 mg tablet,extended release 24 hr 50 mg PO BID #180 tabs 08/21/22 [Rx Last Taken Unknown] pravastatin 20 mg tablet 20 mg PO QHS Cholesterol #90 tabs 10/02/22 [Rx Last Taken Unknown] warfarin 6 mg tablet (Jantoven) 6 mg PO DINNER #90 tabs 10/02/22 [Rx Last Taken Unknown] warfarin 4 mg tablet 4 mg PO DAILY 11/14/22 [History Last Taken Unknown] Allergy/AdvReac Type Severity Reaction Status Date / Time Penicillins Allergy Rash Verified 02/10/23 17:47 Family History Father Diabetes CAD (coronary artery disease) S/P CABG (coronary artery bypass graft) Mother , age 74, CVA CVA (cerebral vascular accident) Brother Lung cancer Other Family history of CVA Surgical History History of appendectomy History of back surgery History of bilateral knee replacement History of brain tumor removal History of section History of open reduction and internal fixation (ORIF) procedure Social History household members: spouse Smoking Status: Never smoker alcohol intake: never caffeine: Yes Type: carbonated beverages and tea ROS ROS ED Review of Systems ROS Unobtainable: other Constitutional Constitutional ED: Reports lethargy; Denies chills, fever(s), sweats or weight loss Eyes Eyes: Denies blurry vision, change in vision or diplopia ENT ENT ED: Denies rhinorrhea or sore throat Cardiovascular Cardiovascular: Denies chest pain, orthopnea or racing heartbeat Respiratory/Chest Respiratory/Chest: Denies cough, dyspnea, dyspnea on exertion, orthopnea or sputum Gastrointestinal Gastrointestinal: Denies abdominal pain, diarrhea, nausea or vomiting Genitourinary Genitourinary ED: Denies dysuria, hematuria or urinary frequency Musculoskeletal Musculoskeletal: Reports other Details: Right arm pain ; Denies arthralgias, back pain, myalgias or neck pain Integumentary Denies abscess, Abrasions or rash Neurologic Neurologic: Denies headache(s) or weakness Psychiatric Psychiatric: Denies anxiety, depression or suicidal thoughts Endocrine Endocrinology: Denies polydipsia, polyphagia or polyuria Hematologic/Lymphatic Hematologic/Lymphatic: Denies easy bleeding, easy bruising or lymphadenopathy Allergic/Immunologic Allergic/Immunologic ED: Denies mouth swelling, tongue swelling or urticaria EXAM Physical Exam Const Vital Signs: 02/10/23 17:48 Temperature 97.9 F Temperature Source Temporal Pulse Rate 63 Respiratory Rate 16 Blood Pressure 135/90 H Blood Pressure Mean 105 Pulse Ox 98 Oxygen Delivery Method Room Air Positive well nourished and well developed General Appearance ED: well developed and NAD HEENT Reports TM's clear and moist mucous membranes normocephalic and atraumatic; Negative for trauma or tenderness Tympanic Membrane ED: Yes TM's clear Eyes PERRL and EOMs intact bilaterally General Eye ED: Negative for pale conjunctiva or scleral icterus Neck no lymphadenopathy, supple and no JVD General: Negative for tenderness Chest Wall inspection of chest normal and palpation of chest normal Chest: Negative for tenderness Resp normal respiratory effort and clear to auscultation bilaterally Effort and Inspection: Negative for respiratory distress or pain with movement Auscultation: Negative for rhonchi, wheezes or diminished lung sounds Cardio regular rate, regular rhythm, S1 normal heart sound, S2 normal heart sound and no murmurs Peripheral Pulses: pulses 2+ throughout GI normal to inspection, nondistended, normoactive bowel sounds, soft to palpation, non-tender, non-distended and no masses Back/Spine no CVA tenderness and no thoracic nor lumbar tenderness Extremity Extremity Narrative: Evaluation of the right arm reveals tenderness palpation diffusely over the extensor digitorum muscles. Compartments however seems soft. No bony tenderness on exam. She is able to open and close her fingers but she does have pain with extension of her digits. She has multiple areas of old ecchymosis involving the forearm from prior bumping into [place]her[place] as she walks with a walker at times. Patient has normal cap refill and normal radial and ulnar pulses. No evidence for compartment syndrome. General Extremety ED: Negative for edema General Extremity: Negative for edema Neuro oriented x3, CN's II-XII intact bilaterally, no sensory deficits noted and gait normal Sensorium / Orientation: awake, alert, oriented to person, oriented to place and oriented to time Motor Exam: strength 5/5 throughout and strength abnormal Psych mental status grossly normal Skin no rashes or lesions noted and no wounds MDM MDM MDM Narrative Medical decision making narrative: Patient with spontaneous right arm pain. I did review her INR result from 2 days ago and it was 3.7. She had no fall or injury therefore I do not feel x-rays would be indicated. Etiology of the pain is unclear although I suspect she may have had a spontaneous hemorrhage into the muscle causing pain. I will give her a dose of Dilaudid 1 mg IM. Patient has oxycodone at home. She does not want a sling. She is instructed to use ice to the area for comfort as needed. Patient has an appointment with orthopedics on February 20. She is advised to call the office and see if she can get in sooner to be seen within the next 3 to 5 days. Patient advised on signs and symptoms of compartment syndrome and to return if worsening pain, increased swelling, pallor to the fingertips, loss of function of the hand or condition should worsen anyway Discharge Plan Triage Chief Complaint: Upper Extremity Injury ED Provider: Araseli Lopez Dx/Rx/DC Orders Clinical Impression: Arm pain, right Instructions: ED Pain, Acute, Uncertain Cause Prescriptions: No Action folic acid 1 mg tablet 1 mg PO QDAY Orencia ClickJect 125 mg/mL auto-injector 125 mg SC QMONTH trazodone 100 mg tablet 100 mg PO QHS PRN PRN (Reason: Sleep) quetiapine 200 mg tablet 200 mg PO QHS sertraline 100 mg tablet 150 mg PO DAILY acetaminophen 500 mg Tablet 1,000 mg PO Q6H PRN PRN (Reason: Pain Score 1-5) Qty: 0 0RF oxycodone-acetaminophen 1 TABLET tablet 1 tab PO BID PRN PRN (Reason: Pain) 3 Days Qty: 6 0RF Patient Comments: PAIN metoprolol succinate 50 mg tablet extended release 24 hr 50 mg PO BID Qty: 180 4RF amlodipine 10 mg tablet 10 mg PO DAILY Qty: 90 4RF methotrexate sodium 2.5 mg tablet 15 mg PO QWEEK Qty: 90 4RF pravastatin 20 mg tablet 20 mg PO QHS Qty: 90 3RF warfarin [Jantoven] 6 mg tablet 6 mg PO DINNER Qty: 90 3RF Protocol: Dose Management Condition: Saturday Dose/Route: 6 mg Instruction: 1 x 6 mg tablet Condition: Saturday Dose/Route: 6 mg Instruction: 1 x 6 mg tablet Condition: Saturday Dose/Route: 6 mg Instruction: 1 x 6 mg tablet Condition: Saturday Dose/Route: 6 mg Instruction: 1 x 6 mg tablet Condition: Dose/Route: 6 mg Instruction: 1 x 6 mg tablet Condition: Saturday Dose/Route: 6 mg Instruction: 1 x 6 mg tablet Condition: Saturday Dose/Route: 6 mg Instruction: 1 x 6 mg tablet Protocol Text: Adjustment Start Date: 12/27/22 INR Value: 2.3 INR Date: 12/26/22 Recheck Date: 01/24/23 warfarin 4 mg tablet 4 mg PO DAILY Protocol: Dose Management Condition: Saturday Dose/Route: 6 mg Instruction: 1 x 6 mg tablet Condition: Saturday Dose/Route: 6 mg Instruction: 1 x 6 mg tablet Condition: Saturday Dose/Route: 6 mg Instruction: 1 x 6 mg tablet Condition: Saturday Dose/Route: 6 mg Instruction: 1 x 6 mg tablet Condition: Dose/Route: 6 mg Instruction: 1 x 6 mg tablet Condition: Saturday Dose/Route: 6 mg Instruction: 1 x 6 mg tablet Condition: Saturday Dose/Route: 6 mg Instruction: 1 x 6 mg tablet Protocol Text: Adjustment Start Date: 12/27/22 INR Value: 2.3 INR Date: 12/26/22 Recheck Date: 01/24/23 Primary Care Provider: Low Baxter Referrals: Low Baxter MD [Primary Care Provider] - Gen Shea MD [Med Staff - Active Staff] - 3-5 Days Disposition Disposition: Home, Self Care
[2023-02-10] MEDS: HYDROmorphone 1 MG/ML Syringe IM (18:16)
== END 2023-02-10 18:37 | disposition home or self-care (01) ==
LOC: ED 18:34
PROVIDERS: Emergency Provider Emergency Medicine; PCP Family Medicine; Visit Provider Emergency Medicine
DX: M79.601 Pain in right arm (principal); M06.9 Rheumatoid arthritis, unspecified; I48.0 Paroxysmal atrial fibrillation; I10 Essential (primary) hypertension; E78.5 Hyperlipidemia, unspecified; Z79.01 Long term (current) use of anticoagulants; Z79.899 Other long term (current) drug therapy
CPT/HCPCS: 96372; 99282

== ENCOUNTER 2023-02-15 09:24 | Inpatient (IN) | payer MEDICARE, OTHER, SELFPAY ==
[2023-02-15 09:25] VITALS: BP 114/57; PULSE 66; RESP 14; TEMP 36.6; O2SAT 90
[2023-02-15 09:58] VITALS: BMI 36.3
--- NOTE | 2023-02-15 11:00 | RAD_ITS ---
STUDY: X-RAY - RIGHT RADIUS AND ULNA REASON FOR EXAM: Female, 78 years old. Injury/Pain TECHNIQUE: 2 view(s) of the forearm. COMPARISON: None. FINDINGS: There is no demonstrated soft tissue swelling. Nondisplaced radial neck fracture. Normal visualized ulna. Status post fusion of the radial carpal bones. RAD/Forearm 2 Views IMPRESSION: Nondisplaced radial neck fracture. Electronically Signed: Shoaib Porras MD at 12:05 EDT ,
[2023-02-15] MEDS: Morphine 4 MG/ML Syringe IV ×2 (11:17→14:35)
--- NOTE | 2023-02-15 11:20 | RAD_ITS ---
STUDY: X-RAY - RIGHT ELBOW REASON FOR EXAM: Female, 78 years old. Bruising of the left forearm. TECHNIQUE: 2 view(s) of the elbow. COMPARISON: None. FINDINGS: Nondisplaced radial neck fracture. Normal radiocapitellar and ulnotrochlear articulations. Joint effusion. RAD/Elbow min 3 Views IMPRESSION: Nondisplaced radial neck fracture and joint effusion. Electronically Signed: Shoaib Porras MD at 12:04 EDT ,
--- NOTE | 2023-02-15 11:21 | EDS_ITS ---
HPI History of Present Illness HPI Narrative: Patient presents with pain and swelling to her right forearm that has been getting worse over the past 5 to 6 days. Patient was seen here 5 days ago and since that time the bruising and swelling is gotten worse. Patient states that 5 days ago there was only minimal bruising. Patient states her pain in her forearm is getting worse. Patient describes it as sharp. Patient states it is worse with any movement. Patient states nothing seems to help with it. Patient admits to some tingling over her little finger and ring finger but denies any weakness. Patient denies any falls or trauma. Patient is on Coumadin for atrial fibrillation. Chief Complaint: Upper Extremity Injury Onset/Context/Timing Onset: Days (5-6) Context: Gradual Onset Timing: Continuous Quality of Pain: Sharp Location: Right forearm Worsened by: Movement Relieved by: Nothing Associated Symptoms Associated Symptoms: Positive for Parasthesia (Right fourth and fifth fingers); Negative for Weakness or Loss [facility]ion [facility] Cardiac murmur, unspecified Contusion of left knee Contusion of right hand Contusion of right wrist Essential (primary) hypertension History of pulmonary embolism (2014) Hyperlipidemia Long-term use of immunosuppressant medication Non-smoker Palpitations Paroxysmal atrial fibrillation Pulmonary embolism Rheumatoid arthritis Right bundle branch block (RBBB) Trapezius muscle strain Traumatic ecchymosis of face Home Medications folic acid 1 mg tablet 1 mg PO QDAY Supplement 10/04/17 [History Last Taken 12/05/21] abatacept 125 mg/mL subcutaneous auto-injector (Orencia ClickJect) 125 mg subcut QMONTH RA 04/28/19 [History Last Taken 11/30/21] quetiapine 200 mg tablet 200 mg PO QHS mood 01/31/22 [History Last Taken Unknown] trazodone 100 mg tablet 100 mg PO QHS PRN PRN Sleep 01/31/22 [History Last Taken Unknown] sertraline 100 mg tablet 150 mg PO DAILY mood 02/05/22 [History Last Taken Unknown] acetaminophen 500 mg tablet 1,000 mg (2 x 500 mg) PO Q6H PRN PRN Pain Score 1-5 #0 tabs 02/20/22 [Rx Last Taken Unknown] oxycodone-acetaminophen 5 mg-325 mg tablet 1 tab PO BID PRN PRN Pain 3 days #6 tabs 02/20/22 [Rx Last Taken Unknown] amlodipine 10 mg tablet 10 mg PO DAILY BP #90 tabs 08/21/22 [Rx Last Taken Unkn own] methotrexate sodium 2.5 mg tablet 15 mg (6 x 2.5 mg) PO QWEEK ARTHRITIS #90 tabs 08/21/22 [Rx Last Taken Unknown] metoprolol succinate 50 mg tablet,extended release 24 hr 50 mg PO BID #180 tabs 08/21/22 [Rx Last Taken Unknown] pravastatin 20 mg tablet 20 mg PO QHS Cholesterol #90 tabs 10/02/22 [Rx Last Taken Unknown] warfarin 6 mg tablet (Augtoven) 6 mg PO DINNER #90 tabs 10/02/22 [Rx Last Taken Unknown] warfarin 4 mg tablet 4 mg PO DAILY 11/14/22 [History Last Taken Unknown] Allergy/AdvReac Type Severity Reaction Status Date / Time Penicillins Allergy Rash Verified 02/15/23 09:24 Family History Father Diabetes CAD (coronary artery disease) S/P CABG (coronary artery bypass graft) Mother , age 74, CVA CVA (cerebral vascular accident) Brother Lung cancer Other Family history of CVA Surgical History History of appendectomy History of back surgery History of bilateral knee replacement History of brain tumor removal History of section History of open reduction and internal fixation (ORIF) procedure Social History household members: spouse Smoking Status: Never smoker alcohol intake: never caffeine: Yes Type: carbonated beverages and tea ROS ROS ED Constitutional Constitutional ED: Denies chills or fever(s) Eyes Eyes: Denies blurry vision or change in vision ENT ENT ED: Denies rhinorrhea or sore throat Cardiovascular Cardiovascular: Denies chest pain or palpitations Respiratory/Chest Respiratory/Chest: Denies cough or dyspnea Gastrointestinal Gastrointestinal: Denies nausea or vomiting Genitourinary Genitourinary ED: Denies dysuria or hematuria Musculoskeletal Musculoskeletal: Denies back pain or neck pain Integumentary Denies abscess or rash Neurologic Neurologic: Reports paresthesias RUE (Right fourth and fifth fingers); Denies headache(s) or weakness Allergic/Immunologic Allergic/Immunologic ED: Denies mouth swelling or urticaria EXAM Physical Exam Const Vital Signs: 02/15/23 09:25 Temperature 98 F Temperature Source Temporal Pulse Rate 66 Respiratory Rate 14 Blood Pressure 114/57 L Blood Pressure Mean 76 Pulse Ox 90 Positive well nourished and well developed General Appearance ED: well developed and NAD HEENT Reports moist mucous membranes Neck full ROM and supple Resp normal respiratory effort and clear to auscultation bilaterally Cardio regular rate Rhythm: abnormal rhythm irregularly irregular Extremity Extremity Narrative: There is tenderness, edema, and ecchymosis over the right distal arm, elbow, and forearm. There is no bony crepitance or step-off. There is no obvious deformity noted. Radial pulses are equal bilaterally. Sensation was intact to light touch in the radial, median, and ulnar areas. Strength is 4/5 in the radial, median, and ulnar areas. This was limited due to pain. There is some edema of the forearm compartments. There is some firmness to the forearm compartments. Neuro oriented x3, CN's II-XII intact bilaterally, moves all extremities, no focal motor deficits and no sensory deficits noted Sensorium / Orientation: alert Psych mental status grossly normal MDM MDM MDM Narrative Medical decision making narrative: Differential diagnosis includes compartment syndrome, hematoma, coagulopathy, and occult fracture. X-rays of the right elbow and right forearm will be obtained to assess for fracture. CBC will be obtained to assess for anemia and leukocytosis. Basic metabolic profile will be obtained to assess for electrolyte abnormality and renal function. PT with INR and PTT will be obtained to assess for coagulopathy. Lab Data Attestation: I reviewed the patient's lab results. Lab results narrative: CBC was reviewed. There is a mild leukocytosis of 11.8. Basic metabolic profile was reviewed. Glucose was slightly elevated at 133. The remainder was essentially within normal limits. PT with INR and PTT were reviewed. Pro time was elevated at 43.5. INR was elevated at 4.5. PTT was elevated at 111.7. Radiography Diagnostic Testing: X-rays of the right elbow were obtained. There are 2 views. On my independent interpretation, there is a nondisplaced fracture of the radial neck. There is a joint effusion noted. Radiologist also interpreted the x-rays and agrees. X-rays of the right forearm were obtained. There are 2 views. On my independent interpretation, there is nondisplaced fracture of the radial neck. Radiologist also interpreted the x-rays and agrees. Treatment and Re-Evaluation Narrative: Case was discussed with Dr. Marks from orthopedics. He recommended admission for observation. He recommended holding the patient's Coumadin. He recommended keeping the hand elevated. He also recommended obtaining a CT scan of the forearm. This was ordered. Case was discussed with the hospitalist. 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, Coagulopathy Prescriptions: No Action folic acid 1 mg tablet 1 mg PO QDAY Orencia ClickJect 125 mg/mL auto-injector 125 mg SC QMONTH trazodone 100 mg tablet 100 mg PO QHS PRN PRN (Reason: Sleep) quetiapine 200 mg tablet 200 mg PO QHS sertraline 100 mg tablet 150 mg PO DAILY acetaminophen 500 mg Tablet 1,000 mg PO Q6H PRN PRN (Reason: Pain Score 1-5) Qty: 0 0RF oxycodone-acetaminophen 1 TABLET tablet 1 tab PO BID PRN PRN (Reason: Pain) 3 Days Qty: 6 0RF Patient Comments: PAIN metoprolol succinate 50 mg tablet extended release 24 hr 50 mg PO BID Qty: 180 4RF amlodipine 10 mg tablet 10 mg PO DAILY Qty: 90 4RF methotrexate sodium 2.5 mg tablet 15 mg PO QWEEK Qty: 90 4RF pravastatin 20 mg tablet 20 mg PO QHS Qty: 90 3RF warfarin [Jantoven] 6 mg tablet 6 mg PO DINNER Qty: 90 3RF Protocol: Dose Management Condition: Saturday Dose/Route: 6 mg Instruction: 1 x 6 mg tablet Condition: Saturday Dose/Route: 0 mg Instruction: 0 tablets Condition: Saturday Dose/Route: 3 mg Instruction: 0.5 x 6 mg tablets Condition: Saturday Dose/Route: 6 mg Instruction: 1 x 6 mg tablet Condition: Dose/Route: 6 mg Instruction: 1 x 6 mg tablet Condition: Saturday Dose/Route: 6 mg Instruction: 1 x 6 mg tablet Condition: Saturday Dose/Route: 6 mg Instruction: 1 x 6 mg tablet Protocol Text: Adjustment Start Date: Saturday02/11/23 INR Value: 3.7 INR Date: 02/08/23 Recheck Date: 02/13/23 warfarin 4 mg tablet 4 mg PO DAILY Protocol: Dose Management Condition: Saturday Dose/Route: 6 mg Instruction: 1 x 6 mg tablet Condition: Saturday Dose/Route: 0 mg Instruction: 0 tablets Condition: Saturday Dose/Route: 3 mg Instruction: 0.5 x 6 mg tablets Condition: Saturday Dose/Route: 6 mg Instruction: 1 x 6 mg tablet Condition: Dose/Route: 6 mg Instruction: 1 x 6 mg tablet Condition: Saturday Dose/Route: 6 mg Instruction: 1 x 6 mg tablet Condition: Saturday Dose/Route: 6 mg Instruction: 1 x 6 mg tablet Protocol Text: Adjustment Start Date: Saturday02/11/23 INR Value: 3.7 INR Date: 02/08/23 Recheck Date: 02/13/23 Primary Care Provider: Low Baxter Referrals: Low Baxter MD [Primary Care Provider] -
[2023-02-15 11:26] LABS: Absolute Lymphocyte Count 1.78 X10^3/uL (0.83-4.51); Absolute Neutrophil Count 8.8 X10^3/uL (2.0-7.7); Basophil# 0.03 X10^3/uL; Basophil% 0.3 % (0-1); Eosinophil# 0.16 X10^3/uL; Eosinophils% 1.4 % (0-5); Hematocrit 38.3 % (37-47); Hemoglobin 12.6 g/dL (12.0-15.0); Lymphocyte # 1.78 X10^3/ul (0.83-4.51); Lymphocyte % 15.1 % (19-41); Mean Corp Hgb Conc 32.9 g/dL (32-36); Mean Corpuscular Hgb 31.2 pg (27.0-32.0); Mean Corpuscular Volume 94.8 fL (81-99); Mean Platelet Vol. 9.8 fl (6.2-12.0); Monocyte# 0.97 X10^3/uL; Monocyte% 8.2 % (0-10); NRBC Flagged by Analyzer 0 % (0-5); Neutrophil # 8.84 X10^3/uL (2.7-7.7); Neutrophil % 74.7 % (47-70); Platelet Count 267 K/mm3 (150-450); RBC Distribution Width CV 12.1 % (11.6-14.6); RBC Distribution Width SD 42.3 fl (35.1-43.9); Red Blood Count 4.04 M/mm3 (4.2-5.4); White Blood Count 11.8 K/mm3 (4.4-11.0)
[2023-02-15 11:37] LABS: Prothrombin Time (Protime)PT. 43.5 SECONDS (11.7-14.9)
[2023-02-15 11:40] LABS: Anion Gap 3 (5-15); BUN 15 mg/dL (7-18); BUN/Creat Ratio 23.5 RATIO (10-20); Chloride 102 mmol/L (98-107); Creatinine, Serum 0.64 mg/dL (0.55-1.02); EST Glomerular Filtration Rate 96 mL/min (>60); Est Glom Filt Rate - Afr Amer 116 mL/min (>60); Estimated Creatinine Clearance 37.85 ml/min; Glucose 133 mg/dL (74-106); Potassium 4.4 mmol/L (3.5-5.1); Sodium Level 134 mmol/L (136-145)
[2023-02-15 11:49] LABS: International Normalized Ratio 4.5; Partial Thromboplast Time 111.7 Seconds (24.1-36.2)
--- NOTE | 2023-02-15 11:50 | ED.RN ---
LAB CALLED CRITICAL OF PTT 111.[address] PASCAL
--- NOTE | 2023-02-15 12:43 | CT_ITS ---
STUDY: CT RIGHT ELBOW WITHOUT CONTRAST REASON FOR EXAM: Female, 78 years old. Fracture RADIATION DOSAGE (If Supplied By Facility): CTDIvol = ( 24.58 ) mGy, DLP = ( 929.37 ) mGycm TECHNIQUE: Transaxial CT imaging of the elbow was performed. Sagittal and coronal images were reconstructed. Individualized dose optimization techniques were used for this CT. COMPARISON: Comparison is made with prior radiographs done earlier today. FINDINGS: Nondisplaced radial neck fracture. Normal radiocapitellar and ulnotrochlear articulations. Prior fusion of the radiocarpal joint. Joint effusion. Soft tissue swelling. CT/Extremity Upper without Contra IMPRESSION: Nondisplaced fracture of the radial neck with overlying soft tissue swelling and joint effusion. Electronically Signed: Shoaib Porras MD at 13:49 EDT ,
--- NOTE | 2023-02-15 13:29 | PCM.HP.STD ---
HPI - General General Date of Admission: 02/15/23 Date of Service: 02/15/23 Chief Complaint: RUE pain HPI Narrative Lynda Perez is a 78-year-old female with history of hypertension, rheumatoid arthritis, PE in 2014, paroxysmal atrial fibrillation and hyperlipidemia who presented to [facility] 02/15/2023 with pain and swelling in her right forearm that has worsened over the past 5 to 6 days. She was here 5 days ago since then the bruising and swelling were worse. Pain is sharp and worse with movement. Has some tingling on little finger and ring finger. Takes Coumadin chronically for A-fib. In the ED x-ray showed right radial neck fracture. Patient complained of pain when moving her fingers and also some tingling especially in fourth and fifth fingers on that hand, Ortho contacted who recommended CT scan and that they would see her in evaluation. Hospitalist contacted for admission. Patient evaluated with significant other at bedside, they report that she was in her previous health until little over a week ago when a Tupperware container with serial fell from her refrigerator and hit her arm, did not have any significant pain or bleeding or bruising however on Saturday she did start having some cramping when she came in. It did not appear fractured at the time and there was no significant bleeding/bruising/pain out of proportion so patient was discharged home. Today she returns as she has had worsening pain and swelling over the past 2 days that is now going both up and down her arm and she also has had tingling in her fourth and fifth fingers and it hurts in her arm when she moves any of her fingers. Discussed her elevated INR and she reports she has changed no other medications, is taking her Coumadin as prescribed has not altered her diet. Patient denies any other complaints today. [facility] Medical History Cardiac murmur, unspecified Contusion of left knee Contusion of right hand Contusion of right wrist Essential (primary) hypertension History of pulmonary embolism (2014) Hyperlipidemia Long-term use of immunosuppressant medication Non-smoker Palpitations Paroxysmal atrial fibrillation Pulmonary embolism Rheumatoid arthritis Right bundle branch block (RBBB) Trapezius muscle strain Traumatic ecchymosis of face Home Medications folic acid 1 mg tablet 1 mg PO QDAY Supplement 10/04/17 [History Last Taken 02/15/23] abatacept 125 mg/mL subcutaneous auto-injector (Orencia ClickJect) 125 mg subcut QMONTH RA 04/28/19 [History Last Taken 01/29/23] quetiapine 200 mg tablet 200 mg PO QHS mood 01/31/22 [History Last Taken 02/14/23] trazodone 100 mg tablet 100 mg PO QHS PRN PRN Sleep 01/31/22 [History Last Taken 02/14/23] sertraline 100 mg tablet 100 mg PO DAILY mood 02/05/22 [History Last Taken 02/14/23] amlodipine 10 mg tablet 10 mg PO DAILY BP #90 tabs 08/21/22 [Rx Last Taken 02/15/23] metoprolol succinate 50 mg tablet,extended release 24 hr 50 mg PO BID #180 tabs 08/21/22 [Rx Last Taken 02/15/23] pravastatin 20 mg tablet 20 mg PO QHS Cholesterol #90 tabs 10/02/22 [Rx Last Taken 02/14/23] warfarin 6 mg tablet (Ochoatoven) 6 mg PO DINNER #90 tabs 10/02/22 [Rx Last Taken 02/14/23] RELEASE SLEEP 2 tab PO QHS 02/15/23 [History Last Taken 02/14/23] acetaminophen 650 mg tablet,extended release 1,300 mg PO TID PRN pain 02/15/23 [History Last Taken 02/14/23] hydroxychloroquine 200 mg tablet 200 mg PO DAILY 02/15/23 [History Last Taken 02/15/23] methotrexate sodium 2.5 mg tablet 15 mg PO TH ARTHRITIS 02/15/23 [History Last Taken 02/14/23] oxycodone 5 mg tablet 5 mg PO TID 02/15/23 [History Last Taken 02/15/23] Allergy/AdvReac Type Severity Reaction Status Date / Time Penicillins Allergy Rash Verified 02/15/23 09:24 Family History Father Diabetes CAD (coronary artery disease) S/P CABG (coronary artery bypass graft) Mother , age 74, CVA CVA (cerebral vascular accident) Brother Lung cancer Other Family history of CVA Surgical History History of appendectomy History of back surgery History of bilateral knee replacement History of brain tumor removal History of section History of open reduction and internal fixation (ORIF) procedure Social History household members: spouse Smoking Status: Never smoker alcohol intake: never caffeine: Yes Type: carbonated beverages and tea ROS ROS Narrative General: Denies fever/chills HENT: Denies headache, denies stuffy nose, denies sore throat EYES: Denies changes in vision Resp: Denies cough, denies shortness of breath Cardiac: Denies chest pain GI: Denies abdominal pain, denies changes in bowel, denies nausea/vomiting : Denies changes in urination Extremity: Swelling in right upper extremity MSK: Feels right hand is somewhat weak Neuro: Has some tingling in fourth and fifth digits on right side Heme: Bruising of right upper extremity Skin: Denies rashes but does have bruising as above Psychiatric: No complaints voiced Vital Signs Vital Signs Vital Signs: 02/15/23 09:25 Temperature 98 F Temperature Source Temporal Pulse Rate 66 Respiratory Rate 14 Blood Pressure 114/57 L Blood Pressure Mean 76 Pulse Ox 90 Weight Weight: 90.1 kg Body Mass Index (BMI) 36.3 Physical Exam Narrative General: Alert, oriented, no apparent distress HEENT: Atraumatic, normocephalic Eyes: Anicteric, normal conjunctiva, extraocular movements grossly intact Neck: Supple Respiratory: Clear to auscultation bilaterally, normal respiratory effort Cardiovascular: Regular rate and rhythm GI: Soft, nontender, nondistended Extremities: Right upper extremity with bruising, painful on palpation of most of her arm and when she moves her fingers, does have good radial pulse, is weaker with that hand however her strength is limited in part due to pain so difficult to assess further Musculoskeletal: Moving all extremities Neuro: Endorses the tingling in the fingers but no other overt focal deficits Skin: Bruising and swelling of right arm going up to right bicep Psych: Cooperative Results Lab / Micro Data 02/15/23 11:10 02/15/23 11:10 Labs: Laboratory Results - last 24 hr 02/15/23 11:10: WBC 11.8 H, RBC 4.04 L, Hgb 12.6, Hct 38.3, MCV 94.8, MCH 31.2, MCHC 32.9, RDW Std Deviation 42.3, RDW Coeff of Sonya 12.1, Plt Count 267, MPV 9.8, Immature Gran % (Auto) 0.300, Neut % (Auto) 74.7 H, Lymph % (Auto) 15.1 L, [place] % (Auto) 8.2, Eos % (Auto) 1.4, Baso % (Auto) 0.3, Absolute Neuts (auto) 8.8 H, Absolute Lymphs (auto) 1.78, Nucleated RBC % 0, PT 43.5 H, INR 4.5 H*, APTT 111.7 H*, Sodium 134 L, Potassium 4.4, Chloride 102, Carbon Dioxide 29.0, Anion Gap 3 L, BUN 15, Creatinine 0.64, Estim Creat Clear Calc 37.85, Est GFR (MDRD) Af Amer 116, Est GFR (MDRD) Non-Af 96, BUN/Creatinine Ratio 23.5 H, Glucose 133 H, Calcium 9.0 Radiology Impression Forearm X-Ray 02/15/23 11:00 IMPRESSION: Nondisplaced radial neck fracture. Electronically Signed: Shoaib Porras MD at 12:05 EDT , Elbow X-Ray 02/15/23 11:20 IMPRESSION: Nondisplaced radial neck fracture and joint effusion. Electronically Signed: Shoaib Porras MD at 12:04 EDT , Assessment & Plan Assessment/Plan (1) Fracture of radial neck, right, closed: (2) Arm pain, right: (3) Rheumatoid arthritis: (4) History of pulmonary embolism: (5) Paroxysmal atrial fibrillation: (6) Elevated INR: PLAN: Plan #Right arm bruising and swelling 2/2 nondisplaced radial neck fracture -Radial fracture seen on x-ray, Dr. 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
[2023-02-15 13:53] VITALS: BP 132/53; PULSE 62; RESP 14; TEMP 36.4; O2SAT 94
[2023-02-15 14:53] LABS: Lactic Acid 0.7 mmol/L (0.4-1.9)
[2023-02-15 15:33] VITALS: BMI 35.7
[2023-02-15 15:44] VITALS: BP 137/60; PULSE 64; RESP 20; TEMP 36.5; O2SAT 93
[2023-02-15 15:54] VITALS: PULSE 80
[2023-02-15 16:57] LABS: Erythrocyte Sedimentation Rate 30 mm/hr (0-30)
[2023-02-15 16:59] LABS: AST(SGOT) 30 U/L (15-37); Alanine Aminotransfer ALT/SGPT 16 U/L (13-56); Albumin, Serum 2.8 g/dL (3.2-5.0); Alkaline Phosphatase 65 U/L (45-117); Bilirubin, Direct 0.13 mg/dL (0.00-0.30); CPK Total, Creatine Kinase 255 U/L (26-192); Globulin 3.6 g/dL (2.2-4.2); Protein, Total 6.4 g/dL (6.4-8.2)
--- NOTE | 2023-02-15 17:20 | CON.PCM.OR_ITS ---
HPI Consult Data Date of Consult: 02/15/23 HPI Narrative Reason for Consultation: right forearm pain HPI Narrative: MURIEL CHRISTINE, is a 78 F who presents to [facility] emergency department today after worsening right forearm pain. Patient denies significant trauma but does report injury to her right elbow when a cereal box fell on her right arm approximately 2 weeks ago. She states this was sore at that time but did not cause significant issues. INR was checked last week and was found to be 3.7. She reports changing her diet eating mostly salads. She noted ecchymosis in her right elbow and forearm worsening over the last few days. Pain also worsened. She returned emergency department due to the pain today. X-rays were obtained demonstrating a nondisplaced radial neck fracture. I was called from emergency department. There was concern for possible compartment syndrome. I saw the patient in consultation after she was admitted by the hospitalist. Patient was resting comfortably upon my exam. She denies any antecedent problems with her right elbow or forearm. She has a remote right wrist arthrodesis performed approximately 25 years ago. She reports occasional numbness and tingling in her right hand. She denies fevers, chills, nausea vomiting, chest pain or shortness of breath. INR today was 4.5. [facility] Medical History (Updated 02/15/23 @ 17:[address] Andrez Marks, ) Atrial fibrillation Cardiac murmur, unspecified Chronic pain Contusion of left knee Contusion of right hand Contusion of right wrist Essential (primary) hypertension History of pulmonary embolism (2014) Hyperlipidemia Long-term use of immunosuppressant medication Non-smoker Palpitations Paroxysmal atrial fibrillation Pulmonary embolism Rheumatoid arthritis Right bundle branch block (RBBB) Trapezius muscle strain Traumatic ecchymosis of face Home Medications folic acid 1 mg tablet 1 mg PO QDAY Supplement 10/04/17 [History Last Taken 02/15/23] abatacept 125 mg/mL subcutaneous auto-injector (Orencia ClickJect) 125 mg subcut QMONTH RA 04/28/19 [History Last Taken 01/29/23] quetiapine 200 mg tablet 200 mg PO QHS mood 01/31/22 [History Last Taken 02/14/23] trazodone 100 mg tablet 100 mg PO QHS PRN PRN Sleep 01/31/22 [History Last Taken 02/14/23] sertraline 100 mg tablet 100 mg PO DAILY mood 02/05/22 [History Last Taken 02/14/23] amlodipine 10 mg tablet 10 mg PO DAILY BP #90 tabs 08/21/22 [Rx Last Taken 0 02/15/23] metoprolol succinate 50 mg tablet,extended release 24 hr 50 mg PO BID #180 tabs 08/21/22 [Rx Last Taken 02/15/23] pravastatin 20 mg tablet 20 mg PO QHS Cholesterol #90 tabs 10/02/22 [Rx Last Taken 02/14/23] warfarin 6 mg tablet (Jantoven) 6 mg PO DINNER #90 tabs 10/02/22 [Rx Last Taken 02/14/23] RELEASE SLEEP 2 tab PO QHS 02/15/23 [History Last Taken 02/14/23] acetaminophen 650 mg tablet,extended release 1,300 mg PO TID PRN pain 02/15/23 [History Last Taken 02/14/23] hydroxychloroquine 200 mg tablet 200 mg PO DAILY 02/15/23 [History Last Taken 02/15/23] methotrexate sodium 2.5 mg tablet 15 mg PO TH ARTHRITIS 02/15/23 [History Last Taken 02/14/23] oxycodone 5 mg tablet 5 mg PO TID 02/15/23 [History Last Taken 02/15/23] Allergy/AdvReac Type Severity Reaction Status Date / Time Penicillins Allergy Rash Verified 02/15/23 15:50 Family History Father Diabetes CAD (coronary artery disease) S/P CABG (coronary artery bypass graft) Mother , age 74, CVA CVA (cerebral vascular accident) Brother Lung cancer Other Family history of CVA Surgical History History of appendectomy History of back surgery History of bilateral knee replacement History of brain tumor removal History of section History of open reduction and internal fixation (ORIF) procedure Social History household members: spouse Smoking Status: Never smoker alcohol intake: never caffeine: Yes Type: carbonated beverages and tea ROS ROS Narrative 12 point review of systems obtained, negative less otherwise noted in HPI. Vital Signs Vital Signs Vital Signs: 02/15/23 09:25 02/15/23 13:53 02/15/23 15:44 Temperature 98 F 97.6 F L 97.7 F L Temperature Source Temporal Oral Temporal Pulse Rate 66 62 64 Respiratory Rate 14 14 20 H Respiratory Effort Respiratory Depth Respiratory Pattern Blood Pressure 114/57 L 132/53 H 137/60 H Blood Pressure Mean 76 79 85 Blood Pressure Source Monitor Blood Pressure Position Semi-Fowlers Blood Pressure Location Left Arm Pulse Ox 90 94 93 Oxygen Delivery Method Room Air Room Air 02/15/23 15:54 Temperature Temperature Source Pulse Rate 80 Respiratory Rate Respiratory Effort Normal Respiratory Depth Normal Respiratory Pattern Normal Blood Pressure Blood Pressure Mean Blood Pressure Source Blood Pressure Position Blood Pressure Location Pulse Ox Oxygen Delivery Method Room Air Weight Weight: 195 lb 8.8 oz Body Mass Index (BMI) 35.7 Physical Exam Narrative General -A&Ox3, NAD, appears stated age. Vital signs stable, afebrile. Respiratory -normal work of breathing, no intercostal retractions. CV -pulses regular, brisk capillary refill ?4 limbs. Abdomen-soft, nontender, nondistended. No guarding, rigidity, rebound tenderness. Musculoskeletal/neurologic - nontender throughout bilateral lower extremities, left upper extremity with full sensation and strength in all dermatomes and myotomes. No midline cervical tenderness. Right upper extremity: Diffuse ecchymosis noted along the volar ulnar proximal forearm and elbow. She has tenderness palpation overlying the radial neck. The elbow has a smooth arc of range of motion. There is minimal tenderness palpation along along the extensor compartment of the forearm. The volar compartment is swollen and firm. There is tenderness to palpation. She has pain with passive stretch at the end range of motion. Sensation is intact to light touch median/ulnar/radial nerve distributions of the right hand. Cardinal motions of the right hand are intact. Brisk capillary refill in digits. Radial pulse 2+. Lab / Micro Data 02/15/23 11:10 02/15/23 11:10 Labs: Laboratory Results - last 24 hr 02/15/23 11:10: WBC 11.8 H, RBC 4.04 L, Hgb 12.6, Hct 38.3, MCV 94.8, MCH 31.2, MCHC 32.9, RDW Std Deviation 42.3, RDW Coeff of Sonya 12.1, Plt Count 267, MPV 9.8, Immature Gran % (Auto) 0.300, Neut % (Auto) 74.7 H, Lymph % (Auto) 15.1 L, Gordon % (Auto) 8.2, Eos % (Auto) 1.4, Baso % (Auto) 0.3, Absolute Neuts (auto) 8.8 H, Absolute Lymphs (auto) 1.78, Nucleated RBC % 0, ESR 30, PT 43.5 H, INR 4.5 H*, APTT 111.7 H*, Sodium 134 L, Potassium 4.4, Chloride 102, Carbon Dioxide 29.0, Anion Gap 3 L, BUN 15, Creatinine 0.64, Estim Creat Clear Calc 37.85, Est GFR (MDRD) Af Amer 116, Est GFR (MDRD) Non-Af 96, BUN/Creatinine Ratio 23.5 H, Glucose 133 H, Calcium 9.0, Total Bilirubin 0.30, Direct Bilirubin 0.13, AST 30, ALT 16, Alkaline Phosphatase 65, Total Creatine Kinase 255 H, C-React Prot Ext Range 62.50 H, Total Protein 6.4, Albumin 2.8 L, Globulin 3.6 02/15/23 14:20: Lactic Acid 0.7 Radiology Impression Forearm X-Ray 02/15/23 11:00 IMPRESSION: Nondisplaced radial neck fracture. Electronically Signed: Shoaib Porras MD at 12:05 EDT , Elbow X-Ray 02/15/23 11:20 IMPRESSION: Nondisplaced radial neck fracture and joint effusion. Electronically Signed: Shoaib Porras MD at 12:04 EDT , Upper Extremity CT 02/15/23 12:43 IMPRESSION: Nondisplaced fracture of the radial neck with overlying soft tissue swelling and joint effusion. Electronically Signed: Shoaib Porras MD at 13:49 EDT , Assessment & Plan Assessment/Plan (1) Elevated INR: PLAN: Patient has a nondisplaced right radial neck fracture. I am unsure of time of injury as patient does not report any significant trauma to the right elbow. We will plan to treat this nonoperatively. We will plan to utilize a sling upon discharge no need to immobilize well patient is in bed and to encourage strict elevation. CT scan obtained today in the emergency department reported soft tissue swelling as well as the radial neck fracture. Per my interpretation, a intramuscular hematoma appears to be present in the volar compartment. Her compartments are firm but compressible. She does not appear to have a compartment syndrome at this time however given her supratherapeutic INR, she is at risk. I recommended initial management with reversing her INR to prevent worsening hematoma, strict elevation of the right upper extremity and ice. I will recheck the patient in the morning. We will provisionally make the patient n.p.o. overnight. Thank you for this consultation. I will follow the patient. (2) Fracture of radial neck, right, closed: QUALIFIERS: Encounter type: initial encounter Fracture alignment: nondisplaced Qualified Code(s): S52.134A - Nondisplaced fracture of neck of right radius, initial encounter for closed fracture PLAN: see above plan (3) Arm pain, right: PLAN: See above plan
[2023-02-15] MEDS: Acetaminophen 500 MG Tablet 1000 MG PO ×2 (17:47→23:12)
[2023-02-15] MEDS: 0.9% Saline Lock 10 ML Syringe IV (20:03)
[2023-02-15] MEDS: oxyCODONE 5 MG Tablet PO (20:12)
[2023-02-15 21:27] VITALS: BP 122/70; PULSE 65; RESP 17; TEMP 36.6; O2SAT 93
[2023-02-15 21:35] VITALS: PULSE 65
[2023-02-15] MEDS: Metoprolol(XL)Succ 50 MG Tablet 25 MG PO (21:35)
[2023-02-15] MEDS: Pravastatin 20 MG Tablet PO (21:36)
[2023-02-15] MEDS: QUEtiapine 100 MG Tablet 200 MG PO (21:37)
[2023-02-15] MEDS: Nystatin Powder 15gm Bottle 1 APPLIC TOPICAL (21:38)
[2023-02-16] VITALS (16 sets, daily range): BP systolic 97–135; BP diastolic 49–73; PULSE 58–82; RESP 16–18; TEMP 36.3–37.4; O2SAT 88–97; BMI 35.7
[2023-02-16] MEDS: Acetaminophen 500 MG Tablet 1000 MG PO ×3 (05:17→21:47)
--- NOTE | 2023-02-16 05:58 | PCM.PN.ORT ---
Subjective Subjective Patient seen and examined. Reports mild improvement in her pain. She states she has had her hand elevated overnight. Denies fevers, chills, nausea or vomiting, chest pain or shortness of breath. Paresthesias are improved. Objective Data Objective Data Vital Signs: Vital Signs Temp Pulse Resp BP Pulse Ox O2 Del Method O2 Flow Rate 97.8 F 58 L 18 123/63 H 94 Nasal Cannula 2 02/16/23 05:15 02/16/23 05:15 02/16/23 05:15 02/16/23 05:15 02/16/23 05:15 02/16/23 05:15 02/16/23 05:15 Oxygen Flow Rate (L/min) 2 Oxygen Delivery Method Nasal Cannula Weight: 195 lb 8.8 oz Body Mass Index (BMI) 35.7 Intake & Output: Intake and Output for Last 24 Hours 02/14/23 02/15/23 02/16/23 23:59 23:59 23:59 Intake Total 51 / 51 Output Total 250 / 250 Balance -199 / -199 Lab / Micro Data Attestation: I reviewed the patient's lab results. 02/15/23 11:10 02/15/23 11:10 Labs: Laboratory Results - last 24 hr 02/15/23 11:10: WBC 11.8 H, RBC 4.04 L, Hgb 12.6, Hct 38.3, MCV 94.8, MCH 31.2, MCHC 32.9, RDW Std Deviation 42.3, RDW Coeff of Sonya 12.1, Plt Count 267, MPV 9.8, Immature Gran % (Auto) 0.300, Neut % (Auto) 74.7 H, Lymph % (Auto) 15.1 L, Gregg % (Auto) 8.2, Eos % (Auto) 1.4, Baso % (Auto) 0.3, Absolute Neuts (auto) 8.8 H, Absolute Lymphs (auto) 1.78, Nucleated RBC % 0, ESR 30, PT 43.5 H, INR 4.5 H*, APTT 111.7 H*, Sodium 134 L, Potassium 4.4, Chloride 102, Carbon Dioxide 29.0, Anion Gap 3 L, BUN 15, Creatinine 0.64, Estim Creat Clear Calc 37.85, Est GFR (MDRD) Af Amer 116, Est GFR (MDRD) Non-Af 96, BUN/Creatinine Ratio 23.5 H, Glucose 133 H, Calcium 9.0, Total Bilirubin 0.30, Direct Bilirubin 0.13, AST 30, ALT 16, Alkaline Phosphatase 65, Total Creatine Kinase 255 H, C-React Prot Ext Range 62.50 H, Total Protein 6.4, Albumin 2.8 L, Globulin 3.6 02/15/23 14:20: Lactic Acid 0.7 Radiography Diagnostic Testing: Radiology Impression Forearm X-Ray 02/15/23 11:00 IMPRESSION: Nondisplaced radial neck fracture. Electronically Signed: Shoaib Porras MD at 12:05 EDT , Elbow X-Ray 02/15/23 11:20 IMPRESSION: Nondisplaced radial neck fracture and joint effusion. Electronically Signed: Shoaib Porras MD at 12:04 EDT , Upper Extremity CT 02/15/23 12:43 IMPRESSION: Nondisplaced fracture of the radial neck with overlying soft tissue swelling and joint effusion. Electronically Signed: Shoaib Porras MD at 13:49 EDT , Physical Exam Narrative General -A&Ox3, NAD, appears stated age. Vital signs stable, afebrile. Right upper extremity: Diffuse ecchymosis noted along the volar ulnar proximal forearm and elbow. She has tenderness palpation overlying the radial neck. The elbow has a smooth arc of range of motion. There is minimal tenderness palpation along along the extensor compartment of the forearm. The volar compartment is swollen and firm, slightly softer his AM. There is tenderness to palpation. She has pain with passive stretch at the end range of motion. Sensation is intact to light touch median/ulnar/radial nerve distributions of the right hand. Cardinal motions of the right hand are intact. Brisk capillary refill in digits. Radial pulse 2+. Assessment & Plan Assessment/Plan (1) Fracture of radial neck, right, closed: QUALIFIERS: Encounter type: initial encounter Fracture alignment: nondisplaced Qualified Code(s): S52.134A - Nondisplaced fracture of neck of right radius, initial encounter for closed fracture PLAN: Patient seen and examined this morning. Forearm swelling appears slightly improved. She has tenderness maximally in the area of suspected intramuscular hematoma. I agree with reversal of Coumadin to mitigate risk of expanding hematoma. Morning INR pending. Patient's exam is more consistent with pain from intramuscular hematoma than a true compartment syndrome this morning. I stressed the importance of strict elevation of the hand. We will keep the patient n.p.o. this morning. I plan to recheck the patient later today. (2) Coagulopathy: PLAN: See above (3) Elevated INR: PLAN: See above
[2023-02-16 06:24] LABS: Absolute Lymphocyte Count 2.04 X10^3/uL (0.83-4.51); Absolute Neutrophil Count 6.1 X10^3/uL (2.0-7.7); Basophil# 0.04 X10^3/uL; Basophil% 0.4 % (0-1); Eosinophils% 3.1 % (0-5); Hematocrit 35.6 % (37-47); Hemoglobin 11.8 g/dL (12.0-15.0); Lymphocyte # 2.04 X10^3/ul (0.83-4.51); Lymphocyte % 21.4 % (19-41); Mean Corp Hgb Conc 33.1 g/dL (32-36); Mean Corpuscular Hgb 31.1 pg (27.0-32.0); Mean Corpuscular Volume 93.9 fL (81-99); Mean Platelet Vol. 9.3 fl (6.2-12.0); Monocyte# 1.06 X10^3/uL; Monocyte% 11.1 % (0-10); NRBC Flagged by Analyzer 0 % (0-5); Neutrophil # 6.08 X10^3/uL (2.7-7.7); Neutrophil % 63.8 % (47-70); Platelet Count 237 K/mm3 (150-450); RBC Distribution Width CV 12.2 % (11.6-14.6); RBC Distribution Width SD 42.3 fl (35.1-43.9); Red Blood Count 3.79 M/mm3 (4.2-5.4); White Blood Count 9.5 K/mm3 (4.4-11.0)
[2023-02-16 06:35] LABS: International Normalized Ratio 1.4; Prothrombin Time (Protime)PT. 17.1 SECONDS (11.7-14.9)
[2023-02-16 07:12] LABS: ALB/GLOB Ratio 0.8 RATIO (0.9-2.4); AST(SGOT) 22 U/L (15-37); Alanine Aminotransfer ALT/SGPT 16 U/L (13-56); Albumin, Serum 2.6 g/dL (3.2-5.0); Alkaline Phosphatase 64 U/L (45-117); Anion Gap 4 (5-15); BUN 14 mg/dL (7-18); BUN/Creat Ratio 30.7 RATIO (10-20); Calcium,Total 8.4 mg/dL (8.5-10.1); Chloride 101 mmol/L (98-107); Creatinine, Serum 0.46 mg/dL (0.55-1.02); EST Glomerular Filtration Rate 142 mL/min (>60); Est Glom Filt Rate - Afr Amer 172 mL/min (>60); Estimated Creatinine Clearance 37.85 ml/min; Globulin 3.3 g/dL (2.2-4.2); Glucose 117 mg/dL (74-106); Magnesium 1.8 mg/dL (1.6-2.6); Potassium 3.8 mmol/L (3.5-5.1); Protein, Total 5.9 g/dL (6.4-8.2); Sodium Level 133 mmol/L (136-145); Thyroid Stim Hormone (TSH) 0.97 uIU/mL (0.358-3.74)
--- NOTE | 2023-02-16 08:15 | PCM.PN.HOSP ---
Reason for Visit Reason for Visit: Diagnoses Coagulation defect, unspecified (02/15/23) Paroxysmal atrial fibrillation (02/15/23) Rheumatoid arthritis, unspecified (02/15/23) Pain in right arm (02/15/23) Abnormal coagulation profile (02/15/23) Displaced fracture of neck of right radius, initial encounter for closed fracture (02/15/23) Nondisplaced fracture of neck of right radius, initial encounter for closed fracture (02/15/23) Personal history of pulmonary embolism (02/15/23) Objective Data Objective Data Vital Signs: Vital Signs Temp Pulse Resp BP Pulse Ox O2 Del Method O2 Flow Rate 97.8 F 58 L 18 123/63 H 94 Nasal Cannula 2 02/16/23 05:15 02/16/23 05:15 02/16/23 05:15 02/16/23 05:15 02/16/23 05:15 02/16/23 08:11 02/16/23 08:11 Oxygen Flow Rate (L/min) 2 Oxygen Delivery Method Nasal Cannula Weight: 195 lb 8.8 oz Body Mass Index (BMI) 35.7 Intake & Output: Intake and Output for Last 24 Hours 02/14/23 02/15/23 02/16/23 23:59 23:59 23:59 Intake Total 51 / 51 Output Total 250 / 250 Balance -199 / -199 Lab / Micro Data 02/16/23 05:45 02/16/23 05:45 Labs: Laboratory Results - last 24 hr 02/15/23 11:10: WBC 11.8 H, RBC 4.04 L, Hgb 12.6, Hct 38.3, MCV 94.8, MCH 31.2, MCHC 32.9, RDW Std Deviation 42.3, RDW Coeff of Sonya 12.1, Plt Count 267, MPV 9.8, Immature Gran % (Auto) 0.300, Neut % (Auto) 74.7 H, Lymph % (Auto) 15.1 L, [place] % (Auto) 8.2, Eos % (Auto) 1.4, Baso % (Auto) 0.3, Absolute Neuts (auto) 8.8 H, Absolute Lymphs (auto) 1.78, Nucleated RBC % 0, ESR 30, PT 43.5 H, INR 4.5 H*, APTT 111.7 H*, Sodium 134 L, Potassium 4.4, Chloride 102, Carbon Dioxide 29.0, Anion Gap 3 L, BUN 15, Creatinine 0.64, Estim Creat Clear Calc 37.85, Est GFR (MDRD) Af Amer 116, Est GFR (MDRD) Non-Af 96, BUN/Creatinine Ratio 23.5 H, Glucose 133 H, Calcium 9.0, Total Bilirubin 0.30, Direct Bilirubin 0.13, AST 30, ALT 16, Alkaline Phosphatase 65, Total Creatine Kinase 255 H, C-React Prot Ext Range 62.50 H, Total Protein 6.4, Albumin 2.8 L, Globulin 3.6 02/15/23 14:20: Lactic Acid 0.7 02/16/23 05:45: WBC 9.5, RBC 3.79 L, Hgb 11.8 L, Hct 35.6 L, MCV 93.9, MCH 31.1, MCHC 33.1, RDW Std Deviation 42.3, RDW Coeff of Sonya 12.2, Plt Count 237, MPV 9.3, Immature Gran % (Auto) 0.200, Neut % (Auto) 63.8, Lymph % (Auto) 21.4, [place] % (Auto) 11.1 H, Eos % (Auto) 3.1, Baso % (Auto) 0.4, Absolute Neuts (auto) 6.1, Absolute Lymphs (auto) 2.04, Nucleated RBC % 0, PT 17.1 H, INR 1.4, Sodium 133 L, Potassium 3.8, Chloride 101, Carbon Dioxide 28.0, Anion Gap 4 L, BUN 14, Creatinine 0.46 L, Estim Creat Clear Calc 37.85, Est GFR (MDRD) Af Amer 172, Est GFR (MDRD) Non-Af 142, BUN/Creatinine Ratio 30.7 H, Glucose 117 H, Calcium 8.4 L, Magnesium 1.8, Total Bilirubin 0.50, AST 22, ALT 16, Alkaline Phosphatase 64, Total Protein 5.9 L, Albumin 2.6 L, Globulin 3.3, Albumin/Globulin Ratio 0.8 L, TSH 0.97 Radiography Diagnostic Testing: Radiology Impression Forearm X-Ray 02/15/23 11:00 IMPRESSION: Nondisplaced radial neck fracture. Electronically Signed: Shoaib Porras MD at 12:05 EDT , Elbow X-Ray 02/15/23 11:20 IMPRESSION: Nondisplaced radial neck fracture and joint effusion. Electronically Signed: Shoaib Porras MD at 12:04 EDT , Upper Extremity CT 02/15/23 12:43 IMPRESSION: Nondisplaced fracture of the radial neck with overlying soft tissue swelling and joint effusion. Electronically Signed: Shoaib Porras MD at 13:49 EDT , Physical Exam Narrative Seen and examined. Right upper extremity is bruised with subcutaneous ecchymosis. Physical exam General: Alert, Oriented x3, Cooperative HEENT: Atraumatic, PERRLA, EOMI, Normocephalic Oral: Oral mucosa moist. No Gingival or Mucosal Lesions/ Ulcerations Neck: Supple, No JVD, Negative Carotid Bruits Lungs: Air entry diminished in bilateral lung bases. No crepitation/rhonchi Cardiovascular: Irregular rhythm, Normal S1, Normal S2, systolic murmurs. Right radial and ulnar artery palpable. Abdomen: Bowel Sounds Present, Soft, Non Tender, Non-Distended : No renal angle tenderness. No suprapubic tenderness. Extremities: No edema, Capillary Refill Less than 3 Seconds Skin: Subcutaneous bruise/ecchymosis. No open ulcer. Musculoskeletal: Right wrist area is tender with soft tissue swelling. ROM restricted at wrist, distal radial ulnar joint and elbow joint. Neurological: Cranial nerves II-XII grossly intact, DTR 2+/4 and Symmetrical, Neuro grossly intact Psych/Mental Status: Normal Affect, Appropriate. Assessment & Plan Assessment/Plan (1) Fracture of radial neck, right, closed: QUALIFIERS: Encounter type: initial encounter Fracture alignment: nondisplaced Qualified Code(s): S52.134A - Nondisplaced fracture of neck of right radius, initial encounter for closed fracture (2) Elevated INR: PLAN: Plan #Right arm bruising and swelling 2/2 nondisplaced radial neck fracture -Radial fracture seen on x-ray, Dr. Marks with orthopedic surgery called in ED and recommended CT scan and that he would evaluate patient as there had been concern for compartment syndrome -Awaiting CT scan, consult placed -Hold Coumadin -Pain control -We will check inflammatory markers, CK, lactic acid -Neurovascular checks of right arm 02/16: CT scan shows nondisplaced fracture of the radial neck with overlying soft tissue swelling and joint effusion. #Atrial fibrillation w/ supratherapeutic INR -On Coumadin -INR was supratherapeutic was 4.5, resolved. Vitamin K was given. 02/16 INR 1.4. Low-dose warfarin restarted. -Continue metoprolol #Rheumatoid arthritis -Continue home medications -Also gets monthly injections -Follows with supervisor [place] on outpatient basis #Difficulty sleeping -Continue home medications #History of PE in 2015 -Patient chronically anticoagulated on Coumadin #DVT ppx: Mentioned above Charges/Coding Visit Charges Inpatient E&M: 41191 Subs Hosp L2
--- NOTE | 2023-02-16 10:28 | EKG12_ITS ---
Test Reason : PRE OP Blood Pressure : / mmHG Vent. Rate : 063 BPM Atrial Rate : 063 BPM P-R Int : 176 ms QRS Dur : 134 ms QT Int : 486 ms P-R-T Axes : 064 -24 056 degrees QTc Int : 497 ms Sinus rhythm with occasional Premature ventricular complexes Right bundle branch block Abnormal ECG When compared with ECG of 01-FEB-2022 16:21, Premature ventricular complexes are now Present Premature atrial complexes are no longer Present Nonspecific T wave abnormality no longer evident in Inferior leads Confirmed by HILARIO LOUIS, KEVIN ([id number]), acquisition editor SUMAYA BELL ([id number]) on 02/19/2023 12:22:42 PM Referred By: GRZEGORZ Confirmed By:KEVIN RICH MD
--- NOTE | 2023-02-16 10:30 | CASEMGMT ---
RN?CM?BIOLOGY MANAGER?CM?to room to meet with patient for initial transition planning/care coordination?assessment.?RN?CM?introduced self and role at [facility].? Pt voices understanding and consents to?assessment?at this time.? Pt resting in bed in no distress at this time.? Pt is A/O at this time and answers all questions appropriately.?? Care providers, pharmacy, and demographics verified/updated at this time. PCP: Dr Baxter Specialists: Dr Godoy, cardio; Dr Valdez, pain management; Dr Ramos, crowd controller Preferred [facility]acy: [facility] Insurance: MCR A/B, [employer] Prescription Benefit:?Yes, Energy Living Will/HPOA: Pt states she has LW and HCPOA, who is her , Terrance. LNOK: Jorge Perez, Living Arrangements: Pt lives with in 1 story condo with 2 steps in and states no concerns at home. helps to take care of pt. Pt states, He does everything for me right now. Pt states she is mostly indep w/bathing and dressing, but is SBA to help when needed. does all home mgnt tasks. Transportation: Pt's drives and states no transportation concerns. DME: Pt has the following DME: cane, WW, w/c, raised toilet seat, BSC, shower chair, hand held shower, grab bars, and lift chair. Pt states does not have a medical alert button and would be willing to take information on this. Provided at this time. Pt states no need for any further DME. SNF/HHC: Pt has been to SNF in [place], rehab at [facility], and [facility]CU in the past. Pt has also had [facility]. Pt states she feels like she will be able to discharge home when medically ready and does not think she will need HHC either. Pt aware PT/OT has been ordered and when they work w/her they will make recommendations and CM/SW will f/u with her afterwards to discuss discharge plan further and assist w/any needs. She voices understanding. CM to follow for therapy and any further discharge planning/needs. Advised pt to ask for CM if any further questions/concerns/needs arise, voices understanding. PLAN:??TBD. Pt going for emergent fasciotomy this AM. PT/OT evals pending. Finn BSN?RN?CM
[2023-02-16] MEDS: Metoprolol(XL)Succ 50 MG Tablet 25 MG PO ×2 (10:46→21:47)
--- NOTE | 2023-02-16 10:52 | PN.ORTHO_ITS ---
Subjective Subjective Pt S&E. Pain slightly worse. Parasthesias worsened. Denies fevers, chills, nausea, vomiting, CP, SOB. Objective Data Objective Data Vital Signs: Vital Signs Temp Pulse Resp BP Pulse Ox O2 Del Method O2 Flow Rate 97.8 F 63 18 123/63 H 94 Nasal Cannula 2 02/16/23 05:15 02/16/23 10:46 02/16/23 05:15 02/16/23 05:15 02/16/23 05:15 02/16/23 08:11 02/16/23 08:11 Oxygen Flow Rate (L/min) 2 Oxygen Delivery Method Nasal Cannula Weight: 195 lb 8.8 oz Body Mass Index (BMI) 35.7 Intake & Output: Intake and Output for Last 24 Hours 02/14/23 02/15/23 02/16/23 23:59 23:59 23:59 Intake Total 51 / 51 Output Total 250 / 250 Balance -199 / -199 Lab / Micro Data 02/16/23 05:45 02/16/23 05:45 Labs: Laboratory Results - last 24 hr 02/15/23 11:10: WBC 11.8 H, RBC 4.04 L, Hgb 12.6, Hct 38.3, MCV 94.8, MCH 31.2, MCHC 32.9, RDW Std Deviation 42.3, RDW Coeff of Sonya 12.1, Plt Count 267, MPV 9.8, Immature Gran % (Auto) 0.300, Neut % (Auto) 74.7 H, Lymph % (Auto) 15.1 L, [place] % (Auto) 8.2, Eos % (Auto) 1.4, Baso % (Auto) 0.3, Absolute Neuts (auto) 8.8 H, Absolute Lymphs (auto) 1.78, Nucleated RBC % 0, ESR 30, PT 43.5 H, INR 4.5 H*, APTT 111.7 H*, Sodium 134 L, Potassium 4.4, Chloride 102, Carbon Dioxide 29.0, Anion Gap 3 L, BUN 15, Creatinine 0.64, Estim Creat Clear Calc 37.85, Est GFR (MDRD) Af Amer 116, Est GFR (MDRD) Non-Af 96, BUN/Creatinine Ratio 23.5 H, Glucose 133 H, Calcium 9.0, Total Bilirubin 0.30, Direct Bilirubin 0.13, AST 30, ALT 16, Alkaline Phosphatase 65, Total Creatine Kinase 255 H, C-React Prot Ext Range 62.50 H, Total Protein 6.4, Albumin 2.8 L, Globulin 3.6 02/15/23 14:20: Lactic Acid 0.7 02/16/23 05:45: WBC 9.5, RBC 3.79 L, Hgb 11.8 L, Hct 35.6 L, MCV 93.9, MCH 31.1, MCHC 33.1, RDW Std Deviation 42.3, RDW Coeff of Sonya 12.2, Plt Count 237, MPV 9.3, Immature Gran % (Auto) 0.200, Neut % (Auto) 63.8, Lymph % (Auto) 21.4, [place] % (Auto) 11.1 H, Eos % (Auto) 3.1, Baso % (Auto) 0.4, Absolute Neuts (auto) 6.1, Absolute Lymphs (auto) 2.04, Nucleated RBC % 0, PT 17.1 H, INR 1.4, Sodium 133 L , Potassium 3.8, Chloride 101, Carbon Dioxide 28.0, Anion Gap 4 L, BUN 14, Creatinine 0.46 L, Estim Creat Clear Calc 37.85, Est GFR (MDRD) Af Amer 172, Est GFR (MDRD) Non-Af 142, BUN/Creatinine Ratio 30.7 H, Glucose 117 H, Calcium 8.4 L , Magnesium 1.8, Total Bilirubin 0.50, AST 22, ALT 16, Alkaline Phosphatase 64, Total Protein 5.9 L, Albumin 2.6 L, Globulin 3.3, Albumin/Globulin Ratio 0.8 L, TSH 0.97 Radiography Diagnostic Testing: Radiology Impression Forearm X-Ray 02/15/23 11:00 IMPRESSION: Nondisplaced radial neck fracture. Electronically Signed: Shoaib Porras MD at 12:05 EDT , Elbow X-Ray 02/15/23 11:20 IMPRESSION: Nondisplaced radial neck fracture and joint effusion. Electronically Signed: Shoaib Porras MD at 12:04 EDT , Upper Extremity CT 02/15/23 12:43 IMPRESSION: Nondisplaced fracture of the radial neck with overlying soft tissue swelling and joint effusion. Electronically Signed: Shoaib Porras MD at 13:49 EDT , Physical Exam Narrative General -A&Ox3, NAD, appears stated age. Vital signs stable, afebrile. Right upper extremity: Diffuse ecchymosis noted along the volar ulnar proximal forearm and elbow. She has tenderness to palpation overlying the radial neck. The elbow has a smooth arc of range of motion. There is minimal tenderness palpation along along the extensor compartment of the forearm. The volar compartment is swollen, firm and proximal muscle flexor mass is exquisitely tender to palpation and not compressible. She has pain with passive stretch of the digits. Flexion posturing of fingers and thumb, but flexible. Diminished sensation in median nerve distribution R hand, SILT ulnar and radial. Brisk capillary refill in digits. Radial pulse 2+. Assessment & Plan Assessment/Plan (1) Compartment syndrome of right upper extremity: QUALIFIERS: Encounter type: initial encounter Qualified Code(s): T79.A11A - Traumatic compartment syndrome of right upper extremity, initial encounter PLAN: Exam worsened and consistent with volar forearm compartment syndrome. Plan to proceed with emergent fasciotomy and wound vac placement. Spoke with anesthesiologist Dr. Reno and will proceed to OR JIMMY. STAT EKG ordered per an esthesia request. 2 g Ancef. Discussed risks, benefits and alt to procedure with patient. Risks include but are not limited to bleeding, infx, need for additional surgeries including possible skin grafting, permanent neurovascular injury, contractures, muscle necrosis, risk of anesthesia, loss of life or limb. She understands the emergent nature of the condition and need for surgery. Further recs pending surgery.
[2023-02-16] MEDS: Cefazolin 2 GM in 0.9% Normal Saline 100 ML IV (11:31)
--- NOTE | 2023-02-16 12:59 | PCM.OPRPT ---
Report of Operation Date of Procedure: 02/16/23 Description of Surgical Findings:: Preoperative diagnosis: 1. Right forearm volar Compartment syndrome 2. Right volar forearm intramuscular hematoma Postoperative diagnosis: 1. Right forearm volar Compartment syndrome 2. Right volar forearm intramuscular hematoma Procedure: 1. Right forearm volar compartment fasciotomy 2. Right open carpal tunnel release 3. Evacuation of volar forearm compartment intramuscular hematoma 4. Application of wound VAC. Surgeon: Andrez Marks DO Call Center Operations Manager: NOEL Joshi Anesthesiologist: Dr. Reno Anesthesia: General endotracheal IV fluids: 500 cc LR Estimated blood loss: 100 cc Urine output: None recorded Complications: None apparent Packing/drains: Black foam wound VAC Implants: None Intraoperative findings: Intramuscular hematoma noted within the mid forearm volar compartment. No evidence of muscle necrosis. Healthy appearing well-perfused muscles, contractile. Hourglass deformity of the median nerve at the carpal tunnel. Preoperative indications: This is a 78-year-old female who was admitted yesterday 02/15/2023 with ecchymosis and pain in her right forearm. X-rays demonstrated nondisplaced radial head fracture. She does not report a history of trauma. Patient is on Coumadin for paroxysmal atrial fibrillation. She reports her diet is changed recently as she is started weight watchers. She had a INR measured routinely on 02/08/2023 which was 3.7. She presented to the emergency department 02/15/2023. Recheck of her INR was 4.5 on day of admission. She was reporting some intermittent paresthesias in her median nerve distribution of her right hand. I saw the patient in consultation yesterday. Her volar compartment was swollen but was still compressible. I recommended close observation. Strict elevation of the hand was recommended overnight. I also discussed with the hospitalist reversing her INR with vitamin K. INR was 1.4 this morning. I reassessed the patient early this morning and exam was relatively unchanged, slightly improved swelling. I reassessed the patient approximately 4 hours later. Her for compartment was firm and paresthesias were worsened. I recommended emergent fasciotomy of the volar compartment, carpal tunnel release and application of wound VAC. We discussed the risk, benefits, alternatives to procedure. Risk included but were not limited to bleeding, infx, need for additional surgeries including possible skin grafting, permanent neurovascular injury, contractures, muscle necrosis, risk of anesthesia, loss of life or limb. She understood the emergent nature of the condition and need for surgery. We proceeded to surgery emergently. Description of procedure: Operative extremity was marked. All questions answered to patient satisfaction. At time of procedure, patient brought the op suite positioned supine a standard operative table. General anesthesia was induced and endotracheal tube placed. We spun the bed 45 degrees. A well-padded pneumatic tourniquet was applied to the right upper arm. Examination under anesthesia demonstrated a noncompressible volar compartment. The extensor compartment was soft. Mobile wad of 3 was soft. There was severe ecchymosis noted along the volar compartment tracking into the antecubital fossa. We then prepped and draped the right upper extremity in normal, sterile orthopedic fashion. We performed timeout confirming the side, site, operation be performed. No concerns voiced elected proceed with surgery. 2 g Ancef was administered IV prior to tourniquet inflation. First sanguinous the right upper extremity Esmarch bandage. Tourniquet was inflated to 250 mmHg which remained up for approximately 30 minutes. I then marked an extensile volar forearm fasciotomy extending into the carpal tunnel and crossing the elbow crease to release the lacertus fibrosis. Incision was curved ulnarly in the forearm to allow for medial skin flap over the flexor tendons and then directed back radial towards biceps tendon proximally. Full-thickness skin flaps were developed down to level of the fascia with a 15 blade scalpel. Self-retaining retractors were placed. Volar fascia was noted to be intact. I opened the fascia with a 15 blade scalpel and then continued volar forearm fasciotomy with tenotomy scissors. After opening the fascia herniation of the volar compartment contents was noted. In the mid forearm, a hematoma was encountered approximately 6 x 6 x 3 cm. This was excised. I continued fascial release distally. I was able to identify the median nerve and track into the carpal tunnel. Palmar fascia was split over top of the median nerve. Transverse carpal ligament was identified and split on its ulnar border releasing the carpal tunnel. Perivascular fat was noted distally confirming complete carpal tunnel release. I turned my attention back proximally. Fascial release was carried toward the biceps tendon which is palpable. Lacertus fibrosis was identified and released sharply with tenotomy scissors. Median nerve and brachial artery was identified and appeared appropriately decompressed. Deeper fascial bands in the mid forearm were also released. There was no evidence of muscle injury or necrosis. Cautery was used to probe the muscle bellies and demonstrated contractile muscle. There was healthy color of the muscle. Volar fasciotomy was complete. I palpated the mobile wad of 3 which was soft as well as the extensor compartment which was also soft. The wound was copiously irrigated with 2 L of normal saline solution. Tourniquet was then deflated. Superficial bleeding was noted and cauterized with Bovie cautery. No pulsatile bleeding was noted. There was good return of perfusion to the hand. Brachial artery pulse returned. There was no obvious source of intramuscular hematoma bleeding remaining. I reapproximated skin over the carpal tunnel with interrupted simple 3-0 nylon suture. I then placed a black sponge wound VAC over the fasciotomy of the forearm. Wound VAC was assembled and applied with excellent suction seal. We set the wound VAC to 125 mmHg with continuous suction. Minimal bloody drainage was noted in the canister after application. A loose dressing was applied to the right hand, forearm and elbow. Patient was then awoken from anesthesia and safely extubated operative suite. She was transferred to her hospital bed and subsequently to PACU in stable condition. Postoperative plan: Activity: Nonweightbearing to the right upper extremity. Strict elevation ordered. Anticoagulation: Recommendations provided to hospitalistcipriano with starting anticoagulant postoperative day #1. Short half-life anticoagulation recommended in the form of Lovenox or heparin. Plan to return to the OR in 2-3 days for wound VAC removal, second look I&D and likely delayed primary closure of the skin. Oxycodone ordered for pain relief of breakthrough Dilaudid as needed. Scheduled Tylenol.
[2023-02-16] MEDS: 0.9% Normal Saline 1,000 ML 15 ML IV (13:02)
[2023-02-16] MEDS: oxyCODONE 5 MG Tablet PO (13:47)
[2023-02-16] MEDS: Hydroxychloroquine 200 MG Tablet PO (13:48)
[2023-02-16] MEDS: Nystatin Powder 15gm Bottle 1 APPLIC TOPICAL ×2 (13:49→21:48)
[2023-02-16] MEDS: Folic Acid 1 MG Tablet PO (13:49)
[2023-02-16] MEDS: Sertraline 100 MG Tablet PO (13:49)
[2023-02-16] MEDS: oxyCODONE 5 MG Tablet 10 MG PO (19:46)
[2023-02-16] MEDS: Cefazolin 1 GM/50 ML BAG IV (19:46)
[2023-02-16] MEDS: QUEtiapine 100 MG Tablet 200 MG PO (21:47)
[2023-02-16] MEDS: Pravastatin 20 MG Tablet PO (21:47)
[2023-02-17] VITALS (10 sets, daily range): BP systolic 103–125; BP diastolic 45–74; PULSE 65–74; RESP 16–18; TEMP 36.1–36.7; O2SAT 94–98
[2023-02-17] MEDS: Cefazolin 1 GM/50 ML BAG IV ×3 (04:09→18:48)
[2023-02-17] MEDS: Acetaminophen 500 MG Tablet 1000 MG PO ×3 (05:40→21:11)
[2023-02-17 06:34] LABS: Absolute Lymphocyte Count 1.63 X10^3/uL (0.83-4.51); Absolute Neutrophil Count 8.8 X10^3/uL (2.0-7.7); Basophil# 0.01 X10^3/uL; Basophil% 0.1 % (0-1); Eosinophil# 0.01 X10^3/uL; Eosinophils% 0.1 % (0-5); Hematocrit 35.7 % (37-47); Hemoglobin 11.8 g/dL (12.0-15.0); Lymphocyte # 1.63 X10^3/ul (0.83-4.51); Lymphocyte % 14.2 % (19-41); Mean Corp Hgb Conc 33.1 g/dL (32-36); Mean Corpuscular Hgb 31.2 pg (27.0-32.0); Mean Corpuscular Volume 94.4 fL (81-99); Mean Platelet Vol. 9.6 fl (6.2-12.0); Monocyte# 0.93 X10^3/uL; Monocyte% 8.1 % (0-10); NRBC Flagged by Analyzer 0 % (0-5); Neutrophil # 8.83 X10^3/uL (2.7-7.7); Neutrophil % 76.9 % (47-70); Platelet Count 270 K/mm3 (150-450); RBC Distribution Width CV 11.9 % (11.6-14.6); RBC Distribution Width SD 41.7 fl (35.1-43.9); Red Blood Count 3.78 M/mm3 (4.2-5.4); White Blood Count 11.5 K/mm3 (4.4-11.0)
[2023-02-17 06:46] LABS: International Normalized Ratio 1.1; Prothrombin Time (Protime)PT. 13.8 SECONDS (11.7-14.9)
[2023-02-17 07:21] LABS: Anion Gap 5 (5-15); BUN 12 mg/dL (7-18); BUN/Creat Ratio 25.6 RATIO (10-20); Calcium,Total 8.3 mg/dL (8.5-10.1); Chloride 102 mmol/L (98-107); Creatinine, Serum 0.47 mg/dL (0.55-1.02); EST Glomerular Filtration Rate 138 mL/min (>60); Est Glom Filt Rate - Afr Amer 167 mL/min (>60); Estimated Creatinine Clearance 37.85 ml/min; Glucose 131 mg/dL (74-106); Potassium 4.2 mmol/L (3.5-5.1); Sodium Level 134 mmol/L (136-145)
[2023-02-17] MEDS: Folic Acid 1 MG Tablet PO (09:42)
[2023-02-17] MEDS: Hydroxychloroquine 200 MG Tablet PO (09:42)
[2023-02-17] MEDS: Sertraline 100 MG Tablet PO (09:42)
[2023-02-17] MEDS: Nystatin Powder 15gm Bottle 1 APPLIC TOPICAL ×2 (09:43→21:12)
[2023-02-17] MEDS: oxyCODONE 5 MG Tablet 10 MG PO (11:10)
[2023-02-17] MEDS: Metoprolol(XL)Succ 50 MG Tablet 25 MG PO ×2 (11:41→21:11)
[2023-02-17] MEDS: 0.9% Saline Lock 10 ML Syringe IV ×3 (11:42→18:49)
--- NOTE | 2023-02-17 12:30 | PCM.PN.HOSP ---
Reason for Visit Reason for Visit: Diagnoses Coagulation defect, unspecified (02/15/23) Paroxysmal atrial fibrillation (02/15/23) Rheumatoid arthritis, unspecified (02/15/23) Pain in right arm (02/15/23) Abnormal coagulation profile (02/15/23) Displaced fracture of neck of right radius, initial encounter for closed fracture (02/15/23) Nondisplaced fracture of neck of right radius, initial encounter for closed fracture (02/15/23) Traumatic compartment syndrome of right upper extremity, initial encounter (02/15/23) Personal history of pulmonary embolism (02/15/23) Subjective Subjective Follow-up for right wrist fracture with subcutaneous hematoma with Right forearm volar compartment syndrome. Objective Data Objective Data Vital Signs: Vital Signs Temp Pulse Resp BP Pulse Ox O2 Del Method O2 Flow Rate 97.5 F L 66 17 118/55 L 97 Nasal Cannula 2 02/17/23 09:52 02/17/23 11:41 02/17/23 09:52 02/17/23 11:06 02/17/23 09:52 02/17/23 09:52 02/17/23 11:26 Oxygen Flow Rate (L/min) 2 Oxygen Delivery Method Nasal Cannula Weight: 195 lb 8.8 oz Body Mass Index (BMI) 35.7 Intake & Output: Intake and Output for Last 24 Hours 02/15/23 02/16/23 02/17/23 23:59 23:59 23:59 Intake Total 1345.75 / 1345.75 250 / 250 Output Total 250 / 250 175 / 175 Balance 1095.75 / 1095.75 75 / 75 Lab / Micro Data 02/17/23 05:25 02/17/23 05:25 Labs: Laboratory Results - last 24 hr 02/17/23 05:25: WBC 11.5 H, RBC 3.78 L, Hgb 11.8 L, Hct 35.7 L, MCV 94.4, MCH 31.2, MCHC 33.1, RDW Std Deviation 41.7, RDW Coeff of Sonya 11.9, Plt Count 270, MPV 9.6, Immature Gran % (Auto) 0.600, Neut % (Auto) 76.9 H, Lymph % (Auto) 14.2 L, [place] % (Auto) 8.1, Eos % (Auto) 0.1, Baso % (Auto) 0.1, Absolute Neuts (auto) 8.8 H, Absolute Lymphs (auto) 1.63, Nucleated RBC % 0, PT 13.8, INR 1.1, Sodium 134 L, Potassium 4.2, Chloride 102, Carbon Dioxide 27.0, Anion Gap 5, BUN 12, Creatinine 0.47 L, Estim Creat Clear Calc 37.85, Est GFR (MDRD) Af Amer 167, Est GFR (MDRD) Non-Af 138, BUN/Creatinine Ratio 25.6 H, Glucose 131 H, Calcium 8.3 L Physical Exam Narrative Seen and examined. Having tingling sensation yesterday noon time. Was taken to the OR for concern of right forearm compartment syndrome. Was also found to have intramuscular hematoma. Physical exam General: Alert, Oriented x3, Cooperative HEENT: Atraumatic, PERRLA, EOMI, Normocephalic Oral: Oral mucosa moist. No Gingival or Mucosal Lesions/ Ulcerations Neck: Supple, No JVD, Negative Carotid Bruits Lungs: Air entry diminished in bilateral lung bases. No crepitation/rhonchi Cardiovascular: Irregular rhythm, Normal S1, Normal S2, systolic murmurs. Right radial and ulnar artery palpable. Abdomen: Bowel Sounds Present, Soft, Non Tender, Non-Distended : No renal angle tenderness. No suprapubic tenderness. Extremities: No edema, Capillary Refill Less than 3 Seconds Skin: Subcutaneous bruise/ecchymosis. No open ulcer.. Wound VAC. Musculoskeletal: Operative surgical dressing is dry. Right wrist area is tender with subcutaneous/soft tissue swelling. ROM restricted at wrist Neurological: Cranial nerves II-XII grossly intact, DTR 2+/4 and Symmetrical, Neuro grossly intact Psych/Mental Status: Normal Affect, Appropriate. Assessment & Plan Assessment/Plan (1) Fracture of radial neck, right, closed: QUALIFIERS: Encounter type: initial encounter Fracture alignment: nondisplaced Qualified Code(s): S52.134A - Nondisplaced fracture of neck of right radius, initial encounter for closed fracture (2) Elevated INR: PLAN: Plan #Right arm bruising and swelling 2/2 nondisplaced radial neck fracture -Radial fracture seen on x-ray, Dr. Marks with orthopedic surgery called in ED and recommended CT scan and that he would evaluate patient as there had been concern for compartment syndrome -Awaiting CT scan, consult placed -Hold Coumadin -Pain control -We will check inflammatory markers, CK, lactic acid -Neurovascular checks of right arm 02/16: CT scan shows nondisplaced fracture of the radial neck with overlying soft tissue swelling and joint effusion. 02/17: Patient had tingling sensation of all 5 fingers yesterday noonish time. Patient was taken to the OR for concern of compartment syndrome. Postop diagnosis was right forearm volar compartment syndrome and intramuscular hematoma. Patient had right forearm volar compartment fasciectomy, open carpal tunnel release and evacuation of volar forearm compartment intramuscular hematoma and application of wound VAC. Surgical dressing is dry. Tingling sensation has resolved. Started on Lovenox 1 mg/kg body weight therapeutic dose adjusted to creatinine clearance. #Atrial fibrillation w/ supratherapeutic INR -On Coumadin -INR was supratherapeutic was 4.5, resolved. Vitamin K was given. 02/16 INR 1.4. Low-dose warfarin restarted. -Continue metoprolol #Rheumatoid arthritis -Continue home medications -Also gets monthly injections -Follows with emergency medical services coordinator on outpatient basis #Difficulty sleeping -Continue home medications #History of PE in 2015 -Patient chronically anticoagulated on Coumadin #DVT ppx: Mentioned above On Lovenox. Charges/Coding Visit Charges Inpatient E&M: 79985 Subs Hosp L2
[2023-02-17] MEDS: HYDROmorphone 1 MG/ML Syringe 0.5 MG IV (12:34)
--- NOTE | 2023-02-17 12:37 | PCM.PN.ORT ---
Subjective Subjective Patient seen and examined. Denies any fevers, chills, nausea vomiting, chest pain or shortness of breath. Tolerating oral intake. Reports no tingling in her right hand. Reports her right hand range of motion is improved since surgery but does report stiffness still. Pain is controlled with current pain regimen. Objective Data Objective Data Vital Signs: Vital Signs Temp Pulse Resp BP Pulse Ox O2 Del Method O2 Flow Rate 97.5 F L 66 17 118/55 L 97 Nasal Cannula 2 02/17/23 09:52 02/17/23 11:41 02/17/23 09:52 02/17/23 11:06 02/17/23 09:52 02/17/23 09:52 02/17/23 11:26 Oxygen Flow Rate (L/min) 2 Oxygen Delivery Method Nasal Cannula Weight: 195 lb 8.8 oz Body Mass Index (BMI) 35.7 Intake & Output: Intake and Output for Last 24 Hours 02/15/23 02/16/23 02/17/23 23:59 23:59 23:59 Intake Total 1345.75 / 1345.75 250 / 250 Output Total 250 / 250 175 / 175 Balance 1095.75 / 1095.75 75 / 75 Lab / Micro Data 02/17/23 05:25 02/17/23 05:25 Labs: Laboratory Results - last 24 hr 02/17/23 05:25: WBC 11.5 H, RBC 3.78 L, Hgb 11.8 L, Hct 35.7 L, MCV 94.4, MCH 31.2, MCHC 33.1, RDW Std Deviation 41.7, RDW Coeff of Sonya 11.9, Plt Count 270, MPV 9.6, Immature Gran % (Auto) 0.600, Neut % (Auto) 76.9 H, Lymph % (Auto) 14.2 L, [place] % (Auto) 8.1, Eos % (Auto) 0.1, Baso % (Auto) 0.1, Absolute Neuts (auto) 8.8 H, Absolute Lymphs (auto) 1.63, Nucleated RBC % 0, PT 13.8, INR 1.1, Sodium 134 L, Potassium 4.2, Chloride 102, Carbon Dioxide 27.0, Anion Gap 5, BUN 12, Creatinine 0.47 L, Estim Creat Clear Calc 37.85, Est GFR (MDRD) Af Amer 167, Est GFR (MDRD) Non-Af 138, BUN/Creatinine Ratio 25.6 H, Glucose 131 H, Calcium 8.3 L Physical Exam Narrative General - A&Ox3, NAD. VSS/AF. Right upper Extremity - SILT & motor intact in radial, ulnar, musculocutaneous, axillary, and median nerve distributions. Radial, ulnar pulses 2+. Compartments soft and compressible. Incisional dressing clean dry and intact. Excellent suction seal with wound VAC. BCR in finger tips. No pain with passive extension of the digits. Soft and compressible dorsal compartment and mobile wad of 3. Assessment & Plan Assessment/Plan (1) Compartment syndrome of right upper extremity: QUALIFIERS: Encounter type: initial encounter Qualified Code(s): T79.A11A - Traumatic compartment syndrome of right upper extremity, initial encounter PLAN: POD#1 s/p right volar forearm fasciotomy, carpal tunnel release and wound VAC placement -Patient doing well. Paresthesias improved. She appears comfortable. Expected sanguinous output from wound VAC. Plan to return to the OR 02/18 or 02/19. I will discuss with the OR staff tomorrow morning regarding operating room availability. We will plan to return for right forearm fasciotomy delayed primary closure and irrigation debridement, possible reapplication of wound VAC. - Pain control - NWB RUE - Medicine following for medical management -Occupational Therapy-edema control - DVT PPX -okay for Lovenox or heparin from my standpoint but will defer to primary, SCDs
[2023-02-17] MEDS: Enoxaparin 80 MG/0.8 ML Syringe SC ×2 (15:51→21:11)
[2023-02-17] MEDS: QUEtiapine 100 MG Tablet 200 MG PO (21:11)
[2023-02-17] MEDS: Pravastatin 20 MG Tablet PO (21:11)
[2023-02-18] VITALS (10 sets, daily range): BP systolic 103–146; BP diastolic 55–63; PULSE 55–80; RESP 15–18; TEMP 36.6–36.8; O2SAT 93–100
[2023-02-18] MEDS: Acetaminophen 500 MG Tablet 1000 MG PO ×3 (05:49→21:26)
--- NOTE | 2023-02-18 05:55 | EKG12_ITS ---
Test Reason : AM EKG Blood Pressure : / mmHG Vent. Rate : 062 BPM Atrial Rate : 062 BPM P-R Int : 172 ms QRS Dur : 146 ms QT Int : 480 ms P-R-T Axes : 049 -13 082 degrees QTc Int : 487 ms Sinus rhythm with occasional Premature ventricular complexes Right bundle branch block Abnormal ECG When compared with ECG of 16-FEB-2023 10:36, MANUAL COMPARISON REQUIRED, DATA IS UNCONFIRMED Confirmed by HILARIO LOUIS, KEVIN ([id number]), restaurant expeditor SUMAYA BELL ([id number]) on 02/19/2023 12:21:33 PM Referred By: Confirmed By:KEVIN RICH MD
[2023-02-18 06:29] LABS: Absolute Lymphocyte Count 2.62 X10^3/uL (0.83-4.51); Basophil# 0.07 X10^3/uL; Basophil% 0.7 % (0-1); Eosinophil# 0.34 X10^3/uL; Eosinophils% 3.4 % (0-5); Hematocrit 32.4 % (37-47); Hemoglobin 10.9 g/dL (12.0-15.0); Lymphocyte # 2.62 X10^3/ul (0.83-4.51); Lymphocyte % 26.1 % (19-41); Mean Corp Hgb Conc 33.6 g/dL (32-36); Mean Platelet Vol. 9.7 fl (6.2-12.0); Monocyte# 1.01 X10^3/uL; Monocyte% 10.1 % (0-10); NRBC Flagged by Analyzer 0 % (0-5); Neutrophil # 5.97 X10^3/uL (2.7-7.7); Neutrophil % 59.4 % (47-70); Platelet Count 257 K/mm3 (150-450); RBC Distribution Width CV 12.2 % (11.6-14.6); RBC Distribution Width SD 42.5 fl (35.1-43.9); Red Blood Count 3.41 M/mm3 (4.2-5.4)
[2023-02-18 06:55] LABS: Anion Gap 6 (5-15); BUN 18 mg/dL (7-18); BUN/Creat Ratio 40.1 RATIO (10-20); Calcium,Total 8.4 mg/dL (8.5-10.1); Chloride 104 mmol/L (98-107); Creatinine, Serum 0.45 mg/dL (0.55-1.02); EST Glomerular Filtration Rate 144 mL/min (>60); Est Glom Filt Rate - Afr Amer 175 mL/min (>60); Estimated Creatinine Clearance 37.85 ml/min; Glucose 107 mg/dL (74-106); Potassium 3.9 mmol/L (3.5-5.1); Sodium Level 136 mmol/L (136-145)
--- NOTE | 2023-02-18 08:00 | PN.ORTHO_ITS ---
Subjective Subjective Patient seen and examined. Denies any new complaints. Pain is improving. Denies numbness or tingling. Denies fevers, chills, nausea vomiting, chest pain or shortness of breath. Objective Data Objective Data Vital Signs: Vital Signs Temp Pulse Resp BP Pulse Ox O2 Del Method O2 Flow Rate 98.1 F 66 16 103/60 94 Nasal Cannula 1.5 02/18/23 03:02/18/23 03:02/18/23 03:02/18/23 03:02/18/23 03:02/18/23 03:02/18/23 03:10 Oxygen Flow Rate (L/min) 1.5 Oxygen Delivery Method Nasal Cannula Weight: 195 lb 8.8 oz Body Mass Index (BMI) 35.7 Intake & Output: Intake and Output for Last 24 Hours 02/16/23 02/17/23 02/18/23 23:59 23:59 23:59 Intake Total 1345.75 / 1345.75 1440 / 1440 Output Total 250 / 250 1250 / 1250 400 / 400 Balance 1095.75 / 1095.75 190 / 190 -400 / -400 Lab / Micro Data 02/18/23 05:20 02/18/23 05:20 Labs: Laboratory Results - last 24 hr 02/18/23 05:20: WBC 10.0, RBC 3.41 L, Hgb 10.9 L, Hct 32.4 L, MCV 95.0, MCH 32.0, MCHC 33.6, RDW Std Deviation 42.5, RDW Coeff of Sonya 12.2, Plt Count 257, MPV 9.7, Immature Gran % (Auto) 0.300, Neut % (Auto) 59.4, Lymph % (Auto) 26.1, [place] % (Auto) 10.1 H, Eos % (Auto) 3.4, Baso % (Auto) 0.7, Absolute Neuts (auto) 6.0, Absolute Lymphs (auto) 2.62, Nucleated RBC % 0, PT Cancelled, INR Cancelled, Sodium 136, Potassium 3.9, Chloride 104, Carbon Dioxide 26.0, Anion Gap 6, BUN 18, Creatinine 0.45 L, Estim Creat Clear Calc 37.85, Est GFR (MDRD) Af Amer 175, Est GFR (MDRD) Non-Af 144, BUN/Creatinine Ratio 40.1 H, Glucose 107 H, Calcium 8.4 L Physical Exam Narrative General - A&Ox3, NAD. VSS/AF. Right upper Extremity - SILT & motor intact in radial, ulnar, musculocutaneous, axillary, and median nerve distributions. Radial, ulnar pulses 2+. Compartments soft and compressible. Incisional dressing clean dry and intact. Excellent suction seal with wound VAC. BCR in finger tips. No pain with passive extension of the digits. Soft and compressible dorsal compartment and mobile wad of 3. Assessment & Plan Assessment/Plan (1) Compartment syndrome of right upper extremity: QUALIFIERS: Encounter type: initial encounter Qualified Code(s): T79.A11A - Traumatic compartment syndrome of right upper extremity, initial encounter PLAN: POD#2 s/p right volar forearm fasciotomy, carpal tunnel release and wound VAC placement -Patient doing well. Paresthesias resolved. She appears comfortable. Expected sanguinous output from wound VAC. Plan to return to the OR 02/19, NPO after midnight. I will discuss with the OR staff tomorrow morning regarding operating room availability. We will plan to return for right forearm fasciotomy delayed primary closure and irrigation debridement, possible reapplication of wound VAC. - Pain control - NWB RUE - Medicine following for medical management -Occupational Therapy-edema control - DVT PPX -okay for Lovenox or heparin from my standpoint but will defer to primary, SCDs
--- NOTE | 2023-02-18 08:13 | PCM.PN.HOSP ---
Reason for Visit Reason for Visit: Diagnoses Coagulation defect, unspecified (02/15/23) Paroxysmal atrial fibrillation (02/15/23) Rheumatoid arthritis, unspecified (02/15/23) Pain in right arm (02/15/23) Abnormal coagulation profile (02/15/23) Displaced fracture of neck of right radius, initial encounter for closed fracture (02/15/23) Nondisplaced fracture of neck of right radius, initial encounter for closed fracture (02/15/23) Traumatic compartment syndrome of right upper extremity, initial encounter (02/15/23) Personal history of pulmonary embolism (02/15/23) Subjective Subjective Follow-up for right wrist fracture with subcutaneous hematoma with Right forearm volar compartment syndrome. Patient had fasciectomy. Objective Data Objective Data Vital Signs: Vital Signs Temp Pulse Resp BP Pulse Ox O2 Del Method O2 Flow Rate 98.1 F 66 16 103/60 94 Nasal Cannula 1.5 02/18/23 03:10 02/18/23 03:10 02/18/23 03:10 02/18/23 03:10 02/18/23 03:10 02/18/23 03:10 02/18/23 03:10 Oxygen Flow Rate (L/min) 1.5 Oxygen Delivery Method Nasal Cannula Weight: 195 lb 8.8 oz Body Mass Index (BMI) 35.7 Intake & Output: Intake and Output for Last 24 Hours 02/16/23 02/17/23 02/18/23 23:59 23:59 23:59 Intake Total 1345.75 / 1345.75 1440 / 1440 Output Total 250 / 250 1250 / 1250 400 / 400 Balance 1095.75 / 1095.75 190 / 190 -400 / -400 Lab / Micro Data 02/18/23 05:20 02/18/23 05:20 Labs: Laboratory Results - last 24 hr 02/18/23 05:20: WBC 10.0, RBC 3.41 L, Hgb 10.9 L, Hct 32.4 L, MCV 95.0, MCH 32.0, MCHC 33.6, RDW Std Deviation 42.5, RDW Coeff of Sonya 12.2, Plt Count 257, MPV 9.7, Immature Gran % (Auto) 0.300, Neut % (Auto) 59.4, Lymph % (Auto) 26.1, [place] % (Auto) 10.1 H, Eos % (Auto) 3.4, Baso % (Auto) 0.7, Absolute Neuts (auto) 6.0, Absolute Lymphs (auto) 2.62, Nucleated RBC % 0, PT Cancelled, INR Cancelled, Sodium 136, Potassium 3.9, Chloride 104, Carbon Dioxide 26.0, Anion Gap 6, BUN 18, Creatinine 0.45 L, Estim Creat Clear Calc 37.85, Est GFR (MDRD) Af Amer 175, Est GFR (MDRD) Non-Af 144, BUN/Creatinine Ratio 40.1 H, Glucose 107 H, Calcium 8.4 L Physical Exam Narrative Seen and examined. Patient sleepy and groggy in the morning. Stated she could not sleep last night. On 1.5 L of oxygen. Mild cough but no fever Physical exam General: Alert, Oriented x3, Cooperative HEENT: Atraumatic, PERRLA, EOMI, Normocephalic Oral: Oral mucosa moist. No Gingival or Mucosal Lesions/ Ulcerations Neck: Supple, No JVD, Negative Carotid Bruits Lungs: Air entry diminished in bilateral lung bases. No crepitation/rhonchi Cardiovascular: Irregular rhythm, Normal S1, Normal S2, systolic murmurs. Abdomen: Bowel Sounds Present, Soft, Non Tender, Non-Distended : No renal angle tenderness. No suprapubic tenderness. Extremities: No edema, Capillary Refill Less than 3 Seconds Skin: Subcutaneous bruise/ecchymosis. No open ulcer.. Wound VAC. Musculoskeletal: Operative surgical dressing is dry. Right wrist area is tender with subcutaneous/soft tissue swelling. ROM restricted at wrist. Paresthesia resolved. Right radial and ulnar artery palpable. Neurological: Cranial nerves II-XII grossly intact, DTR 2+/4 and Symmetrical, Neuro grossly intact Psych/Mental Status: Flat affect Assessment & Plan Assessment/Plan (1) Fracture of radial neck, right, closed: QUALIFIERS: Encounter type: initial encounter Fracture alignment: nondisplaced Qualified Code(s): S52.134A - Nondisplaced fracture of neck of right radius, initial encounter for closed fracture (2) Elevated INR: PLAN: Plan #Right arm bruising and swelling 2/2 nondisplaced radial neck fracture -Radial fracture seen on x-ray, Dr. Marks with orthopedic surgery called in ED and recommended CT scan and that he would evaluate patient as there had been concern for compartment syndrome -Awaiting CT scan, consult placed -Hold Coumadin -Pain control -We will check inflammatory markers, CK, lactic acid -Neurovascular checks of right arm 02/16: CT scan shows nondisplaced fracture of the radial neck with overlying soft tissue swelling and joint effusion. 02/17: Patient had tingling sensation of all 5 fingers yesterday noonish time. Patient was taken to the OR for concern of compartment syndrome. Postop diagnosis was right forearm volar compartment syndrome and intramuscular hematoma. Patient had right forearm volar compartment fasciectomy, open carpal tunnel release and evacuation of volar forearm compartment intramuscular hematoma and application of wound VAC. Surgical dressing is dry. Tingling sensation has resolved. Started on Lovenox 1 mg/kg body weight therapeutic dose adjusted to creatinine clearance. 02/18: Plan for closure of fasciectomy tomorrow. Hold Lovenox after afternoon dose. Discussed with the orthopedic surgeon. Does not need bridging therapy. Mild cough but patient is on IV cefazolin. Chest x-ray ordered. Incentive spirometry encouraged. #Atrial fibrillation w/ supratherapeutic INR -On Coumadin -INR was supratherapeutic was 4.5, resolved. Vitamin K was given. 02/16 INR 1.4. On Lovenox. -Continue metoprolol #Rheumatoid arthritis -Continue home medications -Also gets monthly injections -Follows with sports team manager on outpatient basis #Difficulty sleeping -Continue home medications #History of PE in 2015 -Patient chronically anticoagulated on Coumadin #DVT ppx: Mentioned above On Lovenox. Charges/Coding Visit Charges Inpatient E&M: 86611 Subs Hosp L2
[2023-02-18 09:07] LABS: Prothrombin Time (Protime)PT. 13.6 SECONDS (11.7-14.9)
[2023-02-18] MEDS: Hydroxychloroquine 200 MG Tablet PO (10:16)
[2023-02-18] MEDS: Metoprolol(XL)Succ 50 MG Tablet 25 MG PO ×2 (10:16→21:26)
[2023-02-18] MEDS: Sertraline 100 MG Tablet PO (10:16)
[2023-02-18] MEDS: Folic Acid 1 MG Tablet PO (10:17)
[2023-02-18] MEDS: Nystatin Powder 15gm Bottle 1 APPLIC TOPICAL ×2 (10:17→21:25)
[2023-02-18] MEDS: Enoxaparin 80 MG/0.8 ML Syringe SC (10:17)
[2023-02-18] MEDS: oxyCODONE 5 MG Tablet 10 MG PO (10:25)
[2023-02-18] MEDS: Albuterol 2.5 MG/3 ML VIAL.NEB. INHALATION ×2 (10:54→15:35)
--- NOTE | 2023-02-18 15:19 | RAD_ITS ---
STUDY: X-RAY CHEST REASON FOR EXAM: Female, 78 years old. SOB, COUGH TECHNIQUE: Single AP portable view of the chest. COMPARISON: Comparison is made with prior study dated January 31, 2022. FINDINGS: EKG electrodes are seen. Electrodes from a TENS unit are seen. Elevation of the right hemidiaphragm. Mild increased markings at the lung bases slightly worse on the left side suggestive of a mild bibasilar atelectasis. There is no demonstrated pleural abnormality. There is mild cardiac enlargement. Normal mediastinum and paul. Normal visualized pulmonary arteries. Normal visualized aortic arch and descending thoracic aorta. There are degenerative changes of the visualized thoracic spine. There is degenerative osteoarthritis of the bilateral shoulders. There is no demonstrated abnormality of the visualized soft tissue structures of the upper abdomen. RAD/Chest 1 View (Portable) IMPRESSION: Mild increased markings at the lung bases slightly worse on the left side suggestive of mild bibasilar atelectasis. Electronically Signed: Shoaib Porras MD at 15:45 EDT ,
[2023-02-18] MEDS: oxyCODONE 5 MG Tablet PO (19:39)
[2023-02-18] MEDS: Pravastatin 20 MG Tablet PO (21:27)
[2023-02-19] VITALS (14 sets, daily range): BP systolic 110–133; BP diastolic 49–76; PULSE 62–78; RESP 16–18; TEMP 36.2–37.3; O2SAT 91–97; BMI 35.7; BMI 35.8
[2023-02-19] MEDS: oxyCODONE 5 MG Tablet PO (04:03)
[2023-02-19] MEDS: 0.9% Saline Lock 10 ML Syringe IV (06:21)
[2023-02-19] MEDS: Metoprolol(XL)Succ 50 MG Tablet 25 MG PO (06:21)
[2023-02-19] MEDS: Acetaminophen 500 MG Tablet 1000 MG PO ×2 (06:22→14:29)
[2023-02-19 06:43] LABS: International Normalized Ratio 1.1; Prothrombin Time (Protime)PT. 13.9 SECONDS (11.7-14.9)
[2023-02-19 07:09] LABS: Anion Gap 4 (5-15); BUN 15 mg/dL (7-18); BUN/Creat Ratio 42.1 RATIO (10-20); Calcium,Total 8.2 mg/dL (8.5-10.1); Chloride 104 mmol/L (98-107); Creatinine, Serum 0.36 mg/dL (0.55-1.02); EST Glomerular Filtration Rate 189 mL/min (>60); Est Glom Filt Rate - Afr Amer 228 mL/min (>60); Estimated Creatinine Clearance 37.85 ml/min; Glucose 114 mg/dL (74-106); Potassium 3.6 mmol/L (3.5-5.1); Sodium Level 137 mmol/L (136-145)
--- NOTE | 2023-02-19 08:43 | PN.HOSP_ITS ---
Reason for Visit Reason for Visit: Diagnoses Coagulation defect, unspecified (02/15/23) Paroxysmal atrial fibrillation (02/15/23) Rheumatoid arthritis, unspecified (02/15/23) Pain in right arm (02/15/23) Abnormal coagulation profile (02/15/23) Displaced fracture of neck of right radius, initial encounter for closed fractur e (02/15/23) Nondisplaced fracture of neck of right radius, initial encounter for closed fracture (02/15/23) Traumatic compartment syndrome of right upper extremity, initial encounter (02/15/23) Personal history of pulmonary embolism (02/15/23) Subjective Subjective Follow-up for compartment syndrome of right forearm status post fasciectomy. Patient admitted to the OR to repair the fasciectomy wound Objective Data Objective Data Vital Signs: Vital Signs Temp Pulse Resp BP Pulse Ox O2 Del Method O2 Flow Rate 98.3 F 74 18 119/64 97 Room Air 1.5 02/19/23 06:18 02/19/23 06:21 02/19/23 06:18 02/19/23 06:21 02/19/23 06:18 02/19/23 07:43 02/18/23 15:43 Oxygen Flow Rate (L/min) 1.5 Oxygen Delivery Method Room Air Weight: 195 lb 8.8 oz Body Mass Index (BMI) 35.7 Intake & Output: Intake and Output for Last 24 Hours 02/17/23 02/18/23 02/19/23 23:59 23:59 23:59 Intake Total 1440 / 1440 970 / 970 Output Total 1250 / 1250 1535 / 1535 530 / 530 Balance 190 / 190 -565 / -565 -530 / -530 Lab / Micro Data 02/18/23 05:20 02/19/23 04:59 Labs: Laboratory Results - last 24 hr 02/18/23 08:37: PT 13.6, INR 1.0 02/19/23 04:59: PT 13.9, INR 1.1, Sodium 137, Potassium 3.6, Chloride 104, Carbon Dioxide 29.0, Anion Gap 4 L, BUN 15, Creatinine 0.36 L, Estim Creat Clear Calc 37.85, Est GFR (MDRD) Af Amer 228, Est GFR (MDRD) Non-Af 189, BUN/Cre atinine Ratio 42.1 H, Glucose 114 H, Calcium 8.2 L Radiography Diagnostic Testing: Radiology Impression Chest X-Ray 02/18/23 15:19 IMPRESSION: Mild increased markings at the lung bases slightly worse on the left side suggestive of mild bibasilar atelectasis. Electronically Signed: Shoaib Porras MD at 15:45 EDT , Physical Exam Narrative Seen and examined. Patient is awake. Pulse ox 97% on room air. Mild cough. Chest x-ray was done yesterday shows mild bibasilar atelectasis Physical exam General: Alert, Oriented x3, Cooperative HEENT: Atraumatic, PERRLA, EOMI, Normocephalic Oral: Oral mucosa moist. No Gingival or Mucosal Lesions/ Ulcerations Neck: Supple, No JVD, Negative Carotid Bruits Lungs: Air entry diminished in bilateral lung bases. No crepitation/rhonchi Cardiovascular: Irregular rhythm, Normal S1, Normal S2, systolic murmurs. Abdomen: Bowel Sounds Present, Soft, Non Tender, Non-Distended : No renal angle tenderness. No suprapubic tenderness. Extremities: No edema, Capillary Refill Less than 3 Seconds Skin: Subcutaneous bruise/ecchymosis. No open ulcer.. Wound VAC. Musculoskeletal: Operative surgical dressing is dry. Right wrist area is tender with subcutaneous/soft tissue swelling. ROM restricted at wrist. Paresthesia resolved. Right radial and ulnar artery palpable. Neurological: Cranial nerves II-XII grossly intact, DTR 2+/4 and Symmetrical, Neuro grossly intact Psych/Mental Status: Flat affect Assessment & Plan Assessment/Plan (1) Fracture of radial neck, right, closed: QUALIFIERS: Encounter type: initial encounter Fracture alignment: nondisplaced Qualified Code(s): S52.134A - Nondisplaced fracture of neck of right radius, initial encounter for closed fracture (2) Elevated INR: PLAN: Plan #Right arm bruising and swelling 2/2 nondisplaced radial neck fracture -Radial fracture seen on x-ray, Dr. Marks with orthopedic surgery called in ED and recommended CT scan and that he would evaluate patient as there had been concern for compartment syndrome -Awaiting CT scan, consult placed -Hold Coumadin -Pain control -We will check inflammatory markers, CK, lactic acid -Neurovascular checks of right arm 02/16: CT scan shows nondisplaced fracture of the radial neck with overlying soft tissue swelling and joint effusion. 02/17: Patient had tingling sensation of all 5 fingers yesterday noonish time. Patient was taken to the OR for concern of compartment syndrome. Postop diagnosis was right forearm volar compartment syndrome and intramuscular hematoma. Patient had right forearm volar compartment fasciectomy, open carpal tunnel release and evacuation of volar forearm compartment intramuscular hematoma and application of wound VAC. Surgical dressing is dry. Tingling sensation has resolved. Started on Lovenox 1 mg/kg body weight therapeutic dose adjusted to creatinine clearance. 02/18: Plan for closure of fasciectomy tomorrow. Hold Lovenox after afternoon dose. Discussed with the orthopedic surgeon. Does not need bridging therapy. Mild cough but patient is on IV cefazolin. 02/19: Patient went to the OR today. #Atrial fibrillation w/ supratherapeutic INR -On Coumadin -INR was supratherapeutic was 4.5, resolved. Vitamin K was given. 02/16 INR 1.4. On Lovenox. -Continue metoprolol 02/19: Lovenox was held yesterday for procedure today. Resume when hemostasis is controlled. Mild hypoxia with cough probably due to bibasilar atelectasis: Patient had chest x-ray shows bibasilar atelectasis. No pneumonic consolidation. Hypoxia has resolved. Encouraged aggressive incentive spirometry and Pep. #Rheumatoid arthritis -Continue home medications -Also gets monthly injections -Follows with favor maker on outpatient basis #Difficulty sleeping -Continue home medications #History of PE in 2015 -Patient chronically anticoagulated on Coumadin #DVT ppx: Mentioned above On Lovenox. Charges/Coding Visit Charges Inpatient E&M: 16109 Subs Hosp L2
[2023-02-19] MEDS: Cefazolin 2 GM in 0.9% Normal Saline 100 ML IV (09:42)
[2023-02-19] MEDS: Bupivacaine Mpf 0.5% 30 ML VIAL (10:01)
[2023-02-19 10:36] LABS: Absolute Lymphocyte Count 1.74 X10^3/uL (0.83-4.51); Absolute Neutrophil Count 6.7 X10^3/uL (2.0-7.7); Basophil# 0.06 X10^3/uL; Basophil% 0.6 % (0-1); Eosinophil# 0.26 X10^3/uL; Eosinophils% 2.6 % (0-5); Hematocrit 33.7 % (37-47); Hemoglobin 11.4 g/dL (12.0-15.0); Lymphocyte # 1.74 X10^3/ul (0.83-4.51); Lymphocyte % 17.7 % (19-41); Mean Corp Hgb Conc 33.8 g/dL (32-36); Mean Corpuscular Hgb 31.9 pg (27.0-32.0); Mean Corpuscular Volume 94.4 fL (81-99); Mean Platelet Vol. 9.3 fl (6.2-12.0); Monocyte# 1.02 X10^3/uL; Monocyte% 10.4 % (0-10); NRBC Flagged by Analyzer 0 % (0-5); Neutrophil # 6.71 X10^3/uL (2.7-7.7); Neutrophil % 68.3 % (47-70); Platelet Count 276 K/mm3 (150-450); RBC Distribution Width CV 12.3 % (11.6-14.6); Red Blood Count 3.57 M/mm3 (4.2-5.4); White Blood Count 9.8 K/mm3 (4.4-11.0)
--- NOTE | 2023-02-19 10:38 | OP.PCM_ITS ---
Report of Operation Date of Procedure: 02/19/23 Description of Surgical Findings:: Preoperative diagnosis: 1. Right forearm compartment syndrome 2. Right nondisplaced radial neck fracture Postoperative diagnosis: 1. Right forearm compartment syndrome 2. Right nondisplaced radial head neck fracture Procedure: 1. Second look irrigation and debridement right volar forearm fasciotomy 2. Removal of wound VAC under anesthesia 3. Delayed primary closure right volar forearm fasciotomy site 4. Application of right forearm sugar-tong splint Surgeon: Andrez Marks DO Golf Tournament Consultant: NOEL Crawford Statistics Manager: Rudy Sloan CRNA IV fluids: 500 cc crystalloid Urine output: None recorded Estimated blood loss 5 cc Packing/drains: None Specimen: None Complications: None apparent Intraoperative findings: Well-perfused volar compartment musculature. Normal muscle color and contractile muscles with unipolar cautery probing. Primary wound closure achieved without excessive skin tension. Preoperative indications: This is a 78-year-old female who underwent emergent fasciotomy on 02/16/2023 with myself due to a spontaneous hematoma in her volar compartment of her right forearm due to supratherapeutic INR. Compartments appeared healthy following fasciotomy and delayed primary skin closure was planned with application of wound VAC on day of index surgery. We returned to the OR today for second look irrigation and debridement with removal of wound VAC and delayed primary closure of her fasciotomy site. She has done well in the interim with resolution of paresthesias, improved finger range of motion and most importantly, improved pain. I reviewed the risk, benefits, alternatives to the procedure. Risks included but were not limited to bleeding, infection, loss of life or limb, need for additional surgery, need for skin graft, need for application of wound VAC, neurovascular injury, DVT or PE. Patient expressed understanding of these risks and wished to proceed with surgery. Description of procedure: Patient was identified in the preoperative holding area by name, medical record number, and date of . The operative extremity was marked. All questions were answered to the patient's satisfaction. At time of her procedure, patient was brought to the operative suite and positioned supine on a standard operating table with a hand table attached to the right side. All bony prominences were well-padded. General anesthesia was induced and LMA placed. We then spun the bed 90 degrees. We prepped and draped the right upper extremity after removing wound VAC utilizing a Betadine prep. We performed timeout with all parties in attendance in agreement with the side, site, operation be performed. No concerns voiced and we elected to proceed with surgery. 2 g Ancef was administered IV prior to surgery start time by anesthesia staff. I first irrigated the volar muscular compartment with normal saline solution. Trauma from wound VAC removal demonstrated small slow bleeding muscle bellies which were cauterized with Bovie. I used the Bovie to probe muscles within the form compartment, all of which demonstrated appropriate contractility. There was excellent color of the muscle bellies. There was minimal necrotic fatty tissue that was debrided, otherwise tissue appeared quite healthy. I then proceeded with copious irrigation of the wound. We then proceeded with layered wound closure. I then milked to reapproximate the skin initially with manual traction on the skin edges. I elected to place several retention sutures throughout the course of the wound to help with reapproximation. We then closed the dermis in interrupted buried fashion with a 3-0 Vicryl suture. Skin was finally reapproximated with interrupted 3-0 nylon suture. Retention sutures were removed. Skin appeared to be well approximated without excessive tension. Skin edges were anesthetized with 10 cc total of 0.5% plain bupivacaine. Xeroform was applied to the wound. A well-padded fiberglass forearm sugar-tong splint was applied to encourage skin healing as well as briefly immobilized the radial neck fracture. Patient tolerated the procedure well. She was safely awoken the operative suite. She was transferred to her hospital bed and subsequently to PACU in stable condition. Postoperative plan: Okay to restart anticoagulant today IV Ancef ordered while patient is in the hospital. Plan to discharge home on 10 days of oral Keflex which was sent to her pharmacy today Follow-up in 1 week for splint removal, x-rays right elbow out of splint and wound check. Maintain surgical dressing/splint until follow-up Okay for discharge home later today if patient tolerates anesthesia well and her pain is controlled.
--- NOTE | 2023-02-19 12:27 | DCINST_ITS ---
Discharge Instructions Diet Discharge Diet: No restrictions Activity Discharge Activity: Return to Normal Activity Weight Bearing Status: Weight bearing as tolerated Dressing / Incision Call your doctor if you observe: Fever of 101 or Higher, Coldness, Increased Pain, Numbness or Tingling, Change in Color, Inability to urinate, Inability to have a bowel movement, Shortness of breath, Dizziness, Fainting spells, Swelling in the ankles, Chest pain, Prolonged hiccupping, Increased palpitations (irregular heartbeat) and Calf discomfort Follow Up Care When: IN 2 WEEKS Test Results: Test results from this visit will be discussed in further detail at your follow- up appointment, if applicable. Discharge Plan Admission Admit Date/Time: 02/15/23 13:29 Primary Reason for Your Visit: Right wrist fracture with compartment syndrome. Attending Provider: Toni Miller Primary Care Provider: Low Baxter Consulting Providers: Maria Antonia Romero; Andrez Marks Discharge Orders/Prescriptions Prescriptions: New cephalexin 500 mg capsule 500 mg PO Q6H 10 Days Qty: 40 0RF warfarin 4 mg tablet 4 mg PO DAILY Qty: 30 0RF Rx Instructions: Hold if INR is more than 2.8. enoxaparin [Lovenox] 80 mg/0.8 mL syringe 80 mg subcut DAILY 5 Days Qty: 4 0RF Rx Instructions: Continue enoxaparin until INR is therapeutic 2.0 for 2 days. acetaminophen 500 mg Tablet 1,000 mg PO Q8 Qty: 0 0RF Continued folic acid 1 mg tablet 1 mg PO QDAY Orencia ClickJect 125 mg/mL auto-injector 125 mg SC QMONTH Patient Comments: PT STATES TAKES AROUND THE OF EVERY MONTH trazodone 100 mg tablet 100 mg PO QHS PRN PRN (Reason: Sleep) quetiapine 200 mg tablet 200 mg PO QHS sertraline 100 mg tablet 100 mg PO DAILY hydroxychloroquine 200 mg tablet 200 mg PO DAILY oxycodone 5 mg tablet 5 mg PO TID Patient Comments: take 1 tablet by mouth three times a day if needed for pain acetaminophen 650 mg tablet extended release 1,300 mg PO TID PRN (Reason: pain) RELEASE SLEEP 2 tab PO QHS Patient Comments: PT GETS OTC methotrexate sodium 2.5 mg tablet 15 mg PO TH amlodipine 10 mg tablet 10 mg PO DAILY Qty: 90 4RF pravastatin 20 mg tablet 20 mg PO QHS Qty: 90 3RF Changed metoprolol succinate 50 mg tablet extended release 24 hr 50 mg PO DAILY Qty: 180 4RF Discontinued warfarin [] 6 mg tablet 6 mg PO DINNER Qty: 90 3RF Protocol: Dose Management Condition: Saturday Dose/Route: 6 mg Instruction: 1 x 6 mg tablet Condition: Saturday Dose/Route: 0 mg Instruction: 0 tablets Condition: Saturday Dose/Route: 3 mg Instruction: 0.5 x 6 mg tablets Condition: Saturday Dose/Route: 6 mg Instruction: 1 x 6 mg tablet Condition: Dose/Route: 6 mg Instruction: 1 x 6 mg tablet Condition: Saturday Dose/Route: 6 mg Instruction: 1 x 6 mg tablet Condition: Saturday Dose/Route: 6 mg Instruction: 1 x 6 mg tablet Protocol Text: Adjustment Start Date: Saturday02/11/23 INR Value: 3.7 INR Date: 02/08/23 Recheck Date: 02/13/23 Referrals / Follow Up: Andrez Marks DO [Med Staff - Active Staff] - 02/27/23 11:00 am Low Baxter MD [Primary Care Provider] - 02/28/23 4:40 am Disposition Disposition (needs filled in before D/C Order can be placed): Home Health Service
--- NOTE | 2023-02-19 13:20 | PCM.DC.SUM ---
Providers Date of Admission: 02/15/23 Date of Discharge: 02/19/23 Primary Care Physician: Dr. Low Baxter MD Consultations 02/15/23 16:12 Consult: Orthopedics Routine Consulting Provider: Andrez Marks Reason for Consult: concern for compartment sx in R arm, radial fracture, supra therapeutic inr EMERGENT Consult: No MD Notified: Yes Date Notified: 02/15/23 Time Notified: 13:32 Method of Notification: ED Physician Initiated Reason For Visit: COAGULOPATHY RADIAL NECK FRACTURE Diagnosis Discharge Diagnosis (1) Fracture of radial neck, right, closed: Status: Acute Code(s): S52.131A - Displaced fracture of neck of right radius, initial encounter for closed fracture Qualifiers: Encounter type: initial encounter Fracture alignment: nondisplaced Qualified Code(s): S52.134A - Nondisplaced fracture of neck of right radius, initial encounter for closed fracture (2) Elevated INR: Status: Acute Code(s): R79.1 - Abnormal coagulation profile Plan This is a 78-year-old female who was admitted with right forearm pain and swelling for last 5 to 6 days to admission. At time of admission patient stated she had also has tingling sensation and difficulty with opening closing her fingers. This is started after something fell from a refrigerator on the right forearm. #Right arm bruising and swelling 2/2 nondisplaced radial neck fracture -Radial fracture seen on x-ray, Dr. Marks with orthopedic surgery called in ED and recommended CT scan and that he would evaluate patient as there had been concern for compartment syndrome -Awaiting CT scan, consult placed -Hold Coumadin -Pain control -We will check inflammatory markers, CK, lactic acid -Neurovascular checks of right arm 02/16: CT scan shows nondisplaced fracture of the radial neck with overlying soft tissue swelling and joint effusion. 02/17: Patient had tingling sensation of all 5 fingers yesterday noonish time. Patient was taken to the OR for concern of compartment syndrome. Postop diagnosis was right forearm volar compartment syndrome and intramuscular hematoma. Patient had right forearm volar compartment fasciectomy, open carpal tunnel release and evacuation of volar forearm compartment intramuscular hematoma and application of wound VAC. Surgical dressing is dry. Tingling sensation has resolved. Started on Lovenox 1 mg/kg body weight therapeutic dose adjusted to creatinine clearance. 02/18: Plan for closure of fasciectomy tomorrow. Hold Lovenox after afternoon dose. Discussed with the orthopedic surgeon. Does not need bridging therapy. Mild cough but patient is on IV cefazolin. 02/19: Patient went to the OR today. Patient had second look irrigation and debridement of right volar forearm fasciectomy. Removal of wound VAC. Delayed primary closure of right volar forearm fasciotomy site. Application of super tong splint. Discussed with the orthopedic surgeon. Hemostasis secured and patient can resume anticoagulant. Started on Lovenox therapeutic dose and warfarin. Patient will need enoxaparin until INR is therapeutic for 2 days. Warfarin dose at home decreased to 4 mg daily as patient had supratherapeutic INR during admission. #Atrial fibrillation w/ supratherapeutic INR -On Coumadin -INR was supratherapeutic was 4.5, resolved. Vitamin K was given. 02/16 INR 1.4. On Lovenox. -Continue metoprolol 02/19: Lovenox was held yesterday for procedure today. Resume when hemostasis is controlled. Alcohol admission above. Mild hypoxia with cough probably due to bibasilar atelectasis: Patient had chest x-ray shows bibasilar atelectasis. No pneumonic consolidation. Hypoxia has resolved. Encouraged aggressive incentive spirometry and Pep. #Rheumatoid arthritis -Continue home medications -Also gets monthly injections -Follows with laboratory asst on outpatient basis #Difficulty sleeping -Continue home medications #History of PE in 2015 -Patient chronically anticoagulated on Coumadin #DVT ppx: Mentioned above On Lovenox. Discharge medication reconciliation done. Discharge follow-up instructions completed. Discharge process discussed with the patient and all questions were answered to patient's satisfaction. Total time spent, exact 35 minutes on discharge meds reconciliation, examination, coordination of care with nurses and ancillary staff, review of imaging and blood test and discussion with the patient on follow-up instructions. Medications at Discharge Home Medications folic acid 1 mg tablet 1 mg PO QDAY Supplement 10/04/17 abatacept 125 mg/mL subcutaneous auto-injector (Orencia ClickJect) 125 mg subcut QMONTH RA 04/28/19 quetiapine 200 mg tablet 200 mg PO QHS mood 01/31/22 trazodone 100 mg tablet 100 mg PO QHS PRN PRN Sleep 01/31/22 sertraline 100 mg tablet 100 mg PO DAILY mood 02/05/22 amlodipine 10 mg tablet 10 mg PO DAILY BP #90 tabs 08/21/22 pravastatin 20 mg tablet 20 mg PO QHS Cholesterol #90 tabs 10/02/22 RELEASE SLEEP 2 tab PO QHS 02/15/23 acetaminophen 650 mg tablet,extended release 1,300 mg PO TID PRN pain 02/15/23 hydroxychloroquine 200 mg tablet 200 mg PO DAILY 02/15/23 methotrexate sodium 2.5 mg tablet 15 mg PO TH ARTHRITIS 02/15/23 oxycodone 5 mg tablet 5 mg PO TID 02/15/23 acetaminophen 500 mg tablet 1,000 mg (2 x 500 mg) PO Q8 #0 tabs 02/19/23 cephalexin 500 mg capsule 500 mg PO Q6H 10 days #40 caps 02/19/23 enoxaparin 80 mg/0.8 mL subcutaneous syringe (Lovenox) 80 mg (0.8 mL) subcut DAILY 5 days #4 mL 02/19/23 metoprolol succinate 50 mg tablet,extended release 24 hr 50 mg PO DAILY #180 tabs 02/19/23 warfarin 4 mg tablet 4 mg PO DAILY #30 tabs 02/19/23 Physical Exam Narrative Seen and examined after patient came from the OR. Patient right forearm is splinted. Denies any pain. Patient wants to go home. She stated her cannot take care of her. Physical exam General: Alert, Oriented x3, Cooperative HEENT: Atraumatic, PERRLA, EOMI, Normocephalic Oral: Oral mucosa moist. No Gingival or Mucosal Lesions/ Ulcerations Neck: Supple, No JVD, Negative Carotid Bruits Lungs: Air entry diminished in bilateral lung bases. No crepitation/rhonchi Cardiovascular: Irregular rhythm, Normal S1, Normal S2, systolic murmurs. Abdomen: Bowel Sounds Present, Soft, Non Tender, Non-Distended : No renal angle tenderness. No suprapubic tenderness. Extremities: No edema, Capillary Refill Less than 3 Seconds Skin: Subcutaneous bruise/ecchymosis. No open ulcer.. Wound VAC. Musculoskeletal: Operative surgical dressing is dry. Right wrist area is tender with subcutaneous/soft tissue swelling. ROM restricted at wrist. Paresthesia resolved. Right radial and ulnar artery palpable. Neurological: Cranial nerves II-XII grossly intact, DTR 2+/4 and Symmetrical, Neuro grossly intact Psych/Mental Status: Flat affect Weight / BMI Weight Weight: 195 lb 8.8 oz Body Mass Index (BMI) 35.7 ABG / Lab / Microbiology Data 02/19/23 04:59 02/19/23 04:59 Laboratory: Laboratory Results - last 24 hr 02/19/23 04:59: WBC 9.8, RBC 3.57 L, Hgb 11.4 L, Hct 33.7 L, MCV 94.4, MCH 31.9, MCHC 33.8, RDW Std Deviation 43.0, RDW Coeff of Sonya 12.3, Plt Count 276, MPV 9.3, Immature Gran % (Auto) 0.400, Neut % (Auto) 68.3, Lymph % (Auto) 17.7 L, [place] % (Auto) 10.4 H, Eos % (Auto) 2.6, Baso % (Auto) 0.6, Absolute Neuts (auto) 6.7, Absolute Lymphs (auto) 1.74, Nucleated RBC % 0, PT 13.9, INR 1.1, Sodium 137, Potassium 3.6, Chloride 104, Carbon Dioxide 29.0, Anion Gap 4 L, BUN 15, Creatinine 0.36 L, Estim Creat Clear Calc 37.85, Est GFR (MDRD) Af Amer 228, Est GFR (MDRD) Non-Af 189, BUN/Creatinine Ratio 42.1 H, Glucose 114 H, Calcium 8.2 L Radiography Diagnostic Testing: Radiology Impression Chest X-Ray 02/18/23 15:19 IMPRESSION: Mild increased markings at the lung bases slightly worse on the left side suggestive of mild bibasilar atelectasis. Electronically Signed: Shoaib Porras MD at 15:45 EDT , Meaningful Use Info Meaningful Use Diagnoses (Choose all that apply): None applicable Discharge Plan Admission Admit Date/Time: 02/15/23 13:29 Primary Reason for Your Visit: Right wrist fracture with compartment syndrome. Attending Provider: Toni Miller Primary Care Provider: Low Baxter Consulting Providers: Maria Antonia Romero; Andrez Marks Discharge Orders/Prescriptions Prescriptions: New cephalexin 500 mg capsule 500 mg PO Q6H 10 Days Qty: 40 0RF warfarin 4 mg tablet 4 mg PO DAILY Qty: 30 0RF Rx Instructions: Hold if INR is more than 2.8. enoxaparin [Lovenox] 80 mg/0.8 mL syringe 80 mg subcut DAILY 5 Days Qty: 4 0RF Rx Instructions: Continue enoxaparin until INR is therapeutic 2.0 for 2 days. acetaminophen 500 mg Tablet 1,000 mg PO Q8 Qty: 0 0RF Continued folic acid 1 mg tablet 1 mg PO QDAY Orencia ClickJect 125 mg/mL auto-injector 125 mg SC QMONTH Patient Comments: PT STATES TAKES AROUND THE OF EVERY MONTH trazodone 100 mg tablet 100 mg PO QHS PRN PRN (Reason: Sleep) quetiapine 200 mg tablet 200 mg PO QHS sertraline 100 mg tablet 100 mg PO DAILY hydroxychloroquine 200 mg tablet 200 mg PO DAILY oxycodone 5 mg tablet 5 mg PO TID Patient Comments: take 1 tablet by mouth three times a day if needed for pain acetaminophen 650 mg tablet extended release 1,300 mg PO TID PRN (Reason: pain) RELEASE SLEEP 2 tab PO QHS Patient Comments: PT GETS OTC methotrexate sodium 2.5 mg tablet 15 mg PO TH amlodipine 10 mg tablet 10 mg PO DAILY Qty: 90 4RF pravastatin 20 mg tablet 20 mg PO QHS Qty: 90 3RF Changed metoprolol succinate 50 mg tablet extended release 24 hr 50 mg PO DAILY Qty: 180 4RF Discontinued warfarin [Jantoven] 6 mg tablet 6 mg PO DINNER Qty: 90 3RF Protocol: Dose Management Condition: Saturday Dose/Route: 6 mg Instruction: 1 x 6 mg tablet Condition: Saturday Dose/Route: 0 mg Instruction: 0 tablets Condition: Saturday Dose/Route: 3 mg Instruction: 0.5 x 6 mg tablets Condition: Saturday Dose/Route: 6 mg Instruction: 1 x 6 mg tablet Condition: Dose/Route: 6 mg Instruction: 1 x 6 mg tablet Condition: Saturday Dose/Route: 6 mg Instruction: 1 x 6 mg tablet Condition: Saturday Dose/Route: 6 mg Instruction: 1 x 6 mg tablet Protocol Text: Adjustment Start Date: Saturday02/11/23 INR Value: 3.7 INR Date: 02/08/23 Recheck Date: 02/13/23 Referrals / Follow Up: Andrez Marks DO [Med Staff - Active Staff] - 02/27/23 11:00 am Low Baxter MD [Primary Care Provider] - 02/28/23 4:40 am Disposition Disposition (needs filled in before D/C Order can be placed): Home Health Service Charges/Coding Visit Charges Inpatient E&M: 51526 Disch Hosp >30min
[2023-02-19] MEDS: Folic Acid 1 MG Tablet PO (14:26)
[2023-02-19] MEDS: Hydroxychloroquine 200 MG Tablet PO (14:26)
[2023-02-19] MEDS: Sertraline 100 MG Tablet PO (14:27)
[2023-02-19] MEDS: Nystatin Powder 15gm Bottle 1 APPLIC TOPICAL (14:27)
--- NOTE | 2023-02-19 15:07 | CASEMGMT ---
Patient has order for discharge. YONIS DOSHI in to discuss needs at discharge. Patient states will assist patient at home. Patient denies needs at discharge. Patient discharging on Lovenox, YONIS DOSHI called [facility] and cost is $16.32. YONIS DOSHI updated patient regarding medication cost. Nursing to do Lovenox teaching. YONIS DOSHI completed IMM with patient and provided patient copy of signed IMM form. Patient had no further questions or concerns at this time.
--- NOTE | 2023-02-19 15:26 | PHA.DC.MC.R ---
Pharmacy [facility] has performed discharge medication reconciliation and counseling for this patient. The patient was counseled on the following discharge medications and changes in medications for homegoing were reviewed. 1. Tylenol - Noted to not take both PRN and scheduled at the same time 2. Warfarin 3. Lovenox 4. Keflex The Reason for Use, instructions for use, and potential side effects were reviewed for all new medications. The patient's questions regarding all of their medications were answered. The patient was able to verbally demonstrate an understanding of their discharge medications. Counselled by Clinton Guardado PharmD Candidate The patient's discharge medication list was reviewed for discrepancies and discrepancies were resolved. Medications at Discharge Home Medications folic acid 1 mg tablet 1 mg PO QDAY Supplement 10/04/17 abatacept 125 mg/mL subcutaneous auto-injector (Orencia ClickJect) 125 mg subcut QMONTH RA 04/28/19 quetiapine 200 mg tablet 200 mg PO QHS mood 01/31/22 trazodone 100 mg tablet 100 mg PO QHS PRN PRN Sleep 01/31/22 sertraline 100 mg tablet 100 mg PO DAILY mood 02/05/22 amlodipine 10 mg tablet 10 mg PO DAILY BP #90 tabs 08/21/22 pravastatin 20 mg tablet 20 mg PO QHS Cholesterol #90 tabs 10/02/22 RELEASE SLEEP 2 tab PO QHS 02/15/23 acetaminophen 650 mg tablet,extended release 1,300 mg PO TID PRN pain 02/15/23 hydroxychloroquine 200 mg tablet 200 mg PO DAILY 02/15/23 methotrexate sodium 2.5 mg tablet 15 mg PO TH ARTHRITIS 02/15/23 oxycodone 5 mg tablet 5 mg PO TID 02/15/23 acetaminophen 500 mg tablet 1,000 mg (2 x 500 mg) PO Q8 #0 tabs 02/19/23 cephalexin 500 mg capsule 500 mg PO Q6H 10 days #40 caps 02/19/23 enoxaparin 80 mg/0.8 mL subcutaneous syringe (Lovenox) 80 mg (0.8 mL) subcut DAILY 5 days #4 mL 02/19/23 metoprolol succinate 50 mg tablet,extended release 24 hr 50 mg PO DAILY #180 tabs 02/19/23 warfarin 4 mg tablet 4 mg PO DAILY #30 tabs 02/19/23
[2023-02-19] MEDS: Enoxaparin 80 MG/0.8 ML Syringe SC (15:49)
== END 2023-02-19 16:18 | disposition home health service (06) | DRG 906 ==
LOC: ED 13:09 → PCU 02-16 01:43
PROVIDERS: Student in an Organized Health Care Education/Training Program; Admitting Provider Internal Medicine; Emergency Provider Emergency Medicine; PCP Family Medicine; Visit Provider Internal Medicine
PROC: 01N50ZZ Release Median Nerve, Open Approach (ICD-10-PCS; principal; 2023-02-19 09:20)
DX: T79.A11A Traumatic compartment syndrome of right upper extremity, initial encounter (principal); J98.11 Atelectasis; E78.5 Hyperlipidemia, unspecified; I48.0 Paroxysmal atrial fibrillation; M06.9 Rheumatoid arthritis, unspecified; S52.134A Nondisplaced fracture of neck of right radius, initial encounter for closed fracture; I10 Essential (primary) hypertension; S50.11XA Contusion of right forearm, initial encounter; Z79.01 Long term (current) use of anticoagulants; Z82.3 Family history of stroke; G89.29 Other chronic pain; Z79.891 Long term (current) use of opiate analgesic; R79.1 Abnormal coagulation profile; Z86.711 Personal history of pulmonary embolism
CPT/HCPCS: 36415; 71045; 73080; 73090; 73200; 80048; 80053; 80076; 82550; 83605; 83735; 84443; 85025; 85610; 85652; 85730; 86140; 93005; 94640; 94668; 97110; 97166; 97535; 99252; 99283; J7030; J7040; J7050; J7120; A4216; G0463; J2405; J3490

== ENCOUNTER 2023-03-06 15:11 | Outpatient (RCR) | payer MEDICARE, OTHER, SELFPAY ==
[2023-02-09 03:04] VITALS: BMI 40.0
[2023-02-25 17:36] LABS: International Normalized Ratio 1.2; Prothrombin Time (Protime)PT. 15.4 SECONDS (11.7-14.9)
[2023-03-06 18:11] LABS: Absolute Lymphocyte Count 1.52 X10^3/uL (0.83-4.51); Absolute Neutrophil Count 3.6 X10^3/uL (2.0-7.7); Basophil# 0.05 X10^3/uL; Basophil% 0.8 % (0-1); Eosinophil# 0.22 X10^3/uL; Eosinophils% 3.7 % (0-5); Hematocrit 41.1 % (37-47); Lymphocyte # 1.52 X10^3/ul (0.83-4.51); Lymphocyte % 25.3 % (19-41); Mean Corp Hgb Conc 31.6 g/dL (32-36); Mean Corpuscular Hgb 30.9 pg (27.0-32.0); Mean Corpuscular Volume 97.6 fL (81-99); Mean Platelet Vol. 9.9 fl (6.2-12.0); Monocyte# 0.59 X10^3/uL; Monocyte% 9.8 % (0-10); NRBC Flagged by Analyzer 0 % (0-5); Neutrophil % 60.1 % (47-70); Platelet Count 289 K/mm3 (150-450); RBC Distribution Width CV 12.2 % (11.6-14.6); RBC Distribution Width SD 43.8 fl (35.1-43.9); Red Blood Count 4.21 M/mm3 (4.2-5.4)
[2023-03-06 18:13] LABS: International Normalized Ratio 1.7; Prothrombin Time (Protime)PT. 19.8 SECONDS (11.7-14.9)
== END 2023-03-11 18:00 | disposition home or self-care (01) ==
LOC: MTLAB 15:11
PROVIDERS: Family Provider Family Medicine; PCP Family Medicine; Referring Provider Internal Medicine Cardiovascular Disease; Visit Provider Internal Medicine Cardiovascular Disease
DX: I48.0 Paroxysmal atrial fibrillation (principal); Z79.01 Long term (current) use of anticoagulants
CPT/HCPCS: 36415; 85025; 85610

== ENCOUNTER 2023-03-13 15:26 | Outpatient (RCR) | payer MEDICARE, OTHER, SELFPAY ==
[2023-03-12 02:02] VITALS: BMI 40.0
[2023-03-13 17:43] LABS: International Normalized Ratio 2.3; Prothrombin Time (Protime)PT. 25.2 SECONDS (11.7-14.9)
== END 2023-03-13 18:00 | disposition home or self-care (01) ==
LOC: MTLAB 15:26
PROVIDERS: Family Provider Family Medicine; PCP Family Medicine; Referring Provider Internal Medicine Cardiovascular Disease; Visit Provider Internal Medicine Cardiovascular Disease
DX: I48.0 Paroxysmal atrial fibrillation (principal); Z79.01 Long term (current) use of anticoagulants
CPT/HCPCS: 36415; 85610

== ENCOUNTER 2023-04-05 12:48 | Emergency (ER) | payer MEDICARE, OTHER, SELFPAY ==
[2023-04-05] VITALS (11 sets, daily range): BP systolic 101–170; BP diastolic 73–120; PULSE 110–170; RESP 12–30; TEMP 36.4; O2SAT 93–697; BMI 32.5
--- NOTE | 2023-04-05 13:15 | RAD_ITS ---
STUDY: X-RAY CHEST REASON FOR EXAM: Female, 78 years old. Respiratory failure with wheezing and productive cough. TECHNIQUE: Single frontal view of the chest. COMPARISON: Chest dated February 18, 2023. FINDINGS: Marked cardiomegaly, elevation of the right hemidiaphragm, diffuse interstitial pattern with a basilar predominance and patchy opacities at both bases, right greater than left, unchanged from prior study. Osteoarthrosis of both shoulders unchanged. No abnormality of the visualized soft tissue structures of the upper abdomen. RAD/Chest 1 View (Portable) IMPRESSION: Relatively stable chest with no acute superimposed finding. Electronically Signed: Ceferino León MD at 14:01 EDT ,
--- NOTE | 2023-04-05 13:15 | EKG12_ITS ---
Test Reason : sob Blood Pressure : / mmHG Vent. Rate : 161 BPM Atrial Rate : 000 BPM P-R Int : 000 ms QRS Dur : 130 ms QT Int : 288 ms P-R-T Axes : 000 -30 004 degrees QTc Int : 471 ms Critical Test Result: High HR Atrial fibrillation with rapid ventricular response Left axis deviation Right bundle branch block Abnormal ECG Confirmed by VANESSA ONEILL ([id number]), photographic editor ANA STEVENS ([id number]) on 04/25/2023 10:14:03 AM Referred By: Confirmed By:VANESSA ONEILL
[2023-04-05 13:34] LABS: Absolute Neutrophil Count 9.8 X10^3/uL (2.0-7.7); Basophil# 0.04 X10^3/uL; Basophil% 0.3 % (0-1); Eosinophil# 0.03 X10^3/uL; Eosinophils% 0.3 % (0-5); Hemoglobin 12.8 g/dL (12.0-15.0); Lymphocyte % 9.4 % (19-41); Mean Corpuscular Hgb 30.3 pg (27.0-32.0); Mean Corpuscular Volume 94.8 fL (81-99); Mean Platelet Vol. 9.7 fl (6.2-12.0); Monocyte# 0.77 X10^3/uL; Monocyte% 6.5 % (0-10); NRBC Flagged by Analyzer 0 % (0-5); Neutrophil # 9.78 X10^3/uL (2.7-7.7); Neutrophil % 83.2 % (47-70); Platelet Count 397 K/mm3 (150-450); RBC Distribution Width CV 12.4 % (11.6-14.6); RBC Distribution Width SD 42.7 fl (35.1-43.9); Red Blood Count 4.22 M/mm3 (4.2-5.4); White Blood Count 11.8 K/mm3 (4.4-11.0)
[2023-04-05] MEDS: Albuterol 2.5 MG/3 ML VIAL.NEB. INHALATION ×3 (13:36)
[2023-04-05] MEDS: MethylPREDNISolone 125 MG/2 ML Vial IV (13:43)
[2023-04-05 13:49] LABS: Allen Test Positive; Base Excess -3 mmol/L (-2 to +2); Bicarbonate 21.6 mmol/L (22-26); Blood Gas Specimen Type ART; O2 Delivery Device Cannula; PO2 81 mmHG (75-100); SITE L Radial; SO2 96 % (95-99); Total Carbon Dioxide 23 mmol/L; pCO2 32.9 mmHg (35-45); pH 7.43 (7.35-7.45)
--- NOTE | 2023-04-05 13:54 | EDS_ITS ---
HPI History of Present Illness Chief Complaint: Shortness of Breath Detail of Chief Complaint: Shortness of breath started 1.5 days ago. Informant: patient and spouse/S.O. Onset/Context/Timing Onset: Yesterday Context: sudden Timing: Continuous Quality: Positive for Dyspnea on exertion and Wheezing; Negative for Orthopnea or PND Current Severity: Severe Maximum Severity: Severe Worsened by: Exertion and Coughing Relieved by: Nothing Associated Symptoms cough and white sputum; Negative for rhinorrhea, post nasal drip, fever, sore throat, subjective, chills or sweats Chest Pain: Positive for None Narrative Narrative: Patient is a 78-year-old woman with no history of asthma, COPD or congestive heart failure who presents with shortness of breath, wheezing, productive cough of white-colored sputum. Patient is able to say 1 or 2 words before gasping for breath. PO2 is 92% on 3 L. She has not had a home oxygen. Patient appears slightly acid. She denies chest pain. She does have remote history of PE and DVT. She is on anticoagulant. She reports compliance with her medicine. She denies leg pain, swelling or discolored. Patient denies nausea, vomit or diarrhea. Patient denies urologic symptoms. Patient denies headache, visual, ocular auditory symptoms. PE Risk Factors: Positive for Prior DVT or PE; Negative for Recent immobilization, Recent surgery or Recent travel Prior similar symptoms: No Recent Illness/Hospitalization: No PFSH PFSH Medical History Atrial fibrillation Cardiac murmur, unspecified Chronic pain Contusion of left knee Contusion of right hand Contusion of right wrist Essential (primary) hypertension History of pulmonary embolism (2014) Hyperlipidemia Long-term use of immunosuppressant medication Non-smoker Palpitations Paroxysmal atrial fibrillation Pulmonary embolism Rheumatoid arthritis Right bundle branch block (RBBB) Trapezius muscle strain Traumatic ecchymosis of face Home Medications folic acid 1 mg tablet 1 mg PO QDAY Supplement 10/04/17 [History Last Taken 02/15/23] abatacept 125 mg/mL subcutaneous auto-injector (Orencia ClickJect) 125 mg subcut QMONTH RA 04/28/19 [History Last Taken 01/29/23] quetiapine 200 mg tablet 200 mg PO QHS mood 01/31/22 [History Last Taken 02/14/23] trazodone 100 mg tablet 100 mg PO QHS PRN PRN Sleep 01/31/22 [History Last Taken 02/14/23] sertraline 100 mg tablet 100 mg PO DAILY mood 02/05/22 [History Last Taken 02/14/23] amlodipine 10 mg tablet 10 mg PO DAILY BP #90 tabs 08/21/22 [Rx Last Taken 02/15/23] pravastatin 20 mg tablet 20 mg PO QHS Cholesterol #90 tabs 10/02/22 [Rx Last Taken 02/14/23] RELEASE SLEEP 2 tab PO QHS 02/15/23 [History Last Taken 02/14/23] acetaminophen 650 mg tablet,extended release 1,300 mg PO TID PRN pain 02/15/23 [History Last Taken 02/14/23] hydroxychloroquine 200 mg tablet 200 mg PO DAILY 02/15/23 [History Last Taken 02/15/23] methotrexate sodium 2.5 mg tablet 15 mg PO TH ARTHRITIS 02/15/23 [History Last Taken 02/14/23] oxycodone 5 mg tablet 5 mg PO TID 02/15/23 [History Last Taken 02/15/23] acetaminophen 500 mg tablet 1,000 mg (2 x 500 mg) PO Q8 #0 tabs 02/19/23 [Rx Last Taken Unknown] cephalexin 500 mg capsule 500 mg PO Q6H 10 days #40 caps 02/19/23 [Rx Last Taken Unknown] metoprolol succinate 50 mg tablet,extended release 24 hr 50 mg PO DAILY #180 tabs 02/19/23 [Rx Last Taken 02/15/23] warfarin 4 mg tablet 4 mg PO DAILY #30 tabs 02/19/23 [Rx Last Taken Unknown] warfarin 6 mg tablet 6 mg PO .COMPLEX #1 TAB 02/26/23 [Rx Last Taken Unknown] Allergy/AdvReac Type Severity Reaction Status Date / Time Penicillins Allergy Rash Verified 02/15/23 15:50 Family History Father Diabetes CAD (coronary artery disease) S/P CABG (coronary artery bypass graft) Mother , age 74, CVA CVA (cerebral vascular accident) Brother Lung cancer Other Family history of CVA Surgical History History of appendectomy History of back surgery History of bilateral knee replacement History of brain tumor removal History of section History of open reduction and internal fixation (ORIF) procedure Social History household members: spouse Smoking Status: Never smoker alcohol intake: never caffeine: Yes Type: carbonated beverages and tea ROS ROS ED Constitutional Constitutional ED: Denies chills, fever(s), sweats or weight loss Eyes Eyes: Denies blurry vision, change in vision or diplopia ENT ENT ED: Denies ear pain, rhinorrhea or sore throat Cardiovascular Cardiovascular: Reports palpitations and racing heartbeat; Denies chest pain, orthopnea or paroxysmal nocturnal dyspnea Respiratory/Chest Respiratory/Chest: Reports cough, dyspnea, dyspnea on exertion and sputum; Denies orthopnea or paroxysmal nocturnal dyspnea Gastrointestinal Gastrointestinal: Denies abdominal pain, constipation, diarrhea, melena, nausea or vomiting Genitourinary Genitourinary ED: Denies dysuria, hematuria or urinary frequency Musculoskeletal Musculoskeletal: Denies arthralgias, back pain, myalgias or neck pain Integumentary Denies abscess, Abrasions or rash Neurologic Neurologic: Reports weakness; Denies headache(s) or paresthesias Psychiatric Psychiatric: Denies anxiety or depression Endocrine Endocrinology: Denies cold intolerance or heat intolerance EXAM Physical Exam Const Vital Signs: 04/05/23 12:50 04/05/23 13:15 04/05/23 13:15 Temperature 97.5 F L Temperature Source Temporal Pulse Rate 110 H 130 H Respiratory Rate 24 H 26 H Respiratory Effort Respiratory Depth Respiratory Pattern Blood Pressure 125/92 H 170/120 H Blood Pressure Mean 103 136 Pulse Ox 94 94 Oxygen Delivery Method Room Air Nasal Cannula Oxygen Flow Rate (L/min) 3 Fraction of Inspired Oxygen (FIO2) 04/05/23 13:43 04/05/23 14:00 04/05/23 12:51 Temperature Temperature Source Pulse Rate 170 H 142 H Respiratory Rate 24 H 22 H Respiratory Effort Short of Breath Respiratory Depth Shallow Respiratory Pattern Tachypnea Tachypnea Blood Pressure 144/104 H Blood Pressure Mean 117 Pulse Ox 93 Oxygen Delivery Method Nasal Cannula Nasal Cannula Oxygen Flow Rate (L/min) 3 3 Fraction of Inspired Oxygen (FIO2) 04/05/23 15:09 04/05/23 15:34 04/05/23 16:08 Temperature Temperature Source Pulse Rate 145 H 156 H 135 H Respiratory Rate 22 H 25 H 30 H Respiratory Effort Respiratory Depth Respiratory Pattern Tachypnea Blood Pressure 116/90 H 101/73 Blood Pressure Mean 98 82 Pulse Ox 95 93 97 Oxygen Delivery Method Nasal Cannula Bi-pap Oxygen Flow Rate (L/min) 3 Fraction of Inspired Oxygen (FIO2) 40 04/05/23 17:00 Temperature Temperature Source Pulse Rate 140 H Respiratory Rate 24 H Respiratory Effort Respiratory Depth Respiratory Pattern Blood Pressure 115/88 H Blood Pressure Mean 97 Pulse Ox 697 Oxygen Delivery Method Bi-pap Oxygen Flow Rate (L/min) Fraction of Inspired Oxygen (FIO2) Positive well nourished, well developed and obese Constitutional Narrative: Patient is in obvious respiratory distress. She is slightly acid. She is only able to say 1 or 2 words for gasping for breath. General Appearance ED: well developed; Negative for NAD or pallor Nutritional Appearance: obese HEENT Reports dry mucous membranes HEENT Narrative: Head is atraumatic normocephalic. Ears normal. Nares patent. Posterior pharynx is no. There is no deviation with protrusion. Mouth ED: Yes dry mucous membranes Mouth: dry mucous membranes Eyes PERRL and EOMs intact bilaterally General Eye ED: Negative for pale conjunctiva or scleral icterus Neck no lymphadenopathy, supple, no meningeal signs and no JVD Neck Narrative: Trachea is midline. No in-store expiratory stridor. Resp No normal respiratory effort and No clear to auscultation bilaterally Effort and Inspection: Negative for pain with movement Auscultation: wheezes expiratory wheezes and throughout and diminished lung sounds diffuse Cardio S1 normal heart sound, S2 normal heart sound and no murmurs Rate: tachycardic Rhythm: abnormal rhythm irregularly irregular GI non-tender, non-distended and no masses Auscultation: hypoactive bowel sounds Palpation: soft Back/Spine no CVA tenderness and normal to inspection Extremity normal to inspection General Extremety ED: Negative for edema or tenderness General Extremity: Negative for edema Neuro oriented x3, CN's II-XII intact bilaterally and no sensory deficits noted [place] Coma Scale: document GCS findings Spontaneous Obeys Commands Oriented 15 Sensorium / Orientation: alert Psych mental status grossly normal Skin no wounds and skin turgor normal General Skin Exam: Negative for jaundice or pallor MDM MDM MDM Narrative Medical decision making narrative: Differential diagnosis would include PE, pneumonia, pneumothorax, congestive heart failure since she is in A-fib with RVR. Will obtain EKG, chest x-ray and appropriate blood work. Since patient is wheezing she received 125 mg Solu- Medrol and 3L butyryl treatments since there is no history of COPD. Since patient now has A-fib with RVR of 1 60-1 70 we will obtain troponin, BNP. If neither 1 of these labs help delineate cause of her symptoms will obtain CT a of the chest since she has prior history of DVT and PE. Since patient's pressure dropped after the second dose of metoprolol no further part metoprolol was given. This raises concern that this may be a PE or other causes. Because patient had a large pericardial effusion on CAT scan stat echo was obtained which reveals acute pericardial tamponade. Discussed case with Dr. Felix who recommended transfer to Center with cardiothoracic surgery since she in all likelihood will need a window. He will be willing to come and to do an emergent pericardiocentesis if unable to transfer. History & Record Review Additional record(s) reviewed:: Prior outpatient record, Prior ED visit and Prior labs Lab Data Attestation: I reviewed the patient's lab results. Lab results narrative: White count is slightly elevated. H&H is normal. Differential reveals mild shift. INR is elevated 7.6 which raises concern that the pericardial effusion may be blood. Labs: Laboratory Results - last 24 hr 04/05/23 04/05/23 13:20 13:30 WBC 11.8 H RBC 4.22 Hgb 12.8 Hct 40.0 MCV 94.8 MCH 30.3 MCHC 32.0 RDW Std Deviation 42.7 RDW Coeff of Sonya 12.4 Plt Count 397 MPV 9.7 Immature Gran % (Auto) 0.300 Neut % (Auto) 83.2 H Lymph % (Auto) 9.4 L [place] % (Auto) 6.5 Eos % (Auto) 0.3 Baso % (Auto) 0.3 Absolute Neuts (auto) 9.8 H Absolute Lymphs (auto) 1.10 Nucleated RBC % 0 PT 65.9 H INR 7.6 H* Sodium 134 L Potassium 4.4 Chloride 102 Carbon Dioxide 27.0 Anion Gap 5 BUN 23 H Creatinine 0.86 Est GFR (MDRD) Af Amer 82 Est GFR (MDRD) Non-Af 68 BUN/Creatinine Ratio 26.7 H Glucose 217 H Lactic Acid 2.7 H* Calcium 9.0 Total Bilirubin 0.40 AST 13 L ALT 15 Alkaline Phosphatase 77 Troponin I High Sens 24 B-Natriuretic Peptide 178.3 H Total Protein 7.1 Albumin 2.9 L Globulin 4.2 Albumin/Globulin Ratio 0.7 L ABG Data ABG results: ABG 04/05/23 13:46 Specimen Type ART Sample Site L Radial pH 7.43 Bicarbonate Actual 21.6 L Total CO2 23 Base Excess -3 L O2 Saturation 96 ABG pCO2 32.9 L ABG pO2 81 Anthony Test Positive O2 Delivery Device Cannula Liter Flow 3.0 Radiography Chest X-Ray - ED: 1 View and Read by ED Physician (Limited inspiratory volume. Possible cardiomegaly. There is no obvious effusion noted. There is no evidence of pneumothorax. Osseous structures are unremarkable. Exam is limited since portable and limited inspiratory volume. This is probably reviewed interpreted by me at 1357.) Diagnostic Testing: Clinical Impression(s) from Imaging Studies Chest X-Ray 04/05/23 13:15 IMPRESSION: Relatively stable chest with no acute superimposed finding. Electronically Signed: Ceferino León MD at 14:01 EDT , Chest CTA 04/05/23 15:11 IMPRESSION: 1. No evidence of pulmonary embolus or aortic dissection. No evidence of focal consolidation. 2. Prominent main pulmonary arteries concerning for underlying pulmonary hypertension, clinically correlate. 3. Large pericardial effusion. Electronically Signed: Hadley Orellana DO at 16:04 EDT , Rhythm Strip Rhythm Strip: A-fib Rate: 126 EKG Initial EKG: Attestation: I personally reviewed and interpreted this EKG as follows: Interpretation: Atrial Fibrillation (Rate is 161. QRS durations prolonged at 130 and there is evidence of right bundle branch block. QT duration is 288 ms. [place] to left.) Management Discussion w/another healthcare provider: Casing In Line Feeder (Dr. Felix to inform about patient with acute pericardial tamponade needing paracentesis. He recommended transfer to tertiary center.) and Pharmacist (Discussed [facility] for emergent pericardiocentesis) Treatment and Re-Evaluation :: I was informed at 1511 the patient still having trouble breathing. Heart rate is slowed down from 1 70-1 45 after dose of metoprolol IV push. Additional dose of metoprolol was ordered. Since patient chest x-ray is normal prior history of PE and DVT we will obtain a CTA to rule out pulmonary embolus. BiPAP was also ordered. CTA of the chest reveals a large pericardial effusion this is probably causing her tachycardia and tachypnea. Stat echo was obtained to evaluate for possible pericardial tamponade. Spoke with Dr. Vallejo cardiothoracic surgeon at [facility]. I was asked to speak with the cardiovascular intensive care attending and he will notify the registered safety engineer. Patient will be transported by helicopter since she is hypotensive tachycardic with respiratory failure due to acute cardiac tamponade with coagulopathy. Case was just simon with Dr. Reed inker machine/cardiovascular package line operator for [facility]. He has excepted patient. He requested the disc of the echo accompany patient. Comments:: Patient cannot be transported by helicopter because of weather conditions. Patient will be a ground clerical transport. Critical Care Time Critical Care Time: Yes Critical care time (excluding procedures): 75-104 minutes (77), Including time spent: (History, physical, documentation, interpretation laboratory results, Stanley evaluation), Discussing w/Patient &/or Family/Concrete Pump Operator Helper, Discussing w/Consultants, Arranging Admission or Transfer, Performing Direct Patient Care at Bedside and - Discharge Plan Triage Chief Complaint: Shortness of Breath ED Provider: Christian Muir Dx/Rx/DC Orders Clinical Impression: Hyperlipidemia, skilled nursing (current) use of anticoagulants, Acute respiratory failure with hypoxia, Atrial fibrillation with rapid ventricular response, Hypertension, Elevated INR, Pleural effusion, left, Pericardial effusion with cardiac tamponade, Acidosis, lactic Prescriptions: No Action folic acid 1 mg tablet 1 mg PO QDAY Orencia ClickJect 125 mg/mL auto-injector 125 mg SC QMONTH Patient Comments: PT STATES TAKES AROUND THE OF EVERY MONTH trazodone 100 mg tablet 100 mg PO QHS PRN PRN (Reason: Sleep) quetiapine 200 mg tablet 200 mg PO QHS sertraline 100 mg tablet 100 mg PO DAILY hydroxychloroquine 200 mg tablet 200 mg PO DAILY oxycodone 5 mg tablet 5 mg PO TID Patient Comments: take 1 tablet by mouth three times a day if needed for pain acetaminophen 650 mg tablet extended release 1,300 mg PO TID PRN (Reason: pain) RELEASE SLEEP 2 tab PO QHS Patient Comments: PT GETS OTC methotrexate sodium 2.5 mg tablet 15 mg PO TH cephalexin 500 mg capsule 500 mg PO Q6H 10 Days Qty: 40 0RF warfarin 4 mg tablet 4 mg PO DAILY Qty: 30 0RF Protocol: Dose Management Condition: Saturday Dose/Route: 4 mg Instruction: 1 x 4 mg tablet Condition: Saturday Dose/Route: 4 mg Instruction: 1 x 4 mg tablet Condition: Saturday Dose/Route: 6 mg Instruction: 1 x 6 mg tablet Condition: Saturday Dose/Route: 6 mg Instruction: 1 x 6 mg tablet Condition: Dose/Route: 6 mg Instruction: 1 x 6 mg tablet Condition: Saturday Dose/Route: 4 mg Instruction: 1 x 4 mg tablet Condition: Saturday Dose/Route: 4 mg Instruction: 1 x 4 mg tablet Protocol Text: Adjustment Start Date: 03/14/23 INR Value: 2.3 INR Date: 03/13/23 Recheck Date: 04/04/23 Rx Instructions: Hold if INR is more than 2.8. acetaminophen 500 mg Tablet 1,000 mg PO Q8 Qty: 0 0RF metoprolol succinate 50 mg tablet extended release 24 hr 50 mg PO DAILY Qty: 180 4RF amlodipine 10 mg tablet 10 mg PO DAILY Qty: 90 4RF pravastatin 20 mg tablet 20 mg PO QHS Qty: 90 3RF warfarin 6 mg tablet 6 mg PO .COMPLEX Qty: 1 0RF Protocol: Dose Management Condition: Saturday Dose/Route: 4 mg Instruction: 1 x 4 mg tablet Condition: Saturday Dose/Route: 4 mg Instruction: 1 x 4 mg tablet Condition: Saturday Dose/Route: 6 mg Instruction: 1 x 6 mg tablet Condition: Saturday Dose/Route: 6 mg Instruction: 1 x 6 mg tablet Condition: Dose/Route: 6 mg Instruction: 1 x 6 mg tablet Condition: Saturday Dose/Route: 4 mg Instruction: 1 x 4 mg tablet Condition: Saturday Dose/Route: 4 mg Instruction: 1 x 4 mg tablet Protocol Text: Adjustment Start Date: 03/14/23 INR Value: 2.3 INR Date: 03/13/23 Recheck Date: 04/04/23 Rx Instructions: 6 mg orally , ; Primary Care Provider: Low Baxter Referrals: Low Baxter MD [Primary Care Provider] -
[2023-04-05 13:57] LABS: ALB/GLOB Ratio 0.7 RATIO (0.9-2.4); AST(SGOT) 13 U/L (15-37); Alanine Aminotransfer ALT/SGPT 15 U/L (13-56); Albumin, Serum 2.9 g/dL (3.2-5.0); Alkaline Phosphatase 77 U/L (45-117); Anion Gap 5 (5-15); BUN 23 mg/dL (7-18); BUN/Creat Ratio 26.7 RATIO (10-20); Chloride 102 mmol/L (98-107); Creatinine, Serum 0.86 mg/dL (0.55-1.02); EST Glomerular Filtration Rate 68 mL/min (>60); Est Glom Filt Rate - Afr Amer 82 mL/min (>60); Globulin 4.2 g/dL (2.2-4.2); Glucose 217 mg/dL (74-106); Potassium 4.4 mmol/L (3.5-5.1); Protein, Total 7.1 g/dL (6.4-8.2); Sodium Level 134 mmol/L (136-145)
[2023-04-05 14:02] LABS: Lactic Acid 2.7 mmol/L (0.4-1.9)
[2023-04-05] MEDS: Metoprolol Tartrate 5 MG/5 ML Vial IV ×2 (14:35→15:20)
[2023-04-05 15:06] LABS: Troponin-I HS 24 pg/mL (3.0-54.0)
--- NOTE | 2023-04-05 15:11 | CT_ITS ---
STUDY: CTA CHEST REASON FOR EXAM: Female, 78 years old. Respiratory failure, PE RADIATION DOSAGE (If Supplied By Facility): CTDIvol = ( 15.43 ) mGy, DLP = ( 392.76 ) mGycm TECHNIQUE: The examination was performed with the intravenous administration of IV 100mL Isovue-370. Post-processing of the angiographic images was performed, with multiplanar reformation and 3D reconstruction. Individualized dose optimization techniques were used for this CT. COMPARISON: 01/18/2015 CT abdomen and pelvis. FINDINGS: Normal enhancement of the main pulmonary artery and right and left pulmonary arteries. Normal enhancement of the bilateral peripheral pulmonary arteries. There is no demonstrated pulmonary embolism. There is prominence of the main pulmonary arteries without peripheral pulmonary vascular congestion, suggesting pulmonary hypertension. Normal thoracic aorta and visualized great vessels. Stable left paraspinal soft tissue nodule measuring 1.5 cm at the level of the aortic arch/T5 on the left compared to the 2014 exam possibly representing small schwannoma. There is no demonstrated aortic dissection. There is a large pericardial effusion. Coronary calcifications are present. Normal mediastinum. Normal hilar regions. Normal visualized trachea and bronchi. The lungs are well expanded. Normal pulmonary parenchyma. Minimal left pleural effusion is present. Normal chest wall structures. Spinal stimulator is in place. There are degenerative changes of thoracic spine. Normal visualized upper abdomen. CT/CTA Chest W/WO Contrast IMPRESSION: 1. No evidence of pulmonary embolus or aortic dissection. No evidence of focal consolidation. 2. Prominent main pulmonary arteries concerning for underlying pulmonary hypertension, clinically correlate. 3. Large pericardial effusion. Electronically Signed: Hadley Orellana DO at 16:04 EDT ,
[2023-04-05 15:17] LABS: BNP,B-Type NATRIURETIC PEPTIDE 178.3 pg/mL (0-100)
[2023-04-05] MEDS: LORazepam 2 MG/ML Syringe 1 MG IV (15:25)
--- NOTE | 2023-04-05 16:14 | ECHOD_ITS ---
Reason For Study: DYSPNEA Procedure This was a 2D Doppler, Color Flow transthoracic echocardiogram. Technically difficult study due to unccoperative patient and breathing issues. Patient scanned in sitting position. Exam performed portable in ED. Left Ventricle Normal LV size. Moderate concentric left ventricular hypertrophy. Severe global left ventricular systolic dysfunction. The left ventricular ejection fraction is 35 %. Unable to assess diastolic function based on available data. Right Ventricle RV diastolic collapse consistent with tamponade physiology. Atria The left and right atria are normal. Mitral Valve Mild diffuse mitral valve thickening. Tricuspid Valve Normal tricuspid valve. Aortic Valve The aortic valve is not well visualized in the short axis view. Mild diffuse aortic valve thickening. Mild focal aortic valve calcification. Pulmonic Valve The pulmonic valve is not well visualized. Great Vessels Mildly dilated aortic root. Pericardium/Pleural Large pericardial effusion. The diastolic compression of the right atrium and right ventricle are suggestive of cardiac tamponade. MMode/2D Measurements & Calculations LVIDd: 3.8 cm IVSd: 1.6 cm LVIDs: 2.0 cm LVPWd: 1.2 cm FS: 46.5 % Doppler Measurements & Calculations Ao V2 max: 110.5 cm/sec LV V1 max: 94.7 cm/sec Ao max P.9 mmHg LV V1 max P.6 mmHg Ao V2 mean: 74.4 cm/sec LV V1 mean P.5 mmHg Ao mean P.5 mmHg LV V1 mean: 56.3 cm/sec Ao V2 VTI: 16.2 cm LV V1 VTI: 13.9 cm AV (velocity ratio): 0.86 ECHO/Echo Complete Interpretation Summary Moderate concentric left ventricular hypertrophy. Severe global left ventricular systolic dysfunction. The left ventricular ejection fraction is 35 %. Large pericardial effusion. RV diastolic collapse consistent with tamponade physiology Mildly dilated aortic root. Technically difficult study. Ordering Physician: Christian Muri Referring Physician: Low Baxter Performed By: Widder, Daysi, RCS
[2023-04-05 16:23] LABS: Prothrombin Time (Protime)PT. 65.9 SECONDS (11.7-14.9)
[2023-04-05 16:25] LABS: International Normalized Ratio 7.6
--- NOTE | 2023-04-05 16:57 | NURSING ---
[address] [place] [facility] [address] PEREZ FOR DR PIKE
--- NOTE | 2023-04-05 17:12 | ED.RN ---
REPORT CALLED TO [facility]. THEY WILL CALL BACK WITH ETA. DECLINED FLIGHT R/T WEATHER.
[2023-04-05] MEDS: HUMAN PROTHROMBIN COMPLX(PCC) 4,000 UNIT in Viaflex Bag 1 BAG 500 UNIT IV (17:28)
[2023-04-05 17:30] LABS: Reflex Lactate? Y
[2023-04-05] MEDS: LORazepam 2 MG/ML Syringe 0.5 MG IV (17:57)
== END 2023-04-05 18:41 | disposition short-term general hospital (02) ==
LOC: ED 13:46
PROVIDERS: Emergency Provider Emergency Medicine; PCP Family Medicine; Visit Provider Emergency Medicine
DX: J96.01 Acute respiratory failure with hypoxia (principal); M06.9 Rheumatoid arthritis, unspecified; I48.0 Paroxysmal atrial fibrillation; E87.20 Acidosis, unspecified; Z79.01 Long term (current) use of anticoagulants; I31.39 Other pericardial effusion (noninflammatory); E78.5 Hyperlipidemia, unspecified; R79.1 Abnormal coagulation profile; I10 Essential (primary) hypertension; J90 Pleural effusion, not elsewhere classified; Z79.899 Other long term (current) drug therapy; Z90.49 Acquired absence of other specified parts of digestive tract; Z96.653 Presence of artificial knee joint, bilateral; R06.02 Shortness of breath
CPT/HCPCS: 36600; 71045; 71275; 80053; 82803; 83605; 83880; 84484; 85025; 85610; 87040; 93005; 93306; 94002; 94640; 96365; 96367; 96375; 96376; 99285; J7168; Q9967; A4216; J3490

== ENCOUNTER → 2023-04-24 | Outpatient (CLI) | payer MEDICARE, OTHER, SELFPAY ==
[2023-04-24 17:36] LABS: Basophil# 0.04 X10^3/uL; Basophil% 0.5 % (0-1); Eosinophil# 0.19 X10^3/uL; Eosinophils% 2.6 % (0-5); Hematocrit 36.2 % (37-47); Hemoglobin 11.3 g/dL (12.0-15.0); Lymphocyte % 21.5 % (19-41); Mean Corp Hgb Conc 31.2 g/dL (32-36); Mean Corpuscular Hgb 29.7 pg (27.0-32.0); Mean Platelet Vol. 9.4 fl (6.2-12.0); Monocyte# 0.61 X10^3/uL; Monocyte% 8.2 % (0-10); NRBC Flagged by Analyzer 0 % (0-5); Neutrophil # 4.97 X10^3/uL (2.7-7.7); Neutrophil % 66.8 % (47-70); Platelet Count 351 K/mm3 (150-450); RBC Distribution Width CV 13.1 % (11.6-14.6); RBC Distribution Width SD 44.8 fl (35.1-43.9); Red Blood Count 3.81 M/mm3 (4.2-5.4); White Blood Count 7.4 K/mm3 (4.4-11.0)
[2023-04-24 18:01] LABS: Anion Gap 5 (5-15); BUN 9 mg/dL (7-18); BUN/Creat Ratio 15.8 RATIO (10-20); Calcium,Total 8.8 mg/dL (8.5-10.1); Chloride 105 mmol/L (98-107); Creatinine, Serum 0.57 mg/dL (0.55-1.02); EST Glomerular Filtration Rate 110 mL/min (>60); Est Glom Filt Rate - Afr Amer 133 mL/min (>60); Glucose 93 mg/dL (74-106); Potassium 3.9 mmol/L (3.5-5.1); Sodium Level 140 mmol/L (136-145)
== END | disposition home or self-care (01) ==
LOC: MFPLAB 16:07
PROVIDERS: PCP Family Medicine; Visit Provider Family Medicine
DX: D64.9 Anemia, unspecified (principal); I48.91 Unspecified atrial fibrillation
CPT/HCPCS: 36415; 80048; 85025

== ENCOUNTER → 2023-05-20 | Outpatient (CLI) | payer MEDICARE, OTHER, SELFPAY ==
[2023-05-20 17:05] LABS: Anion Gap 6 (5-15); BUN 12 mg/dL (7-18); BUN/Creat Ratio 20.2 RATIO (10-20); Calcium,Total 8.8 mg/dL (8.5-10.1); Chloride 105 mmol/L (98-107); Creatinine, Serum 0.59 mg/dL (0.55-1.02); EST Glomerular Filtration Rate 104 mL/min (>60); Est Glom Filt Rate - Afr Amer 126 mL/min (>60); Glucose 91 mg/dL (74-106); Potassium 4.2 mmol/L (3.5-5.1); Sodium Level 141 mmol/L (136-145)
== END | disposition home or self-care (01) ==
LOC: LAB 15:13
PROVIDERS: PCP Family Medicine; Referring Provider Nurse Practitioner Gerontology; Visit Provider Nurse Practitioner Gerontology
DX: R06.00 Dyspnea, unspecified (principal); Z98.890 Other specified postprocedural states
CPT/HCPCS: 36415; 80048; 83880

== ENCOUNTER → 2023-05-31 | Outpatient (CLI) | payer MEDICARE, OTHER, SELFPAY ==
[2023-05-31 18:06] LABS: Anion Gap 8 (5-15); BUN 20 mg/dL (7-18); BUN/Creat Ratio 25.8 RATIO (10-20); Calcium,Total 8.9 mg/dL (8.5-10.1); Chloride 100 mmol/L (98-107); Creatinine, Serum 0.77 mg/dL (0.55-1.02); EST Glomerular Filtration Rate 77 mL/min (>60); Est Glom Filt Rate - Afr Amer 93 mL/min (>60); Glucose 112 mg/dL (74-106); Potassium 3.9 mmol/L (3.5-5.1); Sodium Level 140 mmol/L (136-145)
== END | disposition home or self-care (01) ==
LOC: MTLAB 14:37
PROVIDERS: PCP Family Medicine; Referring Provider Nurse Practitioner Gerontology; Visit Provider Nurse Practitioner Gerontology
DX: Z98.890 Other specified postprocedural states (principal)
CPT/HCPCS: 36415; 80048

== ENCOUNTER → 2023-06-05 | Outpatient (CLI) | payer MEDICARE, OTHER, SELFPAY ==
[2023-06-05 17:41] LABS: Absolute Lymphocyte Count 2.04 X10^3/uL (0.83-4.51); Basophil# 0.04 X10^3/uL; Basophil% 0.6 % (0-1); Eosinophil# 0.17 X10^3/uL; Eosinophils% 2.5 % (0-5); Hematocrit 35.8 % (37-47); Lymphocyte # 2.04 X10^3/ul (0.83-4.51); Lymphocyte % 29.8 % (19-41); Mean Corp Hgb Conc 30.7 g/dL (32-36); Mean Corpuscular Hgb 27.7 pg (27.0-32.0); Mean Corpuscular Volume 90.2 fL (81-99); Mean Platelet Vol. 10.5 fl (6.2-12.0); Monocyte# 0.58 X10^3/uL; Monocyte% 8.5 % (0-10); NRBC Flagged by Analyzer 0 % (0-5); Neutrophil # 4.01 X10^3/uL (2.7-7.7); Neutrophil % 58.5 % (47-70); Platelet Count 200 K/mm3 (150-450); RBC Distribution Width CV 13.7 % (11.6-14.6); RBC Distribution Width SD 44.5 fl (35.1-43.9); Red Blood Count 3.97 M/mm3 (4.2-5.4); White Blood Count 6.9 K/mm3 (4.4-11.0)
[2023-06-05 18:19] LABS: Cholesterol 130 mg/dL (200); High Density Lipoprotein 58 mg/dL; Triglycerides 119 mg/dL; Very Low Density Lipoprotein 24 mg/dL (5-40)
== END | disposition home or self-care (01) ==
LOC: MTLAB 15:57
PROVIDERS: PCP Family Medicine; Referring Provider Family Medicine; Visit Provider Family Medicine
DX: D64.9 Anemia, unspecified (principal); E78.2 Mixed hyperlipidemia
CPT/HCPCS: 36415; 80061; 85025

== ENCOUNTER → 2023-06-07 | Outpatient (CLI) | payer MEDICARE, OTHER, SELFPAY ==
--- NOTE | 2023-06-07 13:47 | ECHOL_ITS ---
Reason For Study: DYSPNEA, POST PROCEDURAL STATE Procedure This was a limited 2D transthoracic echocardiogram. Exam performed in department. Left Ventricle Normal LV size. Severe eccentric left ventricular hypertrophy. Left ventricular systolic function is normal. The estimated ejection fraction is 55 %. Right Ventricle Normal RV size. Normal systolic function. Atria The left atrium is moderately enlarged. Normal right atrium. Tricuspid Valve Normal tricuspid valve. Mild (1+) tricuspid valve insufficiency. Pulmonary artery systolic pressure is 40 mmHg. Aortic Valve Trisinus/trileaflet aortic valve. Mild focal aortic valve thickening. Pericardium/Pleural No pericardial effusion. MMode/2D Measurements & Calculations LVIDd: 5.0 cm IVSd: 1.9 cm Ao root diam: 3.4 cm LVIDs: 3.3 cm LVPWd: 1.2 cm RVDd: 3.0 cm FS: 35.0 % LAV(MOD-bp): 90.7 ml LVAd ap4: 24.7 cm2 LVAd ap2: 23.2 cm2 LAV(MOD-bp) Indexed: 49.3 ml/m2 LVLd ap4: 7.0 cm LVLd ap2: 5.9 cm LAV(MOD-sp2): 90.6 ml EDV(MOD-sp4): 76.2 ml EDV(MOD-sp2): 80.2 ml LAV(MOD-sp4): 86.1 ml EDV(sp4-el): 74.0 ml EDV(sp2-el): 77.8 ml LVAs ap4: 13.9 cm2 LVAs ap2: 12.8 cm2 LVLs ap4: 5.8 cm LVLs ap2: 4.8 cm ESV(MOD-sp4): 30.5 ml ESV(MOD-sp2): 29.9 ml ESV(sp4-el): 28.3 ml ESV(sp2-el): 29.0 ml EF(MOD-sp4): 60.0 % EF(MOD-sp2): 62.7 % EF(sp4-el): 61.8 % SV(MOD-sp4): 45.7 ml SV(MOD-sp2): 50.3 ml SV(sp4-el): 45.8 ml LA A4 area: 26.8 cm2 LA dimension(2D): 5.4 cm RA A4 area: 15.8 cm2 Doppler Measurements & Calculations TR max lily: 298.0 cm/sec TR max P.5 mmHg ECHO/Echo, Limited Study Interpretation Summary Normal LV size. Severe eccentric left ventricular hypertrophy. Left ventricular systolic function is normal. Pulmonary artery systolic pressure is 40 mmHg. No pericardial effusion. Ordering Physician: Narcisa Bazan Referring Physician: Low Baxter Performed By: Brooke Cary, GAR[place], RVT
== END | disposition home or self-care (01) ==
LOC: CVS 13:44
PROVIDERS: PCP Family Medicine; Referring Provider Nurse Practitioner Gerontology; Visit Provider Nurse Practitioner Gerontology
DX: R06.00 Dyspnea, unspecified (principal); Z98.890 Other specified postprocedural states
CPT/HCPCS: 93308

== ENCOUNTER → 2023-07-02 | Outpatient (CLI) | payer MEDICARE, OTHER, SELFPAY ==
--- NOTE | 2023-07-02 14:45 | PFTCOMP ---
COMPLETE PULMONARY FUNCTION TEST INTERPRETATION Brief HPI: Patient is a 78-year-old female, currently under the care of myself, who presents to [facility] for complete pulmonary function tests secondary to diagnosis of pericardial effusion. Respiratory therapist reports good effort and reproducible results. Interpretation: Forced expiration spirometry shows a moderately severe large airways obstructive ventilatory defect with an FEV1 of 51% predicted. There is no significant bronchodilator response by strict ATS criteria. Spirograms are of good quality and plateau slowly, indicating slowly emptying areas of the lungs. The respiratory flow volume loop shows decreased expiratory flow rates at all lung volumes consistent with airway obstruction. Lung volumes by body plethysmography show a decreased total lung capacity at 3.14 L, 68% predicted. All other lung volumes are reduced symmetrically. Diffusion capacity by carbon monoxide is decreased at 39% predicted. The airway resistance is elevated. No previous pulmonary function tests were available for review. Impression: Irreversible moderately severe mixed ventilatory defect with a disproportionate reduction in diffusion capacity
== END | disposition home or self-care (01) ==
LOC: PSN 12:51
PROVIDERS: PCP Family Medicine; Referring Provider Internal Medicine Critical Care Medicine; Visit Provider Internal Medicine Critical Care Medicine
DX: I31.39 Other pericardial effusion (noninflammatory) (principal); M06.9 Rheumatoid arthritis, unspecified; I31.4 Cardiac tamponade
CPT/HCPCS: 94060; 94726; 94729

== ENCOUNTER → 2023-07-11 | Outpatient (CLI) | payer MEDICARE, OTHER, SELFPAY ==
[2023-07-11 13:27] VITALS: PULSE 74; PULSE 75; PULSE 77; PULSE 90; PULSE 93; PULSE 94; PULSE 96; PULSE 97; O2SAT 91; O2SAT 92; O2SAT 93
--- NOTE | 2023-07-12 08:47 | PCM.PSN.6M ---
PSN 6 Minute Walk Test 6 Minute Walk Test 6 Minute Walk Test: 6 Minute Walk Test PSN:6-Minute Walk Test Start: 07/11/23 13:26 Freq: Status: Active Protocol: RESP.6MINW Document 07/11/23 13:27 SFENTON (Rec: 07/11/23 13:28 SFENTON Desktop) 6 Minute Walk Test Date Performed 07/11/23 Time Performed 12:30 Height 5 ft 3 in Weight: 181 lb Weight in Pounds 181.[address]: Brandan Smith Assistive device used: Walker Pre-test Oxygen Delivery Method Room Air Pulse Ox 92 Pulse Rate (60-100) 75 Dyspnea Reji Scale (0-10) 0 Exertion Reji Scale (6-20) 6 1st minute Oxygen Delivery Method Room Air Pulse Ox 92 Pulse Rate (60-100) 77 2nd minute Oxygen Delivery Method Room Air Pulse Ox 92 Pulse Rate (60-100) 93 3rd minute Oxygen Delivery Method Room Air Pulse Ox 91 Pulse Rate (60-100) 90 4th minute Oxygen Delivery Method Room Air Pulse Ox 92 Pulse Rate (60-100) 94 5th minute Oxygen Delivery Method Room Air Pulse Ox 93 Pulse Rate (60-100) 97 6th minute Oxygen Delivery Method Room Air Pulse Ox 93 Pulse Rate (60-100) 96 Dyspnea Reji Scale (0-10) 3 Exertion Reji Scale (6-20) 13 Post-test Oxygen Delivery Method Room Air Pulse Ox 93 Pulse Rate (60-100) 74 Full Laps Walked 8 Partial Lap, Number of Tiles Walked 12 Total Distance Walked (ft) 484 Interpretation Interpretation: The patient ambulated 484 feet over the course of 6 minutes beginning on room air with use of a walker. Pretesting oxygen saturation was noted to be 92% on room air. With ambulation, the eyad oxygen saturation was 91%. There was no significant exertional oxygen desaturation. Recommendations Recommendations: There is no indication for the use of supplemental oxygen at this time.
== END | disposition home or self-care (01) ==
LOC: PSN 12:32
PROVIDERS: PCP Family Medicine; Referring Provider Internal Medicine Critical Care Medicine; Visit Provider Internal Medicine Critical Care Medicine
DX: I31.39 Other pericardial effusion (noninflammatory) (principal); M06.9 Rheumatoid arthritis, unspecified; I31.4 Cardiac tamponade
CPT/HCPCS: 94618

== ENCOUNTER → 2023-12-09 | Outpatient (CLI) | payer MEDICARE, OTHER, SELFPAY ==
[2023-12-09 17:24] LABS: Absolute Lymphocyte Count 1.85 X10^3/uL (0.83-4.51); Absolute Neutrophil Count 6.2 X10^3/uL (2.0-7.7); Basophil# 0.04 X10^3/uL; Basophil% 0.4 % (0-1); Eosinophil# 0.14 X10^3/uL; Eosinophils% 1.5 % (0-5); Hematocrit 38.5 % (37-47); Hemoglobin 12.6 g/dL (12.0-15.0); Lymphocyte # 1.85 X10^3/ul (0.83-4.51); Lymphocyte % 19.7 % (19-41); Mean Corp Hgb Conc 32.7 g/dL (32-36); Mean Corpuscular Hgb 30.2 pg (27.0-32.0); Mean Corpuscular Volume 92.3 fL (81-99); Mean Platelet Vol. 10.4 fl (6.2-12.0); Monocyte# 1.06 X10^3/uL; Monocyte% 11.3 % (0-10); NRBC Flagged by Analyzer 0 % (0-5); Neutrophil # 6.24 X10^3/uL (2.7-7.7); Neutrophil % 66.7 % (47-70); Platelet Count 152 K/mm3 (150-450); RBC Distribution Width CV 14.5 % (11.6-14.6); RBC Distribution Width SD 48.4 fl (35.1-43.9); Red Blood Count 4.17 M/mm3 (4.2-5.4); White Blood Count 9.4 K/mm3 (4.4-11.0)
[2023-12-09 17:57] LABS: AST(SGOT) 28 U/L (15-37); Alanine Aminotransfer ALT/SGPT 23 U/L (13-56); Albumin, Serum 2.8 g/dL (3.2-5.0); Alkaline Phosphatase 68 U/L (45-117); Anion Gap 5 (5-15); BUN 22 mg/dL (7-18); BUN/Creat Ratio 22.3 RATIO (10-20); Bilirubin, Direct 0.11 mg/dL (0.00-0.30); Calcium,Total 8.1 mg/dL (8.5-10.1); Chloride 100 mmol/L (98-107); Cholesterol 119 mg/dL (200); Creatinine, Serum 0.99 mg/dL (0.55-1.02); EST Glomerular Filtration Rate 58 mL/min (>60); Est Glom Filt Rate - Afr Amer 70 mL/min (>60); Globulin 3.3 g/dL (2.2-4.2); Glucose 129 mg/dL (74-106); High Density Lipoprotein 51 mg/dL; Potassium 4.1 mmol/L (3.5-5.1); Protein, Total 6.1 g/dL (6.4-8.2); Sodium Level 136 mmol/L (136-145); Triglycerides 100 mg/dL; Very Low Density Lipoprotein 20 mg/dL (5-40)
== END | disposition home or self-care (01) ==
PROVIDERS: PCP Family Medicine; Referring Provider Internal Medicine Rheumatology; Visit Provider Internal Medicine Rheumatology
DX: D64.9 Anemia, unspecified (principal); I10 Essential (primary) hypertension; R74.8 Abnormal levels of other serum enzymes
CPT/HCPCS: 36415; 80048; 80061; 80076; 85025

== ENCOUNTER → 2024-03-23 | Outpatient (CLI) | payer MEDICARE, OTHER, SELFPAY ==
--- NOTE | 2024-03-23 15:08 | RAD_ITS ---
EXAM: XR CHEST, 2 VIEWS CLINICAL INDICATION: Amiodarone TECHNIQUE: Frontal and lateral views of the chest. COMPARISON: 04/05/2023 FINDINGS: LUNGS AND PLEURAL SPACES: Unremarkable. No consolidation or edema. No pneumothorax. No effusion. HEART: Unremarkable. Cardiac silhouette not enlarged. MEDIASTINUM: Central airways and mediastinal contour are unremarkable. BONES/JOINTS: Unremarkable. No acute fracture. SOFT TISSUES: Unremarkable. TUBES, LINES AND DEVICES: There are stimulator leads overlying the thoracic spine. UPPER ABDOMEN: There is elevation of the right hemidiaphragm. RAD/Chest PA and Lateral IMPRESSION: No acute findings in the chest. Electronically Signed: Uzair Sawant MD at 0:08 EDT ,
[2024-03-23 18:11] LABS: Thyroid Stim Hormone (TSH) 5.85 uIU/mL (0.358-3.74)
== END | disposition home or self-care (01) ==
PROVIDERS: PCP Family Medicine; Referring Provider Nurse Practitioner Gerontology; Visit Provider Nurse Practitioner Gerontology
DX: Z79.899 Other long term (current) drug therapy (principal)
CPT/HCPCS: 36415; 71046; 84443

== ENCOUNTER → 2024-06-01 | Outpatient (CLI) | payer MEDICARE, OTHER, SELFPAY ==
[2024-06-01 15:25] LABS: Absolute Lymphocyte Count 1.69 X10^3/uL (0.83-4.51); Basophil# 0.04 X10^3/uL; Basophil% 0.6 % (0-1); Eosinophil# 0.18 X10^3/uL; Eosinophils% 2.8 % (0-5); Hematocrit 42.5 % (37-47); Hemoglobin 13.8 g/dL (12.0-15.0); Lymphocyte # 1.69 X10^3/ul (0.83-4.51); Lymphocyte % 25.9 % (19-41); Mean Corp Hgb Conc 32.5 g/dL (32-36); Mean Corpuscular Hgb 30.4 pg (27.0-32.0); Mean Corpuscular Volume 93.6 fL (81-99); Mean Platelet Vol. 9.7 fl (6.2-12.0); Monocyte# 0.56 X10^3/uL; Monocyte% 8.6 % (0-10); NRBC Flagged by Analyzer 0 % (0-5); Neutrophil # 4.03 X10^3/uL (2.7-7.7); Neutrophil % 61.8 % (47-70); Platelet Count 189 K/mm3 (150-450); RBC Distribution Width CV 12.7 % (11.6-14.6); RBC Distribution Width SD 43.1 fl (35.1-43.9); Red Blood Count 4.54 M/mm3 (4.2-5.4); White Blood Count 6.5 K/mm3 (4.4-11.0)
[2024-06-01 16:07] LABS: Anion Gap 4 (5-15); BUN 14 mg/dL (7-18); BUN/Creat Ratio 17.5 RATIO (10-20); Calcium,Total 8.6 mg/dL (8.5-10.1); Chloride 107 mmol/L (98-107); Cholesterol 142 mg/dL (200); EST Glomerular Filtration Rate 74 mL/min (>60); Est Glom Filt Rate - Afr Amer 89 mL/min (>60); Glucose 99 mg/dL (74-106); High Density Lipoprotein 52 mg/dL; Potassium 4.7 mmol/L (3.5-5.1); Sodium Level 138 mmol/L (136-145); T4 Free Direct 0.85 ng/dL (0.76-1.46); Triglycerides 101 mg/dL; Very Low Density Lipoprotein 20 mg/dL (5-40)
== END | disposition home or self-care (01) ==
LOC: MFPLAB 13:54
PROVIDERS: PCP Family Medicine; Visit Provider Family Medicine
DX: D64.9 Anemia, unspecified (principal); E03.9 Hypothyroidism, unspecified; I10 Essential (primary) hypertension
CPT/HCPCS: 36415; 80048; 80061; 84439; 84443; 85025

== ENCOUNTER 2024-09-12 13:26 | Inpatient (IN) | payer MEDICARE, OTHER, SELFPAY ==
[2024-09-12] VITALS (14 sets, daily range): BP systolic 125–170; BP diastolic 48–100; PULSE 74–101; RESP 16–25; TEMP 36.2–36.7; O2SAT 85–96; BMI 34.5; BMI 35.5
--- NOTE | 2024-09-12 13:40 | EKG12_ITS ---
Test Reason : SOB Blood Pressure : */* mmHG Vent. Rate : 76 BPM Atrial Rate : 76 BPM P-R Int : 190 ms QRS Dur : 160 ms QT Int : 520 ms P-R-T Axes : 83 -54 97 degrees QTcB Int : 585 ms Normal sinus rhythm Right bundle branch block Left anterior fascicular block Bifascicular block Abnormal ECG Confirmed by HILARIO LOUIS, KEVIN ([id number]), newspaper editor managing ANA STEVENS ([id number]) on 09/14/2024 8:18:10 AM Referred By: Confirmed By: KEVIN RICH MD
--- NOTE | 2024-09-12 13:47 | EDS_ITS ---
<Statement entered by Karel Fuentes DO - 09/12/24 16:08> Patient was seen and examined with nurse michael Kelsey All components of the history and physical confirmed and agreed. History of present illness and physical exam: Patient is a 79-year-old female past medical history of fibrillation on Eliquis, hypertension, hyperlipidemia who presented to the emergency department with a chief complaint of cough and congestion that have been progressively worsening the last 4 to 5 days. States that her has been in the intensive care unit for pneumonia here at [facility]. States that she went to urgent care today as her family members convinced her to go and noted that her oxygen level was low and therefore they sent her here to the emergency department for further evaluation management. Patient states that she does feel short of breath and states that it is difficult for her to complete her daily activities secondary to her shortness of breath. Patient states that she has been compliant with her medications. Review of systems: Agree with above Physical exam: Agree with above MDM: Patient is a 79-year-old female who presented to the emergency department chief complaint of hypoxia from urgent care as well as cough and congestion. Patient will have a workup performed here on the differential diagnose includes but not limited to pneumonia, upper respiratory infection secondary viral etiology, CHF, ACS, pneumothorax. Once workup is obtained and reviewed she will be reevaluated. Patient was given DuoNebs here in the emergency department. She is requiring 3 L nasal cannula which she chronically is not on oxygen. Patient's CBC reviewed and showed no evidence leukocytosis white blood count was normal 4.9, hemoglobin 14.5, plate count was 145. Patient sodium was 134, potassium normal at 4, creatinine was normal at 0.71. Patient lactic acid normal at 1.7. Patient's chest x-ray reviewed by myself and by radiology showed no acute cardiopulmonary processes there was a stable prominence of the right hilum and elevated right hemidiaphragm. Patient's EKG reviewed and independently interpreted myself showed sinus rhythm with a rate of 76 bpm. Patient did test positive for influenza A. At this point time the patient will require admission for her acute hypoxic respiratory failure secondary to influenza. Patient case will be discussed with hospitalist. Patient's case discussed with hospitalist by nurse michael Kelsey who accept the patient for admission. Patient was notified as well as family members at bedside they are agreeable this plan all question concerns answered. Acute hypoxic respiratory failure Final impression: Acute hypoxic respiratory failure Influenza A Disposition: Patient will be admitted to the hospital further evaluation management Supervising attending attestation: Karel CHAVARRIA History of Present Illness Chief Complaint: Shortness of Breath Narrative Narrative: The patient is a 79-year-old female with history of atrial fibrillation, on Eliquis, hypertension hyperlipidemia who presents to the emergency department with 4 to 5 days of worsening cough, congestion. Patient states that her is in the ICU here for pneumonia. Patient went to urgent care today because she was also having some respiratory symptoms, her pulse oxygenation was low and they referred her to the emergency department. Patient and she is having difficulty catching her breath, cannot perform her daily activities secondary to shortness of breath. She denies any specific fever and chills. Here for evaluation [facility] Medical History Elevated troponin Chronic pain Atrial fibrillation Pulmonary embolism Non-smoker Right bundle branch block (RBBB) Contusion of left knee Contusion of right hand Contusion of right wrist Traumatic ecchymosis of face Trapezius muscle strain Long-term use of immunosuppressant medication History of pulmonary embolism (2014) Paroxysmal atrial fibrillation Cardiac murmur, unspecified Palpitations Rheumatoid arthritis Home Medications ?Medication ?Instructions ?Recorded ?Last Taken ?Type folic acid 1 mg tablet 1 mg PO QDAY Supplement 09/1302/15/23 History abatacept 125 mg/mL subcutaneous 125 mg subcut QMONTH RA 04/28/19 01/29/23 History auto-injector (Orencia ClickJect) quetiapine 200 mg tablet 200 mg PO QHS mood 01/31/22 02/14/23 History sertraline 100 mg tablet 100 mg PO DAILY mood 2 02/14/23 History hydroxychloroquine 200 mg tablet 200 mg PO DAILY 02/1502/15/23 History methotrexate sodium 2.5 mg tablet 15 mg PO TH ARTHRITI S 02/15/23 02/14/23 History oxycodone 5 mg tablet 5 mg PO TID 02/15/23 3 History acetaminophen 650 mg 650 mg PO Q8H PRN 05/08/23 U nknown History tablet,extended release multivitamin 1 tab PO DAILY 05/08/23 Unkn own History trazodone 50 mg tablet 50 mg PO QHS PRN 05/08/23 Un known History furosemide 40 mg tablet (Lasix) 40 mg PO Q OTHER DAY # 30 tabs 08/19/23 Unknown Rx pravastatin 20 mg tablet 20 mg PO QHS Cholesterol #90 tabs 10/21/23 Unknown Rx amiodarone 200 mg tablet 100 mg (1/2 x 200 mg) PO MONO LY #90 03/23/24 Unknown Rx tabs apixaban 5 mg tablet (Eliquis) 5 mg PO BID #180 tabs 1 09/28/23 Unknown Rx metoprolol tartrate 50 mg tablet 50 mg PO BID #180 tab s 08/07/24 Unknown Rx Allergy/AdvReac Type Severity Reaction Status Date / Time Penicillins Allergy Rash Verified 09/12/24 13:27 Family History Father Diabetes CAD (coronary artery disease) S/P CABG (coronary artery bypass graft) Mother , age 74, CVA CVA (cerebral vascular accident) Brother Lung cancer Other Family history of CVA Surgical History S/P pericardiocentesis (04/07/23) History of back surgery History of brain tumor removal History of appendectomy History of section History of open reduction and internal fixation (ORIF) procedure History of bilateral knee replacement Social History household members: spouse Smoking Status: Never smoker alcohol intake: never caffeine: Yes Type: carbonated beverages and tea ROS ROS ED ROS Narrative Constitutional: Negative for fever, weight loss. Positive for chills, weakness Eyes: Negative for vision loss, vision change, double vision ENT: Negative for any sore throat, ear pain, congestion Cardiovascular: Negative for any chest pain, tightness, palpitations Respiratory: Positive for any cough, sputum production, hemoptysis, dyspnea, dyspnea on exertion, orthopnea Gastrointestinal: Negative for any abdominal pain, nausea, vomiting, diarrhea, constipation, blood in stool, blood in vomit : Negative for any urinary frequency, dysuria, retention, blood in urine Muscle skeletal: Negative for any neck pain, back pain Neurological: Negative for any headache, syncope, dizziness Skin: Negative for any rashes, itching, abrasions, lacerations Psychiatric: Negative for any depression, anxiety, stress, suicidal ideation, homicidal ideation Hematologic: Negative for any excessive bruising, easy bleeding EXAM Physical Exam Narrative Exam Narrative: Vital signs reviewed. Patient on room air was in the mid to low 80s. Patient on 3 L of oxygen is 91 to 94%. Patient does have a harsh cough. HEET: Head normocephalic atraumatic, TMs clear bilaterally. Posterior pharynx is clear, dry mucous membranes. Nares clear bilaterally. Neck: Supple with no lymphadenopathy or tenderness. No signs of meningismus. Cardiac: Regular rate and rhythm no murmurs gallops or rubs, equal peripheral pulses bilaterally. Respiratory: Patient has expiratory wheezes throughout pulmonary exam however patient does have worsening lung sounds to the right mid and lower lobe.. No chest tenderness. Abdomen: Soft, nontender, nondistended. No abdominal bruit or pulsatile masses. No hepatosplenomegaly Extremities: No peripheral edema, no signs of gross trauma or deformity. Active full range of motion of all extremities. Neuro: Cranial nerves II through XII intact, no focal neurological deficits. Skin: Clean dry and intact with no rash, purpura, petechiae, vesicles or pustules. Backs/flank: No CVA tenderness, no midline spinal tenderness, no deformity. Psych: Normal mood and affect. No SI, HI or acute psychosis. Const Vital Signs: 09/12/24 13:27 09/12/24 13:27 09/12/24 13:51 Temperature 97.2 F L Temperature Source Temporal Pulse Rate 75 Respiratory Rate 25 H Respiratory Effort Respiratory Depth Respiratory Pattern Blood Pressure 170/100 H Blood Pressure Mean 123 Pulse Ox 85 93 93 Oxygen Delivery Method Room Air Nasal Cannula Nasal Cannula Oxygen Flow Rate (L/min) 3 3 09/12/24 13:51 09/12/24 13:53 09/12/24 14:14 Temperature 98 F Temperature Source Temporal Pulse Rate 74 77 Respiratory Rate 19 H 20 H Respiratory Effort Short of Breath Labored Respiratory Depth Normal Respiratory Pattern Normal Blood Pressure 138/78 H Blood Pressure Mean 98 Pulse Ox 93 Oxygen Delivery Method Nasal Cannula Oxygen Flow Rate (L/min) 3 09/12/24 14:29 Temperature 98 F Temperature Source Temporal Pulse Rate 77 Respiratory Rate 20 H Respiratory Effort Respiratory Depth Respiratory Pattern Blood Pressure 125/69 H Blood Pressure Mean 87 Pulse Ox 92 Oxygen Delivery Method Nasal Cannula Oxygen Flow Rate (L/min) 3 MDM [facility] Lab Data Labs: Laboratory Results - last 24 hr 09/12/24 14:19 WBC 4.9 RBC 4.63 Hgb 14.5 Hct 42.2 MCV 91.1 MCH 31.3 MCHC 34.4 RDW Std Deviation 41.6 RDW Coeff of Sonya 12.5 Plt Count 145 L MPV 9.3 Immature Gran % (Auto) 0.400 Neut % (Auto) 81.7 H Lymph % (Auto) 13.0 L Cuming % (Auto) 4.1 Eos % (Auto) 0.6 Baso % (Auto) 0.2 Absolute Neuts (auto) 4.0 Absolute Lymphs (auto) 0.64 L Nucleated RBC % 0 Sodium 134 L Potassium 4.0 Chloride 96 L Carbon Dioxide 31.0 Anion Gap 7 BUN 19 H Creatinine 0.71 Est GFR (MDRD) Af Amer 102 Est GFR (MDRD) Non-Af 85 BUN/Creatinine Ratio 26.7 H Glucose 130 H Lactic Acid 1.7 Calcium 9.0 Radiography Diagnostic Testing: Clinical Impression(s) from Imaging Studies Chest X-Ray 09/12/24 14:45 IMPRESSION: No acute radiographic process. Stable prominence of the right hilum and elevated right hemidiaphragm. Reading Location: [facility] EKG Normal sinus rhythm, right bundle branch: Attestation: I personally reviewed and interpreted this EKG as follows: Comments: EKG shows normal sinus rhythm, rate of 76 bpm, OK 190 ms, QRS d uration of 60 Treatment and Re-Evaluation :: Differential diagnosis includes however is not limited to: COPD exacerbation, CHF, community-acquired pneumonia, COVID-19, influenza, RSV, other respiratory virus Patient arrives in mild distress secondary to cough and shortness of breath. Patient was placed on oxygen on arrival. Patient presenting with cough and congestion for the last several days, patient's significant other is here in the hospital in ICU secondary to pneumonia. Patient needs to be placed on oxygen, patient responding well to 3 L nasal cannula oxygen, patient received some breathing treatments, IV steroids. Two-view chest x-ray will be ordered. Patient will receive basic laboratory values including CBC, BMP, lactic. All radiologic examinations were read, reviewed by the emergency department attending. From these reads, a plan of care will be put in place. Upon my initial evaluation, I do believe the patient may need to be admitted to the hospital. On 4 L at 91 to 94%. Patient's chest x-ray shows no acute radiographic process. Stable prominence of the right helium. Patient's laboratory values show a normal CBC, patient's chemistries were unremarkable. Glucose is 130. Patient's COVID-19 influenza RSV was positive for influenza A. This does contact the patient's symptoms. Secondary to the increased oxygen demand, the weakness, patient is to be admitted to hospital. Spoke with hospitalist. Stable for admission. Discharge Plan Triage Chief Complaint: Shortness of Breath ED Midlevel Provider: Low Kaur ED Provider: Karel Fuentes Dx/Rx/DC Orders Clinical Impression: Influenza A, Hypoxia Prescriptions: No Action folic acid 1 mg tablet 1 mg PO QDAY Orencia ClickJect 125 mg/mL auto-injector 125 mg SC QMONTH Patient Comments: PT STATES TAKES AROUND THE OF EVERY MONTH
[2024-09-12] MEDS: MethylPREDNISolone 125 MG/2 ML Vial 60 MG IV (14:01)
[2024-09-12] MEDS: Ipratropium/Albuterol Sulfate 3 ML AMPUL.NEB INHALATION ×2 (14:06→19:22)
[2024-09-12] MEDS: Albuterol 2.5 MG/3 ML VIAL.NEB. 5 MG INHALATION (14:06)
[2024-09-12 14:27] LABS: Absolute Lymphocyte Count 0.64 X10^3/uL (0.83-4.51); Basophil# 0.01 X10^3/uL; Basophil% 0.2 % (0-1); Eosinophil# 0.03 X10^3/uL; Eosinophils% 0.6 % (0-5); Hematocrit 42.2 % (37-47); Hemoglobin 14.5 g/dL (12.0-15.0); Lymphocyte # 0.64 X10^3/ul (0.83-4.51); Mean Corp Hgb Conc 34.4 g/dL (32-36); Mean Corpuscular Hgb 31.3 pg (27.0-32.0); Mean Corpuscular Volume 91.1 fL (81-99); Mean Platelet Vol. 9.3 fl (6.2-12.0); Monocyte% 4.1 % (0-10); NRBC Flagged by Analyzer 0 % (0-5); Neutrophil # 4.03 X10^3/uL (2.7-7.7); Neutrophil % 81.7 % (47-70); Platelet Count 145 K/mm3 (150-450); RBC Distribution Width CV 12.5 % (11.6-14.6); RBC Distribution Width SD 41.6 fl (35.1-43.9); Red Blood Count 4.63 M/mm3 (4.2-5.4); White Blood Count 4.9 K/mm3 (4.4-11.0)
[2024-09-12 14:39] LABS: Anion Gap 7 (5-15); BUN 19 mg/dL (7-18); BUN/Creat Ratio 26.7 RATIO (10-20); Chloride 96 mmol/L (98-107); Creatinine, Serum 0.71 mg/dL (0.55-1.02); EST Glomerular Filtration Rate 85 mL/min (>60); Est Glom Filt Rate - Afr Amer 102 mL/min (>60); Glucose 130 mg/dL (74-106); Sodium Level 134 mmol/L (136-145)
--- NOTE | 2024-09-12 14:45 | RAD_ITS ---
PROCEDURE: CHEST PA AND LATERAL REASON FOR EXAM: Cough TECHNIQUE: Single frontal image including the chest and abdomen. COMPARISON: Reviewed. FINDINGS: The cardiothymic contour is normal. Stable nonspecific prominence of the right hilum. Stable elevation of the right hemidiaphragm. Bowel gas pattern is normal. No evidence of bowel obstruction or free air. The bones are unremarkable. No radiopaque foreign body is identified. RAD/Chest PA and Lateral IMPRESSION: No acute radiographic process. Stable prominence of the right hilum and elevat ed right hemidiaphragm. Reading Location: [facility]
[2024-09-12 14:57] LABS: Lactic Acid 1.7 mmol/L (0.4-1.9)
--- NOTE | 2024-09-12 15:41 | PCM.HP.STD ---
HPI - General General Date of Admission: 09/12/24 Date of Service: 09/12/24 Chief Complaint: Shortness of breath with cough and congestion HPI Narrative MURIEL CHRISTINE, is a 79 F who presented to [facility] ED on 09/12/2024 with worsening shortness of breath with cough and congestion. Patient's is currently in the ICU here with influenza A infection and acute on chronic kidney disease. Patient started having URI symptoms 2 days ago and became more short of breath today so she came in for further evaluation. Found to be positive for influenza A in the ED. Was hypoxic on room air and requiring 3 L nasal cannula to maintain saturations greater than 90%. Does not wear home oxygen. Chest x-ray was unremarkable. Labs notable for mildly low sodium and chloride, otherwise unremarkable. Patient notes she has not been eating and drinking much over the past few days. Given these findings, hospitalist was contacted for admission. I saw the patient at bedside in the ED, granddaughters were present. Patient was sitting back comfortably in bed, conversing normally and in no acute distress. She is breathing comfortably on 3 L nasal cannula at rest. She had been given a breathing treatment on arrival here with moderate improvement in her breathing. She denies any fevers or chills. Denied any other pain or discomfort currently. Will be admitted for further management. [facility] Medical History Elevated troponin Chronic pain Atrial fibrillation Pulmonary embolism Non-smoker Right bundle branch block (RBBB) Contusion of left knee Contusion of right hand Contusion of right wrist Traumatic ecchymosis of face Trapezius muscle strain Long-term use of immunosuppressant medication History of pulmonary embolism (2014) Paroxysmal atrial fibrillation Cardiac murmur, unspecified Palpitations Rheumatoid arthritis Home Medications ?Medication ?Instructions ?Recorded ?Last Taken ?Type folic acid 1 mg tablet 1 mg PO QDAY Supplement 10/04/17 02/15/23 History abatacept 125 mg/mL subcutaneous 125 mg subcut QMONTH RA 04/28/19 01/29/23 History auto-injector (Orencia ClickJect) quetiapine 200 mg tablet 200 mg PO QHS mood 01/31/22 02/14/23 History sertraline 100 mg tablet 100 mg PO DAILY mood 02/05/22 02/14/23 History hydroxychloroquine 200 mg tablet 200 mg PO DAILY 02/15/23 02/15/23 History methotrexate sodium 2.5 mg tablet 15 mg PO TH ARTHRITIS 02/15/23 02/14/23 History oxycodone 5 mg tablet 5 mg PO TID 02/15/23 02/15/23 History acetaminophen 650 mg 650 mg PO Q8H PRN fever or pain 05/08/23 Unknown History tablet,extended release multivitamin 1 tab PO DAILY 05/08/23 Unknown History trazodone 50 mg tablet 50 mg PO QHS PRN sleep 05/08/23 Unknown History furosemide 40 mg tablet (Lasix) 40 mg PO Q OTHER DAY #30 tabs 08/19/23 Unknown Rx pravastatin 20 mg tablet 20 mg PO QHS Cholesterol #90 tabs 10/21/23 Unknown Rx amiodarone 200 mg tablet 100 mg (1/2 x 200 mg) PO DAILY #90 03/23/24 Unknown Rx tabs apixaban 5 mg tablet (Eliquis) 5 mg PO BID #180 tabs 07/28/24 Unknown Rx metoprolol tartrate 50 mg tablet 50 mg PO BID #180 tabs 08/07/24 Unknown Rx Allergy/AdvReac Type Severity Reaction Status Date / Time Penicillins Allergy Rash Verified 09/12/24 13:27 Family History Father Diabetes CAD (coronary artery disease) S/P CABG (coronary artery bypass graft) Mother , age 74, CVA CVA (cerebral vascular accident) Brother Lung cancer Other Family history of CVA Surgical History S/P pericardiocentesis (04/07/23) History of back surgery History of brain tumor removal History of appendectomy History of section History of open reduction and internal fixation (ORIF) procedure History of bilateral knee replacement Social History household members: spouse Smoking Status: Never smoker alcohol intake: never caffeine: Yes Type: carbonated beverages and tea ROS Constitutional Constitutional: Reports fatigue and malaise; Denies chills, fever(s) or weakness Eyes Eyes: Denies change in vision ENT HEENT: Reports nasal congestion, sinus pressure and sore throat Cardiovascular Cardiovascular: Denies chest pain Respiratory/Chest Respiratory/Chest: Reports cough, shortness of breath at rest, shortness of breath with exertion and wheezing; Denies productive cough Gastrointestinal Gastrointestinal: Denies abdominal pain, nausea or vomiting Genitourinary Genitourinary: Denies dysuria Musculoskeletal Musculoskeletal: Reports myalgias; Denies arthralgias Neurologic Neurologic: Denies dizziness or headache(s) Vital Signs Vital Signs Vital Signs: 09/12/24 13:27 09/12/24 13:27 09/12/24 13:51 Temperature 97.2 F L Temperature Source Temporal Pulse Rate 75 Respiratory Rate 25 H Respiratory Effort Respiratory Depth Respiratory Pattern Blood Pressure 170/100 H Blood Pressure Mean 123 Pulse Ox 85 93 93 Oxygen Delivery Method Room Air Nasal Cannula Nasal Cannula Oxygen Flow Rate (L/min) 3 3 09/12/24 13:51 09/12/24 13:53 09/12/24 14:14 Temperature 98 F Temperature Source Temporal Pulse Rate 74 77 Respiratory Rate 19 H 20 H Respiratory Effort Short of Breath Labored Respiratory Depth Normal Respiratory Pattern Normal Blood Pressure 138/78 H Blood Pressure Mean 98 Pulse Ox 93 Oxygen Delivery Method Nasal Cannula Oxygen Flow Rate (L/min) 3 09/12/24 14:29 Temperature 98 F Temperature Source Temporal Pulse Rate 77 Respiratory Rate 20 H Respiratory Effort Respiratory Depth Respiratory Pattern Blood Pressure 125/69 H Blood Pressure Mean 87 Pulse Ox 92 Oxygen Delivery Method Nasal Cannula Oxygen Flow Rate (L/min) 3 Physical Exam Const alert, oriented x3 and no apparent distress Constitutional Narrative: Pleasant elderly female, class I obesity, mildly fatigued appearing but otherwise laying back comfortably in bed, conversing normally, in no acute distress. General Appearance: cooperative and comfortable HEENT normocephalic, head/scalp atraumatic, hearing grossly normal bilaterally and nasal mucous membranes and turbinates normal Eyes PERRL, EOMs intact bilaterally and conjunctivae normal Neck full ROM Chest inspection of chest normal Resp normal respiratory effort and no use of accessory muscles Resp Narrative: Breathing comfortably on 3 L nasal cannula at rest. Mild wheezing noted in upper airways bilaterally but otherwise good air movement throughout, no crackles noted. Cardio regular rate, regular rhythm, no murmurs and peripheral pulses 2+ throughout GI normal to inspection, nondistended, normoactive bowel sounds, soft to palpation, non-tender and non-distended Back/Spine normal ROM Extremity normal to inspection, full ROM and no pedal edema Skin no rashes or lesions noted Neuro moves all extremities and no focal motor deficits Speech: speech normal Motor Exam: strength 5/5 throughout Psych mental status grossly normal Results Lab / Micro Data 09/12/24 14:19 09/12/24 14:19 Labs: Laboratory Results - last 24 hr 09/12/24 14:19: WBC 4.9, RBC 4.63, Hgb 14.5, Hct 42.2, MCV 91.1, MCH 31.3, MCHC 34.4, RDW Std Deviation 41.6, RDW Coeff of Sonya 12.5, Plt Count 145 L, MPV 9.3, Immature Gran % (Auto) 0.400, Neut % (Auto) 81.7 H, Lymph % (Auto) 13.0 L, [place] % (Auto) 4.1, Eos % (Auto) 0.6, Baso % (Auto) 0.2, Absolute Neuts (auto) 4.0, Absolute Lymphs (auto) 0.64 L, Nucleated RBC % 0, Sodium 134 L, Potassium 4.0, Chloride 96 L, Carbon Dioxide 31.0, Anion Gap 7, BUN 19 H, Creatinine 0.71, Est GFR (MDRD) Af Amer 102, Est GFR (MDRD) Non-Af 85, BUN/Creatinine Ratio 26.7 H, Glucose 130 H, Lactic Acid 1.7, Calcium 9.0 Micro: Microbiology 09/12/24 13:58 Mucosa - Nose SARS-CoV-2, Influenza & RSV (PCR) - Final Influenzae A Imaging Radiology Impression Chest X-Ray 09/12/24 14:45 IMPRESSION: No acute radiographic process. Stable prominence of the right hilum and elevated right hemidiaphragm. Reading Location: [facility] Assessment & Plan Assessment/Plan (1) Influenza A: (2) Hypoxia: PLAN: Plan Patient is a 79-year-old female who presented [facility] ED on 09/12/2024 with worsening shortness of breath with cough and congestion. 1. Influenza A infection with acute hypoxia ? Admit under inpatient status to PCU. Influenza A positive in the ED. Requiring 3 L nasal cannula to maintain good oxygen saturations, not on home O2. Mild to moderate wheezing noted in upper airways bilaterally, chest x-ray otherwise clear. Low concern for secondary bacterial infection. Will treat with scheduled DuoNebs, IV steroids and Tamiflu. Wean supplemental oxygen as able. Chronic medical conditions: ? Class I obesity: BMI 34 on admit. Complicates hospital course, care and prognosis. ? Paroxysmal A-fib on Eliquis: Follows with [facility]. In normal sinus rhythm on admit. Continue home amiodarone, Lopressor and Eliquis. ? Mood disorder with insomnia: Stable. Continue home sertraline, Seroquel at night and trazodone at night as needed. ? Rheumatoid arthritis: Stable. Continue home hydroxychloroquine. ? Chronic pain syndrome: Stable. Continue home oxycodone 3 times daily as needed. Checked OARRS and patient has been filling this regularly. ? Hyperlipidemia: Continue home statin. ? History of pericardial effusion with tamponade s/p pericardiocentesis: Took place in March 2023. No recurrence noted. DVT prophylaxis: Not indicated, on Eliquis CODE STATUS: DNR CCA, DNI Expected disposition: Home, 2 to 3 days Total clinical time spent by myself addressing the patient's medical issues, reviewing all the data, and collaborating with patient's care team: 55 minutes. Charges/Coding Visit Charges Inpatient E&M: 65986 Init Hosp L2
--- NOTE | 2024-09-12 16:00 | CASEMGMT ---
Care Management Face to Face with patient for initial transition planning/care coordination assessment in the ED.? This pattern chart writer introduced self and role at [facility]. Patient alert and oriented. Patient willing to participate in assessment and is able to answer all questions appropriately.? Care providers, pharmacy, and demographics verified. Admitting Diagnosis: Hypoxia and positive for flu Other diagnosis history: Including but not limited to: Chronic pain, A-fib, RA and Hx of pulmonary embolism PCP: Dr. Hicks Specialists: Seafood Harvester: Jessica Uriarte Preferred Pharmacy: [facility] Insurance: Medicare, Part A and B and [employer] Senior Supplement 1 Prescription Benefit:?Yes Living Will/HPOA: Yes although patient stated she can?t remember anymore who her POA is. Patient stated she has a copy at home. LNOK: Patient has 3 sons, Charles of [place], Marcos of [place] and Jorge of [place]. Patient stated her sons are able to help provide support if needed. Patient is also ; Jorge who is reportedly in the ICU due to pneumonia. Living Arrangements: Patient and patient?s live together in a 1 story home. Patient denied any environmental barriers.? Patient stated she has 2 steps that she has to go up/down upon entering or exiting the home however reported she is able to navigate the stairs without difficulty. Transportation: Patient?s and patient?s granddaughters provide transportation as needed. DME: Rollator and shower chair. Patient denied any needs for any additional DME at this time. HHC: Patient reported she had [facility] 3-4 years ago however wasn?t able to remember who it was through. Patient denied any current need for HHC at this time. SNF/Rehab: No previous SNF/Rehab. admissions. Community Resources: None at this time and none needed. Behavioral Health History: Denied. Patient goals: Patient wishes to discharge home, and denies need for home health care at this time. Patient states he has no further needs or concerns at this time. Disposition Plan: admission to acute; RN CM/SW to follow for discharge planning needs that may arise. Roya Chung, PROGRAM PROJECT MANAGER, GEOSCIENCES ASSOCIATE PROFESSOR
[2024-09-12] MEDS: Oseltamivir Phosphate 75 MG Capsule PO (16:01)
[2024-09-12] MEDS: QUEtiapine 100 MG Tablet 200 MG PO (21:31)
[2024-09-12] MEDS: Metoprolol Tartrate 50 MG Tablet PO (21:31)
[2024-09-12] MEDS: APIXABAN 5 MG TABLET PO (21:31)
[2024-09-12] MEDS: Pravastatin 20 MG Tablet PO (21:31)
[2024-09-12] MEDS: 0.9% Saline Lock 10 ML Syringe IV (21:31)
[2024-09-12] MEDS: MELATONIN 3 MG TABLET PO (21:36)
[2024-09-12] MEDS: traZODone 50 MG Tablet PO (21:36)
[2024-09-13] VITALS (11 sets, daily range): BP systolic 137–158; BP diastolic 61–72; PULSE 63–84; RESP 16–20; TEMP 36.4–36.8; O2SAT 91–96
[2024-09-13] MEDS: 0.9% Saline Lock 10 ML Syringe IV ×2 (05:49→21:12)
[2024-09-13 06:35] LABS: Hematocrit 38.7 % (37-47); Mean Corp Hgb Conc 33.6 g/dL (32-36); Mean Corpuscular Hgb 30.3 pg (27.0-32.0); Mean Corpuscular Volume 90.2 fL (81-99); Mean Platelet Vol. 10.1 fl (6.2-12.0); Platelet Count 172 K/mm3 (150-450); RBC Distribution Width CV 12.3 % (11.6-14.6); RBC Distribution Width SD 40.5 fl (35.1-43.9); Red Blood Count 4.29 M/mm3 (4.2-5.4); White Blood Count 3.3 K/mm3 (4.4-11.0)
[2024-09-13] MEDS: Ipratropium/Albuterol Sulfate 3 ML AMPUL.NEB INHALATION ×2 (07:07→19:41)
[2024-09-13 07:11] LABS: Anion Gap 6 (5-15); BUN 9 mg/dL (7-18); BUN/Creat Ratio 23.6 RATIO (10-20); Calcium,Total 8.5 mg/dL (8.5-10.1); Chloride 99 mmol/L (98-107); Creatinine, Serum 0.38 mg/dL (0.55-1.02); EST Glomerular Filtration Rate 173 mL/min (>60); Est Glom Filt Rate - Afr Amer 210 mL/min (>60); Estimated Creatinine Clearance 58.38 ml/min; Glucose 191 mg/dL (74-106); Potassium 3.8 mmol/L (3.5-5.1); Sodium Level 135 mmol/L (136-145)
[2024-09-13] MEDS: Furosemide 40 MG Tablet PO (08:32)
[2024-09-13] MEDS: Amiodarone 200 MG Tablet 100 MG PO (08:32)
[2024-09-13] MEDS: Metoprolol Tartrate 50 MG Tablet PO ×2 (08:33→21:12)
[2024-09-13] MEDS: Multivitamins,Therapeutic Tablet 1 TABLET PO (08:33)
[2024-09-13] MEDS: APIXABAN 5 MG TABLET PO ×2 (08:33→21:12)
[2024-09-13] MEDS: Oseltamivir Phosphate 30 MG Capsule PO ×2 (08:33→21:13)
[2024-09-13] MEDS: Folic Acid 1 MG Tablet PO (08:33)
[2024-09-13] MEDS: Hydroxychloroquine 200 MG Tablet PO (08:34)
[2024-09-13] MEDS: Sertraline 100 MG Tablet PO (08:34)
[2024-09-13] MEDS: Acetaminophen 325 MG Tablet 650 MG PO (14:05)
--- NOTE | 2024-09-13 17:43 | PCM.PN.HOSP ---
Reason for Visit Reason for Visit: Shortness of breath with cough and congestion Subjective Subjective Patient states she feels about the same as she did on presentation. Her presented here as well and was in the intensive care unit diagnosed with influenza. We discussed the overall plan of care and patient voiced understanding. Patient was in a hurry to get better and asking how long it would take for her to feel better. We did discuss that with her comorbidities it is going to take time. Objective Data Objective Data Vital Signs: Vital Signs Temp Pulse Resp BP Pulse Ox O2 Del Method O2 Flow Rate 97.6 F L 63 18 137/72 H 92 Nasal Cannula 4 09/13/24 14:00 09/13/24 16:00 09/13/24 14:00 09/13/24 14:00 09/13/24 14:00 09/13/24 14:00 09/13/24 14:00 Oxygen Flow Rate (L/min) 4 Oxygen Delivery Method Nasal Cannula Weight: 85.3 kg Body Mass Index (BMI) 35.5 Intake & Output: Intake and Output for Last 24 Hours 09/11/24 09/12/24 09/13/24 23:59 23:59 23:59 Intake Total 100 / 220 540 / 540 Output Total 0 / 500 650 / 650 Balance 100 / -280 -110 / -110 Lab / Micro Data 09/13/24 05:20 09/13/24 05:20 Labs: Laboratory Results - last 24 hr 09/13/24 05:20: WBC 3.3 L, RBC 4.29, Hgb 13.0, Hct 38.7, MCV 90.2, MCH 30.3, MCHC 33.6, RDW Std Deviation 40.5, RDW Coeff of Sonya 12.3, Plt Count 172, MPV 10.1, Sodium 135 L, Potassium 3.8, Chloride 99, Carbon Dioxide 30.0, Anion Gap 6, BUN 9, Creatinine 0.38 L, Estim Creat Clear Calc 58.38, Est GFR (MDRD) Af Amer 210, Est GFR (MDRD) Non-Af 173, BUN/Creatinine Ratio 23.6 H, Glucose 191 H, Calcium 8.5 Micro: Microbiology 09/12/24 13:58 Mucosa - Nose SARS-CoV-2, Influenza & RSV (PCR) - Final Influenzae A Physical Exam Const alert, oriented x3 and no apparent distress; Negative for average body habitus, healthy appearing or well nourished Constitutional Narrative: Elderly, white female, sitting up in bed, appears ill but not toxic HEENT head/scalp atraumatic and moist oral mucous membranes HEENT Narrative: Mallampati 3, no thrush Head and Scalp: normocephalic Neck supple Neck Narrative: Mallampati 3, no thrush Resp no retractions and no use of accessory muscles Resp Narrative: Extremely coarse diffuse breath sounds with upper airway congestion noted as well, patient mildly tachypneic Auscultation: crackles; Negative for rhonchi or wheezes Cardio regular rate, regular rhythm, S1 normal heart sound, S2 normal heart sound, no murmurs, no rub, no gallops and no clicks GI normal to inspection, nondistended, normoactive bowel sounds, soft to palpation and non-tender Extremity no clubbing, cyanosis or edema Extremity Narrative: Pedal and radial pulses are 2+ Neuro oriented x3, moves all extremities and no focal motor deficits Neuro Narrative: Patient looks very weak and debilitated at this time Speech: speech normal Psych Psych Narrative: Affect is flat appropriate for current situation, appreciative of care and pleasant, interacts appropriately Assessment & Plan Assessment/Plan (1) Hypoxia: (2) Influenza A: PLAN: Plan Acute hypoxia secondary to influenza A infection -Patient is immunocompromised at baseline with a history of RA and on immunomodulation -Patient is not oxygen dependent at baseline -Currently requiring 4 L nasal cannula -Wean oxygen as able -Will need ambulatory pulse ox prior to discharge -Patient is a lifelong non-smoker however she had significant secondhand smoke exposure in her youth -Continue home Lasix but increase dose to 40 daily -Will give 1 dose of IV Lasix today -Continue Tamiflu as ordered -Continue scheduled and as needed aerosols -Continue I-S and Acapella -Continue Solu-Medrol 40 every 8 -Monitor closely for signs that she may developing a superinfection with a bacterial pneumonia -As needed antitussives Generalized weakness and debility -Secondary to acute infection on chronic debility due to comorbidities -PT/OT consultation -Case management/social work consultation as I am concerned she may need placement or at the very least home health care at the time of discharge -Both she and her are admitted and ill with influenza A Severe malnutrition -Dietitian is following -Supplements added Paroxysmal atrial fibrillation -Continue home amiodarone -Continue home beta-leonid -Continue home Eliquis RA -Continue home hydroxychloroquine -Takes methotrexate on -Patient is immunocompromised at baseline on biologic agent for RA Hyperlipidemia -Continue home statin Depression/anxiety -Continue home sertraline -Continue home Seroquel -Continue home trazodone History of PE -continue home Eliquis History of pericardial effusion with cardiac tamponade -Occurred in 2022 -Required pericardiocentesis -Stable DVT prophylaxis -continue home Eliquis CODE STATUS -DNR CCA with no intubation as verified on admission Charges/Coding Visit Charges Inpatient E&M: 64546 Subs Hosp L2
[2024-09-13] MEDS: Furosemide 40 MG/4 ML Vial IV (18:40)
[2024-09-13] MEDS: Pravastatin 20 MG Tablet PO (21:12)
[2024-09-13] MEDS: QUEtiapine 100 MG Tablet 200 MG PO (21:12)
[2024-09-13] MEDS: MELATONIN 3 MG TABLET PO (21:13)
[2024-09-13] MEDS: traZODone 50 MG Tablet PO (21:13)
[2024-09-14] VITALS (12 sets, daily range): BP systolic 125–149; BP diastolic 54–81; PULSE 67–94; RESP 16–18; TEMP 36.3–37.3; O2SAT 84–96
[2024-09-14] MEDS: 0.9% Saline Lock 10 ML Syringe IV ×2 (05:14→20:54)
[2024-09-14] MEDS: Ipratropium/Albuterol Sulfate 3 ML AMPUL.NEB INHALATION ×3 (06:54→20:20)
[2024-09-14 08:00] LABS: Absolute Lymphocyte Count 0.75 X10^3/uL (0.83-4.51); Absolute Neutrophil Count 8.1 X10^3/uL (2.0-7.7); Basophil# 0.01 X10^3/uL; Basophil% 0.1 % (0-1); Hematocrit 42.8 % (37-47); Hemoglobin 14.6 g/dL (12.0-15.0); Lymphocyte # 0.75 X10^3/ul (0.83-4.51); Mean Corp Hgb Conc 34.1 g/dL (32-36); Mean Corpuscular Volume 90.9 fL (81-99); Mean Platelet Vol. 9.9 fl (6.2-12.0); Monocyte# 0.45 X10^3/uL; Monocyte% 4.8 % (0-10); NRBC Flagged by Analyzer 0 % (0-5); Neutrophil # 8.13 X10^3/uL (2.7-7.7); Neutrophil % 86.6 % (47-70); Platelet Count 253 K/mm3 (150-450); RBC Distribution Width CV 12.4 % (11.6-14.6); RBC Distribution Width SD 41.6 fl (35.1-43.9); Red Blood Count 4.71 M/mm3 (4.2-5.4); White Blood Count 9.4 K/mm3 (4.4-11.0)
[2024-09-14] MEDS: APIXABAN 5 MG TABLET PO ×2 (08:39→20:51)
[2024-09-14] MEDS: Multivitamins,Therapeutic Tablet 1 TABLET PO (08:39)
[2024-09-14] MEDS: Oseltamivir Phosphate 30 MG Capsule PO ×2 (08:40→20:53)
[2024-09-14] MEDS: Sertraline 100 MG Tablet PO (08:40)
[2024-09-14] MEDS: Amiodarone 200 MG Tablet 100 MG PO (08:40)
[2024-09-14] MEDS: Folic Acid 1 MG Tablet PO (08:40)
[2024-09-14] MEDS: Hydroxychloroquine 200 MG Tablet PO (08:40)
[2024-09-14] MEDS: Metoprolol Tartrate 50 MG Tablet PO ×2 (08:40→20:52)
[2024-09-14] MEDS: Furosemide 40 MG Tablet PO (08:41)
[2024-09-14 08:51] LABS: ALB/GLOB Ratio 0.8 RATIO (0.9-2.4); AST(SGOT) 37 U/L (15-37); Alanine Aminotransfer ALT/SGPT 33 U/L (13-56); Albumin, Serum 2.8 g/dL (3.2-5.0); Alkaline Phosphatase 65 U/L (45-117); Anion Gap 7 (5-15); BUN 8 mg/dL (7-18); BUN/Creat Ratio 14.4 RATIO (10-20); Calcium,Total 8.5 mg/dL (8.5-10.1); Chloride 97 mmol/L (98-107); Creatinine, Serum 0.55 mg/dL (0.55-1.02); EST Glomerular Filtration Rate 113 mL/min (>60); Est Glom Filt Rate - Afr Amer 137 mL/min (>60); Estimated Creatinine Clearance 58.38 ml/min; Globulin 3.7 g/dL (2.2-4.2); Glucose 156 mg/dL (74-106); Potassium 3.5 mmol/L (3.5-5.1); Protein, Total 6.5 g/dL (6.4-8.2); Sodium Level 137 mmol/L (136-145)
--- NOTE | 2024-09-14 10:16 | PN.HOSP_ITS ---
Reason for Visit Reason for Visit: Diagnoses Influenza due to other identified influenza virus with other respiratory manifestations (09/12/24) Hypoxemia (09/12/24) Subjective Subjective Patient is a 79-year-old lady who presented to the emergency department with shortness of breath and progressive generalized weakness. Patient was diagnosed with acute hypoxia secondary to acute influenza A infection admitted to monitored bed for further management Objective Data Objective Data Vital Signs: Vital Signs Temp Pulse Resp BP Pulse Ox O2 Del Method O2 Flow Rate 97.4 F L 71 18 149/71 H 93 Nasal Cannula 4 09/14/24 08:35 09/14/24 08:40 09/14/24 08:35 09/14/24 08:40 09/14/24 08:35 09/14/24 10:00 09/14/24 10:00 Oxygen Flow Rate (L/min) 4 Oxygen Delivery Method Nasal Cannula Weight: 85.3 kg Body Mass Index (BMI) 35.5 Intake & Output: Intake and Output for Last 24 Hours 09/12/24 09/13/24 09/14/24 23:59 23:59 23:59 Intake Total 100 / 220 780 / 840 60 / 60 Output Total 0 / 500 1200 / 2300 1100 / 1100 Balance 100 / -280 -420 / -1460 -1040 / -1040 Lab / Micro Data 09/14/24 06:47 09/14/24 06:47 Labs: Laboratory Results - last 24 hr 09/14/24 06:47: WBC 9.4, RBC 4.71, Hgb 14.6, Hct 42.8, MCV 90.9, MCH 31.0, MCHC 34.1, RDW Std Deviation 41.6, RDW Coeff of Sonya 12.4, Plt Count 253, MPV 9.9, Immature Gran % (Auto) 0.500, Neut % (Auto) 86.6 H, Lymph % (Auto) 8.0 L, [place] % (Auto) 4.8, Eos % (Auto) 0.0, Baso % (Auto) 0.1, Absolute Neuts (auto) 8.1 H, A bsolute Lymphs (auto) 0.75 L, Nucleated RBC % 0, Sodium 137, Potassium 3.5, C hloride 97 L, Carbon Dioxide 33.0 H, Anion Gap 7, BUN 8, Creatinine 0.55, Estim Creat Clear Calc 58.38, Est GFR (MDRD) Af Amer 137, Est GFR (MDRD) Non-Af 113, BUN/Creatinine Ratio 14.4, Glucose 156 H, Calcium 8.5, Total Bilirubin 0.50, AST 37, ALT 33, Alkaline Phosphatase 65, Total Protein 6.5, Albumin 2.8 L, Globulin 3.7, Albumin/Globulin Ratio 0.8 L Micro: Microbiology 09/12/24 13:58 Mucosa - Nose SARS-CoV-2, Influenza & RSV (PCR) - Final Influenzae A Physical Exam Narrative GENERAL: cooperative HEENT: Atraumatic; normocephalic EYES; Anicteric, Normal Conjunctiva NECK; supple, normal thyroid, RESPIRATORY: Diminished to auscultation CARDIOVASCULAR: Regular S1 S2, GI: soft, normoactive bowel sounds, : No Renal angle tenderness; EXTREMITIES: No edema, no clubbing, MUSCULOSKELETAL: no muscle wasting NEURO: Awake; no lateralizing signs. SKIN: No Rash PSYCH; Flat affect Assessment & Plan Assessment/Plan (1) Hypoxia: (2) Influenza A: PLAN: Plan Patient is a 79-year-old lady who presented to the emergency department with shortness of breath and progressive generalized weakness. Patient was diagnosed with acute hypoxia secondary to acute influenza A infection admitted to monitored bed for further management 1. Acute hypoxia Secondary to acute influenza A infection. Admitted to monitored bed treated with Tamiflu supplemental oxygen as well as Solu-Medrol 2. Paroxysmal A-fib ? Rate controlled on amiodarone as well as beta-leonid patient is also on systemic anticoagulation with apixaban 3. Rheumatoid arthritis ? Patient is on hydroxychloroquine and methotrexate did continue home regimen 4. Dyslipidemia ? Patient is on statin therapy did continue 5. Depression with anxiety ? Patient is on sertraline 6. Previous history of pulmonary embolism ? On systemic anticoagulation with apixaban 7. History of pericardial effusion with cardiac tamponade -Occurred in 2022; -Required pericardiocentesis; -Stable 8. DVT prophylaxis -continue home Eliquis Time spent in the patient's overall evaluation,decision-making process, review of diagnostic data, adjustment of management, discussion with other providers, nursing nursing and ancillary staff involved in patient's care documentation, 40 Minutes Charges/Coding Visit Charges Inpatient E&M: 55114 Subs Hosp L2
--- NOTE | 2024-09-14 14:34 | CHAPLAIN ---
Type of Pastoral Visit _x__ Initial Visit ___ Follow-up Visit ___ On-call Visit ___ General Patient Visit ___ Spiritual Assessment ___ Family Conference ___ Bereavement ___ Rapid Response ___ Code Blue ___ Other (describe below) Pastoral Care Referral From _x__ Patient ___ Family ___ Nurse ___ Physician ___ Operations Consultant ___ Master Sonar Technician ___ Other (describe below) Sacrament/Intervention _x__ Active listening ___ Anointing ___ Worship ___ Bereavement ___ Communion ___ Kassie exploration ___ ___ Life review _x__ Prayer ___ Reconciliation ___ Sacrament of Sick _x__ Supportive presence ___ Wedding ___ Other (describe below) Pastoral Comments patient and her spouse are both admitted to the hospital; pt wants prayer for their healing and recovery; pt goal is to get out of the hospital;
[2024-09-14] MEDS: QUEtiapine 100 MG Tablet 200 MG PO (20:52)
[2024-09-14] MEDS: Pravastatin 20 MG Tablet PO (20:52)
[2024-09-14] MEDS: oxyCODONE 5 MG Tablet PO (21:05)
[2024-09-14] MEDS: Acetaminophen 325 MG Tablet 650 MG PO (21:06)
[2024-09-15 05:00] VITALS: BP 141/96; PULSE 76; RESP 17; TEMP 36.4; O2SAT 93
[2024-09-15] MEDS: 0.9% Saline Lock 10 ML Syringe IV (05:06)
[2024-09-15 06:36] VITALS: PULSE 88; RESP 20; O2SAT 92
[2024-09-15] MEDS: Ipratropium/Albuterol Sulfate 3 ML AMPUL.NEB INHALATION (06:36)
--- NOTE | 2024-09-15 07:37 | PCM.PN.HOSP ---
Reason for Visit Reason for Visit: Diagnoses Influenza due to other identified influenza virus with other respiratory manifestations (09/12/24) Hypoxemia (09/12/24) Subjective Subjective Patient seen, agrees uneventful night. Diagnostic data reviewed significant for potassium of 3.5 phosphorus of 2.0 replacement initiated Objective Data Objective Data Vital Signs: Vital Signs Temp Pulse Resp BP Pulse Ox O2 Del Method O2 Flow Rate 97.6 F L 76 17 141/96 H 93 Nasal Cannula 4.5 09/15/24 05:00 09/15/24 05:00 09/15/24 05:00 09/15/24 05:00 09/15/24 05:00 09/15/24 05:03 09/15/24 05:03 Oxygen Flow Rate (L/min) 4.5 Oxygen Delivery Method Nasal Cannula Weight: 85.3 kg Body Mass Index (BMI) 35.5 Intake & Output: Intake and Output for Last 24 Hours 09/13/24 09/14/24 09/15/24 23:59 23:59 23:59 Intake Total 780 / 840 540 / 540 Output Total 1200 / 2300 1350 / 1350 Balance -420 / -1460 -810 / -810 Lab / Micro Data 09/15/24 07:33 09/15/24 07:33 Labs: Laboratory Results - last 24 hr 09/14/24 06:47: WBC 9.4, RBC 4.71, Hgb 14.6, Hct 42.8, MCV 90.9, MCH 31.0, MCHC 34.1, RDW Std Deviation 41.6, RDW Coeff of Sonya 12.4, Plt Count 253, MPV 9.9, Immature Gran % (Auto) 0.500, Neut % (Auto) 86.6 H, Lymph % (Auto) 8.0 L, [place] % (Auto) 4.8, Eos % (Auto) 0.0, Baso % (Auto) 0.1, Absolute Neuts (auto) 8.1 H, Absolute Lymphs (auto) 0.75 L, Nucleated RBC % 0, Sodium 137, Potassium 3.5, Chloride 97 L, Carbon Dioxide 33.0 H, Anion Gap 7, BUN 8, Creatinine 0.55, Estim Creat Clear Calc 58.38, Est GFR (MDRD) Af Amer 137, Est GFR (MDRD) Non-Af 113, BUN/Creatinine Ratio 14.4, Glucose 156 H, Calcium 8.5, Total Bilirubin 0.50, AST 37, ALT 33, Alkaline Phosphatase 65, Total Protein 6.5, Albumin 2.8 L, Globulin 3.7, Albumin/Globulin Ratio 0.8 L Micro: Microbiology 09/12/24 13:58 Mucosa - Nose SARS-CoV-2, Influenza & RSV (PCR) - Final Influenzae A Physical Exam Narrative GENERAL: cooperative HEENT: Atraumatic; normocephalic EYES; Anicteric, Normal Conjunctiva NECK; supple, normal thyroid, RESPIRATORY: Diminished to auscultation CARDIOVASCULAR: Regular S1 S2, GI: soft, normoactive bowel sounds, : No Renal angle tenderness; EXTREMITIES: No edema, no clubbing, MUSCULOSKELETAL: no muscle wasting NEURO: Awake; no lateralizing signs. SKIN: No Rash PSYCH; Flat affect Assessment & Plan Assessment/Plan (1) Hypoxia: (2) Influenza A: PLAN: Plan Patient is a 79-year-old lady who presented to the emergency department with shortness of breath and progressive generalized weakness. Patient was diagnosed with acute hypoxia secondary to acute influenza A infection admitted to monitored bed for further management 1. Acute hypoxia Secondary to acute influenza A infection. Admitted to monitored bed treated with Tamiflu supplemental oxygen as well as Solu-Medrol 09/15/2024; clinical improvement in patient's condition patient will be assessed for discharge with home O2 assessment 2. Paroxysmal A-fib ? Rate controlled on amiodarone as well as beta-leonid patient is also on systemic anticoagulation with apixaban 3. Rheumatoid arthritis ? Patient is on hydroxychloroquine and methotrexate did continue home regimen 4. Dyslipidemia ? Patient is on statin therapy did continue 5. Depression with anxiety ? Patient is on sertraline 6. Previous history of pulmonary embolism ? On systemic anticoagulation with apixaban 7. History of pericardial effusion with cardiac tamponade -Occurred in 2022; -Required pericardiocentesis; -Stable 8. DVT prophylaxis -continue home Eliquis 9. 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 10. Acute Hypophosphatemia ? Corrected for protocol 11. Hypokalemia -Corrected per protocol Time spent in the patient's overall evaluation,decision-making process, review of diagnostic data, adjustment of management, discussion with other providers, nursing nursing and ancillary staff involved in patient's care documentation, 40 Minutes Charges/Coding Visit Charges Inpatient E&M: 72505 Subs Hosp L2
[2024-09-15 07:59] LABS: Absolute Lymphocyte Count 0.75 X10^3/uL (0.83-4.51); Absolute Neutrophil Count 10.2 X10^3/uL (2.0-7.7); Basophil# 0.01 X10^3/uL; Basophil% 0.1 % (0-1); Hematocrit 43.1 % (37-47); Hemoglobin 14.5 g/dL (12.0-15.0); Lymphocyte # 0.75 X10^3/ul (0.83-4.51); Lymphocyte % 6.4 % (19-41); Mean Corp Hgb Conc 33.6 g/dL (32-36); Mean Corpuscular Hgb 30.7 pg (27.0-32.0); Mean Corpuscular Volume 91.1 fL (81-99); Mean Platelet Vol. 9.8 fl (6.2-12.0); Monocyte# 0.65 X10^3/uL; Monocyte% 5.6 % (0-10); NRBC Flagged by Analyzer 0 % (0-5); Platelet Count 256 K/mm3 (150-450); RBC Distribution Width CV 12.5 % (11.6-14.6); RBC Distribution Width SD 41.8 fl (35.1-43.9); Red Blood Count 4.73 M/mm3 (4.2-5.4); White Blood Count 11.7 K/mm3 (4.4-11.0)
[2024-09-15 08:06] VITALS: BP 146/74; PULSE 80; RESP 18; TEMP 36.7; O2SAT 94
[2024-09-15] MEDS: Multivitamins,Therapeutic Tablet 1 TABLET PO (08:16)
[2024-09-15] MEDS: Folic Acid 1 MG Tablet PO (08:17)
[2024-09-15 08:48] LABS: Anion Gap 7 (5-15); BUN 15 mg/dL (7-18); BUN/Creat Ratio 22.7 RATIO (10-20); Calcium,Total 8.6 mg/dL (8.5-10.1); Chloride 95 mmol/L (98-107); Creatinine, Serum 0.66 mg/dL (0.55-1.02); EST Glomerular Filtration Rate 92 mL/min (>60); Est Glom Filt Rate - Afr Amer 112 mL/min (>60); Estimated Creatinine Clearance 58.38 ml/min; Glucose 170 mg/dL (74-106); Magnesium 1.6 mg/dL (1.6-2.6); Potassium 3.5 mmol/L (3.5-5.1); Sodium Level 135 mmol/L (136-145)
[2024-09-15 09:49] VITALS: PULSE 80
[2024-09-15] MEDS: Amiodarone 200 MG Tablet 100 MG PO (09:49)
[2024-09-15] MEDS: APIXABAN 5 MG TABLET PO (09:49)
[2024-09-15] MEDS: Metoprolol Tartrate 50 MG Tablet PO (09:49)
[2024-09-15] MEDS: Furosemide 40 MG Tablet PO (09:49)
[2024-09-15] MEDS: Sertraline 100 MG Tablet PO (09:50)
[2024-09-15] MEDS: Hydroxychloroquine 200 MG Tablet PO (09:50)
[2024-09-15] MEDS: Oseltamivir Phosphate 30 MG Capsule PO (09:50)
[2024-09-15] MEDS: Potassium Chloride Oral Tablet 20 MEQ 40 MEQ PO (09:55)
[2024-09-15 11:08] VITALS: O2SAT 87; O2SAT 88; O2SAT 90; O2SAT 92
--- NOTE | 2024-09-15 11:11 | PCM.DC.SUM ---
Providers Date of Admission: 09/12/24 Date of Discharge: 09/15/24 Primary Care Physician: Dr. Low Baxter MD Reason For Visit: INFLUENZA A INFECTION W/HYPOXIA Diagnosis Discharge Diagnosis (1) Hypoxia: Status: Acute Code(s): R09.02 - Hypoxemia (2) Influenza A: Status: Acute Code(s): J10.1 - Influenza due to other identified influenza virus with other respiratory manifestations Plan Patient is a 79-year-old lady who presented to the emergency department with shortness of breath and progressive generalized weakness. Patient was diagnosed with acute hypoxia secondary to acute influenza A infection admitted to monitored bed for further management 1. Acute hypoxia Secondary to acute influenza A infection. Admitted to monitored bed treated with Tamiflu supplemental oxygen as well as Solu-Medrol 09/15/2024; clinical improvement in patient's condition patient will be assessed for discharge with home O2 assessment 2. Paroxysmal A-fib ? Rate controlled on amiodarone as well as beta-leonid patient is also on systemic anticoagulation with apixaban 3. Rheumatoid arthritis ? Patient is on hydroxychloroquine and methotrexate did continue home regimen 4. Dyslipidemia ? Patient is on statin therapy did continue 5. Depression with anxiety ? Patient is on sertraline 6. Previous history of pulmonary embolism ? On systemic anticoagulation with apixaban 7. History of pericardial effusion with cardiac tamponade -Occurred in 2022; -Required pericardiocentesis; -Stable 8. DVT prophylaxis -continue home Eliquis 9. 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 10. Acute Hypophosphatemia ? Corrected for protocol 11. Hypokalemia -Corrected per protocol Time spent in the patient's overall evaluation,decision-making process, review of diagnostic data, adjustment of management, discussion with other providers, nursing nursing and ancillary staff involved in patient's care documentation, 40 Minutes Medications at Discharge Home Medications folic acid 1 mg tablet 1 mg PO QDAY Supplement 10/04/17 abatacept 125 mg/mL subcutaneous auto-injector (Orencia ClickJect) 125 mg subcut QMONTH RA 04/28/19 quetiapine 200 mg tablet 200 mg PO QHS mood 01/31/22 sertraline 100 mg tablet 100 mg PO DAILY mood 02/05/22 hydroxychloroquine 200 mg tablet 200 mg PO DAILY 02/15/23 methotrexate sodium 2.5 mg tablet 15 mg PO TH ARTHRITIS 02/15/23 oxycodone 5 mg tablet 5 mg PO TID 02/15/23 acetaminophen 650 mg tablet,extended release 650 mg PO Q8H PRN fever or pain 05/08/23 multivitamin 1 tab PO DAILY 05/08/23 trazodone 50 mg tablet 50 mg PO QHS PRN sleep 05/08/23 furosemide 40 mg tablet (Lasix) 40 mg PO Q OTHER DAY #30 tabs 08/19/23 pravastatin 20 mg tablet 20 mg PO QHS Cholesterol #90 tabs 10/21/23 amiodarone 200 mg tablet 100 mg (1/2 x 200 mg) PO DAILY #90 tabs 03/23/24 apixaban 5 mg tablet (Eliquis) 5 mg PO BID #180 tabs 07/28/24 metoprolol tartrate 50 mg tablet 50 mg PO BID #180 tabs 08/07/24 guaifenesin 1,200 mg tablet, extended release 12 hr (Mucus Relief ER) 1,200 mg PO BID #20 tabs 09/15/24 prednisone 20 mg tablet 20 mg PO BID #14 tabs 09/15/24 Physical Exam Narrative GENERAL: cooperative HEENT: Atraumatic; normocephalic EYES; Anicteric, Normal Conjunctiva NECK; supple, normal thyroid, RESPIRATORY: Diminished to auscultation CARDIOVASCULAR: Regular S1 S2, GI: soft, normoactive bowel sounds, : No Renal angle tenderness; EXTREMITIES: No edema, no clubbing, MUSCULOSKELETAL: no muscle wasting NEURO: Awake; no lateralizing signs. SKIN: No Rash PSYCH; Flat affect Weight / BMI Weight Weight: 85.3 kg Body Mass Index (BMI) 35.5 ABG / Lab / Microbiology Data 09/15/24 07:33 09/15/24 07:33 Laboratory: Laboratory Results - last 24 hr 09/15/24 07:33: WBC 11.7 H, RBC 4.73, Hgb 14.5, Hct 43.1, MCV 91.1, MCH 30.7, MCHC 33.6, RDW Std Deviation 41.8, RDW Coeff of Sonya 12.5, Plt Count 256, MPV 9.8, Immature Gran % (Auto) 0.900, Neut % (Auto) 87.0 H, Lymph % (Auto) 6.4 L, Person % (Auto) 5.6, Eos % (Auto) 0.0, Baso % (Auto) 0.1, Absolute Neuts (auto) 10.2 H, Absolute Lymphs (auto) 0.75 L, Nucleated RBC % 0, Sodium 135 L, Potassium 3.5, Chloride 95 L, Carbon Dioxide 32.0, Anion Gap 7, BUN 15, Creatinine 0.66, Estim Creat Clear Calc 58.38, Est GFR (MDRD) Af Amer 112, Est GFR (MDRD) Non-Af 92, BUN/Creatinine Ratio 22.7 H, Glucose 170 H, Calcium 8.6, Phosphorus 2.0 L, Magnesium 1.6 Microbiology: Microbiology 09/12/24 13:58 Mucosa - Nose SARS-CoV-2, Influenza & RSV (PCR) - Final Influenzae A D/C Instructions Discharge Diet: No restrictions Discharge Activity: Return to Normal Activity Call your doctor if you observe: Fever of 101 or Higher, Shortness of breath, Fainting spells and Chest pain DC O2, CPAP, BIPAP Needs RN Home O2 Qualification: Home O2 Qualification: Is the patient on home oxygen No 09/15/24 11:08 Home O2 Qualification: AT REST 1- Pulse Ox at rest 88 09/15/24 11:08 2- Pulse Ox at rest 92 09/15/24 11:08 2- Oxygen Flow Rate at rest 2 09/15/24 11:08 Home O2 Qualification: WITH AMBULATION 1- Pulse Ox with ambulation 87 09/15/24 11:08 1- Oxygen Flow Rate with 2 09/15/24 11:08 ambulation 2- Pulse Ox with ambulation 90 09/15/24 11:08 2- Oxygen Flow Rate with 3 09/15/24 11:08 ambulation Home O2 Discharge instructions: Yes Type of respiratory needs?: Oxygen Oxygen frequency: Continuous Continuous oxygen liters per minute: 2L DC home with Oxygen: Yes Home O2 MD Review: I have reviewed the oxygen testing, and the patient qualifies for home oxygen equipment and portability. The patient is mobile in the home and the community. Meaningful Use Info Meaningful Use Meaningful Use Diagnoses (Choose all that apply): None applicable Ischemic Stroke Statin Dosing Therapy Reference: STATIN DOSE THERAPY REFERENCE: * Patients > 75 years receive moderate or high dose statin therapy. * Patients 75 years or YOUNGER should receive HIGH intensity statin dose unless contraindicated. You will be required to document reason for non-treatment if statin daily dose does not meet guidelines. HIGH DOSE STATIN THERAPY DAILY Atorvastatin > than or = to 40 mg Rosuvastatin > than or = to 20 mg Amlodipine + Atorvastatin > than or = to 2.5/40 mg Ezetimibe + Simvastatin 10/80 mg Simvastatin 80mg Discharge Plan Admission Admit Date/Time: 09/12/24 15:44 Attending Provider: Gordon Astorga Primary Care Provider: Low Baxter Consulting Providers: Pacheco Castellanos; Telma Flores Discharge Orders/Prescriptions Prescriptions: New prednisone 20 mg tablet 20 mg PO BID Qty: 14 0RF guaifenesin [Mucus Relief ER] 1,200 mg tablet extended release 12hr 1,200 mg PO BID Qty: 20 0RF Continued folic acid 1 mg tablet 1 mg PO QDAY Orencia ClickJect 125 mg/mL auto-injector 125 mg SC QMONTH Patient Comments: PT STATES TAKES AROUND THE OF EVERY MONTH multivitamin Tablet 1 tab PO DAILY trazodone 50 mg tablet 50 mg PO QHS PRN (Reason: sleep) acetaminophen 650 mg tablet extended release 650 mg PO Q8H PRN (Reason: fever or pain) furosemide [Lasix] 40 mg tablet 40 mg PO Q OTHER DAY Qty: 30 11RF amiodarone 200 mg tablet 100 mg PO DAILY Qty: 90 3RF quetiapine 200 mg tablet 200 mg PO QHS sertraline 100 mg tablet 100 mg PO DAILY hydroxychloroquine 200 mg tablet 200 mg PO DAILY oxycodone 5 mg tablet 5 mg PO TID Patient Comments: take 1 tablet by mouth three times a day if needed for pain methotrexate sodium 2.5 mg tablet 15 mg PO TH pravastatin 20 mg tablet 20 mg PO QHS Qty: 90 3RF Eliquis 5 mg tablet 5 mg PO BID Qty: 180 3RF metoprolol tartrate 50 mg tablet 50 mg PO BID Qty: 180 3RF Referrals / Follow Up: Low Baxter MD [Primary Care Provider] - Within 1 Week Disposition Disposition (needs filled in before D/C Order can be placed): Home, Self Care Charges/Coding Visit Charges Inpatient E&M: 00986 Disch Hosp >30min
--- NOTE | 2024-09-15 11:43 | CASEMGMT ---
Patient has order for discharge. Patient qualifies for home oxygen, script received. YONIS DOSHI in to discuss needs at discharge with patient. RN TICO updated patient regarding oxygen setup, prefers [employer]. Patient denies further needs or help at discharge, declined [facility]. is patient in room 103 and patient gave permission to discuss discharge with . YONIS DOSHI in to update of discharge. is agreeable to plan and denies needs at discharge. RN TICO updated regarding oxygen setup and agrees with [employer] for setup. had no further questions. RN TICO updated discharge plan.
[2024-09-15] MEDS: Na Biphos/Potassium Phosphate PACKET 1 PACKET PO (12:47)
--- NOTE | 2024-09-15 14:37 | PHA.DC.MR.R ---
Pharmacy [place] Med Reconciliation Pharmacy Service has performed discharge medication reconciliation for this patient. 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 Medications reviewed. The patient's discharge medication list was reviewed for discrepancies and discrepancies were resolved. Medications at Discharge Home Medications folic acid 1 mg tablet 1 mg PO QDAY Supplement 10/04/17 abatacept 125 mg/mL subcutaneous auto-injector (Orencia ClickJect) 125 mg subcut QMONTH RA 04/28/19 quetiapine 200 mg tablet 200 mg PO QHS mood 01/31/22 sertraline 100 mg tablet 100 mg PO DAILY mood 02/05/22 hydroxychloroquine 200 mg tablet 200 mg PO DAILY 02/15/23 methotrexate sodium 2.5 mg tablet 15 mg PO TH ARTHRITIS 02/15/23 oxycodone 5 mg tablet 5 mg PO TID 02/15/23 acetaminophen 650 mg tablet,extended release 650 mg PO Q8H PRN fever or pain 05/08/23 multivitamin 1 tab PO DAILY 05/08/23 trazodone 50 mg tablet 50 mg PO QHS PRN sleep 05/08/23 furosemide 40 mg tablet (Lasix) 40 mg PO Q OTHER DAY diuretic #30 tabs 08/19/23 pravastatin 20 mg tablet 20 mg PO QHS Cholesterol #90 tabs 10/21/23 amiodarone 200 mg tablet 100 mg (1/2 x 200 mg) PO DAILY heart rate #90 tabs 03/23/24 apixaban 5 mg tablet (Eliquis) 5 mg PO BID blood thinner #180 tabs 07/28/24 metoprolol tartrate 50 mg tablet 50 mg PO BID #180 tabs 08/07/24 guaifenesin 1,200 mg tablet, extended release 12 hr (Mucus Relief ER) 1,200 mg PO BID #20 tabs 09/15/24 prednisone 20 mg tablet 20 mg PO BID #14 tabs 09/15/24
== END 2024-09-15 13:51 | disposition home or self-care (01) | DRG 193 ==
LOC: ED 15:58 → PCU 16:45
PROVIDERS: Internal Medicine; Nurse Practitioner; Admitting Provider Hospitalist; Emergency Provider Emergency Medicine; PCP Family Medicine; Visit Provider Internal Medicine
DX: J10.1 Influenza due to other identified influenza virus with other respiratory manifestations (principal); E43 Unspecified severe protein-calorie malnutrition; D84.9 Immunodeficiency, unspecified; M06.9 Rheumatoid arthritis, unspecified; E66.811 Obesity, class 1; I48.0 Paroxysmal atrial fibrillation; E78.5 Hyperlipidemia, unspecified; F41.8 Other specified anxiety disorders; E87.6 Hypokalemia; E83.39 Other disorders of phosphorus metabolism; Z68.34 Body mass index [BMI] 34.0-34.9, adult; R53.81 Other malaise; G89.4 Chronic pain syndrome; Z79.01 Long term (current) use of anticoagulants; R09.02 Hypoxemia; Z90.49 Acquired absence of other specified parts of digestive tract; Z96.653 Presence of artificial knee joint, bilateral; Z79.899 Other long term (current) drug therapy; G47.00 Insomnia, unspecified; Z79.891 Long term (current) use of opiate analgesic
CPT/HCPCS: 36415; 71046; 80048; 80053; 83605; 83735; 84100; 85025; 85027; 87631; 93005; 94640; 94668; 97162; 99284; A4216; J1940

== ENCOUNTER → 2025-01-11 | Outpatient (CLI) | payer MEDICARE, OTHER, SELFPAY ==
--- NOTE | 2025-01-11 16:24 | RAD_ITS ---
PROCEDURE: L/S SPINE MIN 4 VIEWS 01/11/2025 REASON FOR EXAM: PAIN TECHNIQUE: Standing AP view(s) of the thoracic and lumbar spine. COMPARISON: None. FINDINGS: Mild osteopenia. Exaggerated lumbar lordosis. Grade 1 anterolisthesis of L4 on L5 measuring 4.7 mm. Prior decompression and fusion with unremarkable transpedicular screws at L4-L5. Spinal stimulator is noted in good position with the leads at T8/T9 level. No evidence of instability on flexion/extension images. There are diffuse spondylotic changes. Findings are demonstrated to by diffuse disc space narrowing, osteophyte formation and degenerative endplate sclerosis. There is diffuse facet joint arthropathy with secondary bilateral neural foramina narrowing. No fracture or dislocation is seen. No aggressive lytic or blastic bony lesion is noted. Moderate amount of fecal residue in the large bowels. RAD/L/S Spine Min 4 Views IMPRESSION: Spondylosis. No evidence of instability. Reading Location: [facility]
== END | disposition home or self-care (01) ==
LOC: MTRAD 16:23
PROVIDERS: PCP Family Medicine; Referring Provider Clinical Nurse Specialist Adult Health; Visit Provider Clinical Nurse Specialist Adult Health
DX: M51.369 Other intervertebral disc degeneration, lumbar region without mention of lumbar back pain or lower extremity pain (principal)
CPT/HCPCS: 72110

== ENCOUNTER → 2025-02-19 | Outpatient (CLI) | payer MEDICARE, OTHER, SELFPAY ==
--- NOTE | 2025-02-19 14:53 | ECHOD_ITS ---
Reason For Study : LVH Procedure This was a 2D Doppler, Color Flow transthoracic echocardiogram. Exam performed in department. Left Ventricle Normal LV size. Moderate concentric left ventricular hypertrophy. Left ventricular systolic function is normal. The left ventricular ejection fraction is 65 %. Stage 3 diastolic dysfunction. No regional wall motion abnormalities noted. Right Ventricle Normal RV size. Normal systolic function. Atria Normal left atrium. Normal right atrium. Mitral Valve There is moderate mitral annular calcification. Tricuspid Valve Normal tricuspid valve. Mild (1+) tricuspid valve insufficiency. Pulmonary artery systolic pressure is 44 mmHg. Aortic Valve Trisinus/trileaflet aortic valve. Pulmonic Valve Normal pulmonic valve. Great Vessels Normal aortic root. The pulmonary artery is normal size. Inferior vena cava collapse with respiration. Pericardium/Pleural No pericardial effusion. MMode/2D Measurements & Calculations LVIDd: 4.9 cm IVSd: 1.7 cm Ao root diam: 3.5 cm LVIDs: 3.0 cm LVPWd: 1.5 cm RVDd: 3.4 cm FS: 39.3 % LAV(MOD-bp): 63.9 ml LVAd ap4: 23.3 cm2 SV(MOD-sp4): 47.0 ml LAV(MOD-bp) Indexed: 34.6 ml/m2 LVLd ap4: 6.4 cm SI(MOD-sp4): 25.4 ml/m2 LAV(MOD-sp2): 64.0 ml EDV(MOD-sp4): 74.2 ml LAV(MOD-sp4): 62.6 ml EDV(sp4-el): 72.0 ml LVAs ap4: 13.4 cm2 LVLs ap4: 6.1 cm ESV(MOD-sp4): 27.1 ml ESV(sp4-el): 24.8 ml EF(MOD-sp4): 63.4 % EF(sp4-el): 65.5 % SV(sp4-el): 47.2 ml LA A4 area: 22.1 cm2 LA dimension(2D): 4.4 cm RA A4 area: 18.7 cm2 TAPSE: 2.0 cm Time Measurements MV dec time: 0.21 sec Doppler Measurements & Calculations MV E max scott: 116.5 cm/sec Lat Peak E' Scott: 8.9 cm/sec Med Peak E' Scott: 6.3 cm/sec MV A max scott: 60.5 cm/sec E/E' lat: 13.1 E/E' med: 18.5 MV E/A: 1.9 Ao V2 max: 177.3 cm/sec LV V1 max: 105.5 cm/sec PA V2 max: 93.2 cm/sec Ao max P.6 mmHg LV V1 max P.5 mmHg TR max scott: 315.5 cm/sec TR max P.8 mmHg ECHO/Echo Complete Interpretation Summary Normal LV size. Moderate concentric left ventricular hypertrophy. Left ventricular systolic function is normal. The left ventricular ejection fraction is 65 %. Stage 3 diastolic dysfunction. Pulmonary artery systolic pressure is 44 mmHg. Ordering Physician: Lorraine Crane Referring Physician: SHANTELL TIWARI Performed By: Verónica Chen RDCS
== END | disposition home or self-care (01) ==
LOC: CVS 14:47
PROVIDERS: PCP Family Medicine; Referring Provider Physician Assistant Medical; Visit Provider Physician Assistant Medical
DX: I51.7 Cardiomegaly (principal)
CPT/HCPCS: 93306